=== PATIENT | female | born 1950 | race Caucasian/White ===

== ENCOUNTER → 2018-04-27 | Outpatient (CLI) | payer MEDICARE ==
--- NOTE | 2018-04-28 13:28 | MM ---
Reason for exam: screening (asymptomatic). History: Patient history of other cancer. Benign cyst aspiration of both breasts, 1997. Physical Findings: A clinical breast exam by your physician is recommended on an annual basis and results should be correlated with mammographic findings. MG 3D Screening Mammo W/Cad Bilateral CC and MLO view(s) were taken. No prior studies available for comparison. Finding: There are round, grouped/clustered calcifications in the lower inner quadrant, middle position of the left breast 4cm from the nipple. ASSESSMENT: Incomplete: need additional imaging evaluation, BI-RAD 0 RECOMMENDATION: Special view mammogram of the left breast. [facility] will attempt to contact patient to return for supplemental views.
== END | disposition home or self-care (01) ==
LOC: RADMAMWWP 14:45
PROVIDERS: ATTEND Family Medicine
DX: Z12.31 Encounter for screening mammogram for malignant neoplasm of breast (principal)
CPT/HCPCS: 77063; 77067

== ENCOUNTER → 2018-05-02 | Outpatient (CLI) | payer MEDICARE ==
--- NOTE | 2018-05-02 10:41 | US ---
EXAMINATION TYPE: US abdomen complete DATE OF EXAM: 05/02/2018 COMPARISON: NONE CLINICAL HISTORY: R10.84 Generalized abdominal pain R74.8 Elevated lipase; mid abd pain x 5 years; ta celsa Palma EXAM MEASUREMENTS: Liver Length: 15.4 cm Gallbladder Wall: 0.2 cm CBD: 0.4 cm Spleen: 9.2 cm Right Kidney: 9.6 x 5.5 x 3.8 cm Left Kidney: 8.9 x 5.1 x 5.1 cm Pancreas: wnl as seen; mid and tail gassed out Liver: fatty as is hyperechoic to right renal cortex Gallbladder: wnl Evidence for sonographic Mcintyre's sign: no CBD: wnl Spleen: wnl Right Kidney: No hydronephrosis or masses seen ; crescent shaped anechoic area adjacent to right mid periphery Left Kidney: No hydronephrosis or masses seen Upper IVC: wnl Abd Aorta: intimal wall thickening seen mid and distal aorta There is no ascites. IMPRESSION: Findings may represent hepatic steatosis. There may be a small amount of perinephric flui d on the right.
--- NOTE | 2018-05-02 11:15 | ECHOF ---
Referral Reason:R01.1 stystolic murmur MEASUREMENTS -------- HEIGHT: 161.3 cm WEIGHT: 81.6 kg BP: 147/67 RVIDd: 3.0 cm (< 3.3) IVSd: 1.2 cm (0.6 - 1.1) LVIDd: 3.2 cm (3.9 - 5.3) LVPWd: 1.2 cm (0.6 - 1.1) IVSs: 1.7 cm LVIDs: 2.3 cm LVPWs: 1.7 cm LA Diam: 3.2 cm (2.7 - 3.8) LAESV Index (A-L): 30.52 ml/m Ao Diam: 3.4 cm (2.0 - 3.7) AV Cusp: 1.5 cm (1.5 - 2.6) MV EXCURSION: 8.677 mm (> 18.000) MV EF SLOPE: 39 mm/s (70 - 150) EPSS: 0.6 cm MV E Nathan: 0.78 m/s MV DecT: 303 ms MV A Nathan: 0.99 m/s MV E/A Ratio: 0.79 AV maxP.80 mmHg AV meanP.83 mmHg AR PHT: 622 ms RAP: 5.00 mmHg RVSP: 30.81 mmHg FINDINGS -------- Sinus rhythm. This was a technically adequate study. The left ventricular size is normal. There is borderline concentric left ventricular hypertrophy. Overall left ventricular systolic function is normal with, an EF between 55 - 60 %. The right ventricle is normal in size. LA is midly dilated 29-33ml/m2. The right atrium is normal in size. There is moderate aortic valve sclerosis. There is mild aortic regurgitation. There is moderate a ortic stenosis present. Peak/mean gradient across the Aortic Valve is 42.80mmHg / 20.83mmHg. The mitral valve leaflets are mildly thickened. Mild mitral annular calcification present. Mild m itral regurgitation is present. Mild tricuspid regurgitation present. Right ventricular systolic pressure is normal at < 35 mmHg. The pulmonic valve was not well visualized. The aortic root size is normal. Normal inferior vena cava with normal inspiratory collapse consistent with estimated right atrial pre ssure of 5 mmHg. There is no pericardial effusion. CONCLUSIONS -------- 1. Sinus rhythm. 2. This was a technically adequate study. 3. The left ventricular size is normal. 4. There is borderline concentric left ventricular hypertrophy. 5. Overall left ventricular systolic function is normal with, an EF between 55 - 60 %. 6. The right ventricle is normal in size. 7. LA is midly dilated 29-33ml/m2. 8. The right atrium is normal in size. 9. There is moderate aortic valve sclerosis. 10. There is mild aortic regurgitation. 11. There is moderate aortic stenosis present. 12. Peak/mean gradient across the Aortic Valve is 42.80mmHg / 20.83mmHg. 13. The mitral valve leaflets are mildly thickened. 14. Mild mitral annular calcification present. 15. Mild mitral regurgitation is present. 16. Mild tricuspid regurgitation present. 17. Right ventricular systolic pressure is normal at < 35 mmHg. 18. The pulmonic valve was not well visualized. 19. The aortic root size is normal. 20. Normal inferior vena cava with normal inspiratory collapse consistent with estimated right atrial pressure of 5 mmHg. 21. There is no pericardial effusion. CORPORATE PLANNER: Madeline Zazueta RDCS
== END | disposition home or self-care (01) ==
LOC: RADUSWWP 06:59
PROVIDERS: ATTEND Family Medicine
DX: R01.1 Cardiac murmur, unspecified (principal); I10 Essential (primary) hypertension
CPT/HCPCS: 76700; 93306

== ENCOUNTER → 2018-05-02 | Outpatient (CLI) | payer MEDICARE ==
--- NOTE | 2018-05-02 14:36 | MM ---
Reason for exam: additional evaluation requested from abnormal screening. Last mammogram was performed less than 1 month ago. History: Patient history of other cancer. Benign cyst aspiration of both breasts, 1997. Physical Findings: Nurse did not find any significant physical abnormalities on exam. MG 3D Work Up W/Cad LT CC and MLO view(s) were taken of the left breast. Prior study comparison: April 27, 2018, bilateral MG 3d screening mammo w/cad. Finding: There are indeterminate calcifications in the 3 o'clock position of the left breast. These results were verbally communicated with the patient and result sheet given to the patient on 05/02/18. ASSESSMENT: Suspicious, BI-RAD 4 RECOMMENDATION: Stereotactic core biopsy of the left breast. Called Dr. Melendrez with mammographic findings and has scheduled an appointment for the patient for 05/20/18 at 12:[address] Dunn. Biopsy scheduled for 06/03/18 at 8:00. PRELIMINARY REPORT CALLED AND FAXED TO DR. DUNN ON 05/02/18.
== END ==
LOC: RADMAMWWP 08:09
PROVIDERS: ATTEND Family Medicine
DX: R92.8 Other abnormal and inconclusive findings on diagnostic imaging of breast (principal)
CPT/HCPCS: 77065; G0279; 77061

== ENCOUNTER 2018-05-10 12:01 | Day surgery (SDC) | payer MEDICARE ==
[2018-05-05 11:47] VITALS: BMI 31.7
[~2018-05-10 12:01] MED LIST: LIDOCAINE 1% 20 ML VIAL (10MG/ML) FOR IV START INTRADERMA PRN
[2018-05-10 12:54] VITALS: TEMP 98.2
[2018-05-10] MEDS: LACTATED RINGERS 1,000 ML IV SCH ×2 (13:03→14:16)
[2018-05-10] MEDS ORDERED: LIDOCAINE 1% INJ 10MG/ML (20 ML MDV) ONE (14:18)
[2018-05-10] MEDS ORDERED: PROPOFOL 10 MG/ML 20 ML VIAL IV ONE (14:18)
[2018-05-10] MEDS ORDERED: IV FLUID CONTINUATION 450 ML IV ONE (14:43)
--- NOTE | 2018-05-10 14:49 | P.PCN ---
Date of Procedure: 05/10/18 Procedure(s) Performed: Procedure: Total colonoscopy. Preoperative diagnosis: Screening for neoplasia. Postoperative diagnosis: Sigmoid diverticulosis with no evidence of acute diverticulitis, strictures, polyps or cancer. Preparation: HalfLytely prep. Sedation: Was provided by anesthesia. Brief clinical history: The patient is a 67-year-old female who is scheduled for this evaluation for screening for neoplasia age being her risk factor. There is no family history of colon cancer. She had no prior colonoscopy. She has no abdominal complaints, bleeding or anemia. Procedure: With the patient on her left lateral decubitus position and after informed consent and adequate sedation, the perianal area was inspected and it did not show any fissures or fistulas. There were no masses felt on digital rectal examination. The Olympus CFQ 160L video colonoscope was then inserted in the rectum in the usual fashion and advanced to the cecum. There were multiple diverticular orifices seen scattered in the sigmoid but I saw no evidence of acute diverticulitis or strictures. No polyps or tumors were seen. The mucosa appeared healthy. I retroflexed the endoscope in the rectum before the endoscope was withdrawn. The patient tolerated the procedure well. Plan: The patient was reassured. Discussed dietary measures. She will follow- up with you as planned and I recommended repeat exam in 10 years.
[2018-05-10 14:56] VITALS: BP 150/74; PULSE 50; RESP 18
== END 2018-05-10 15:45 | disposition home or self-care (01) ==
LOC: ORWHC2ENDO 12:01
DX: Z12.11 Encounter for screening for malignant neoplasm of colon (principal); K57.30 Diverticulosis of large intestine without perforation or abscess without bleeding; M19.90 Unspecified osteoarthritis, unspecified site; I10 Essential (primary) hypertension; K21.9 Gastro-esophageal reflux disease without esophagitis; E78.5 Hyperlipidemia, unspecified; Z88.1 Allergy status to other antibiotic agents; Z91.041 Radiographic dye allergy status; Z79.899 Other long term (current) drug therapy
CPT/HCPCS: J2001; J2704; G0121

== ENCOUNTER → 2018-05-20 | Outpatient (CLI) | payer MEDICARE ==
[2018-05-20 13:12] VITALS: BP 140/62; PULSE 71; RESP 18; TEMP 98.3; BMI 31.4
--- NOTE | 2018-05-20 13:34 | P.GSHP ---
History of Present Illness H&P Date: 05/20/18 Chief Complaint: abnormal mammogram Dara is a 67-year-old white female who was not had a mammogram for approximately 20 years. She him promise to a family member of decided to proceed with a bilateral mammogram. She had not felt anything in her breasts. She has no nipple discharge or skin changes. She has no history of any trauma or infection in the breast. Bilateral mammogram was performed [id number]. There were noted to be group clustered calcifications in the lower inner quadrant in the left breast 4 cm from the nipple. Additional views of the left breast were obtained on 05/02/2018 and these revealed the calcifications again in the 3 o' clock position of the left breast. This was therefore felt to be suspicious and stereotactic core biopsy of the left breast was recommended. Family History: grandson: thymic cancer at 28 sister, father, mother: skin cancer patient: cancer of uterus Hormonal History: menarche:17 : 3, 3 children, breast fed: no, first at 21 menopause: hysterectomy partial at 27, cancer of uterus BCP: 2 years hormones: no Past surgical History: 1. hysterctomy 2. tonsil 3. D&C 4. bilateral breast cyst aspiration 5. oral surgery Past Medical History: 1. Difficulty swallowing 2. GERD Social History: smoke: stopped August 2017 alcohol: several drinks a week drugs: none - Constitutional Constitutional: Denies chills, Denies fever - EENT Comment: Bilateral astigmatism Eyes: bilateral pain, denies blurred vision Ears: deny: decreased hearing, tinnitus Ears, nose, mouth and throat: Reports headache - Breasts Breasts: bilateral: as per HPI - Cardiovascular Comment: murmur Cardiovascular: Denies chest pain, Denies shortness of breath - Respiratory Respiratory: Denies cough, Denies 7 - Gastrointestinal Comment: GERD Gastrointestinal: Denies abdominal pain, Denies diarrhea, Denies nausea, Denies vomiting - Genitourinary (Female) Genitourinary: Reports kidney stones, Denies dysuria, Denies hematuria - Menstruation Menstruation: Reports post hysterectomy - Musculoskeletal Comment: arthritis ? fibromyalgia - Integumentary Comment: psoriasis - Neurological Neurological: Reports numbness, Denies weakness - Psychiatric Psychiatric: Denies anxiety, Denies depression - Endocrine Endocrine: Reports fatigue - Hematologic/Lymphatic Comment: none - Allergic/Immunologic Allergic/Immunologic: Reports as per HPI Past Medical History Past Medical History: GERD/Reflux, Hyperlipidemia, Osteoarthritis (OA) Additional Past Medical History / Comment(s): blood pressure "fluctuates", doctor monitoring History of Any Multi-Drug Resistant Organisms: None Reported Past Surgical History: Hysterectomy, Tonsillectomy Additional Past Surgical History / Comment(s): D&C and partial hysterectomy at age 27 (bilateral ovaries retained), bilateral cyst aspirations in age 40's ( benign) Past Anesthesia/Blood Transfusion Reactions: No Reported Reaction Past Psychological History: No Psychological Hx Reported Smoking Status: Former smoker Past Alcohol Use History: None Reported Additional Past Alcohol Use History / Comment(s): smoked "on and off during stress for 30 years, up to 1PPD" Quit 09/13/17 Past Drug Use History: None Reported - Past Family History Mother Family Medical History: Cancer Additional Family Medical History / Comment(s): SKIN CANCER Father Family Medical History: Cancer Additional Family Medical History / Comment(s): SKIN CANCER Sister(s) Family Medical History: Cancer Additional Family Medical History / Comment(s): SKIN CANCER Medications and Allergies Home Medications Medication Instructions Recorded Confirmed Type Famotidine [Pepcid] 40 mg PO HS 05/05/18 05/20/18 History Atorvastatin [Lipitor] 20 mg PO HS 05/18/18 05/20/18 History Allergies Allergy/AdvReac Type Severity Reaction Status Date / Time erythromycin base Allergy Itching Verified 05/20/18 12:57 IVORY Allergy Rash/Hives Uncoded 05/20/18 12:57 Surgical - Exam BMI 31.4 - General well developed, well nourished, no distress - Eyes normal ocular movement - ENT eduntulus no hearing loss - Neck no masses, trachea midline - Respiratory normal respiratory effort, clear to auscultation - Cardiovascular Systolic ejection murmur Rhythm: regular Heart Sounds: normal: S1, S2 - Abdomen Abdomen: soft - Integumentary normal turger - Musculoskeletal normal gait, normal posture - Psychiatric oriented to time, oriented to person, oriented to place, speech is normal, memory intact breast exam: Right breast: Multi-positional exam no dominant masses or nodules of concern Right axilla: No adenopathy of concern Left breast: Multi-positional exam no dominant masses or nodules of concern Left axilla: No adenopathy of concern Results Mammogram results reviewed Assessment and Plan Assessment: Impression: 1. Mammographic abnormality left breast 2. Difficulty swallowing 3. GERD 4. Intermittent left-sided numbness which is to be worked up by medicine Plan: 1. Stereotactic core biopsy left breast 2. Medical management of medical problems Risk and benefits of the procedure were discussed with the patient. She understands and this will be scheduled in the near future. CC: Aneesh
== END | disposition home or self-care (01) ==
LOC: WWCWWP 12:39
PROVIDERS: ATTEND Surgery
DX: Z53.9 Procedure and treatment not carried out, unspecified reason (principal)

== ENCOUNTER → 2018-06-03 | Day surgery (SDC) | payer MEDICARE ==
[2018-06-03 07:22] VITALS: RESP 12
--- NOTE | 2018-06-03 08:47 | P.OP ---
Date of Procedure: 06/03/18 Preoperative Diagnosis: Mammographic abnormality left breast Postoperative Diagnosis: Same Procedure(s) Performed: Left breast stereotactic core biopsy Anesthesia: local Surgeon: Maryellen Crocker Estimated Blood Loss (ml): 0 Pathology: other (Breast tissue) Condition: stable Disposition: same day Indications for Procedure: Mammographic abnormality left breast 3 o'clock position indeterminate calcifications Operative Findings: Microcalcifications noted in specimen Description of Procedure: Dara is a 67-year-old white female who presented with a mammogram revealing an area of indeterminate calcifications in 3 o'clock position of the left breast. No palpable abnormalities were noted. It was recommended that the patient undergo stereotactic core biopsy. The location of the calcifications were in the 3 o'clock position left breast. Risk and benefits of the procedure were discussed with the patient the patient wished to proceed. Patient was taken to the stereotactic core biopsy room. She laid supine on this low rad table and a business process consultant film was obtained revealing the area of concern in the left breast. A lateral to medial approach was utilized. A business process consultant film was obtained revealing the area of concern. Following this a stereo pair was obtained. The lesion was targeted. The breast was prepped using Betadine. Approximately 20 mL of 1% lidocaine was used to anesthetize the area of concern. A 9-gauge vacuum-assisted rotating core biopsy needle was driven to the correct coordinates. A prefire film was obtained to assure this was in the correct location and a post-fire film was then obtained. Approximately 12 core biopsies were obtained. Radiograph the specimen revealed microcalcifications of concern had been removed. A secure marked top Marker was placed. Radiograph confirmed that this was in the correct location. The specimen was sent to pathology. The patient will follow-up with Dr. Lara in 1 week. There were no immediate post-procedure complications.
[2018-06-03 08:58] VITALS: BP 128/77; PULSE 60; TEMP 98.7
--- NOTE | 2018-06-03 16:28 | MM ---
EXAMINATION TYPE: MG stereo VAD BX LT DATE OF EXAM: 06/03/2018 COMPARISON: Left breast mammogram 05/02/2018 CLINICAL HISTORY: Abnormal mammogram TECHNIQUE: Stereotactic guided core biopsy of left breast. Targeted area was performed by surgery. The procedure was performed by surgery. Post procedure mammogram is presented. A tophat clip is within the left breast at the expected region of the indications. Specimen: Specimen images demonstrate calcifications within the specimen. IMPRESSION: 1. Successful stereotactic core biopsy left breast calcifications. Recommendations: 1. Recommendations are pending pathology results. Pathology Results: Benign CORE BIOPSY, LEFT BREAST: Columnar cell changes, without atypia. Duct ectasia, lobular dilatation and apocrine metaplasia. Microcalcifications are present. Recommendation Follow up mammogram of the left breast in 6 months. KATIE
== END ==
LOC: RADMAMWWP 07:00
PROVIDERS: ATTEND Surgery
DX: N60.42 Mammary duct ectasia of left breast (principal); N60.82 Other benign mammary dysplasias of left breast
CPT/HCPCS: 88305; 19081; A4648; J2001

== ENCOUNTER → 2018-06-09 | Outpatient (CLI) | payer MEDICARE ==
[2018-06-09 12:32] VITALS: BP 114/75; PULSE 64; RESP 18; TEMP 98.2; BMI 32.2
--- NOTE | 2018-06-09 13:04 | P.PN ---
Progress Note - Text Progress Note Date: 06/09/18 Dara is status post left breast stereotactic core biopsy [id number]. Pathology revealed columnar cell changes without atypia. Duct ectasia, lobular dilatation and apocrine metaplasia. Microcalcifications were present. The patient has no complaints related to the biopsy. Physical examination: Left breast: Mild ecchymosis, no infection Impression: 1. Left breast biopsy stereotactic benign breast tissue Plan: 1. Repeat left breast mammogram in physician exam in 6 months CC: Aneesh
== END ==
LOC: WWCWWP 11:47
PROVIDERS: ATTEND Surgery
DX: Z53.9 Procedure and treatment not carried out, unspecified reason (principal)

== ENCOUNTER → 2018-11-25 | Outpatient (CLI) | payer MEDICARE ==
[2018-11-25 12:47] LABS: Basophils % (A) 1 %; Eosinophils # (A) 0.2 k/uL (0-0.7); Eosinophils % (A) 4 %; HCT 38.9 % (34.0-46.0); HGB 12.7 gm/dL (11.4-16.0); Lymphocytes # (A) 1.9 k/uL (1.0-4.8); Lymphocytes % (A) 32 %; MCH 30.2 pg (25.0-35.0); MCHC 32.7 g/dL (31.0-37.0); MCV 92.5 fL (80.0-100.0); Mean Platelet Volume 7.3; Monocytes # (A) 0.3 k/uL (0-1.0); Monocytes % (A) 5 %; Neutrophils # (A) 3.3 k/uL (1.3-7.7); Neutrophils % (A) 57 %; Platelet Count 209 k/uL (150-450); RDW 13.5 % (11.5-15.5); WBC 5.8 k/uL (3.8-10.6)
[2018-11-25 19:48] LABS: Hepatitis B Surface AB- Quant 18.4 mIU/mL; Hepatitis C IgG Antibody Non-Reactive (Non-Reactive)
== END | disposition home or self-care (01) ==
LOC: LABWHC1 11:52
PROVIDERS: ATTEND Dermatology
DX: L40.0 Psoriasis vulgaris (principal)
CPT/HCPCS: 36415; 82565; 84450; 84460; 84520; 85025; 86706; 86803; 87350

== ENCOUNTER → 2019-03-31 | Outpatient (CLI) | payer MEDICARE ==
[2019-03-31 14:21] LABS: Basophils % (A) 0 %; Eosinophils # (A) 0.2 k/uL (0-0.7); Eosinophils % (A) 3 %; HCT 41.3 % (34.0-46.0); HGB 13.6 gm/dL (11.4-16.0); Lymphocytes # (A) 1.6 k/uL (1.0-4.8); Lymphocytes % (A) 27 %; MCV 96.8 fL (80.0-100.0); Mean Platelet Volume 5.8; Monocytes # (A) 0.3 k/uL (0-1.0); Monocytes % (A) 4 %; Neutrophils # (A) 3.9 k/uL (1.3-7.7); Neutrophils % (A) 64 %; Platelet Count 225 k/uL (150-450); RBC 4.27 m/uL (3.80-5.40); RDW 12.7 % (11.5-15.5); WBC 6.1 k/uL (3.8-10.6)
[2019-03-31 19:39] LABS: HIV 1 AB Non-Reactive (Non-Reactive); HIV 2 AB Non-Reactive (Non-Reactive); HIV AB P24 Non-Reactive (Non-Reactive); HIV P24 AG Non-Reactive (Non-Reactive)
[2019-03-31 21:19] LABS: African American GFR (CKD) 88.4 (60.0-200.0); Albumin 4.3 g/dL (3.80-4.90); Albumin/Globulin Ratio 2.39 (1.60-3.17); Anion Gap 9.1 mmol/L (4.00-12.00); Calcium 9.3 mg/dL (8.7-10.3); Carbon Dioxide 27.9 mmol/L (21.6-31.8); Globulin 1.8 g/dL (1.6-3.3); Potassium 4.7 mmol/L (3.5-5.5); Total Bilirubin 0.6 mg/dL (0.3-1.2); Total Protein 6.1 g/dL (6.2-8.2)
[2019-03-31 22:00] LABS: Hepatitis A Antibody IgM Non-Reactive (Non-Reactive); Hepatitis B Core IgM Non-Reactive (Non-Reactive); Hepatitis B Surface Antigen Non-Reactive (Non-Reactive); Hepatitis C IgG Antibody Non-Reactive (Non-Reactive)
== END | disposition home or self-care (01) ==
LOC: LABWHC1 12:58
PROVIDERS: ATTEND Student in an Organized Health Care Education/Training Program
DX: L40.0 Psoriasis vulgaris (principal)
CPT/HCPCS: 36415; 80053; 80074; 85025; 86038; 86039; 87390

== ENCOUNTER → 2019-04-14 | Outpatient (CLI) | payer MEDICARE ==
[2019-04-17 13:16] LABS: ANA Pattern Centromere
== END | disposition home or self-care (01) ==
LOC: LABWHC1 13:57
PROVIDERS: ATTEND Specialist
DX: L40.0 Psoriasis vulgaris (principal)
CPT/HCPCS: 36415; 86038; 86039

== ENCOUNTER 2019-08-28 18:25 | Inpatient (IN) | payer MEDICARE ==
[2019-08-28 18:59] LABS: Basophils % (A) 1 %; Eosinophils # (A) 0.2 k/uL (0-0.7); Eosinophils % (A) 4 %; HCT 40.6 % (34.0-46.0); HGB 13.4 gm/dL (11.4-16.0); Lymphocytes # (A) 1.7 k/uL (1.0-4.8); Lymphocytes % (A) 26 %; MCH 31.3 pg (25.0-35.0); MCHC 32.9 g/dL (31.0-37.0); MCV 95.4 fL (80.0-100.0); Mean Platelet Volume 7.2; Monocytes # (A) 0.4 k/uL (0-1.0); Monocytes % (A) 7 %; Neutrophils % (A) 62 %; Platelet Count 206 k/uL (150-450); RBC 4.26 m/uL (3.80-5.40); RDW 12.9 % (11.5-15.5); WBC 6.5 k/uL (3.8-10.6)
[2019-08-28 19:04] LABS: INR 0.9 (<1.2); Partial Thromboplastin Time 22.2 sec (22.0-30.0); Prothrombin Time 9.5 sec (9.0-12.0)
[2019-08-28 19:07] LABS: Appearance,Urine Clear (Clear); Bacteria,Urine Rare /hpf; Bilirubin,Urine Negative (Negative); Blood,Urine Small (Negative); Color,Urine Yellow; Glucose,Urine (UA) Negative (Negative); Ketones,Urine Negative (Negative); Leukocyte Esterase,Urine Negative (Negative); Mucus,Urine Rare /hpf; Nitrite,Urine Negative (Negative); PH, Urine 7.5 (5.0-8.0); Protein,Urine Negative (Negative); RBC,Urine 3 /hpf (0-5); Specific Gravity,Urine 1.019 (1.001-1.035); Squamous Epithelial Cell,Urine 3 /hpf (0-4); WBC,Urine 1 /hpf (0-5)
[2019-08-28 19:12] LABS: ALT 46 U/L (4-34); AST 45 U/L (14-36); African American GFR (CKD) >90 (>60 ml/min/1.73 sqM); Albumin 4.3 g/dL (3.5-5.0); Alkaline Phosphatase 111 U/L (38-126); Anion Gap 7 mmol/L; Blood Urea Nitrogen 17 mg/dL (7-17); Calcium 9.2 mg/dL (8.4-10.2); Carbon Dioxide 29 mmol/L (22-30); Chloride 104 mmol/L (98-107); Glucose 101 mg/dL (74-99); Non-African American GFR(CKD) 78 (>60 ml/min/1.73 sqM); Potassium 4.2 mmol/L (3.5-5.1); Sodium 140 mmol/L (137-145); Total Bilirubin 0.5 mg/dL (0.2-1.3); Total Protein 7.1 g/dL (6.3-8.2)
[2019-08-28 19:19] LABS: Creatine Kinase 38 U/L (30-135)
--- NOTE | 2019-08-28 19:20 | CT ---
EXAMINATION TYPE: CT brain wo con for TPA DATE OF EXAM: 08/28/2019 HISTORY: cva. Acute onset neuro deficit. CT DLP: 1119.4 mGycm. Automated Exposure Control for Dose Reduction was Utilized. TECHNIQUE: CT scan of the head is performed without contrast. COMPARISON: CT brain December 06, 2012. MRI brain December 19, 2012. FINDINGS: There is no acute intracranial hemorrhage or midline shift identified. There is diffuse v entricular and sulcal prominence consistent with diffuse age-related cerebral atrophy. There is low- attenuation in the periventricular white matter consistent with chronic small vessel ischemic change. New vague area of low attenuation high right frontal parietal junction axial image 36. Focal moderat e mucosal thickening in the inferior lateral left maxillary sinus is present on lowermost axial image s. The globes are intact and the visualized sinuses otherwise are clear. Patchy soft tissue density right external auditory canal is thought to reflect cerumen similar to prior CT 2013. IMPRESSION: No acute intracranial hemorrhage or midline shift. There is background mild diffuse age -related cerebral atrophy and mild to moderate chronic small vessel ischemic change redemonstrated. New vague 1.0 x 0.6 cm area high right frontal parietal junction axial image 36 could reflect area of acute ischemia new from prior studies.
[2019-08-28 19:31] LABS: Creatine Kinase MB 0.4 ng/mL (0.0-2.4); Troponin I <0.012 ng/mL (0.000-0.034)
--- NOTE | 2019-08-28 20:58 | ED ---
Neuro HPI - General Chief Complaint: Neuro Symptoms/Deficit Stated Complaint: left side numbness/SOB Time Seen by Provider: 08/28/19 18:38 Source: patient Mode of arrival: ambulatory Limitations: no limitations - History of Present Illness Is the patient presenting with stroke symptoms?: Yes Initial Comments: This 68-year-old female presents with a complaint of some left sided numbness. She states that it is present to her left face, left arm, and left leg. She relates that she first noted this upon waking at approximately 3 PM. She apparently went to sleep around 1 PM today. Therefore, her last known well time is at 1 PM today. She states that her left side also feels somewhat weak. She also complains of some blurry vision. She denies any previous similar incidents. There is no headache. She does complain of occasional slight shortness of breath. She has had occasional chest pain as well. She denies any recent illnesses, fever, or chills. There is no leg pain or swelling. No other complaints or modifying factors. - Related Data Home Medications: Home Medications Medication Instructions Recorded Confirmed Famotidine [Pepcid] 40 mg PO HS 05/05/18 06/09/18 Atorvastatin [Lipitor] 20 mg PO HS 05/18/18 06/09/18 Allergies/Adverse Reactions: Allergies Allergy/AdvReac Type Severity Reaction Status Date / Time erythromycin base Allergy Itching Verified 08/28/19 21:43 IVORY Allergy Rash/Hives Uncoded 08/28/19 18:31 Review of Systems ROS Statement: Those systems with pertinent positive or pertinent negative responses have been documented in the HPI. ROS Other: All systems not noted in ROS Statement are negative. General Exam - General Exam Comments Initial Comments: GENERAL: The patient is well nourished and well hydrated. VITAL SIGNS: Heart rate, blood pressure, respiratory rate reviewed as recorded in nurse's notes. EYES: Pupils are round and reactive. Extraocular movements are intact. No conjunctival / lid redness or swelling. ENT: No external evidence of injury, swelling, or ecchymosis. Airway is patent. Throat is clear. NECK: Nontender. No swelling or evidence of injury. No subcutaneous emphysema. Trachea is midline. No thyroid mass. HEART: Regular rate and rhythm. Good peripheral pulses. LUNGS/CHEST: Breath sounds clear and equal bilaterally. No rales, rhonchi, or wheezes. No ecchymosis, subcutaneous emphysema, or tenderness. ABDOMEN: Abdomen soft without tenderness. No palpable masses or organomegaly. No peritoneal signs. No abdominal wall swelling or ecchymosis. EXTREMITIES: No extremity tenderness. No thoracolumbar tenderness. There is subjective numbness to the left face and left upper extremity and left lower extremity. There is some slight weakness noted to the left lower extremity. NEUROLOGIC: Sensation is grossly intact. Cranial nerve exam reveals face is symmetrical, tongue is midline, speech is clear. SKIN: No abrasions or ecchymosis is noted. No induration or masses noted. PSYCHIATRIC: Alert and oriented. Appropriate behavior and judgment. Limitations: no limitations Stroke MDM - Lab Data Result diagrams: 08/28/19 18:45 08/28/19 18:45 Lab Results 08/28/19 08/28/19 08/28/19 Range/Units 18:35 18:45 18:45 WBC 6.5 (3.8-10.6) k/uL RBC 4.26 (3.80-5.40) m/uL Hgb 13.4 (11.4-16.0) gm/dL Hct 40.6 (34.0-46.0) % MCV 95.4 (80.0-100.0) fL MCH 31.3 (25.0-35.0) pg MCHC 32.9 (31.0-37.0) g/dL RDW 12.9 (11.5-15.5) % Plt Count 206 (150-450) k/uL Neutrophils % 62 % Lymphocytes % 26 % Monocytes % 7 % Eosinophils % 4 % Basophils % 1 % Neutrophils # 4.0 (1.3-7.7) k/uL Lymphocytes # 1.7 (1.0-4.8) k/uL Monocytes # 0.4 (0-1.0) k/uL Eosinophils # 0.2 (0-0.7) k/uL Basophils # 0.0 (0-0.2) k/uL PT (9.0-12.0) sec INR (<1.2) APTT (22.0-30.0) sec Sodium 140 (137-145) mmol/L Potassium 4.2 (3.5-5.1) mmol/L Chloride 104 (98-107) mmol/L Carbon Dioxide 29 (22-30) mmol/L Anion Gap 7 mmol/L BUN 17 (7-17) mg/dL Creatinine 0.79 (0.52-1.04) mg/dL Est GFR (CKD-EPI)AfAm >90 (>60 ml/min/1.73 sqM) Est GFR (CKD-EPI)NonAf 78 (>60 ml/min/1.73 sqM) Glucose 101 H (74-99) mg/dL Calcium 9.2 (8.4-10.2) mg/dL Total Bilirubin 0.5 (0.2-1.3) mg/dL AST 45 H (14-36) U/L ALT 46 H (4-34) U/L Alkaline Phosphatase 111 (38-126) U/L Total Creatine Kinase (30-135) U/L CK-MB (CK-2) (0.0-2.4) ng/mL CK-MB (CK-2) Rel Index Troponin I (0.000-0.034) ng/mL NT-Pro-B Natriuret Pep pg/mL Total Protein 7.1 (6.3-8.2) g/dL Albumin 4.3 (3.5-5.0) g/dL Urine Color Yellow Urine Appearance Clear (Clear) Urine pH 7.5 (5.0-8.0) Ur Specific Roland 1.019 (1.001-1.035) Urine Protein Negative (Negative) Urine Glucose (UA) Negative (Negative) Urine Ketones Negative (Negative) Urine Blood Small H (Negative) Urine Nitrite Negative (Negative) Urine Bilirubin Negative (Negative) Urine Urobilinogen 2.0 (<2.0) mg/dL Ur Leukocyte Esterase Negative (Negative) Urine RBC 3 (0-5) /hpf Urine WBC 1 (0-5) /hpf Ur Squamous Epith Cells 3 (0-4) /hpf Urine Bacteria Rare H (None) /hpf Urine Mucus Rare H (None) /hpf 08/28/19 08/28/19 08/28/19 Range/Units 18:45 18:45 18:45 WBC (3.8-10.6) k/uL RBC (3.80-5.40) m/uL Hgb (11.4-16.0) gm/dL Hct (34.0-46.0) % MCV (80.0-100.0) fL MCH (25.0-35.0) pg MCHC (31.0-37.0) g/dL RDW (11.5-15.5) % Plt Count (150-450) k/uL Neutrophils % % Lymphocytes % % Monocytes % % Eosinophils % % Basophils % % Neutrophils # (1.3-7.7) k/uL Lymphocytes # (1.0-4.8) k/uL Monocytes # (0-1.0) k/uL Eosinophils # (0-0.7) k/uL Basophils # (0-0.2) k/uL PT 9.5 (9.0-12.0) sec INR 0.9 (<1.2) APTT 22.2 (22.0-30.0) sec Sodium (137-145) mmol/L Potassium (3.5-5.1) mmol/L Chloride (98-107) mmol/L Carbon Dioxide (22-30) mmol/L Anion Gap mmol/L BUN (7-17) mg/dL Creatinine (0.52-1.04) mg/dL Est GFR (CKD-EPI)AfAm (>60 ml/min/1.73 sqM) Est GFR (CKD-EPI)NonAf (>60 ml/min/1.73 sqM) Glucose (74-99) mg/dL Calcium (8.4-10.2) mg/dL Total Bilirubin (0.2-1.3) mg/dL AST (14-36) U/L ALT (4-34) U/L Alkaline Phosphatase (38-126) U/L Total Creatine Kinase 38 (30-135) U/L CK-MB (CK-2) 0.4 (0.0-2.4) ng/mL CK-MB (CK-2) Rel Index 1.1 Troponin I <0.012 (0.000-0.034) ng/mL NT-Pro-B Natriuret Pep 134 pg/mL Total Protein (6.3-8.2) g/dL Albumin (3.5-5.0) g/dL Urine Color Urine Appearance (Clear) Urine pH (5.0-8.0) Ur Specific Roland (1.001-1.035) Urine Protein (Negative) Urine Glucose (UA) (Negative) Urine Ketones (Negative) Urine Blood (Negative) Urine Nitrite (Negative) Urine Bilirubin (Negative) Urine Urobilinogen (<2.0) mg/dL Ur Leukocyte Esterase (Negative) Urine RBC (0-5) /hpf Urine WBC (0-5) /hpf Ur Squamous Epith Cells (0-4) /hpf Urine Bacteria (None) /hpf Urine Mucus (None) /hpf - Medical Decision Making The patient was seen and examined. All diagnostics were reviewed. The patient had a NIH score of 3, please see chart documentation for details. The EKG was done and shows a normal sinus rhythm at a rate of 79. There is no acute ST-T wave changes noted. The IL intervals 142, QRS duration 76, and the QTC intervals 435. The patient also had a laboratory analysis that was unremarkable except for a slight transaminitis. Urinalysis does not show any evidence of infection. The patient had a chest x-ray which does not show any acute processes. The computed tomography scan of the brain without contrast was done and this does show a 1 cm area of possible ischemia. No intracranial bleed is noted. The case was discussed with Dr. Wilkins from interventional neurology and he does not recommend the CTA of the head and neck when I talk to him initially. He felt as though the patient was out of the window for TPA. The NIH stroke score is minimal and is not felt as though intervention is needed. He does recommend admission to the hospital with neurology consult. The case also was discussed with Dr. Moser from internal medicine and they're agreeable with admission with neurology consult AND aspirin on board. Past Medical History Past Medical History: GERD/Reflux, Hyperlipidemia, Osteoarthritis (OA) Additional Past Medical History / Comment(s): blood pressure "fluctuates", doctor monitoring History of Any Multi-Drug Resistant Organisms: None Reported Past Surgical History: Hysterectomy, Tonsillectomy Additional Past Surgical History / Comment(s): D&C and partial hysterectomy at age 27 (bilateral ovaries retained), bilateral cyst aspirations in age 40's (benign) Past Anesthesia/Blood Transfusion Reactions: No Reported Reaction Past Psychological History: No Psychological Hx Reported Smoking Status: Former smoker Past Alcohol Use History: None Reported Past Drug Use History: None Reported - Past Family History Mother Family Medical History: Cancer Additional Family Medical History / Comment(s): SKIN CANCER Father Family Medical History: Cancer Additional Family Medical History / Comment(s): SKIN CANCER Sister(s) Family Medical History: Cancer Additional Family Medical History / Comment(s): SKIN CANCER Course Vital Signs 08/28/19 08/28/19 08/28/19 18:27 18:45 20:45 Temperature 98.9 F Pulse Rate 92 82 80 Respiratory 18 16 16 Rate Blood Pressure 155/95 165/79 166/86 O2 Sat by Pulse 98 99 98 Oximetry Disposition Clinical Impression: Paresthesias, Left leg weakness, Hypertension, Dyspnea, Ischemic stroke Disposition: ADMITTED IP TO THIS HOSP Condition: Good Is patient prescribed a controlled substance at d/c from ED?: No Time of Disposition: 21:57 Decision Date: 08/28/19 Decision Time: 21:57
--- NOTE | 2019-08-28 21:04 | XR ---
EXAMINATION TYPE: XR chest 2V DATE OF EXAM: 08/28/2019 COMPARISON: Chest x-ray December 06, 2012. HISTORY: Altered mental status and weakness. TECHNIQUE: Frontal and lateral views of the chest are obtained. FINDINGS: There is background chronic parenchymal change without suspicious new focal air space opac ity, pleural effusion, or pneumothorax seen. The cardiac silhouette size remains upper limits of nor mal. Overlying EKG leads are present. The osseous structures are demineralized. IMPRESSION: Chronic changes without acute pulmonary process.
[2019-08-28] MEDS ORDERED: ASPIRIN 81 MG PO STA (21:46)
[2019-08-28] MEDS ORDERED: ACETAMINOPHEN TAB 325 MG TAB PO PRN (22:00)
[2019-08-28] MEDS ORDERED: cloNIDine HCL 0.2 MG TAB PO STA (22:04)
[2019-08-29 07:28] LABS: Cholesterol 224 mg/dL (<200); HDL Cholesterol 63 mg/dL (40-60); LDL Cholesterol,Calculated 133 mg/dL (0-99); Triglycerides 138 mg/dL (<150)
--- NOTE | 2019-08-29 08:50 | US ---
EXAMINATION TYPE: US carotid duplex BILAT DATE OF EXAM: 08/29/2019 COMPARISON: NONE CLINICAL HISTORY: Stenosis. Left sided numbness EXAM MEASUREMENTS: RIGHT: Peak Systolic Velocity (PSV) cm/sec ----- Right CCA: 74.1 ----- Right ICA: 88.9 ----- Right ECA: 88.9 ICA/CCA ratio: 1.2 RIGHT: End Diastole cm/sec ----- Right CCA: 18.2 ----- Right ICA: 18.6 ----- Right ECA: 10.9 LEFT: Peak Systolic Velocity (PSV) cm/sec ----- Left CCA: 70.0 ----- Left ICA: 70.0 ----- Left ECA: 70.2 ICA/CCA ratio: 1.0 LEFT: End Diastole cm/sec ----- Left CCA: 19.7 ----- Left ICA: 13.1 ----- Left ECA: 0.0 VERTEBRALS (direction of flow): Right Vertebral: Antegrade Left Vertebral: Antegrade Rhythm: Normal Grayscale, color Doppler, spectral Doppler imaging performed of the carotid arteries. No significant stenosis seen. No elevated velocities. Minimal plaque noted. Waveform analysis does not show significant stenosis of the internal carotid arteries. IMPRESSION: No hemodynamic significant stenosis of the proximal internal carotid arteries by Doppler criteria, an indirect measurement of carotid stenosis
[2019-08-29] MEDS ORDERED: FAMOTIDINE 20 MG TAB PO SCH (09:00)
[2019-08-29] MEDS: ENOXAPARIN 40 MG/0.4 ML SYRINGE SQ SCH (09:43)
[2019-08-29] MEDS: ATORVASTATIN 40 MG TAB PO SCH (09:43)
--- NOTE | 2019-08-29 11:00 | ECHOF ---
Referral Reason:Thrombus MEASUREMENTS -------- HEIGHT: 160.0 cm WEIGHT: 85.7 kg BP: 102/57 RVIDd: 2.7 cm (< 3.3) IVSd: 1.4 cm (0.6 - 1.1) LVIDd: 3.9 cm (3.9 - 5.3) LVPWd: 1.3 cm (0.6 - 1.1) IVSs: 1.9 cm LVIDs: 2.4 cm LVPWs: 1.5 cm LA Diam: 3.2 cm (2.7 - 3.8) LAESV Index (A-L): 22.92 ml/m Ao Diam: 3.4 cm (2.0 - 3.7) AV Cusp: 1.1 cm (1.5 - 2.6) MV EXCURSION: 7.809 mm (> 18.000) MV EF SLOPE: 35 mm/s (70 - 150) EPSS: 0.7 cm MV E Nathan: 0.88 m/s MV DecT: 297 ms MV A Nathan: 1.03 m/s MV E/A Ratio: 0.86 AV maxP.44 mmHg AV meanP.12 mmHg AR PHT: 416 ms RAP: 5.00 mmHg RVSP: 29.32 mmHg TAPSE: 19.91 mm FINDINGS -------- Sinus rhythm. This was a technically good study. The left ventricular size is normal. There is moderate concentric left ventricular hypertrophy. O verall left ventricular systolic function is normal with, an EF between 60 - 65 %. The right ventricle is normal in size. Normal LA size by volume 22+/-6 ml/m2. The right atrium is normal in size. Interatrial and interventricular septum intact. There is moderate aortic valve sclerosis. There is mild aortic regurgitation. There is moderate a ortic stenosis present. Peak/mean gradient across the Aortic Valve is 64.44mmHg / 35.12mmHg. Mild mitral annular calcification present. Mild mitral regurgitation is present. Mild tricuspid regurgitation present. Right ventricular systolic pressure is normal at < 35 mmHg. The pulmonic valve was not well visualized. The aortic root size is normal. Normal inferior vena cava with normal inspiratory collapse consistent with estimated right atrial pre ssure of 5 mmHg. The inferior vena cava is mildly dilated. There is no pericardial effusion. CONCLUSIONS -------- 1. Sinus rhythm. 2. This was a technically good study. 3. The left ventricular size is normal. 4. There is moderate concentric left ventricular hypertrophy. 5. Overall left ventricular systolic function is normal with, an EF between 60 - 65 %. 6. The right ventricle is normal in size. 7. Normal LA size by volume 22+/-6 ml/m2. 8. The right atrium is normal in size. 9. Interatrial and interventricular septum intact. 10. There is moderate aortic valve sclerosis. 11. There is mild aortic regurgitation. 12. There is moderate aortic stenosis present. 13. Peak/mean gradient across the Aortic Valve is 64.44mmHg / 35.12mmHg. 14. Mild mitral annular calcification present. 15. Mild mitral regurgitation is present. 16. Mild tricuspid regurgitation present. 17. Right ventricular systolic pressure is normal at < 35 mmHg. 18. The pulmonic valve was not well visualized. 19. The aortic root size is normal. 20. Normal inferior vena cava with normal inspiratory collapse consistent with estimated right atrial pressure of 5 mmHg. 21. The inferior vena cava is mildly dilated. 22. There is no pericardial effusion. [employer]INING INSTRUCTOR: Madeline Zazueta RDCS
--- NOTE | 2019-08-29 12:00 | P.CNNES ---
History of Present Illness Consult date: 08/29/19 Requesting physician: Fazal Haddad Reason for Consult: CVA History of Present Illness: Patient is a 68-year-old female presented with complaint of some left-sided numbness. Patient states that she has been having numbness of left side of the body from toes up to the left side of the face off and on since 2018 or 2009. These episodes would last from couple days to a week. One time this happened, she went to the ER while she was living in [place], and she was checked over, ran some test, including the lumbar puncture. No particular diagnosis was made. Another time, in 2012, she was at work, got dizzy and had to grab the wall in 2012. She went to ER, and did some tests. She has had 6-7 such episodes. She had a similar episode yesterday with numbness of the left side of the body. Along with that she also felt as if there was a knife stuck in the middle of her back with chest pain, and also had some dizziness, lightheadedness, blurred vision, trouble breathing. She got concerned therefore decided to come to the ER. Patient states that this episode was different, as she never had any other symptoms that she was experiencing this time. She feels tired, generalized weak. She can walk. Patient underwent Computed tomography scan of the head showed no acute intracranial process. There is background mild diffuse age-related cerebral atrophy and [id number] chronic small vessel ischemic change redemonstrated. New vague 1.0 x 0.6 cm area of high right frontal parietal junction and axial images. This could reflect area of acute ischemia, new from prior studies. Chest x-ray showed chronic changes without acute pulmonary process. EKG showed normal sinus rhythm. Carotid Doppler showed no hemodynamically significant stenosis of the proximal ICA. Antegrade flow in both vertebral arteries. Patient's blood test shows normal CBC, PT/PTT, Chem-7 with normal renal functions. AST is mildly elevated 45, ALT 46. Troponin negative. Total cholesterol 224, LDL 133, HDL 63 and triglycerides 138. UA negative. Patient had a 2-D echo performed, in which her EF is 60-65%. Normal left atrial size. Normal right atrial size. There is moderate aortic valve sclerosis. Mild aortic regurgitation. Moderate aortic stenosis. Patient has history of hypertension, denies diabetes. She has smoked off-and-on half pack per day since she was in a teenager. She did quit one time for 5 years after one of the . She was two other times when she quit tobacco use. At present she has stopped smoking 2 years ago. Denies any alcohol use on a regular basis. Review of Systems As above in detail. All other review of systems unremarkable. Past Medical History Past Medical History: GERD/Reflux, Hyperlipidemia, Osteoarthritis (OA) Additional Past Medical History / Comment(s): blood pressure "fluctuates", doctor monitoring History of Any Multi-Drug Resistant Organisms: None Reported Past Surgical History: Hysterectomy, Tonsillectomy Additional Past Surgical History / Comment(s): D&C and partial hysterectomy at age 27 (bilateral ovaries retained), bilateral cyst aspirations in age 41's (benign) Past Anesthesia/Blood Transfusion Reactions: No Reported Reaction Past Psychological History: No Psychological Hx Reported Smoking Status: Former smoker Past Alcohol Use History: None Reported Additional Past Alcohol Use History / Comment(s): smoked "on and off during stress for 30 years, up to 1PPD" Quit 09/13/17 Past Drug Use History: None Reported - Past Family History Mother Family Medical History: Cancer Additional Family Medical History / Comment(s): SKIN CANCER Father Family Medical History: Cancer Additional Family Medical History / Comment(s): SKIN CANCER Sister(s) Family Medical History: Cancer Additional Family Medical History / Comment(s): SKIN CANCER Medications and Allergies Home Medications Medication Instructions Recorded Confirmed Type Famotidine [Pepcid] 40 mg PO HS 05/05/18 08/28/19 History Prednisone (Unknown Dose) 1 tab PO DIRECTED 08/28/19 08/28/19 History Allergies Allergy/AdvReac Type Severity Reaction Status Date / Time erythromycin base Allergy Itching Verified 08/28/19 22:51 methotrexate Allergy Rash/Hives Verified 08/28/19 22:59 IVORY Allergy Rash/Hives Uncoded 08/28/19 18:31 Physical Examination - Vital Signs Vital Signs: Vital Signs Temp Pulse Pulse Resp BP BP Pulse Ox 08/29/19 08:00 96.5 F L 65 119/56 96 08/29/19 04:00 97.6 F 62 16 102/57 97 08/28/19 23:43 68 18 08/28/19 23:15 98.4 F 68 18 148/92 96 08/28/19 22:15 84 18 176/86 98 08/28/19 21:15 79 18 170/88 97 08/28/19 20:45 80 16 166/86 98 08/28/19 18:45 82 16 165/79 99 08/28/19 18:27 98.9 F 92 18 155/95 98 Intake and Output 08/28/19 08/29/19 08/29/19 22:59 06:59 14:59 Intake Total 300 Balance 300 Intake: Oral 300 Other: Voiding Method Toilet # Voids 1 Weight 83.915 kg 86 kg On examination patient is an elderly female, in no acute distress. Patient is alert and awake oriented to time place and person. Speech and language functions are normal. Attention and concentration fund of knowledge is adequate. On cranial nerve examination pupils are round and reactive to light, visual arizmendi are full on confrontation, extraocular muscles intact no nystagmus. Face is symmetric and tongue protrudes the midline. Palatal elevation and sensation normal. On muscle strength testing there is no obvious pronator drift, although her left arm goes up and down. However no pronator drift. The strength appears normal in the arms and legs, except left hip flexion appears slightly weaker 5-as compared to the right side. Reflexes are 1+ and plantars are downgoing. Sensory touch is decreased for temperature and touch involving left side of the body. No ataxia for [id number] testing. Tone and bulk of muscles normal. No obvious carotid bruit or murmur. Peripheral pulses present. Results - Laboratory Findings CBC and BMP: 08/28/19 18:45 08/28/19 18:45 Abnormal Lab Findings: Abnormal Labs 08/28/19 08/28/19 08/29/19 18:35 18:45 06:20 Glucose 101 H AST 45 H ALT 46 H Cholesterol 224 H LDL Cholesterol, Calc 133 H HDL Cholesterol 63 H Urine Blood Small H Urine Bacteria Rare H Urine Mucus Rare H Assessment and Plan Assessment: * 68-year-old female admitted with numbness of left side of the body. Patient also has similar episodes 6-7 times in the past in the last 10 years, lasting for a couple days to a week. Rule out TIA/CVA. However this time she is also experiencing chest pain, dizziness, blurred vision and shortness of breath, therefore need to rule out cardiac process as well. * Hypertension * Moderate aortic stenosis. * Hyperlipidemia * X tobacco use Plan: * We will perform an MRI of the brain to rule out any acute CVA. MRA of the head to rule out intracranial atherosclerosis/stenosis. * Suggest cardiology evaluation for chest pain, rule out cardiac etiology and also to evaluate for moderate aortic stenosis, noted on 2-D echo. * Patient has been started on aspirin 325 mg daily, and Lipitor 40 mg daily for hyperlipidemia.
--- NOTE | 2019-08-29 13:43 | P.HPIM ---
History of Present Illness This is a pleasant 68 years old female with past medical history of hyperlipidemia, osteoarthritis and gastroesophageal reflux disease. Patient presents with left-sided numbness including the face arm and leg with weakness in the arm and leg associated with blurred vision in the left eye and some difficulty swallowing of one-day duration associated with mild to moderate occipital headache which is improved now. Also patient was complaining of from central chest pain, nonradiating, comes and goes about twice since yesterday about 3/10 in severity nonspecific in character associated with some dyspnea No abdominal pain, no nausea vomiting or change in urine or bowel habits She denies smoking, alcohol or illicit drugs Vitals are stable, labs including CBC, INR, BMP were unremarkable, liver enzymes slightly elevated with AST at 45 and ALT of 46, cholesterol slightly elevated urine analysis is not suspicious of infection. Chest x-ray no acute process by Radiologist EKG: Normal sinus rhythm at [address]-T changes and QTC is 435,CT of the brain showing possible anterior stroke in the right frontal parietal junction, carotid duplex is negative. Patient is started on aspirin Review of Systems CONSTITUTIONAL: No fever, no malaise, no fatigue. HEENT: No recent visual problems or hearing problems. Denied any sore throat. CARDIOVASCULAR: No orthopnea, PND, no palpitations, no syncope. PULMONARY: No shortness of breath, no cough, no hemoptysis. GASTROINTESTINAL: No diarrhea, no nausea, no vomiting, no abdominal pain. Normoactive bowel sounds. NEUROLOGICAL: No headaches, no weakness, no numbness. HEMATOLOGICAL: Denies any bleeding or petechiae. GENITOURINARY: Denies any burning micturition, frequency, or urgency. MUSCULOSKELETAL/RHEUMATOLOGICAL: Denies any joint pain, swelling, or any muscle pain. ENDOCRINE: Denies any polyuria or polydipsia. Past Medical History Past Medical History: GERD/Reflux, Hyperlipidemia, Osteoarthritis (OA) Additional Past Medical History / Comment(s): blood pressure "fluctuates", doctor monitoring History of Any Multi-Drug Resistant Organisms: None Reported Past Surgical History: Hysterectomy, Tonsillectomy Additional Past Surgical History / Comment(s): D&C and partial hysterectomy at age 27 (bilateral ovaries retained), bilateral cyst aspirations in age 41's (benign) Past Anesthesia/Blood Transfusion Reactions: No Reported Reaction Past Psychological History: No Psychological Hx Reported Smoking Status: Former smoker Past Alcohol Use History: None Reported Additional Past Alcohol Use History / Comment(s): smoked "on and off during stress for 30 years, up to 1PPD" Quit 09/13/17 Past Drug Use History: None Reported - Past Family History Mother Family Medical History: Cancer Additional Family Medical History / Comment(s): SKIN CANCER Father Family Medical History: Cancer Additional Family Medical History / Comment(s): SKIN CANCER Sister(s) Family Medical History: Cancer Additional Family Medical History / Comment(s): SKIN CANCER Medications and Allergies Home Medications Medication Instructions Recorded Confirmed Type Famotidine [Pepcid] 40 mg PO HS 05/05/18 08/28/19 History Prednisone (Unknown Dose) 1 tab PO DIRECTED 08/28/19 08/28/19 History Allergies Allergy/AdvReac Type Severity Reaction Status Date / Time erythromycin base Allergy Itching Verified 08/28/19 22:51 methotrexate Allergy Rash/Hives Verified 08/28/19 22:59 IVORY Allergy Rash/Hives Uncoded 08/28/19 18:31 Physical Exam Vitals: Vital Signs Temp Pulse Pulse Resp BP BP Pulse Ox 08/29/19 08:00 96.5 F L 65 119/56 96 08/29/19 04:00 97.6 F 62 16 102/57 97 08/28/19 23:43 68 18 08/28/19 23:15 98.4 F 68 18 148/92 96 08/28/19 22:15 84 18 176/86 98 08/28/19 21:15 79 18 170/88 97 08/28/19 20:45 80 16 166/86 98 08/28/19 18:45 82 16 165/79 99 08/28/19 18:27 98.9 F 92 18 155/95 98 Intake and Output 08/28/19 08/29/19 08/29/19 22:59 06:59 14:59 Intake Total 300 125 Balance 300 125 Intake: Oral 300 125 Other: Voiding Method Toilet # Voids 1 Weight 83.915 kg 86 kg GENERAL: The patient is alert and oriented x3, not in any acute distress. Well developed, well nourished. HEENT: Pupils are round and equally reacting to light. EOMI. No scleral icterus. No conjunctival pallor. Normocephalic, atraumatic. No pharyngeal erythema. No thyromegaly. CARDIOVASCULAR: S1 and S2 present. No murmurs, rubs, or gallops. PULMONARY: Chest is clear to auscultation, no wheezing or crackles. ABDOMEN: Soft, nontender, nondistended, normoactive bowel sounds. No palpable organomegaly. MUSCULOSKELETAL: No joint swelling or deformity. EXTREMITIES: No cyanosis, clubbing, or pedal edema. -NEUROLOGICAL: Gross neurological examination did not reveal any focal deficits. Left sided weakness 4+/5 and left-sided numbness SKIN: No rashes. No petechiae Results CBC & Chem 7: 08/28/19 18:45 08/28/19 18:45 Labs: Abnormal Lab Results - Last 24 Hours (Table) 08/28/19 08/28/19 08/29/19 Range/Units 18:35 18:45 06:20 Glucose 101 H (74-99) mg/dL AST 45 H (14-36) U/L ALT 46 H (4-34) U/L Cholesterol 224 H (<200) mg/dL LDL Cholesterol, Calc 133 H (0-99) mg/dL HDL Cholesterol 63 H (40-60) mg/dL Urine Blood Small H (Negative) Urine Bacteria Rare H (None) /hpf Urine Mucus Rare H (None) /hpf Thrombosis Risk Factor Assmnt - Choose All That Apply Any of the Below Risk Factors Present?: Yes Each Factor Represents 1 point: Obesity (BMI >25) Other Risk Factors: Yes Each Risk Factor Represents 2 Points: Arthroscopic surgery Other congenital or acquired thrombophilia - If yes, enter type in comment: No Thrombosis Risk Factor Assessment Total Risk Factor Score: 3 Thrombosis Risk Factor Assessment Level: Moderate Risk Assessment and Plan Assessment: 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 Stubbs Osteoarthritis Gastroesophageal reflux disease Plan: This is a pleasant 68 years old female who presents with acute stroke. Continue with aspirin, neurology consult and workupincluding MRI/A recommended by neurologist. We'll do serial troponin and check with cardiology consult. Continue with neuro check, we'll ask for physical therapy evaluation and speech and swallow evaluation. Continue with aspirin Labs and medication were reviewed.. Continue same treatment. Continue with symptomatic treatment. Resume home medication. Monitor lytes and vitals. DVT and GI prophylaxis. Further recommendations of the clinical course of the patient DVT prophylaxis: Subcutaneous Lovenox GI Prophylaxis: Pepcid PT/OT: Pending Prognosis is guarded
[2019-08-29] MEDS: LISINOPRIL 5 MG TAB PO SCH (18:05)
[2019-08-29] MEDS: FAMOTIDINE 20 MG/2 ML VIAL IV SCH (19:50)
[2019-08-29] MEDS: ASPIRIN 325 MG TAB PO SCH (19:50)
--- NOTE | 2019-08-29 21:17 | CONS ---
CONSULTATION Mrs. Head is a 68-year-old female who presented to the emergency room with right- sided numbness with some weakness. She was admitted with a diagnosis of possible TIA versus stroke. The patient had similar symptoms in the past in 2008 and 2012. The full etiology is unclear. Apparently she had some workup but she is not sure what were the results. She is relatively active physically, has occasional chest discomfort, but not always exertional pattern that has not increased in frequency nor any intensity. Over 10 years ago, she was told that she had a heart murmur, but has not followed on that. The discomfort is not always exertional and is brief. She has some peripheral edema, occasional palpitation but no syncope. No clear PND or orthopnea. Her coronary risk factors are negative for history of hypertension or diabetes. She is a nonsmoker. She is not on lipid-lowering agents yet her LDL is 133. MEDICATION: Her medications at home include Pepcid. REVIEW OF SYSTEMS: RESPIRATORY system: She has no history of documented asthma, or emphysema, but she has dyspnea on exertion. GI system: No recent GI bleeding. No peptic ulcer disease. system. No dysuria or hematuria. Nervous system: She has the weakness as noted of unclear etiology. PHYSICAL EXAMINATION: 68-year-old female, alert, oriented, in no apparent distress. Blood pressure running in the 140s to 120s with heart rate in the 60s to 70s. HEAD: Normocephalic. Eyes sclerae anicteric. NECK: Good carotid upstroke. No bruit. No jugular venous distention. LUNGS: Clear to auscultation. HEART: Regular rhythm S1, S2. No S3 with systolic murmur 3/6 mid peaking, no diastolic murmur. No rub. ABDOMEN: Soft, nontender. Positive bowel sounds. No organomegaly. EXTREMITIES: No edema. LAB DATA: Lab data revealed BUN and creatinine of 17 and 0.79. Hemoglobin of 13.4. Cholesterol 224, LDL 133. AST 45, ALT of 46. EKG reveals sinus mechanism, normal axis and intervals with no acute changes. Echocardiogram revealed a preserved left ventricular size and systolic function with a peak gradient off 64 and a mean of 35 across the aortic valve consistent with moderate aortic stenosis. There is mild aortic regurgitation and mild mitral regurgitation. Her carotid duplex scan revealed no significant obstructive disease. IMPRESSION: 1. Right-sided numbness. Workup in progress. Rule out transient ischemic attack versus stroke. 2. Moderate aortic stenosis. Patient has been told that she had a heart murmur for a long time. Appears to be a progressive aortic valve disease. There is no mention of a bicuspid aortic valve on the echocardiogram. 3. Remote history of smoking. 4. Hypertension, borderline not treated. 5. Hyperlipidemia not treated. 6. Chest pain that has atypical features for ischemic heart disease without any acute exacerbation. RECOMMENDATION: I will continue on the Lipitor as present. I will add to her regimen lisinopril 5 mg daily. From the cardiac standpoint, will continue to follow the rest of her lab data. If there is no abnormality, as an outpatient I will proceed with further cardiac workup. Thank you for this consult. We will follow with you. MMDANICAL / IJN: [id number] /
[2019-08-30 07:18] LABS: Basophils % (A) 1 %; Eosinophils # (A) 0.3 k/uL (0-0.7); Eosinophils % (A) 5 %; HCT 36.2 % (34.0-46.0); Lymphocytes # (A) 1.8 k/uL (1.0-4.8); Lymphocytes % (A) 33 %; MCHC 33.2 g/dL (31.0-37.0); MCV 96.4 fL (80.0-100.0); Mean Platelet Volume 7.8; Monocytes # (A) 0.3 k/uL (0-1.0); Monocytes % (A) 5 %; Neutrophils # (A) 2.9 k/uL (1.3-7.7); Neutrophils % (A) 53 %; Platelet Count 161 k/uL (150-450); RBC 3.76 m/uL (3.80-5.40); RDW 12.9 % (11.5-15.5); WBC 5.4 k/uL (3.8-10.6)
[2019-08-30 07:32] LABS: African American GFR (CKD) >90 (>60 ml/min/1.73 sqM); Anion Gap 4 mmol/L; Blood Urea Nitrogen 17 mg/dL (7-17); Calcium 8.5 mg/dL (8.4-10.2); Carbon Dioxide 24 mmol/L (22-30); Chloride 109 mmol/L (98-107); Glucose 88 mg/dL (74-99); Non-African American GFR(CKD) >90 (>60 ml/min/1.73 sqM); Sodium 137 mmol/L (137-145)
[2019-08-30 07:36] LABS: Potassium 4.5 mmol/L (3.5-5.1)
--- NOTE | 2019-08-30 08:39 | P.PN ---
Subjective This is a pleasant 68 years old female with past medical history of hyperlipidemia, osteoarthritis and gastroesophageal reflux disease. Patient pre sents with left-sided numbness including the face arm and leg with weakness in the arm and leg associated with blurred vision in the left eye and some difficulty swallowing of one-day duration associated with mild to moderate occipital headache which is improved now. Also patient was complaining of from central chest pain, nonradiating, comes and goes about twice since yesterday about 3/10 in severity nonspecific in character associated with some dyspnea No abdominal pain, no nausea vomiting or change in urine or bowel habits She denies smoking, alcohol or illicit drugs Vitals are stable, labs including CBC, INR, BMP were unremarkable, liver enzymes slightly elevated with AST at 45 and ALT of 46, cholesterol slightly elevated urine analysis is not suspicious of infection. Chest x-ray no acute process by Radiologist EKG: Normal sinus rhythm at [address]-T changes and QTC is 435,CT of the brain showing possible anterior stroke in the right frontal parietal junction, carotid duplex is negative. Patient is started on aspirin 08/30/2019 Patient is awake and alert and resting comfortably in bed, she still have some weakness and numbness in the left side but states better than yesterday, no chest pain today. Patient has been evaluated by neurologist and working is in a progress with MRI/A of the brain as per neurologist recommendation is pending. Labs from today include a CBC and BMP were unremarkable. Continue with aspirin for now, carotid duplex is negative, echo showed left ventricular hypertrophy with ejection fraction of 60-65% Review of systems: CONSTITUTIONAL: No fever, no malaise, no fatigue. HEENT: No recent visual problems or hearing problems. Denied any sore throat. CARDIOVASCULAR: No orthopnea, PND, no palpitations, no syncope. PULMONARY: No shortness of breath, no cough, no hemoptysis. GASTROINTESTINAL: No diarrhea, no nausea, no vomiting, no abdominal pain. Normoactive bowel sounds. NEUROLOGICAL: No headaches, no weakness, no numbness. HEMATOLOGICAL: Denies any bleeding or petechiae. GENITOURINARY: Denies any burning micturition, frequency, or urgency. MUSCULOSKELETAL/RHEUMATOLOGICAL: Denies any joint pain, swelling, or any muscle pain. ENDOCRINE: Denies any polyuria or polydipsia. Active Medications Generic Name Dose Route Start Last Admin Trade Name Freq PRN Reason Stop Dose Admin Acetaminophen 650 mg 08/28/19 22:00 Tylenol Tab PO Q6HR PRN Pain Aspirin 325 mg 08/29/19 22:02 08/29/19 19:50 Aspirin PO 325 mg DAILY HARLEEN Administration Atorvastatin Calcium 40 mg 08/29/19 09:00 08/29/19 09:43 Lipitor PO 40 mg DAILY HARLEEN Administration Enoxaparin Sodium 40 mg 08/29/19 09:00 08/29/19 09:43 Lovenox SQ 40 mg DAILY HARLEEN Administration Famotidine 20 mg 08/29/19 21:00 08/29/19 19:50 Pepcid IV 20 mg Q12HR HARLEEN Administration Lisinopril 5 mg 08/29/19 15:00 08/29/19 18:05 Zestril PO 5 mg DAILY HARLEEN Administration Objective - Vital Signs Vital signs: Vital Signs Temp 97.4 F L 08/30/19 04:00 Pulse 66 08/30/19 04:00 Resp 16 08/30/19 04:00 BP 106/55 08/30/19 04:00 Pulse Ox 96 08/30/19 04:00 Intake & Output 08/29/19 08/30/19 08/30/19 18:59 06:59 18:59 Intake Total 485 310 Balance 485 310 Weight 84.6 kg Intake: IV 10 Invasive Line 1 10 Oral 485 300 Other: Voiding Method Toilet # Voids 3 1 - Exam GENERAL: The patient is alert and oriented x3, not in any acute distress. Well developed, well nourished. HEENT: Pupils are round and equally reacting to light. EOMI. No scleral icterus. No conjunctival pallor. Normocephalic, atraumatic. No pharyngeal erythema. No thyromegaly. CARDIOVASCULAR: S1 and S2 present. No murmurs, rubs, or gallops. PULMONARY: Chest is clear to auscultation, no wheezing or crackles. ABDOMEN: Soft, nontender, nondistended, normoactive bowel sounds. No palpable organomegaly. MUSCULOSKELETAL: No joint swelling or deformity. EXTREMITIES: No cyanosis, clubbing, or pedal edema. -NEUROLOGICAL: Gross neurological examination did not reveal any focal deficits. Left sided weakness 4+/5 and left-sided numbness, slightly better than yesterday SKIN: No rashes. 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 Stubbs Osteoarthritis Gastroesophageal reflux disease Plan: This is a pleasant 68 years old female who presents with acute stroke. Continue with aspirin, neurology consult and workupincluding MRI/A recommended by neurologist. We'll do serial troponin and check with cardiology consult. Continue with neuro check, we'll ask for physical therapy evaluation and speech and swallow evaluation. Continue with aspirin Labs and medication were reviewed.. Continue same treatment. Continue with symptomatic treatment. Resume home medication. Monitor lytes and vitals. DVT and GI prophylaxis. Further recommendations of the clinical course of the patient DVT prophylaxis: Subcutaneous Lovenox GI Prophylaxis: Pepcid PT/OT: Pending Prognosis is guarded
[2019-08-30] MEDS: ENOXAPARIN 40 MG/0.4 ML SYRINGE SQ SCH (08:57)
[2019-08-30] MEDS: LISINOPRIL 5 MG TAB PO SCH (08:57)
[2019-08-30] MEDS: FAMOTIDINE 20 MG/2 ML VIAL IV SCH (08:57)
[2019-08-30] MEDS: ASPIRIN 325 MG TAB PO SCH (08:57)
[2019-08-30] MEDS: ATORVASTATIN 40 MG TAB PO SCH (08:57)
--- NOTE | 2019-08-30 15:22 | P.PN ---
Subjective Progress Note Date: 08/30/19 This is 68-year-old female who came in with symptoms of left right sided numbness and weakness, diagnosis of possible TIA versus stroke. Patient was seen in consultation yesterday by Dr. Raya, lisinopril was added to the medication regime to optimize blood pressure control. Patient also had some atypical chest pain. Echocardiogram with Doppler study was performed which revealed moderate aortic stenosis, ejection fraction of 60-65%. Patient is having some difficulty in swallowing today, denied any further chest discomfort. Scheduled for MRA angiography head without contrast and MRA of the brain. Objective - Vital Signs Vital signs: Vital Signs Temp 98.1 F 08/30/19 08:00 Pulse 65 08/30/19 12:00 Resp 16 08/30/19 04:00 BP 120/58 08/30/19 12:00 Pulse Ox 95 08/30/19 12:00 Intake & Output 08/29/19 08/30/19 08/30/19 18:59 06:59 18:59 Intake Total 485 310 240 Balance 485 310 240 Weight 84.6 kg Intake: IV 10 Invasive Line 1 10 Oral 485 300 240 Other: Voiding Method Toilet # Voids 3 1 2 - Exam PHYSICAL EXAMINATION: GENERAL: 68-year-old female in no acute distress at the time of my examination HEENT: Head is atraumatic, normocephalic. Pupils equal, round. Sclera anicteric. Conjunctiva are clear. Mucous membranes of the mouth are moist. Neck is supple. There is no elevated jugular venous pressure. No carotid bruit is heard. HEART EXAMINATION: Heart S1 S2 1 systolic murmur is heard CHEST EXAMINATION: Lungs are clear to auscultation and precussion. No chest wall tenderness is noted on palpation or with deep breathing. ABDOMEN: Soft, nontender. Bowel sounds are heard. No organomegaly noted. EXTREMITIES: 2+ peripheral pulses with no evidence of peripheral edema and no calf tenderness noted. NEUROLOGIC patient is awake, alert and oriented 3 . - Labs CBC & Chem 7: 08/30/19 06:20 08/30/19 06:20 Labs: Abnormal Lab Results - Last 24 Hours (Table) 08/30/19 08/30/19 Range/Units 06:20 06:20 RBC 3.76 L (3.80-5.40) m/uL Chloride 109 H (98-107) mmol/L Assessment and Plan Plan: Impression and plan #1 right sided numbness, possible TIA #2 moderate aortic stenosis #3 remote history of smoking #4 hypertension #5 hyperlipidemia #6 atypical chest pain Plan From cardiology's perspective, patient may be able to be discharged when she is cleared by primary, we will follow her along with you now on an as-needed basis only, please don't hesitate to call with any questions. DNP note has been reviewed, I agree with a documented findings and plan of care. Patient was seen and examined.
--- NOTE | 2019-08-30 17:35 | MR ---
EXAMINATION TYPE: MR angio head wo con DATE OF EXAM: 08/30/2019 COMPARISON: CT brain 08/28/2019, MR brain same date HISTORY: Stroke symptoms TECHNIQUE: Time of flight images focusing on the [place] were performed without contrast. Th ree-dimensional reconstructions performed on an alternate workstation FINDINGS: Vertebrobasilar system, internal carotid arteries are patent. There is no evident dissectio n, aneurysm, or embolus. origin of the right posterior cerebral artery is noted. IMPRESSION: Normal variant anatomy. Patent anterior and posterior circulation.
--- NOTE | 2019-08-30 17:57 | MR ---
MR brain without contrast HISTORY: Stroke symptoms, neuro deficit Multiplanar multisequence imaging through the brain Correlation CT brain 08/28/2019 There is no restricted diffusion. No hemorrhage or hydrocephalus. There are normal vascular flow void s. Inflammatory change present in the left maxillary sinus. Orbits show symmetric appearance. Periven tricular and subcortical hyperintensities are present on inversion recovery T2-weighted sequences. Ap proximately 50 lesions are present. Cortical atrophy is again seen. There is no cerebellopontine angl e mass. The sella is partially empty. Corpus callosum, cervical medullary junction are normal. IMPRESSION: Age-related changes of atrophy and probable chronic small vessel ischemia. No subacute is chemia is evident. Sinus disease.
[2019-08-30] MEDS: PANTOPRAZOLE 40 MG/10 ML VIAL IVP SCH (21:35)
--- NOTE | 2019-08-30 23:33 | CONS ---
CONSULTATION DATE OF SERVICE: August 30, 2019. REQUESTING PHYSICIAN: Dr. Mack. REASON FOR CONSULTATION: The patient is a 68 -year-old pleasant white female with history of hypertension, hyperlipidemia, came into the emergency room complaining of left sided numbness and weakness associated with some blurred vision. Neurology has been consulted while she in the hospital. She has been complaining of difficulty swallowing for the last 5 years duration, happens about 2 or 3 times a week and mostly the food gets back in her throat area. Symptoms almost always with solids and never with liquids. She has no progression of symptoms noted. No weight loss. She does have history of gastroesophageal reflux disease and has been on Pepcid 20 mg daily for almost a year with some improvement in the heartburn. Since being in the hospital, in the last week, her symptoms have significantly improved. PAST MEDICAL HISTORY: Significant for hypertension, hyperlipidemia, degenerative joint disease, and gastroesophageal reflux disease. PAST SURGICAL HISTORY: Hysterectomy tonsillectomy and bilateral cyst aspiration. SOCIAL HISTORY: No smoking or alcohol use. FAMILY HISTORY: Mother had skin cancer. Father had skin cancer too. MEDICATIONS: Medications at home include Pepcid and prednisone. ALLERGIES: E-MYCIN, METHOTREXATE AND JANUSZ. REVIEW OF SYSTEMS: CARDIOPULMONARY: No chest pain, shortness of breath. GENITOURINARY: No dysuria or hematuria. MUSCULOSKELETAL: Unremarkable. SKIN unremarkable. ENDOCRINE unremarkable. PSYCHIATRIC unremarkable. NEUROLOGY: Left-sided weakness, which is gradually improving since being in the hospital. ENT/vision unremarkable. CONSTITUTIONAL: No recent weight loss. No fever, chills, night sweats. GI as mentioned above. HEMATOLOGY unremarkable. PHYSICAL EXAMINATION: She appears comfortable. Vital signs are stable. Blood pressure 153/69. Pulse 74. Temperature 98.8. HEENT examination unremarkable. Conjunctivae pink. Sclerae anicteric. Oral cavity no lesions. NECK: No JVD or lymph node enlargement. CHEST: Clear to auscultation. HEART: Regular rate and rhythm. ABDOMEN: Soft bowel sounds are positive. No organomegaly. EXTREMITIES: No pedal edema. SKIN no rashes. NEUROLOGICAL: She is alert and oriented x3. No obvious deficits noted. LAB DATA: Done at the time of admission to the hospital: WBC 6.5, hemoglobin 13.4, platelets 212. INR is within normal limits. AST and ALT of 45, 46 respectively. Rest of the basic metabolic panel is within normal limits. Brain CT at the time of admission to the hospital showed no acute intracranial hemorrhage noted. There is a background of mild diffuse age related cerebral atrophy. A vague 1 x 0.6 cm area in the right frontal parietal junction suspicious for acute ischemia. IMPRESSION: 1. Intermittent dysphagia over the last 5 years duration. Symptoms have been progressively getting worse lately, no choking episodes. She also has longstanding history of gastroesophageal reflux disease and has been on Pepcid 20 mg daily for the last 1 year duration. Rule out peptic stricture. 2. Left-sided weakness secondary to acute cerebrovascular accident involving the right frontoparietal junction. Neurology following the patient closely. 3. History of gastroesophageal reflux disease on Pepcid 20 mg daily and doing better. 4. Hypertension and hyperlipidemia. RECOMMENDATION: 1. Continue Pepcid 20 mg twice daily. 2. We will proceed with an upper endoscopy tomorrow. Discussed with the patient, risks, benefits and complications of the procedure and she is agreeable to it. Thank you for this consultation. We will follow with you closely during her hospital stay. MMDANICAL / IJN: [id number] /
[2019-08-31 04:16] VITALS: RESP 18
[2019-08-31 08:15] LABS: Basophils % (A) 1 %; Eosinophils # (A) 0.3 k/uL (0-0.7); Eosinophils % (A) 4 %; HCT 35.3 % (34.0-46.0); HGB 11.6 gm/dL (11.4-16.0); Lymphocytes # (A) 1.8 k/uL (1.0-4.8); Lymphocytes % (A) 31 %; MCH 31.6 pg (25.0-35.0); MCHC 32.9 g/dL (31.0-37.0); MCV 96.1 fL (80.0-100.0); Mean Platelet Volume 7.6; Monocytes # (A) 0.4 k/uL (0-1.0); Monocytes % (A) 7 %; Neutrophils # (A) 3.3 k/uL (1.3-7.7); Neutrophils % (A) 55 %; Platelet Count 170 k/uL (150-450); RBC 3.67 m/uL (3.80-5.40); RDW 12.8 % (11.5-15.5); WBC 5.9 k/uL (3.8-10.6)
[2019-08-31] MEDS: PANTOPRAZOLE 40 MG/10 ML VIAL IVP SCH (09:38)
[2019-08-31] MEDS: ATORVASTATIN 40 MG TAB PO SCH (09:38)
[2019-08-31] MEDS: ENOXAPARIN 40 MG/0.4 ML SYRINGE SQ SCH (09:38)
[2019-08-31] MEDS: ASPIRIN 325 MG TAB PO SCH (09:38)
[2019-08-31] MEDS: LISINOPRIL 5 MG TAB PO SCH (09:38)
[2019-08-31 11:21] VITALS: TEMP 98.1
--- NOTE | 2019-08-31 12:41 | P.DS ---
Providers Date of admission: 08/28/19 22:05 Attending physician: Saurav Moser MD Consults: 08/28/19 22:01 Consult Physician Urgent Consulting Provider: Moose Chin Consult Reason/Comments: cva Do you want consulting provider notified?: Yes 08/29/19 13:31 Consult Physician Urgent Consulting Provider: Sabra Raya Consult Reason/Comments: chest pain Do you want consulting provider notified?: Yes 08/30/19 07:46 Consult Physician Urgent Consulting Provider: Marta Reyes Consult Reason/Comments: chronic difficulty swallowing Do you want consulting provider notified?: Yes Primary care physician: Claritza Melendrez MD Hospital Course: 68 years old female with past medical history of hyperlipidemia, osteoarthritis and gastroesophageal reflux disease. Patient presents with left-sided numbness including the face arm and leg with weakness in the arm and leg associated with blurred vision in the left eye and some difficulty swallowing of one-day duration associated with mild to moderate occipital headache which is improved now. Also patient was complaining of from central chest pain, nonradiating, comes and goes about twice since yesterday about 3/10 in severity nonspecific in character associated with some dyspnea No abdominal pain, no nausea vomiting or change in urine or bowel habits She denies smoking, alcohol or illicit drugs Vitals are stable, labs including CBC, INR, BMP were unremarkable, liver enzymes slightly elevated with AST at 45 and ALT of 46, cholesterol slightly elevated urine analysis is not suspicious of infection. Chest x-ray no acute process by Radiologist EKG: Normal sinus rhythm at [address]-T changes and QTC is 435,CT of the brain showing possible anterior stroke in the right frontal parietal junction, carotid duplex is negative. Patient is started on aspirin 08/30/2019 Patient is awake and alert and resting comfortably in bed, she still have some weakness and numbness in the left side but states better than yesterday, no chest pain today. Patient has been evaluated by neurologist and working is in a progress with MRI/A of the brain as per neurologist recommendation is pending. Labs from today include a CBC and BMP were unremarkable. Continue with aspirin for now, carotid duplex is negative, echo showed left ventricular hypertrophy with ejection fraction of 60-65% 08/31/2019 Patient had an MRI of the brain which did not show any stroke although a TIA on admission cannot be ruled out possibility is still there. Patient will be discharged on aspirin and patient had an LDL of around 130 patient will be dis charged on statin as well. All the rest of the workup is negative patient will undergo upper GI endoscopy as recommended bygastroenterology.To the upper GI endoscopy patient will be discharged on 14 days of Prilosec after that patient can resume her Pepcid PHYSICAL EXAMINATION: GENERAL: The patient is alert and oriented x3, not in any acute distress. Well developed, well nourished. HEENT: Pupils are round and equally reacting to light. EOMI. No scleral icterus. No conjunctival pallor. Normocephalic, atraumatic. No pharyngeal erythema. No thyromegaly. CARDIOVASCULAR: S1 and S2 present. No murmurs, rubs, or gallops. PULMONARY: Chest is clear to auscultation, no wheezing or crackles. ABDOMEN: Soft, nontender, nondistended, normoactive bowel sounds. No palpable organomegaly. MUSCULOSKELETAL: No joint swelling or deformity. EXTREMITIES: No cyanosis, clubbing, or pedal edema. NEUROLOGICAL: Gross neurological examination did not reveal any focal deficits. SKIN: No rashes. assessment -Possible TIA -Chest pain rule out acute coronary syndromes was a valid by cardiology -Hyperlipidemia Psoriasis Osteoarthritis Gastroesophageal reflux disease Patient Condition at Discharge: Good Plan - Discharge Summary Discharge Rx Participant: No New Discharge Prescriptions: New Aspirin 81 mg PO DAILY #30 chewable Atorvastatin [Lipitor] 40 mg PO HS #30 tablet Omeprazole [PriLOSEC] 40 mg PO AC-BRKFST #14 capsule. Continue Prednisone (Unknown Dose) 1 tab PO DIRECTED Discontinued Famotidine [Pepcid] 40 mg PO HS Discharge Medication List Prednisone (Unknown Dose) 1 tab PO DIRECTED 08/28/19 [History] Aspirin 81 mg PO DAILY #30 chewable 08/31/19 [Rx] Atorvastatin [Lipitor] 40 mg PO HS #30 tablet 08/31/19 [Rx] Omeprazole [PriLOSEC] 40 mg PO AC-BRKFST #14 capsule. 08/31/19 [Rx] Follow up Appointment(s)/Referral(s): Claritza Melendrez MD [Primary Care Provider] - 3 Days Discharge Disposition: HOME SELF-CARE
[2019-08-31] MEDS ORDERED: PROPOFOL 10 MG/ML 20 ML VIAL IV ONE (13:58)
[2019-08-31] MEDS ORDERED: LACTATED RINGERS 1,000 ML IV ONE (13:58)
[2019-08-31] MEDS ORDERED: LIDOCAINE 1% INJ 10MG/ML (20 ML MDV) ONE (13:58)
--- NOTE | 2019-08-31 14:25 | P.PCN ---
Date of Procedure: 08/31/19 Procedure(s) Performed: BRIEF HISTORY: Patient is a 68-year-old, pleasant,female scheduled for an upper endoscopy as a part of evaluation of intermittent dysphagia to solids for the last 5 years duration. PROCEDURE PERFORMED: EGD WITH BIOPSY PREOPERATIVE DIAGNOSIS: intermittent dysphagia to solids. IV sedation per anesthesia. PROCEDURE: After informed consent was obtained, the patient was brought into the endoscopy unit. IV sedation was administered by Anesthesia under continuous monitoring. Initially the Olympus GIF-140 video endoscope was inserted into the mouth. Esophagus intubated without any difficulty. It was gradually advanced into the stomach and duodenum and carefully examined. The bulb and the second part of the duodenum appeared normal. The scope at this time was withdrawn to the stomach, adequately insufflated with air, and upon careful examination, mucosa of the antrumhad mild gastritis and biopsies were done from this area. The , body, cardia and the fundus appeared normal. The scope was then withdrawn into the esophagus. The GE junction was located at 39 cm from the incisors. small sliding-type well hernia noted. . There were no erosions or ulcerations seen . In the midesophagus between 25-30 cm from the incisors there was mucosal erythema with friability and exudates of the mucosa noted but no obvious stricture and multiple biopsies were done from this area to rule out infectious esophagitis. The rest of esophagus appeared normaland the patient tolerated the procedure well. IMPRESSION: 1. Mucosal erythema friability with exudates noted in the midesophagus exiting from 25-30 cm from the incisors status post multiple biopsies to rule out infectious esophagitis versus pill induced esophagiti 2. Mild antral gastritis 3. Small hiatal hernia. RECOMMENDATIONS: The findings of this examination were discussed with the patient . She was advised to follow with the biopsy results. In the meantime advance to soft diet.
--- NOTE | 2019-08-31 15:08 | P.PN ---
Subjective Progress Note Date: 08/31/19 patient denies any focal symptoms. Feels fine. Objective - Vital Signs Vital signs: Vital Signs Temp 98.1 F 08/31/19 08:00 Pulse 69 08/31/19 08:00 Resp 18 08/31/19 04:00 BP 113/57 08/31/19 08:00 Pulse Ox 100 08/31/19 08:00 Intake & Output 08/30/19 08/31/19 08/31/19 18:59 06:59 18:59 Intake Total 480 240 100 Output Total 3 Balance 480 237 100 Weight 85.7 kg Intake: IV 100 Oral 480 240 Output: Urine 3 Other: Voiding Method Toilet # Voids 2 1 - Exam Completely nonfocal. - Labs CBC & Chem 7: 08/31/19 07:29 08/30/19 06:20 Labs: Abnormal Lab Results - Last 24 Hours (Table) 08/31/19 Range/Units 07:29 RBC 3.67 L (3.80-5.40) m/uL Assessment and Plan Assessment: * 68-year-old female admitted with numbness of left side of the body. Patient also has similar episodes 6-7 times in the past in the last 10 years, lasting for a couple days to a week. Rule out TIA/CVA. However this time she is also experiencing chest pain, dizziness, blurred vision and shortness of breath, therefore need to rule out cardiac process as well. * Hypertension * Moderate aortic stenosis. * Hyperlipidemia * X tobacco use Plan: * MRI of the brain showed age-related changes of atrophy and probable chronic small vessel ischemia. No subacute ischemia. Sinus disease. * MRA of the brain is normal with no evidence of intracranial stenosis occlusion or aneurysm. * Cardiology on board, appreciate recommendations. * Continue aspirin 325 mg daily, and Lipitor 40 mg daily for hyperlipidemia. May switch to aspirin 81 mg, if any significant GI contraindications.
[2019-08-31 15:46] VITALS: BP 141/68; PULSE 66
--- NOTE | 2019-09-04 15:25 | CDI ---
Documentation Clarification Form Date: 09/04/19 From: Gabriela Herrera Phone: If you have a question about this query, please contact Parris Cox, Facility Security Officer at [phone] between 8am and 5pm. Admit Date: 08/28/19 Discharge Date: 08/31/19 Patient Name: Dara Head Visit Number: [id number] ATTENTION: The Clinical Documentation Specialists (CDI) and [facility] Coding Staff appreciate your assistance in clarifying documentation. Please respond to the clarification below the line at the bottom and electronically sign. The CDI & [facility] Coding staff will review the response and follow-up if needed. Please note: Queries are made part of the Legal Health Record. If you have any questions, please contact the author of this message via ITS. Dear Dr. Moser The final diagnosis of the pathology report states: A. Gastric antrum: Reactive/chemical gastropathy with mucosal ulceration and acute inflammation. Helicobacter pylori organisms are not identified on routine H+E sections. B. Esophagus: Bengin squamous mucosa with mild chronic esophagitis and numerous colonizing coccoid bacterial organisms. Intramucosa eosinophils are not identified. Documentation states: Documentation in Dr. Reyes's procedure note states 1. multiple biopsies to rule out infectious esophagitis versus pill induced esophagitis. 2. Mild antral gastritis Patient history/risk factors: Dysphagia Clinical Indicators: Intermittent dysphagia to solids Treatment: IV Pepcid, IV Protonix In your professional opinion, do you agree with the pathology report specifying the gastric biopsy as Reactive/chemical gastropathy with mucosal ulceration and acute inflammation? Yes No Other (please specify) Unable to determine ALSO Do you agree with the pathology report specifying the esophageal biopsy as chronic esophagitis? Yes No Other Unable to determine Dx: per pathologist - Reactive/chemical gastropathy with mucosal ulceration and acute inflammation. Helicobacter pylori organisms are not identified on routine H+E sections. - Benign squamous mucosa with mild chronic esophagitis and numerous colonizing coccoid bacterial organisms. Intramucosal eosinophils are not identified. MTDD
== END 2019-08-31 18:26 | disposition home or self-care (01) | DRG 69 ==
LOC: EC 18:25 → 3SCARD 22:05
PROVIDERS: ADMIT Internal Medicine; ATTEND Internal Medicine
PROC: 0DB78ZX Excision of Stomach, Pylorus, Via Natural or Artificial Opening Endoscopic, Diagnostic (ICD-10-PCS; principal; 2019-08-31 13:00)
PROC: 0DB28ZX Excision of Middle Esophagus, Via Natural or Artificial Opening Endoscopic, Diagnostic (ICD-10-PCS; principal; 2019-08-31 13:00)
DX: G45.9 Transient cerebral ischemic attack, unspecified (principal); K25.3 Acute gastric ulcer without hemorrhage or perforation; E78.5 Hyperlipidemia, unspecified; I10 Essential (primary) hypertension; K31.9 Disease of stomach and duodenum, unspecified; K21.0 Gastro-esophageal reflux disease with esophagitis; I35.0 Nonrheumatic aortic (valve) stenosis; K44.9 Diaphragmatic hernia without obstruction or gangrene; L40.9 Psoriasis, unspecified; M19.90 Unspecified osteoarthritis, unspecified site; R13.10 Dysphagia, unspecified; R07.89 Other chest pain; K29.70 Gastritis, unspecified, without bleeding; Z79.899 Other long term (current) drug therapy; Z90.710 Acquired absence of both cervix and uterus; Z87.891 Personal history of nicotine dependence; Z88.1 Allergy status to other antibiotic agents; Z91.048 Other nonmedicinal substance allergy status; Z80.8 Family history of malignant neoplasm of other organs or systems
CPT/HCPCS: 36415; 43239; 70450; 70544; 70551; 71046; 80048; 80053; 80061; 81001; 82550; 82553; 83880; 84484; 85025; 85610; 85730; 88305; 93005; 93306; 93880; 94760; 99285

== ENCOUNTER → 2019-10-24 | Outpatient (CLI) | payer MEDICARE ==
[2019-10-24 18:52] LABS: African American GFR (CKD) 103.2 (60.0-200.0); Albumin/Globulin Ratio 2.35 (1.60-3.17); BUN/Creat Ratio 24.29 Ratio (12.00-20.00); Calcium 9.2 mg/dL (8.7-10.3); Chol/HDL Ratio 3.93; Globulin 1.7 g/dL (1.6-3.3); LDL Cholesterol,Calculated 128.2 mg/dL (0.0-131.0); Potassium 4.3 mmol/L (3.5-5.5); Total Bilirubin 0.5 mg/dL (0.3-1.2); Total Protein 5.7 g/dL (6.2-8.2); VLDL Calculation 32.8 mg/dL (5.00-40.00)
== END ==
LOC: LABWHC1 11:40
PROVIDERS: ATTEND Internal Medicine Interventional Cardiology
DX: E78.2 Mixed hyperlipidemia (principal)
CPT/HCPCS: 36415; 80053; 80061

== ENCOUNTER → 2020-01-29 | Outpatient (CLI) | payer MEDICARE | END | disposition home or self-care (01) | LOC: LABWHC1 10:45 | PROVIDERS: ATTEND Family Medicine | DX: T14.8XXA Other injury of unspecified body region, initial encounter (principal) | CPT/HCPCS: 36415; 86618 ==

== ENCOUNTER 2020-02-04 12:38 | Emergency (ER) | payer MEDICARE ==
[2020-02-04] MEDS ORDERED: IBUPROFEN 600 MG TAB PO STA (13:14)
--- NOTE | 2020-02-04 13:51 | XR ---
EXAMINATION TYPE: XR knee complete LT DATE OF EXAM: 02/04/2020 COMPARISON: NONE HISTORY: 69-year-old female with pain and swelling TECHNIQUE: 3 views FINDINGS: There is a moderate knee joint effusion. Mild degenerative change at the medial compartment. No acute fracture, subluxation, dislocation seen. IMPRESSION: 1. At least mild medial compartment osteoarthrosis. 2. Moderate knee joint effusion. If concern for internal derangement, MRI can further evaluate.
--- NOTE | 2020-02-04 13:59 | ED ---
Lower Extremity Injury HPI - General Chief Complaint: Extremity Injury, Lower Stated Complaint: knee pain Time Seen by Provider: 02/04/20 13:02 Source: patient Mode of arrival: wheelchair Limitations: physical limitation - History of Present Illness Initial Comments: Patient is a 69-year-old female presenting to emergency Department with complaints of left knee pain since yesterday. Patient states she was walking yesterday when she felt a pop on the outside of her left knee and then was not able to ambulate after. She states she did not fall. She describes the pain is mostly on the outside part of her knee with some radiation up her upper leg. She states she also noticed swelling starting last night and into today. She denies any previous surgeries of the left knee. She denies history of blood clots. She has no further complaints at this time. Upon arrival to the ER, her vital signs are stable. - Related Data Home Medications Medication Instructions Recorded Confirmed Prednisone (Unknown Dose) 1 tab PO DIRECTED 08/28/19 08/28/19 Previous Rx's Medication Instructions Recorded Aspirin 81 mg PO DAILY #30 chewable 08/31/19 Atorvastatin [Lipitor] 40 mg PO HS #30 tablet 08/31/19 Omeprazole [PriLOSEC] 40 mg PO DIMITRY-RIKAFSLuis Daniel #14 capsule. 08/31/19 Allergies Allergy/AdvReac Type Severity Reaction Status Date / Time erythromycin base Allergy Itching Verified 02/04/20 12:57 methotrexate Allergy Rash/Hives Verified 02/04/20 12:57 IVORY Allergy Rash/Hives Uncoded 02/04/20 12:57 Review of Systems ROS Statement: Those systems with pertinent positive or pertinent negative responses have been documented in the HPI. ROS Other: All systems not noted in ROS Statement are negative. Past Medical History Past Medical History: GERD/Reflux, Hyperlipidemia, Osteoarthritis (OA) Additional Past Medical History / Comment(s): blood pressure "fluctuates", doctor monitoring History of Any Multi-Drug Resistant Organisms: None Reported Past Surgical History: Hysterectomy, Tonsillectomy Additional Past Surgical History / Comment(s): D&C and partial hysterectomy at age 27 (bilateral ovaries retained), bilateral cyst aspirations in age 41's (benign) Past Anesthesia/Blood Transfusion Reactions: No Reported Reaction Past Psychological History: No Psychological Hx Reported Smoking Status: Former smoker Past Alcohol Use History: None Reported Past Drug Use History: None Reported - Past Family History Mother Family Medical History: Cancer Additional Family Medical History / Comment(s): SKIN CANCER Father Family Medical History: Cancer Additional Family Medical History / Comment(s): SKIN CANCER Sister(s) Family Medical History: Cancer Additional Family Medical History / Comment(s): SKIN CANCER General Exam - General Exam Comments Initial Comments: GENERAL: Patient is well-developed and well-nourished. Patient is nontoxic and in no acute distress. HEAD: Atraumatic, normocephalic. EYES: Pupils equal round and reactive to light, extraocular movements intact, sclera anicteric, conjunctiva are normal. Eyelids were unremarkable. ENT: TMs normal, nares patent, oropharynx clear without exudates. Moist mucous membranes. NECK: Normal range of motion, supple without lymphadenopathy or JVD. LUNGS: Unlabored respirations. Breath sounds clear to auscultation bilaterally and equal. No wheezes rales or rhonchi. HEART: Regular rate and rhythm without murmurs, rubs or gallops. ABDOMEN: Soft, nontender, normoactive bowel sounds. No guarding, no rebound. No masses appreciated. : Deferred MUSCULOSKELETAL: Patient has moderate swelling of the left knee, pain with palpation of the lateral aspect, lateral joint line. She is neurovascular intact, there is no overlying erythema. No clubbing or cyanosis. NEUROLOGICAL: Patient is alert and oriented x 3. Motor and sensory are also intact. Normal speech, normal gait. PSYCH: Normal mood, normal affect. SKIN: Warm, Dry, normal turgor, no rashes or lesions noted. Limitations: physical limitation Course Vital Signs 02/04/20 12:58 Temperature 99 F Pulse Rate 77 Respiratory 16 Rate Blood Pressure 145/71 O2 Sat by Pulse 98 Oximetry Medical Decision Making - Medical Decision Making Patient is a 69-year-old female here for left knee pain after she felt a pop yesterday. She did not fall. No previous surgeries or injuries on the left knee. X-rays reveal mild arthritis, no other acute findings. I discussed with patient I was concerned for some sort of internal derangement, meniscal injury to her left knee. I recommended follow-up with orthopedics. She can also continue with ibuprofen, ice to the knee, elevation, use crutches as needed. Kassidy bass is in agreement with this plan of care. She is stable for discharge. Case discussed with Dr. Soto. Disposition Clinical Impression: Left knee pain Disposition: HOME SELF-CARE Condition: Stable Instructions (If sedation given, give patient instructions): Knee Pain (ED) Additional Instructions: Please return to the Emergency Department if symptoms worsen or any other concerns. Follow-up with orthopedics as discussed. Continue with ibuprofen for pain and swelling, ice, elevate. Use crutches as needed. Is patient prescribed a controlled substance at d/c from ED?: No Referrals: Claritza Melendrez MD [Primary Care Provider] - 1-2 days Mike Dueñas MD [STAFF PHYSICIAN] - 1-2 days
[2020-02-04 14:58] VITALS: BP 130/75; PULSE 79; RESP 18; TEMP 98.7
== END 2020-02-04 14:57 | disposition home or self-care (01) ==
LOC: EC 12:38
DX: M17.12 Unilateral primary osteoarthritis, left knee (principal); Z87.891 Personal history of nicotine dependence; Z88.8 Allergy status to other drugs, medicaments and biological substances; Z91.048 Other nonmedicinal substance allergy status; Z88.1 Allergy status to other antibiotic agents
CPT/HCPCS: 99283

== ENCOUNTER → 2020-02-16 | Outpatient (CLI) | payer MEDICARE ==
--- NOTE | 2020-02-16 12:03 | MR ---
EXAMINATION TYPE: MR knee LT wo con DATE OF EXAM: 02/16/2020 COMPARISON: None HISTORY: m25.562 left knee pain TECHNIQUE: Multiplanar, multisequence images of the knee is performed without IV contrast. FINDINGS: MEDIAL MENISCUS: Anterior and posterior horns are intact without tear. Myxoid degeneration posterior horn medial meniscus. LATERAL MENISCUS: Anterior and posterior horns are intact without tear. CRUCIATE LIGAMENTS: The anterior and posterior cruciate ligaments are intact and unremarkable. COLLATERAL LIGAMENTS: The medial collateral ligament and lateral collateral ligament complex are inta ct and unremarkable. EXTENSOR MECHANISM: Visualized quadriceps and patellar tendons are intact. EFFUSION: No significant suprapatellar joint effusion. POPLITEAL CYST: No popliteal/hughes cyst. TRICOMPARTMENT SPACES: Mild narrowing medial tibiofemoral joint space and patellofemoral joint space compatible with a mild osteoarthritis. CARTILAGE: Intact BONE MARROW SIGNAL: No focal abnormal marrow signal is appreciated. OTHER: No additional significant abnormality is appreciated. IMPRESSION: 1.Myxoid degeneration posterior horn medial meniscus. No evidence for tear at this time. 2. Mild narrowing medial tibiofemoral joint space and patellofemoral joint space compatible with a mi ld osteoarthritis.
== END | disposition home or self-care (01) ==
LOC: RADMRIMAIN 10:58
PROVIDERS: ATTEND Orthopaedic Surgery
DX: M23.322 Other meniscus derangements, posterior horn of medial meniscus, left knee (principal); M25.862 Other specified joint disorders, left knee

== ENCOUNTER → 2021-06-17 | Outpatient (CLI) | payer MEDICARE ==
[2021-06-17 19:10] LABS: ALT 22 U/L (8-44); AST 17 U/L (13-35); African American GFR (CKD) 97.4 (60.0-200.0); Albumin 4.1 g/dL (3.8-4.9); Alkaline Phosphatase 96 U/L (41-126); BUN/Creat Ratio 14.11 Ratio (12.00-20.00); Blood Urea Nitrogen 10.3 mg/dL (9.0-27.0); Calcium 9.2 mg/dL (8.7-10.3); Carbon Dioxide 25.8 mmol/L (20.0-27.5); Chloride 107 mmol/L (96-109); Chol/HDL Ratio 3.13 Ratio; Globulin 1.8 g/dL (1.6-3.3); Glucose 105 mg/dL (70-110); LDL Cholesterol,Calculated 107.4 mg/dL (0.0-131.0); Potassium 4.7 mmol/L (3.5-5.5); Sodium 143 mmol/L (135-145); Total Protein 5.8 g/dL (6.2-8.2)
== END | disposition home or self-care (01) ==
LOC: LABWHC1 13:47
PROVIDERS: ATTEND Internal Medicine Interventional Cardiology
DX: E78.2 Mixed hyperlipidemia (principal)
CPT/HCPCS: 36415; 80053; 80061

== ENCOUNTER 2021-06-27 06:23 | Day surgery (SDC) | payer MEDICARE ==
[2021-06-20 10:24] VITALS: BMI 31.8
[2021-06-27] MEDS ORDERED: LACTATED RINGERS 1,000 ML IV SCH (06:38)
[2021-06-27] MEDS ORDERED: SODIUM CHLORIDE 0.9% 500 ML 500 ML IV ONE (06:47)
[2021-06-27 06:56] VITALS: TEMP 98.1
[2021-06-27] MEDS ORDERED: fentaNYL (PF) 50 MCG/ML 2 ML AMP ONE (07:09)
[2021-06-27] MEDS ORDERED: BENZOCAINE SPRAY 1 CAN TOPICAL ONE (07:15)
[2021-06-27] MEDS ORDERED: MIDAZOLAM 2 MG/2 ML VIAL IV ONE ×2 (07:17→07:39)
[2021-06-27] MEDS ORDERED: fentaNYL (PF) 50 MCG/ML 2 ML AMP IV ONE (07:17)
[2021-06-27] MEDS ORDERED: NON FORMULARY DRUG (Tramadol Hcl 50 MG Tablet) PO PRN (07:46)
[2021-06-27] MEDS ORDERED: SODIUM CHLORIDE 0.9% 1,000 ML IV SCH (08:00)
[2021-06-27 09:03] VITALS: RESP 16
[2021-06-27 09:05] VITALS: BP 127/61; PULSE 62
--- NOTE | 2021-06-27 09:37 | ECHOT ---
TRANSESOPHAGEAL ECHOCARDIOGRAM INDICATION: Evaluation of aortic valve. DESCRIPTION OF PROCEDURE: After explaining the procedure to the patient, its risks and complication, blood pressure, heart rate, O2 saturation was monitored. The throat was sprayed with Cetacaine. She received 3 mg intravenous Versed, 50 mcg intravenous fentanyl. The probe was introduced in the esophagus without difficulty. Images were obtained from that. The probe was removed. There was no immediate complication. FINDINGS: Left atrial size is normal. Left ventricular size and systolic function normal. The left ventricle hypertrophy was noted. The aortic valve is a tricuspid valve with severe calcification reduced opening. By planimetry the valve area is 0.9 cm2. The mitral valve revealed mild mitral annulus calcification. The tricuspid valve is normal. Descending and thoracic aorta revealed mild atherosclerotic changes. No pericardial effusion was noted. The interatrial septum is highly mobile but has no evidence of shunting by contrast bubble study. Doppler: Pulse wave and color Doppler obtained revealed mild mitral, aortic and tricuspid regurgitation. The peak gradient across the aortic valve was 65 mmHg with a mean of 45 mmHg. There was no shunting by color Doppler study. CONCLUSION: 1. Normal left ventricular size and systolic function, left ventricle hypertrophy. 2. Severe aortic stenosis with a mean gradient of 45 mmHg and an aortic valve by planimetry of 0.9 cm2. 3. Mild mitral, tricuspid and aortic regurgitation. 4. No shunting across the interatrial septum. 5. Moderate atherosclerotic changes of the descending thoracic aorta. MMODL / IJN: [id number] /
[2021-06-27] MEDS ORDERED: lisinopriL 10 MG TAB PO SCH (21:00)
[2021-06-27] MEDS ORDERED: NON FORMULARY DRUG (Famotidine [Famotidine] 40 MG Tablet) PO SCH (21:00)
[2021-06-27] MEDS ORDERED: ATORVASTATIN 40 MG TAB PO SCH (21:00)
== END 2021-06-27 08:57 | disposition home or self-care (01) ==
LOC: CATHCVL 06:23
PROVIDERS: ATTEND Internal Medicine Interventional Cardiology
DX: I08.3 Combined rheumatic disorders of mitral, aortic and tricuspid valves (principal); I10 Essential (primary) hypertension; E78.5 Hyperlipidemia, unspecified; L40.9 Psoriasis, unspecified; Z20.822 Contact with and (suspected) exposure to COVID-19; Z79.899 Other long term (current) drug therapy; Z79.02 Long term (current) use of antithrombotics/antiplatelets; Z88.1 Allergy status to other antibiotic agents; Z87.891 Personal history of nicotine dependence; Z90.710 Acquired absence of both cervix and uterus; Z90.89 Acquired absence of other organs; Z82.49 Family history of ischemic heart disease and other diseases of the circulatory system
CPT/HCPCS: 93312; 93320; 93325; 87635; J2250; J3010

== ENCOUNTER → 2021-08-21 | Outpatient (CLI) | payer MEDICARE ==
[2021-08-21 15:00] LABS: Basophils # (A) 0.05 X 10*3/uL (0.00-0.10); Basophils % (A) 1.2 %; Eosinophils # (A) 0.23 X 10*3/uL (0.04-0.35); Eosinophils % (A) 5.4 %; HCT 41.1 % (37.2-46.3); HGB 13.2 g/dL (12.0-15.0); Immature Grans, Automated 0.2 %; Lymphocytes # (A) 1.29 X 10*3/uL (0.90-5.00); Lymphocytes % (A) 30.3 %; MCH 30.8 pg (27.0-32.0); MCHC 32.1 g/dL (32.0-37.0); MCV 95.8 fL (80.0-97.0); Mean Platelet Volume 10.1 fL (9.5-12.2); Monocytes # (A) 0.38 X 10*3/uL (0.20-1.00); Monocytes % (A) 8.9 %; NRBC Per 100 WBC 0 /100 WBCS (0.0-0.0); Platelet Count 182 X 10*3/uL (140-440); RBC 4.29 X 10*6/uL (4.10-5.20); RDW 12.4 % (11.5-14.5); WBC 4.26 X 10*3/uL (4.50-10.00)
[2021-08-21 15:44] LABS: African American GFR (CKD) 87.2 (60.0-200.0); Anion Gap 10.3 mmol/L (10.00-18.00); Carbon Dioxide 24.7 mmol/L (20.0-27.5); Non-African American GFR(CKD) 75.2 (60.0-200.0); Potassium 4.4 mmol/L (3.5-5.5)
== END | disposition home or self-care (01) ==
LOC: LABWHC1 09:26
PROVIDERS: ATTEND Internal Medicine Interventional Cardiology
DX: Z01.812 Encounter for preprocedural laboratory examination (principal); I35.0 Nonrheumatic aortic (valve) stenosis
CPT/HCPCS: 80051; 82565; 84520; 85025

== ENCOUNTER 2021-08-28 06:32 | Day surgery (SDC) | payer MEDICARE ==
[2021-08-26 16:05] VITALS: BMI 31.4
[~2021-08-28 06:32] MED LIST changes: +ALPRAZolam 0.25 MG TAB PO PRN; +ALPRAZolam 0.5 MG TAB PO PRN; +ASPIRIN 325 MG TAB PO STA; +ATORVASTATIN 80 MG TAB PO STA; +HEPARIN SODIUM,PORCINE 10,000 UNIT in SODIUM CHLORIDE 0.9% 1,000 ML IRRIGATION PRN; +HEPARIN SODIUM,PORCINE 2,500 UNIT in SODIUM CHLORIDE 0.9% 250 ML IRRIGATION PRN; -LIDOCAINE 1% 20 ML VIAL (10MG/ML) FOR IV START INTRADERMA PRN; +NITROGLYCERIN SL TABS 0.4 MG TAB SUBLINGUAL PRN; +SODIUM CHLORIDE 0.9% 1,000 ML in EMPTY BAG 1 BAG IV SCH
[2021-08-28 07:03] VITALS: RESP 16; TEMP 98.5
[2021-08-28] MEDS ORDERED: LIDOCAINE 1% INJ 10MG/ML (20 ML MDV) ONE (07:13)
[2021-08-28] MEDS ORDERED: fentaNYL (PF) 50 MCG/ML 2 ML AMP ONE (07:14)
[2021-08-28] MEDS ORDERED: HEPARIN SODIUM 1,000 UN/ML (10ML VL) ONE (07:14)
[2021-08-28] MEDS ORDERED: VERAPAMIL 2.5 MG/ML 2 ML AMP ONE (07:14)
[2021-08-28] MEDS ORDERED: fentaNYL (PF) 50 MCG/ML 2 ML AMP IV ONE (07:33)
[2021-08-28] MEDS ORDERED: LIDOCAINE 1% INJ 10MG/ML (20 ML MDV) SQ ONE (07:39)
[2021-08-28] MEDS ORDERED: MIDAZOLAM 2 MG/2 ML VIAL IV ONE (07:42)
[2021-08-28] MEDS ORDERED: VERAPAMIL SYRINGE (5 MG/10 ML) INTRAARTER ONE (07:42)
[2021-08-28] MEDS ORDERED: HEPARIN SODIUM 1,000 UN/ML (10ML VL) IV ONE (07:59)
[2021-08-28 08:11] LABS: O2 Sat Blood Gas 73.5 %
[2021-08-28 08:12] LABS: O2 Sat Blood Gas 95.8 %
[2021-08-28] MEDS ORDERED: IOPAMIDOL-370 125ML BTL INJ ONE (08:12)
[2021-08-28] MEDS ORDERED: RX INFO: IV CONTRAST WAS GIVEN 1 EACH MISC MISCELLANE PRN (08:21)
[2021-08-28] MEDS ORDERED: traMADol 50 MG TAB PO PRN (08:22)
[2021-08-28] MEDS ORDERED: SODIUM CHLORIDE 0.9% 1,000 ML IV SCH (08:30)
--- NOTE | 2021-08-28 08:31 | P.CARDCATH ---
Date of Procedure: 08/28/21 Description of Procedure: Cardiac Catheterization: The patient is a 70-year-old female with known history of hypertension and hyperlipidemia who has been complaining of progressive dyspnea on exertion and was found to have severe aortic stenosis by echocardiography. Recommendations were made regarding cardiac catheterization, the risks and the complications were discussed with the patient who is in full understanding and agreement. Procedure Description: Patient was brought to can labeler in fasting semi-sedated state after receiving Fentanyl and Benadryl achieiving moderate conscious sedated state. Using Xylocaine Anesthesia and Seldinger technique, a 6-[place] sheath was introduced in the right radial artery . The intravenous catheter in the right basilic vein was exchanged to a 6-[place] sheath. Right heart catheterization was performed using a Primghar-Opal catheter, multiple samples and pressures were obtained. Cardiac output by thermodilution was calculated. Subsequently, selective coronary angiography performed using a 5-[place] 3.5 bend Luz catheter. Multiple views of the coronary artery including hemiaxial views were obtained. The right Luz catheter was used to cross the aortic valve and LVEDP was calculated. Following that, catheter and sheath were removed. Hemostasis was obtained with deployment of TR band . There was no immediate complication. Patient was returned to room in stable condition. Of note, the patient received a total of 4500 units of intravenous heparin as well as intra-arterial verapamil. There was no immediate complications. Findings: Hemodynamics: Pulmonary artery systolic pressure 27 diastolic 6 with a mean of 13 mmHg, pulmonary capillary wedge pressure A wave of 10 V-wave of 7 with a mean of 7 mmHg, right ventricular systolic pressure of 28 with an end-diastolic of 4 mmHg, right atrial A wave of 8, V-wave of 6 with a mean of 40 mmHg, left ve ntricular and diastolic pressure of 20-22 mmHg, left ventricular systolic pressure of 200 needed to mercury, ascending he were to 160 mmHg with a peak gradient of 40 need to mercury, aortic valve area 0.86 cm. Cardiac output by Junie 7.3 L/m with an index of 3.9 L/m/m, cardiac output by thermodilution 5.2 L/m is a cardiac index of 2.8 L/m/m. Pulmonary artery saturation 74%, right atrial saturation 75%, arterial saturation of 96%. Fluoroscopy: There is severe calcification involving the aortic valve. Left main: This is a short sized vessel, bifurcating into the left circumflex and the LAD, left main has no high-grade stenosis LAD: This is a large size vessel, reaching to the apex, giving rise to 2 diagonal branch. The LAD and its branches have no evidence of high-grade stenosis Left circumflex: This is a nondominant vessel giving rise to 2 obtuse marginal branch the first one is larger in caliber. The first obtuse marginal branch has 10-20% plaque proximally the rest of the vessel has no high-grade stenosis RCA: This is a dominant vessel large in caliber and bifurcating distally into PDA and PLV, the RCA has no evidence of severe obstructive disease, there is mild plaque of 10% proximally. [Left] Ventriculogram: Was not performed Conclusion: 1. Mild obstructive disease RCA and left circumflex 2. Severe aortic stenosis 3. Right dominance Recommendations: In view of the results of the testing and her symptoms I have recommended to proceed with evaluation for aortic valve replacement. The findings as well as the recommendations were discussed with the patient and her family and they are in full understanding and agreement. Duration of sedation is 33 minutes.
[2021-08-28 10:58] VITALS: BP 131/58; PULSE 58
[2021-08-28] MEDS ORDERED: NON FORMULARY DRUG (Famotidine [Famotidine] 40 MG Tablet) PO SCH (21:00)
[2021-08-28] MEDS ORDERED: lisinopriL 10 MG TAB PO SCH (21:00)
[2021-08-28] MEDS ORDERED: ATORVASTATIN 40 MG TAB PO SCH (21:00)
== END 2021-08-28 13:18 | disposition home or self-care (01) ==
LOC: CATHCVL 06:32
PROVIDERS: ATTEND Internal Medicine Interventional Cardiology
DX: I35.0 Nonrheumatic aortic (valve) stenosis (principal); I25.10 Atherosclerotic heart disease of native coronary artery without angina pectoris; I10 Essential (primary) hypertension; E78.5 Hyperlipidemia, unspecified; Z20.822 Contact with and (suspected) exposure to COVID-19; Z79.899 Other long term (current) drug therapy; Z88.1 Allergy status to other antibiotic agents; Z82.49 Family history of ischemic heart disease and other diseases of the circulatory system
CPT/HCPCS: 93460; 85018; 82810; 87635; C1769 ×2; C1894; C1751; J2250; J2001; J3010; J1644; Q9967

== ENCOUNTER → 2021-09-16 | Outpatient (CLI) | payer MEDICARE ==
[2021-09-16 10:56] LABS: Basophils % (A) 1 %; Eosinophils # (A) 0.3 k/uL (0-0.7); Eosinophils % (A) 4 %; HCT 43.7 % (34.0-46.0); HGB 13.8 gm/dL (11.4-16.0); Lymphocytes # (A) 2.3 k/uL (1.0-4.8); Lymphocytes % (A) 33 %; MCH 30.9 pg (25.0-35.0); MCHC 31.5 g/dL (31.0-37.0); MCV 98.3 fL (80.0-100.0); Mean Platelet Volume 7.2; Monocytes # (A) 0.3 k/uL (0-1.0); Monocytes % (A) 4 %; Neutrophils # (A) 3.9 k/uL (1.3-7.7); Neutrophils % (A) 57 %; Platelet Count 190 k/uL (150-450); RBC 4.45 m/uL (3.80-5.40); RDW 13.3 % (11.5-15.5); WBC 6.8 k/uL (3.8-10.6)
[2021-09-16 11:02] LABS: Prothrombin Time 10.4 sec (9.0-12.0)
[2021-09-16 11:05] LABS: ALT 20 U/L (4-34); AST 24 U/L (14-36); African American GFR (CKD) >90 (>60 ml/min/1.73 sqM); Albumin 4.1 g/dL (3.5-5.0); Albumin/Globulin Ratio 1.5; Alkaline Phosphatase 103 U/L (38-126); Anion Gap 4 mmol/L; Blood Urea Nitrogen 18 mg/dL (7-17); Calcium 8.9 mg/dL (8.4-10.2); Carbon Dioxide 31 mmol/L (22-30); Chloride 105 mmol/L (98-107); Globulin 2.7 g/dL; Glucose 92 mg/dL (74-99); Magnesium 2.1 mg/dL (1.6-2.3); Non-African American GFR(CKD) 87 (>60 ml/min/1.73 sqM); Sodium 140 mmol/L (137-145); Total Bilirubin 0.8 mg/dL (0.2-1.3); Total Protein 6.8 g/dL (6.3-8.2)
[2021-09-16 11:23] LABS: Appearance,Urine Cloudy (Clear); Bacteria,Urine Moderate /hpf; Bilirubin,Urine Negative (Negative); Blood,Urine Small (Negative); Color,Urine Yellow; Glucose,Urine (UA) Negative (Negative); Ketones,Urine Negative (Negative); Leukocyte Esterase,Urine Large (Negative); Mucus,Urine Occasional /hpf; Nitrite,Urine Negative (Negative); PH, Urine 5.5 (5.0-8.0); Protein,Urine Negative (Negative); RBC,Urine 7 /hpf (0-5); Specific Gravity,Urine 1.017 (1.001-1.035); Squamous Epithelial Cell,Urine 28 /hpf (0-4); Urobilinogen,Urine <2.0 mg/dL (<2.0); WBC,Urine 9 /hpf (0-5)
--- NOTE | 2021-09-16 12:38 | US ---
EXAMINATION TYPE: US carotid duplex BILAT DATE OF EXAM: 09/16/2021 COMPARISON: NONE CLINICAL HISTORY: R55 SYNCOPE. Syncope, pre-op test EXAM MEASUREMENTS: RIGHT: Peak Systolic Velocity (PSV) cm/sec ----- Right CCA: 76.0 ----- Right ICA: 110 ----- Right ECA: 58.5 ICA/CCA ratio: 1.4 RIGHT: End Diastole cm/sec ----- Right CCA: 18.2 ----- Right ICA: 29.2 ----- Right ECA: 0.0 LEFT: Peak Systolic Velocity (PSV) cm/sec ----- Left CCA: 78.6 ----- Left ICA: 110 ----- Left ECA: 49.3 ICA/CCA ratio: 1.4 LEFT: End Diastole cm/sec ----- Left CCA: 21.1 ----- Left ICA: 33.9 ----- Left ECA: 0.0 VERTEBRALS (direction of flow): Right Vertebral: Antegrade Left Vertebral: Antegrade Rhythm: Normal No significant atheromatous plaquing is evident. Doppler waveforms appear normal No significant steno sis seen IMPRESSION: No suspicious changes to suggest significant flow-limiting stenosis Criteria for Assigning % of Stenosis / Diameter reduction (Estimation based on the indirect measurements of the internal carotid artery velocities (ICA PSV). 1. Normal (no stenosis)=ICA PSV < 125 cm/s: ratio < 2.0: ICA EDV<40 cm/s. 2. Less than 50% stenosis=ICA PSV < 125 cm/s: ratio < 2.0: ICA EDV<40 cm/s. 3. 50 to 69% stenosis=ICA PSV of 125 to 230 cm/s: ration 2.0 ? 4.0: ICA EDV 40-100 cm/s. 4. Greater than 70% stenosis to near occlusion= ICA PSV > 230 cm/s: ratio > 4.0: ICA EDV > 100 cm/s. 5. Near occlusion= ICA PSV velocities may be low or undetectable: variable ratio and ICA EDV. 6. Total occlusion=unable to detect flow.
--- NOTE | 2021-09-16 14:16 | CT ---
EXAMINATION TYPE: CT TAVR Planning DATE OF EXAM: 09/16/2021 HISTORY: NONRHEUMATIC AORTIC. TAVR PLANNING CT DLP: 1977.9 mGycm Automated Exposure Control for Dose Reduction was Utilized. CONTRAST: CT scan of the chest, abdomen and pelvis is performed with IV Contrast, patient injected with 125ML m L of Isovue 370. MIP images were generated on an independent work station and reviewed. COMPARISON: No previous CT scan is available for comparison TECHNIQUE: Helical imaging obtained through the chest, abdomen and pelvis during arterial phase emmy marisela administration of radiographic contrast intravenously. FINDINGS: See report from [facility] regarding preprocedural planning CHEST: Lower Neck and Thyroid: No significant findings Lungs: Left apical pulmonary pleural-based fibrotic changes. Unremarkable lungs otherwise. Central Airway: No significant findings Pleura: No significant findings Pulmonary Arteries: No significant findings Heart and Pericardium: No significant findings Lymph Nodes: No significant findings Mediastinum & Esophagus: Coronary, aortic root and arterial atherosclerotic calcifications. Normal ca liber and enhancement of the thoracic aorta. Slightly thickened midportion of the esophagus, nonspeci fic. ABDOMEN/PELVIS: Please note arterial phase of the imaging limits detailed evaluation of the solid abdominal organs. Liver: No definite hepatic focal lesion with suspected hepatic steatosis. Spleen: No significant findings Kidneys: Simple cyst is seen at the lower pole of the left kidney, otherwise unremarkable kidneys. Adrenal Glands: No significant findings Pancreas: No significant findings Gallbladder: No significant findings Bowel and Mesentery: Unremarkable stomach and duodenum. Suspected adhesions between the pelvic small bowel and the right adnexa. No evidence of bowel obstruction. Scattered uncomplicated colonic diverti culosis. Lymph Nodes: No pathologically enlarged lymph nodes. Urinary Bladder: Not distended. Pelvic Organs: Previous hysterectomy. No gross adnexal mass. Other: Arterial atherosclerotic calcifications. Infrarenal abdominal aortic ectasia measuring up to 2 .4 cm. Small fat-containing umbilical hernia. No sizable ascites. 7 mm right breast calcification, pl ease correlate with mammography/breast ultrasound results. Bilateral L5 pars break without significan t anterolisthesis or retrolisthesis. Other Lines/Tubes/Devices/Hardware: None IMPRESSION: Presurgical planning CT demonstrating incidental findings as described above.
[2021-09-16 15:08] LABS: Chol/HDL Ratio 1.91 Ratio; LDL Cholesterol,Calculated 68.1 mg/dL (0.0-131.0)
== END | disposition home or self-care (01) ==
LOC: LABWHC1 09:08
PROVIDERS: ATTEND Thoracic Surgery (Cardiothoracic Vascular Surgery)
DX: Z01.818 Encounter for other preprocedural examination (principal); I35.1 Nonrheumatic aortic (valve) insufficiency; R55 Syncope and collapse; E87.8 Other disorders of electrolyte and fluid balance, not elsewhere classified; R58 Hemorrhage, not elsewhere classified; E07.9 Disorder of thyroid, unspecified; R35.0 Frequency of micturition; E11.9 Type 2 diabetes mellitus without complications; N28.9 Disorder of kidney and ureter, unspecified; E78.5 Hyperlipidemia, unspecified; Z79.01 Long term (current) use of anticoagulants; Z79.899 Other long term (current) drug therapy
CPT/HCPCS: 94150; 83880; 80061; 80053; 80074; 84443; 83735; 85025; 85610; 81001; 87086; 83036; 93880; 71275; 36415 ×2; 74174; Q9967

== ENCOUNTER 2021-10-12 09:56 | Inpatient (IN) | payer MEDICARE ==
--- NOTE | 2021-10-12 10:41 | ED ---
Neuro HPI - General Chief Complaint: Neuro Symptoms/Deficit Stated Complaint: numbness Time Seen by Provider: 10/12/21 10:30 Source: patient, RN notes reviewed Mode of arrival: wheelchair Limitations: no limitations - History of Present Illness Is the patient presenting with stroke symptoms?: Yes Initial Comments: 71-year-old female history of hypertension a history of aortic valve problems which she scheduled to have surgery in the near future history of TIA in the past who presents with complaints of the onset of some dizziness and left arm numbness this morning around 9 AM with left arm weakness left lower extremity weakness. No headaches no blurry vision no nausea no vomiting she states she's been having intermittent episodes of left arm numbness recently. No trauma no falls she is not on any blood thinners. No other complaints or modifying factors she did arrive by private vehicle - Related Data Home Medications: Home Medications Medication Instructions Recorded Confirmed Famotidine 40 mg PO HS 06/20/21 10/12/21 lisinopriL 10 mg PO HS 06/20/21 10/12/21 Aspirin EC [Ecotrin Low Dose] 81 mg PO HS 10/12/21 10/12/21 Atorvastatin [Lipitor] 20 mg PO HS 10/12/21 10/12/21 HYDROcodone/APAP 5-325MG [[place] 1 tab PO TID PRN 10/12/21 10/12/21 5-325] Allergies/Adverse Reactions: Allergies Allergy/AdvReac Type Severity Reaction Status Date / Time erythromycin base Allergy Itching Verified 10/12/21 13:29 meloxicam Allergy mood Verified 10/12/21 13:29 swings, aggressive, out of it methotrexate Allergy Rash/Hives Verified 10/12/21 13:29 IVORY Allergy Rash/Hives Uncoded 10/12/21 13:29 Review of Systems ROS Statement: Those systems with pertinent positive or pertinent negative responses have been documented in the HPI. ROS Other: All systems not noted in ROS Statement are negative. General Exam - General Exam Comments Initial Comments: This is a well-developed well-nourished awake alert oriented female Limitations: no limitations General appearance: alert, anxious Head exam: Present: atraumatic, normocephalic, normal inspection Eye exam: Present: normal appearance, PERRL, EOMI. Absent: scleral icterus, conjunctival injection, periorbital swelling ENT exam: Present: mucous membranes moist, other (Flattening of left nasolabial fold) Neck exam: Present: normal inspection, full ROM, other (No stridor JVD or bruits). Absent: tenderness, meningismus, lymphadenopathy Respiratory exam: Present: normal lung sounds bilaterally. Absent: respiratory distress, wheezes, rales, rhonchi, stridor Cardiovascular Exam: Present: regular rate, normal rhythm, normal heart sounds. Absent: systolic murmur, diastolic murmur, rubs, gallop, clicks GI/Abdominal exam: Present: soft, normal bowel sounds. Absent: distended, tenderness, guarding, rebound, rigid Extremities exam: Present: normal inspection, normal capillary refill. 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 Slight flattening of left nasolabial fold) Psychiatric exam: Present: normal affect, anxious Skin exam: Present: warm, dry, intact, normal color. Absent: rash Stroke MDM - Lab Data Result diagrams: 10/12/21 11:10 10/12/21 11:10 Lab Results 10/12/21 10/12/21 10/12/21 Range/Units 10:59 11:10 11:10 WBC 4.9 (3.8-10.6) k/uL RBC 4.18 (3.80-5.40) m/uL Hgb 13.1 (11.4-16.0) gm/dL Hct 39.2 (34.0-46.0) % MCV 93.7 (80.0-100.0) fL MCH 31.4 (25.0-35.0) pg MCHC 33.5 (31.0-37.0) g/dL RDW 12.6 (11.5-15.5) % Plt Count 165 (150-450) k/uL MPV 7.2 Neutrophils % 65 % Lymphocytes % 22 % Monocytes % 7 % Eosinophils % 4 % Basophils % 1 % Neutrophils # 3.2 (1.3-7.7) k/uL Lymphocytes # 1.1 (1.0-4.8) k/uL Monocytes # 0.3 (0-1.0) k/uL Eosinophils # 0.2 (0-0.7) k/uL Basophils # 0.1 (0-0.2) k/uL PT 10.4 (9.0-12.0) sec INR 1.0 (<1.2) APTT 22.4 (22.0-30.0) sec Sodium (137-145) mmol/L Potassium (3.5-5.1) mmol/L Chloride (98-107) mmol/L Carbon Dioxide (22-30) mmol/L Anion Gap mmol/L BUN (7-17) mg/dL Creatinine (0.52-1.04) mg/dL Est GFR (CKD-EPI)AfAm (>60 ml/min/1.73 sqM) Est GFR (CKD-EPI)NonAf (>60 ml/min/1.73 sqM) Glucose (74-99) mg/dL POC Glucose (mg/dL) 92 (75-99) mg/dL POC Glu Oxygen Therapy Technician ID Evelio Wolf Calcium (8.4-10.2) mg/dL Total Bilirubin (0.2-1.3) mg/dL AST (14-36) U/L ALT (4-34) U/L Alkaline Phosphatase (38-126) U/L Troponin I (0.000-0.034) ng/mL Total Protein (6.3-8.2) g/dL Albumin (3.5-5.0) g/dL 10/12/21 10/12/21 Range/Units 11:10 11:10 WBC (3.8-10.6) k/uL RBC (3.80-5.40) m/uL Hgb (11.4-16.0) gm/dL Hct (34.0-46.0) % MCV (80.0-100.0) fL MCH (25.0-35.0) pg MCHC (31.0-37.0) g/dL RDW (11.5-15.5) % Plt Count (150-450) k/uL MPV Neutrophils % % Lymphocytes % % Monocytes % % Eosinophils % % Basophils % % Neutrophils # (1.3-7.7) k/uL Lymphocytes # (1.0-4.8) k/uL Monocytes # (0-1.0) k/uL Eosinophils # (0-0.7) k/uL Basophils # (0-0.2) k/uL PT (9.0-12.0) sec INR (<1.2) APTT (22.0-30.0) sec Sodium 137 (137-145) mmol/L Potassium 4.3 (3.5-5.1) mmol/L Chloride 105 (98-107) mmol/L Carbon Dioxide 25 (22-30) mmol/L Anion Gap 7 mmol/L BUN 13 (7-17) mg/dL Creatinine 0.68 (0.52-1.04) mg/dL Est GFR (CKD-EPI)AfAm >90 (>60 ml/min/1.73 sqM) Est GFR (CKD-EPI)NonAf 89 (>60 ml/min/1.73 sqM) Glucose 94 (74-99) mg/dL POC Glucose (mg/dL) (75-99) mg/dL POC Glu Oxygen Therapy Technician ID Calcium 8.6 (8.4-10.2) mg/dL Total Bilirubin 0.7 (0.2-1.3) mg/dL AST 25 (14-36) U/L ALT 20 (4-34) U/L Alkaline Phosphatase 101 (38-126) U/L Troponin I <0.012 (0.000-0.034) ng/mL Total Protein 6.0 L (6.3-8.2) g/dL Albumin 3.6 (3.5-5.0) g/dL Past Medical History Past Medical History: GERD/Reflux, Hyperlipidemia, Hypertension, Osteoarthritis (OA) Additional Past Medical History / Comment(s): Blood pressure "fluctuates", doctor monitoring, current sinus problems. History of Any Multi-Drug Resistant Organisms: None Reported Past Surgical History: Hysterectomy, Tonsillectomy Additional Past Surgical History / Comment(s): D&C and partial hysterectomy(bilateral ovaries retained), bilateral cyst aspirations(benign), CHRISTINA. Past Anesthesia/Blood Transfusion Reactions: No Reported Reaction Past Psychological History: No Psychological Hx Reported Smoking Status: Former smoker - Past Family History Mother Family Medical History: Cancer Additional Family Medical History / Comment(s): SKIN CANCER. Father Family Medical History: Cancer Additional Family Medical History / Comment(s): SKIN CANCER. Sister(s) Family Medical History: Cancer Additional Family Medical History / Comment(s): SKIN CANCER. Course Vital Signs 10/12/21 10/12/21 10/12/21 10:07 11:20 11:29 Temperature 99.0 F Pulse Rate 82 62 60 Respiratory 18 18 18 Rate Blood Pressure 166/70 149/68 149/68 O2 Sat by Pulse 97 99 99 Oximetry 10/12/21 10/12/21 10/12/21 11:53 12:08 12:15 Temperature Pulse Rate 75 84 72 Respiratory 18 18 18 Rate Blood Pressure 163/88 114/60 70/40 O2 Sat by Pulse 98 Oximetry 10/12/21 10/12/21 10/12/21 12:18 12:29 13:12 Temperature Pulse Rate 72 65 72 Respiratory 18 18 18 Rate Blood Pressure 101/60 106/56 122/53 O2 Sat by Pulse 98 94 L 98 Oximetry 10/12/21 13:23 Temperature Pulse Rate 72 Respiratory 18 Rate Blood Pressure 133/80 O2 Sat by Pulse 98 Oximetry - Reevaluation(s) Reevaluation #1: 10/12/21 10:41 Code [facility] called us is examined the patient Reevaluation #2: 10/12/21 14:10 Reevaluation the patient finds that she is getting improvement. Critical Care Time Critical Care Time: Yes Total Critical Care Time: 45 Critical Care Time: Critical care time including initial presentation with history physical labs x- rays also reevaluation the patient schedule, Hospital neurologist and Dr. Ott. I did also discuss findings with the patient and family. Disposition Clinical Impression: Cerebrovascular accident (CVA) Disposition: ADMITTED IP TO THIS [facility] Condition: Stable Referrals: Celia Gaston MD [Primary Care Provider] - 1-2 days Decision Date: 10/12/21 Decision Time: 14:11
[2021-10-12] MEDS ORDERED: ALTEPLASE 66 MG in EMPTY BAG 1 BAG IV STA (10:53)
[2021-10-12] MEDS ORDERED: ALTEPLASE BOLUS FOR STROKE 7 MG in EMPTY SYRINGE 1 SYR IV STA (10:53)
[2021-10-12 11:00] LABS: Glucose,Whole Blood 92 mg/dL (75-99)
[2021-10-12] MEDS ORDERED: Alteplase PER PHARMACY Stroke 1 EACH MISC MISCELLANE PRN (11:00)
--- NOTE | 2021-10-12 11:04 | CT ---
EXAMINATION TYPE: CT brain wo con for TPA CT DLP: 1090.8 mGycm, Automated exposure control for dose reduction was used. DATE OF EXAM: 10/12/2021 10:50 AM COMPARISON: None. Prior CT Brain from MR 08/30/2019 CT Angio-Seal head neck same day. Brain 08/28/2019 CLINICAL INDICATION:Female, 71 years old with history of Neuro deficit, acute, stroke suspected, Left arm and lower leg weakness TECHNIQUE: Brain: Multiple axial CT images of the brain were obtained without IV contrast. FINDINGS: Brain: Extra-axial spaces: No abnormal extra-axial fluid collections. Ventricular system: Within normal limits Cerebral parenchyma: No acute intraparenchymal hemorrhage or mass effect. The coronado-white junction is well differentiated. Scattered hypoattenuating areas are seen within the white matter. Cerebellum: Unremarkable. Mass effect: No evidence of midline shift. Intracranial vasculature: Atherosclerotic calcifications of the intracranial vessels. Soft tissues: Normal. Calvarium/osseous structures: No depressed skull fracture. Paranasal sinuses and mastoid air cells: Mild scattered paranasal sinus disease. Visualized orbits: Orbital contents are intact. IMPRESSION: 1. No acute intracranial process. 2. Nonspecific white matter changes, likely secondary to chronic small vessel ischemic disease.
--- NOTE | 2021-10-12 11:27 | CT ---
EXAMINATION TYPE: CT angio head neck CT DLP: 470.7 mGycm, Automated exposure control for dose reduction was used. DATE OF EXAM: 10/12/2021 11:18 AM COMPARISON: CT brain 10/12/2021 CLINICAL INDICATION:Female, 71 years old with history of Neuro deficit, acute, stroke suspected, Neur o deficit TECHNIQUE: Axially acquired helical CT angiogram of the head and neck was obtained with contrast util izing 75 cc of Isovue-370 administered intravenously. Axial images are supplemented with 3D reconstru ctions which were post-processed at an independent workstation. NASCET criteria used. FINDINGS: CTA HEAD: No evidence of acute intracranial hemorrhage, mass effect, or midline shift. The ventricles, sulci, a nd cisterns are unremarkable. The visualized portions of the internal carotid arteries, middle cerebral arteries, anterior cerebral arteries, and posterior cerebral arteries are patent. The basilar and vertebral arteries are patent. CTA NECK: Right Carotid System: The common carotid artery and external carotid artery are patent. The carotid bifurcation demonstrate s no evidence of hemodynamically significant stenosis. The remaining portions of the internal carotid artery demonstrate normal size without significant narrowing. Left Carotid System: The common carotid artery and external carotid artery are patent. The carotid bifurcation demonstrate s no evidence of hemodynamically significant stenosis. The remaining portions of the internal carotid artery demonstrate normal size without significant narrowing. Vertebral arteries are patent without evidence hemodynamically significant stenosis. There is a three-vessel aortic arch. The origins of the great vessels are patent. No evidence of hemo dynamically significant stenosis. IMPRESSION: 1. No evidence of dissection of the cervical internal carotid arteries or vertebral arteries or any e vidence of significant stenosis at the carotid bifurcations. 2. No evidence of high-grade stenosis or intracranial aneurysm.
[2021-10-12 11:28] LABS: Basophils # (A) 0.1 k/uL (0-0.2); Basophils % (A) 1 %; Eosinophils # (A) 0.2 k/uL (0-0.7); Eosinophils % (A) 4 %; HCT 39.2 % (34.0-46.0); HGB 13.1 gm/dL (11.4-16.0); Lymphocytes # (A) 1.1 k/uL (1.0-4.8); Lymphocytes % (A) 22 %; MCH 31.4 pg (25.0-35.0); MCHC 33.5 g/dL (31.0-37.0); MCV 93.7 fL (80.0-100.0); Mean Platelet Volume 7.2; Monocytes # (A) 0.3 k/uL (0-1.0); Monocytes % (A) 7 %; Neutrophils # (A) 3.2 k/uL (1.3-7.7); Neutrophils % (A) 65 %; Platelet Count 165 k/uL (150-450); RBC 4.18 m/uL (3.80-5.40); RDW 12.6 % (11.5-15.5); WBC 4.9 k/uL (3.8-10.6)
[2021-10-12 11:37] LABS: ALT 20 U/L (4-34); AST 25 U/L (14-36); African American GFR (CKD) >90 (>60 ml/min/1.73 sqM); Albumin 3.6 g/dL (3.5-5.0); Alkaline Phosphatase 101 U/L (38-126); Anion Gap 7 mmol/L; Blood Urea Nitrogen 13 mg/dL (7-17); Calcium 8.6 mg/dL (8.4-10.2); Carbon Dioxide 25 mmol/L (22-30); Chloride 105 mmol/L (98-107); Glucose 94 mg/dL (74-99); Non-African American GFR(CKD) 89 (>60 ml/min/1.73 sqM); Potassium 4.3 mmol/L (3.5-5.1); Sodium 137 mmol/L (137-145); Total Bilirubin 0.7 mg/dL (0.2-1.3)
[2021-10-12 11:48] LABS: Partial Thromboplastin Time 22.4 sec (22.0-30.0); Prothrombin Time 10.4 sec (9.0-12.0)
[2021-10-12] MEDS ORDERED: SODIUM CHLORIDE 0.9% 50 ML MINI-BAG IV ONE ×2 (11:51→15:19)
[2021-10-12] MEDS ORDERED: ONDANSETRON 4 MG/2 ML VIAL IVP STA (12:12)
--- NOTE | 2021-10-12 14:05 | XR ---
EXAMINATION TYPE: XR chest 2V DATE OF EXAM: 10/12/2021 1:07 PM COMPARISON: Chest radiographs from 08/28/2019. TECHNIQUE: XR chest 2V Frontal and lateral views of the chest. CLINICAL INDICATION:Female, 71 years old with history of altered mental status; FINDINGS: Lungs/Pleura: There is no evidence of pleural effusion, focal consolidation, or pneumothorax. Pulmonary vascularity: Unremarkable. Heart/mediastinum: Cardiomediastinal silhouette is unremarkable. Musculoskeletal: No acute osseous pathology. IMPRESSION: No acute cardiopulmonary disease/process.
[2021-10-12] MEDS ORDERED: HYDROcodone/APAP 5-325MG 1 EACH TAB PO PRN (14:20)
[2021-10-12] MEDS ORDERED: NALOXONE 0.4 MG/ML 1 ML VIAL IV PRN (14:22)
--- NOTE | 2021-10-12 14:25 | ED ---
Medical Decision Making - Medical Decision Making The patient was initially a 5 on the NIH stroke scale. Demonstrated almost complete resolution of her symptoms. - Lab Data Result diagrams: 10/12/21 11:10 10/12/21 11:10 Lab Results 10/12/21 10/12/21 10/12/21 Range/Units 10:59 11:10 11:10 WBC 4.9 (3.8-10.6) k/uL RBC 4.18 (3.80-5.40) m/uL Hgb 13.1 (11.4-16.0) gm/dL Hct 39.2 (34.0-46.0) % MCV 93.7 (80.0-100.0) fL MCH 31.4 (25.0-35.0) pg MCHC 33.5 (31.0-37.0) g/dL RDW 12.6 (11.5-15.5) % Plt Count 165 (150-450) k/uL MPV 7.2 Neutrophils % 65 % Lymphocytes % 22 % Monocytes % 7 % Eosinophils % 4 % Basophils % 1 % Neutrophils # 3.2 (1.3-7.7) k/uL Lymphocytes # 1.1 (1.0-4.8) k/uL Monocytes # 0.3 (0-1.0) k/uL Eosinophils # 0.2 (0-0.7) k/uL Basophils # 0.1 (0-0.2) k/uL PT 10.4 (9.0-12.0) sec INR 1.0 (<1.2) APTT 22.4 (22.0-30.0) sec Sodium (137-145) mmol/L Potassium (3.5-5.1) mmol/L Chloride (98-107) mmol/L Carbon Dioxide (22-30) mmol/L Anion Gap mmol/L BUN (7-17) mg/dL Creatinine (0.52-1.04) mg/dL Est GFR (CKD-EPI)AfAm (>60 ml/min/1.73 sqM) Est GFR (CKD-EPI)NonAf (>60 ml/min/1.73 sqM) Glucose (74-99) mg/dL POC Glucose (mg/dL) 92 (75-99) mg/dL POC Glu Supervisor Engine Assembly ID Evelio Wolf Calcium (8.4-10.2) mg/dL Total Bilirubin (0.2-1.3) mg/dL AST (14-36) U/L ALT (4-34) U/L Alkaline Phosphatase (38-126) U/L Troponin I (0.000-0.034) ng/mL Total Protein (6.3-8.2) g/dL Albumin (3.5-5.0) g/dL 10/12/21 10/12/21 Range/Units 11:10 11:10 WBC (3.8-10.6) k/uL RBC (3.80-5.40) m/uL Hgb (11.4-16.0) gm/dL Hct (34.0-46.0) % MCV (80.0-100.0) fL MCH (25.0-35.0) pg MCHC (31.0-37.0) g/dL RDW (11.5-15.5) % Plt Count (150-450) k/uL MPV Neutrophils % % Lymphocytes % % Monocytes % % Eosinophils % % Basophils % % Neutrophils # (1.3-7.7) k/uL Lymphocytes # (1.0-4.8) k/uL Monocytes # (0-1.0) k/uL Eosinophils # (0-0.7) k/uL Basophils # (0-0.2) k/uL PT (9.0-12.0) sec INR (<1.2) APTT (22.0-30.0) sec Sodium 137 (137-145) mmol/L Potassium 4.3 (3.5-5.1) mmol/L Chloride 105 (98-107) mmol/L Carbon Dioxide 25 (22-30) mmol/L Anion Gap 7 mmol/L BUN 13 (7-17) mg/dL Creatinine 0.68 (0.52-1.04) mg/dL Est GFR (CKD-EPI)AfAm >90 (>60 ml/min/1.73 sqM) Est GFR (CKD-EPI)NonAf 89 (>60 ml/min/1.73 sqM) Glucose 94 (74-99) mg/dL POC Glucose (mg/dL) (75-99) mg/dL POC Glu Supervisor Engine Assembly ID Calcium 8.6 (8.4-10.2) mg/dL Total Bilirubin 0.7 (0.2-1.3) mg/dL AST 25 (14-36) U/L ALT 20 (4-34) U/L Alkaline Phosphatase 101 (38-126) U/L Troponin I <0.012 (0.000-0.034) ng/mL Total Protein 6.0 L (6.3-8.2) g/dL Albumin 3.6 (3.5-5.0) g/dL - EKG Data -: EKG Interpreted by Me EKG Comments: Normal sinus rhythm a 68. Ago 162 QRS 81 QT since QTC 395/412 nonspecific T-wave configuration Disposition Clinical Impression: Cerebrovascular accident (CVA), Hypotensive episode Disposition: ADMITTED IP TO THIS HOSP Condition: Stable Referrals: Celia Gaston MD [Primary Care Provider] - 1-2 days
--- NOTE | 2021-10-12 14:31 | P.HPIM ---
History of Present Illness H&P Date: 10/12/21 Chief Complaint: stroke 71-year-old female history of hypertension a history of aortic valve stenosis, was scheduled to have surgery on it in early October, history of TIA in the past who presents with complaints of the onset of some dizziness, and left sided weakness and numbness also involving the face. It started this morning around 9 AM. She had blurred vision in the left eye. No headaches. No nausea no vomiting. She states she's been having intermittent episodes of left arm numbness recently. No trauma no falls she is not on any blood thinners. In the emergency department patient continues to have significant weakness on the left side and due to that she was getting TPA. Currently the weakness and numbness are both improving. Head CT as well as CT angiogram of the head and neck were both okay. She was admitted for further evaluation and management. Review of Systems complete review of system was performed, negative except for what is stated in HPI Past Medical History Past Medical History: GERD/Reflux, Hyperlipidemia, Hypertension, Osteoarthritis (OA) Additional Past Medical History / Comment(s): Blood pressure "fluctuates", doctor monitoring, current sinus problems. History of Any Multi-Drug Resistant Organisms: None Reported Past Surgical History: Hysterectomy, Tonsillectomy Additional Past Surgical History / Comment(s): D&C and partial hysterectomy(bilateral ovaries retained), bilateral cyst aspirations(benign), CHRISTINA. Past Anesthesia/Blood Transfusion Reactions: No Reported Reaction Past Psychological History: No Psychological Hx Reported Smoking Status: Former smoker - Past Family History Mother Family Medical History: Cancer Additional Family Medical History / Comment(s): SKIN CANCER. Father Family Medical History: Cancer Additional Family Medical History / Comment(s): SKIN CANCER. Sister(s) Family Medical History: Cancer Additional Family Medical History / Comment(s): SKIN CANCER. Medications and Allergies Home Medications Medication Instructions Recorded Confirmed Type Famotidine 40 mg PO HS 06/20/21 10/12/21 History lisinopriL 10 mg PO HS 06/20/21 10/12/21 History Aspirin EC [Ecotrin Low Dose] 81 mg PO HS 10/12/21 10/12/21 History Atorvastatin [Lipitor] 20 mg PO HS 10/12/21 10/12/21 History HYDROcodone/APAP 5-325MG [[place] 1 tab PO TID PRN 10/12/21 10/12/21 History 5-325] Allergies Allergy/AdvReac Type Severity Reaction Status Date / Time erythromycin base Allergy Itching Verified 10/12/21 13:29 meloxicam Allergy mood Verified 10/12/21 13:29 swings, aggressive, out of it methotrexate Allergy Rash/Hives Verified 10/12/21 13:29 IVORY Allergy Rash/Hives Uncoded 10/12/21 13:29 Physical Exam Vitals: Vital Signs Temp Pulse Resp BP Pulse Ox 10/12/21 13:23 72 18 133/80 98 10/12/21 13:12 72 18 122/53 98 10/12/21 12:29 65 18 106/56 94 L 10/12/21 12:18 72 18 101/60 98 10/12/21 12:15 72 18 70/40 10/12/21 12:08 84 18 114/60 10/12/21 11:53 75 18 163/88 98 10/12/21 11:29 60 18 149/68 99 10/12/21 11:20 62 18 149/68 99 10/12/21 10:07 99.0 F 82 18 166/70 97 Intake and Output 10/11/21 10/12/21 10/12/21 22:59 06:59 14:59 Other: Weight 81.647 kg Constitutional: No acute distress, conversant, pleasant Eyes:Anicteric sclerae, moist conjunctiva, no lid-lag, PERRLA, ENMT: Oropharynx clear, no erythema, exudates Neck: Supple, FROM, no masses, or JVD, No carotid bruits, No thyromegaly Lungs: Clear to auscultation, Clear to percussion, Normal respiratory effort, no accessory muscle use Cardiovascular: Heart regular in rate and rhythm, No murmurs, gallops, or rubs, No peripheral edema Abdominal: Soft, Nontender, no guarding, rebound or rigidity, Normoactive bowel sounds, No hepatomegaly, No splenomegaly, No palpable mass Skin: Normal temperature, tone, texture, turgor, no induration, No subcutaneous nodules, No rash, lesions, No ulcers Extremities: No digital cyanosis, No clubbing, Pedal pulses intact and symmetrical, Radial pulses intact and symmetrical, No calf tenderness Psychiatric: Alert and oriented to person, place and time, appropriate affect, intact judgement Neuro: Left arm and left leg 4+ out of 5, numbness on the left side. Cranial nerves II-XII grossly intact, no focal sensory deficits Results CBC & Chem 7: 10/12/21 11:10 10/12/21 11:10 Labs: Abnormal Lab Results - Last 24 Hours (Table) 10/12/21 Range/Units 11:10 Total Protein 6.0 L (6.3-8.2) g/dL Assessment and Plan Plan: Acute CVA Nothing by mouth until seen by speech Status post TPA treatment Neurology consultation MRI of brain, echo PT evaluation We'll resume blood thinners in 24 hours according to neuro, will need high intensity statin. Hypertension Hold bp meds for now GERD/Reflux, Hyperlipidemia, Osteoarthritis (OA) All stable resume meds Admit to inpatient, expected length of stay more than 2 midnights.
[2021-10-12] MEDS ORDERED: ASPIRIN 81 MG PO SCH (21:00)
[2021-10-12] MEDS: lisinopriL 10 MG TAB PO SCH (22:01)
[2021-10-12] MEDS: ATORVASTATIN 80 MG TAB PO SCH (22:01)
[2021-10-12] MEDS: FAMOTIDINE 20 MG TAB PO SCH (22:09)
[2021-10-13] MEDS: SODIUM CHLORIDE 0.9% 1,000 ML IV SCH ×3 (01:55→13:00)
[2021-10-13 07:26] LABS: ALT 17 U/L (4-34); AST 24 U/L (14-36); African American GFR (CKD) >90 (>60 ml/min/1.73 sqM); Albumin 3.1 g/dL (3.5-5.0); Alkaline Phosphatase 75 U/L (38-126); Anion Gap 4 mmol/L; Blood Urea Nitrogen 16 mg/dL (7-17); Calcium 8.3 mg/dL (8.4-10.2); Carbon Dioxide 26 mmol/L (22-30); Chloride 108 mmol/L (98-107); Glucose 92 mg/dL (74-99); Magnesium 2.1 mg/dL (1.6-2.3); Non-African American GFR(CKD) 87 (>60 ml/min/1.73 sqM); Phosphorus 4.1 mg/dL (2.5-4.5); Potassium 4.3 mmol/L (3.5-5.1); Sodium 138 mmol/L (137-145); Total Bilirubin 0.8 mg/dL (0.2-1.3); Total Protein 5.3 g/dL (6.3-8.2)
[2021-10-13 07:51] LABS: Basophils % (A) 1 %; Eosinophils # (A) 0.2 k/uL (0-0.7); Eosinophils % (A) 4 %; HCT 36.2 % (34.0-46.0); Lymphocytes # (A) 1.3 k/uL (1.0-4.8); Lymphocytes % (A) 27 %; MCH 32.3 pg (25.0-35.0); MCHC 33.1 g/dL (31.0-37.0); MCV 97.7 fL (80.0-100.0); Monocytes # (A) 0.3 k/uL (0-1.0); Monocytes % (A) 7 %; Neutrophils # (A) 2.9 k/uL (1.3-7.7); Neutrophils % (A) 60 %; Platelet Count 176 k/uL (150-450); RDW 12.8 % (11.5-15.5); WBC 4.9 k/uL (3.8-10.6)
[2021-10-13] MEDS ORDERED: CLOPIDOGREL 75 MG TAB PO SCH (09:00)
--- NOTE | 2021-10-13 12:18 | CT ---
EXAMINATION TYPE: CT brain wo con DATE OF EXAM: 10/13/2021 COMPARISON: 10/12/2021 HISTORY: Post TPA infusion CT DLP: 1098.[address] of the brain was performed. The ventricles, basal cisterns and sulci overlying the cerebral convexities demonstrate mild enlargem ent. There is no evidence for intracranial hemorrhage or sulcal effacement. There is decreased attenuation about the periventricular white matter and deep white matter of both c erebral hemispheres, compatible with chronic small vessel ischemia. Differential diagnosis does inclu de demyelination. No mass effects are seen.No midline shift. Osseous calvarium is intact. If symptoms persist consider MRI. IMPRESSION: 1. Age related atrophic and chronic small vessel ischemic change without acute intracranial process s een at this time.
--- NOTE | 2021-10-13 12:48 | P.PN ---
Subjective Progress Note Date: 10/13/21 No new complaints today. L sided weakness has resolved s/p tPA. Gen: awake, alert HEENT: normocephalic, atraumatic, good hearing acuity, moist mucous membranes Resp: good air exchange, breathing comfortably with no accessory muscle use CVS: good distal perfusion x 4, GI: soft, NTTP, ND : no SPT, no CVAT, pavon catheter not present MSK: no pitting edema, no clubbing Neuro: non-focal, moving all extremities Psych: cooperative, euthymic mood Assessment/plan: Acute CVA Nothing by mouth until seen by speech Status post TPA treatment Neurology consultation MRI of brain, echo PT evaluation We'll resume blood thinners in 24 hours according to neuro, will need high intensity statin. Hypertension Hold bp meds for now GERD/Reflux, Hyperlipidemia, Osteoarthritis (OA) All stable resume meds Admit to inpatient, expected length of stay more than 2 midnights. Objective - Vital Signs Vital signs: Vital Signs Temp 98.3 F 10/13/21 00:30 Pulse 55 L 10/13/21 03:30 Resp 11 L 10/13/21 03:30 BP 106/45 10/13/21 03:30 Pulse Ox 96 10/13/21 03:30 Intake & Output 10/12/21 10/13/21 10/13/21 18:59 06:59 18:59 Intake Total 540 Output Total 300 Balance 240 Weight 81.647 kg Intake: Intake, IV Titration 300 Amount Sodium Chloride 0.9% 1, 300 000 ml @ 100 mls/hr IV . Q10H [facility] Rx#:[id number] Oral 240 Output: Urine 300 Other: Voiding Method Toilet # Voids 1 - Labs CBC & Chem 7: 10/13/21 06:00 10/13/21 06:40 Labs: Abnormal Lab Results - Last 24 Hours (Table) 10/13/21 10/13/21 Range/Units 06:00 06:40 RBC 3.70 L (3.80-5.40) m/uL Chloride 108 H (98-107) mmol/L Calcium 8.3 L (8.4-10.2) mg/dL Total Protein 5.3 L (6.3-8.2) g/dL Albumin 3.1 L (3.5-5.0) g/dL
--- NOTE | 2021-10-13 12:54 | P.CNNES ---
History of Present Illness Consult date: 10/13/21 Requesting physician: Fazal Colmenares Reason for Consult: cva History of Present Illness: This is a 71-year-old woman with medical history of TIA (about 1 year ago), aortic valve stenosis, hypertension, hyperlipidemia who presented to the emergency department on 10/12/2021 for left sided numbness and weakness. She felt her onset of symptoms was yesterday (10/12/2021) around 9-10am. She denied any headache associated with this. Otherwise denies any other neurological deficits she felt. She is on ASA 81mg daily and Lipitor 20mg daily. She denies of tobacco use or illicit drug use. About 1 year ago she had similar episode as above and was told she has TIA. She stated she has history of aortic stenosis and needs replacement and was scheduled to have procedure on 10/21/2021. Her melter supervisor is Dr. Raya. As result stroke code was activated in our ED. Initial NIH in ED is 5. She had CT head and CTA head and neck and were negative. CBC with diff and chemistry panel is unremarkable. ED spoke with stroke team and patient received IV tpa. Currently patient is feeling back to baseline. Review of Systems Review of system: The 12 point system was reviewed and apparent positive and negative per HPI. Past Medical History Past Medical History: GERD/Reflux, Hyperlipidemia, Hypertension, Osteoarthritis (OA) Additional Past Medical History / Comment(s): Blood pressure "fluctuates", docto r monitoring, current sinus problems. History of Any Multi-Drug Resistant Organisms: None Reported Past Surgical History: Hysterectomy, Tonsillectomy Additional Past Surgical History / Comment(s): D&C and partial hysterectomy (bilateral ovaries retained), bilateral cyst aspirations(benign), CHRISTINA. Past Anesthesia/Blood Transfusion Reactions: No Reported Reaction Past Psychological History: No Psychological Hx Reported Smoking Status: Former smoker - Past Family History Mother Family Medical History: Cancer Additional Family Medical History / Comment(s): SKIN CANCER. Father Family Medical History: Cancer Additional Family Medical History / Comment(s): SKIN CANCER. Sister(s) Family Medical History: Cancer Additional Family Medical History / Comment(s): SKIN CANCER. Medications and Allergies Home Medications Medication Instructions Recorded Confirmed Type Famotidine 40 mg PO HS 06/20/21 10/12/21 History lisinopriL 10 mg PO HS 06/20/21 10/12/21 History Aspirin EC [Ecotrin Low Dose] 81 mg PO HS 10/12/21 10/12/21 History Atorvastatin [Lipitor] 20 mg PO HS 10/12/21 10/12/21 History HYDROcodone/APAP 5-325MG [[place] 1 tab PO TID PRN 10/12/21 10/12/21 History 5-325] Allergies Allergy/AdvReac Type Severity Reaction Status Date / Time erythromycin base Allergy Itching Verified 10/12/21 13:29 meloxicam Allergy mood Verified 10/12/21 13:29 swings, aggressive, out of it methotrexate Allergy Rash/Hives Verified 10/12/21 13:29 IVORY Allergy Rash/Hives Uncoded 10/12/21 13:29 Physical Examination - Vital Signs Vital Signs: Vital Signs Temp Pulse Resp BP Pulse Ox 10/13/21 03:30 55 L 11 L 106/45 96 10/13/21 03:00 54 L 12 133/64 96 10/13/21 02:00 70 20 120/64 97 10/13/21 01:10 70 37 H 132/61 97 10/13/21 00:30 98.3 F 65 15 132/61 96 10/13/21 00:11 62 13 132/61 97 10/13/21 00:00 50 L 13 117/55 98 10/12/21 23:40 73 16 117/55 96 10/12/21 23:20 57 L 14 121/59 10/12/21 23:00 56 L 13 124/92 10/12/21 22:40 62 14 124/92 10/12/21 22:20 62 13 178/118 97 10/12/21 22:00 70 14 163/79 96 10/12/21 21:40 78 22 163/79 97 10/12/21 21:20 75 13 144/83 94 L 10/12/21 21:00 97.9 F 76 9 L 135/67 97 10/12/21 20:40 80 9 L 135/67 97 10/12/21 20:20 80 16 125/62 96 10/12/21 20:00 81 22 123/70 96 10/12/21 19:40 84 17 123/70 97 10/12/21 19:20 91 18 112/90 98 10/12/21 19:00 98 21 150/74 10/12/21 18:40 80 16 150/74 10/12/21 18:20 71 11 L 168/88 10/12/21 18:16 80 18 168/78 98 10/12/21 18:00 64 9 L 149/71 99 10/12/21 17:40 98.6 F 67 18 149/65 99 10/12/21 17:20 67 18 164/86 100 10/12/21 17:00 60 18 140/71 99 10/12/21 16:40 73 18 126/63 100 10/12/21 16:20 62 18 130/97 98 10/12/21 16:00 67 18 135/66 98 10/12/21 15:40 20 121/56 98 10/12/21 15:16 98.2 F 62 18 137/64 97 10/12/21 14:52 82 18 119/71 98 10/12/21 13:40 74 14 119/63 99 10/12/21 13:23 72 18 133/80 98 10/12/21 13:20 73 15 128/69 10/12/21 13:12 72 18 122/53 98 10/12/21 13:00 0 L 150/59 Intake and Output 10/12/21 10/13/21 10/13/21 22:59 06:59 14:59 Intake Total 540 Output Total 300 Balance 240 Intake: Intake, IV Titration 300 Amount Sodium Chloride 0.9% 1, 300 000 ml @ 100 mls/hr IV . Q10H [facility] Rx#:[id number] Oral 240 Output: Urine 300 Other: Voiding Method Toilet Toilet # Voids 1 GENERAL: The patient is lying in bed and is not in acute distress. CHEST: The heart rate is regular rate rhythm. No murmurs to auscultation. LUNG: Clear to auscultation bilaterally no wheezing noted throughout. Not labored breathing. ABDOMEN/GI: Bowel sounds present in all 4 quadrants. No tenderness to palpation throughout. NEUROLOGICAL: Higher mental function: The patient is awake, alert, oriented to self, place and time. Patient is following commands. No aphasia and no neglect. Cranial nerves: The pupils are round, equal and reactive to light and accommodat ion. Visual arizmendi are full to confrontation throughout. Extraocular movement is intact no nystagmus is noted. Facial sensation is normal to touch throughout. The facial strength is normal throughout. Hearing is normal bilaterally to hand rub. Tongue is midline and moved [id number] without any difficulty. No dysarthria is noted. Shoulder shrug is normal bilaterally. Motor: Gait is deferred. The strength is left forearm is 4+ to 5-. Otherwise 5 over 5 throughout. Normal tone and bulk. Cerebellum: Normal finger to nose bilaterally. Sensation: Sensation is normal to touch throughout. Reflexes (right/left): 2+ throughout. Plantars are downgoing bilaterally. Results - Laboratory Findings CBC and BMP: 10/13/21 06:00 10/13/21 06:40 Abnormal Lab Findings: Abnormal Labs 10/12/21 10/13/21 10/13/21 11:10 06:00 06:40 RBC 3.70 L Chloride 108 H Calcium 8.3 L Total Protein 6.0 L 5.3 L Albumin 3.1 L Assessment and Plan Assessment: Acute CVA s/p IV tpa (left arm weakness and numbness). Currently feels drastically better. Seems Cardiac in etiology (hx of aortic stenosis) as well history of hypertension and prior history of TIA). History of Aortic stenosis and was scheduled for valve replacement on 10/21/2021 History of TIA (about a year ago with similar presentation as above) Hypertension Plan: Will obtain repeat [address] head and if negative for bleed will start the patient on dual antiplatelest ASA 81mg (home medication) and Plavix 75mg daily. To continue Lipitor 80mg daily. Pending MRI Brain, 2D echo, lipid panel PT, OT and ACCOUNT DEVELOPMENT SPECIALIST are consulted. Continue neuro checks and cardiac monitoring. Will defer her aortic valve replacement surgery to her cardiology team. Will defer the rest of medical management to the primary team. For DVT prophylaxis: Continue SCD but if repeat CT head is negative for bleed, recommend subq heparin or Lovenox. Thank you for the consultation. David Sims M.D. Neuro-hospitalist Time with Patient: Greater than 30
--- NOTE | 2021-10-13 17:07 | P.CNPUL ---
History of Present Illness Consult date: 10/13/21 Chief complaint: Acute left-sided weakness, post alteplase History of present illness: 71-year-old female patient is being transferred to the intensive care unit after being given alteplase in the emergency department for an acute neurologic sym ptoms. This patient has previous history of TIA that occurred approximately a year ago along with history of hypertension and hyperlipidemia and aortic valve stenosis. The patient presented to the ED on 10/12/2021 with left-sided numbness and weakness. She felt her symptoms started on 10/12/2021 at around 10 AM. No altered mentation. No headaches. Her initial NIH score in the ED was 5. She had a computed tomography scan of the head and CTA of the head and neck were both negative. Blood work was negative. She was hemodynamically stable. The patient received alteplase. The patient is currently back to her baseline. She is on aspirin 81 mg by mouth daily and she is also on Lipitor. She denies having any neurological deficits for now. She is known to have hypertension as mentioned. No atrial fibrillation. Cardiac rhythm is sinus. Most recent blood pressure is around 161/68. Pulse ox on room air is 99%, and a chest x-ray shows no acute cardio pulmonary process. Note that the patient also has previous history of aortic stenosis and the patient was being worked up for aortic valve replacement. She is under the care of cardiology. She has had previous episodes of syncope is related to aortic stenosis. She has history of psoriasis. Review of Systems Constitutional: Denies chills, Denies fever Eyes: denies as per HPI, denies blurred vision, denies bulging eye, denies decreased vision, denies diplopia, denies discharge, denies dry eye, denies irritation, denies itching, denies pain, denies photophobia, denies loss of peripheral vision, denies loss of vision, denies tunnel vision/blind spots Ears: deny: decreased hearing, ear discharge, earache, tinnitus Ears, nose, mouth and throat: Reports as per HPI Breasts: absent: as per HPI, change in shape, gynecomastia, masses, nipple discharge, pain, skin changes, swelling Cardiovascular: Reports as per HPI Respiratory: Reports as per HPI Gastrointestinal: Reports as per HPI Genitourinary: Reports as per HPI Menstruation: Reports as per HPI Musculoskeletal: Reports as per HPI Musculoskeletal: absent: ankle pain, ankle stiffness, ankle swelling Integumentary: Reports as per HPI Neurological: Reports weakness Psychiatric: Reports as per HPI Endocrine: Reports as per HPI Hematologic/Lymphatic: Reports as per HPI Allergic/Immunologic: Reports as per HPI Past Medical History Past Medical History: CVA/TIA, GERD/Reflux, Hyperlipidemia, Hypertension, Osteoarthritis (OA) Additional Past Medical History / Comment(s): Blood pressure "fluctuates", doctor monitoring, current sinus problems. History of Any Multi-Drug Resistant Organisms: None Reported Past Surgical History: Hysterectomy, Tonsillectomy Additional Past Surgical History / Comment(s): D&C and partial hysterectomy(bilateral ovaries retained), bilateral cyst aspirations(benign), CHRISTINA. Past Anesthesia/Blood Transfusion Reactions: No Reported Reaction Past Psychological History: No Psychological Hx Reported Smoking Status: Former smoker - Past Family History Mother Family Medical History: Cancer Additional Family Medical History / Comment(s): SKIN CANCER. Father Family Medical History: Cancer Additional Family Medical History / Comment(s): SKIN CANCER. Sister(s) Family Medical History: Cancer Additional Family Medical History / Comment(s): SKIN CANCER. Medications and Allergies Home Medications Medication Instructions Recorded Confirmed Type Famotidine 40 mg PO HS 06/20/21 10/12/21 History lisinopriL 10 mg PO HS 06/20/21 10/12/21 History Aspirin EC [Ecotrin Low Dose] 81 mg PO HS 10/12/21 10/12/21 History Atorvastatin [Lipitor] 20 mg PO HS 10/12/21 10/12/21 History HYDROcodone/APAP 5-325MG [[place] 1 tab PO TID PRN 10/12/21 10/12/21 History 5-325] Allergies Allergy/AdvReac Type Severity Reaction Status Date / Time erythromycin base Allergy Itching Verified 10/12/21 13:29 meloxicam Allergy mood Verified 10/12/21 13:29 swings, aggressive, out of it methotrexate Allergy Rash/Hives Verified 10/12/21 13:29 IVORY Allergy Rash/Hives Uncoded 10/12/21 13:29 Physical Exam Vitals: Vital Signs Temp Pulse Resp BP Pulse Ox 10/13/21 13:00 64 16 161/68 100 10/13/21 03:30 55 L 11 L 106/45 96 10/13/21 03:00 54 L 12 133/64 96 10/13/21 02:00 70 20 120/64 97 10/13/21 01:10 70 37 H 132/61 97 10/13/21 00:30 98.3 F 65 15 132/61 96 10/13/21 00:11 62 13 132/61 97 10/13/21 00:00 50 L 13 117/55 98 10/12/21 23:40 73 16 117/55 96 10/12/21 23:20 57 L 14 121/59 10/12/21 23:00 56 L 13 124/92 10/12/21 22:40 62 14 124/92 10/12/21 22:20 62 13 178/118 97 10/12/21 22:00 70 14 163/79 96 10/12/21 21:40 78 22 163/79 97 10/12/21 21:20 75 13 144/83 94 L 10/12/21 21:00 97.9 F 76 9 L 135/67 97 10/12/21 20:40 80 9 L 135/67 97 10/12/21 20:20 80 16 125/62 96 10/12/21 20:00 81 22 123/70 96 10/12/21 19:40 84 17 123/70 97 10/12/21 19:20 91 18 112/90 98 10/12/21 19:00 98 21 150/74 10/12/21 18:40 80 16 150/74 10/12/21 18:20 71 11 L 168/88 10/12/21 18:16 80 18 168/78 98 10/12/21 18:00 64 9 L 149/71 99 10/12/21 17:40 98.6 F 67 18 149/65 99 10/12/21 17:20 67 18 164/86 100 10/12/21 17:00 60 18 140/71 99 10/12/21 16:40 73 18 126/63 100 10/12/21 16:20 62 18 130/97 98 10/12/21 16:00 67 18 135/66 98 10/12/21 15:40 20 121/56 98 Intake and Output 10/13/21 10/13/21 10/13/21 06:59 14:59 22:59 Intake Total 540 Output Total 300 Balance 240 Intake: Intake, IV Titration 300 Amount Sodium Chloride 0.9% 1, 300 000 ml @ 100 mls/hr IV . Q10H [facility] Rx#:[id number] Oral 240 Output: Urine 300 Other: Voiding Method Toilet # Voids 1 The patient appeared well nourished and normally developed. Vital signs as documented. Head exam is unremarkable. No scleral icterus or corneal arcus noted. Neck is without jugular venous distension, thyromegaly, or carotid bruits. Carotid upstrokes are brisk bilaterally. Lungs are clear to auscultation and percussion. Cardiac exam reveals the PMI to be normally sized and situated. Rhythm is regular. First and second heart sounds normal. There is a harsh systolic ejection murmur grade 4/6 over the apex radiating to the neck consistent with aortic stenosis,, rubs or gallops. Abdominal exam reveals normal bowel sounds, no masses, no organomegaly and no aortic enlargement. Extremities are nonedematous and both femoral and pedal pulses are normal.Examination of the skin revealed no evidence of significant rashes, suspicious appearing nevi or other concerning lesions.Neurologically, the patient is awake and alert and the patient does not have any focal neurological deficit. Cranial nerves are es sentially intact. Results - Laboratory Findings CBC and BMP: 10/13/21 06:00 10/13/21 06:40 PT/INR, D-dimer PT 10.4 sec (9.0-12.0) 10/12/21 11:10 INR 1.0 (<1.2) 10/12/21 11:10 Abnormal lab findings: Abnormal Labs 10/12/21 10/13/21 10/13/21 11:10 06:00 06:40 RBC 3.70 L Chloride 108 H Calcium 8.3 L Total Protein 6.0 L 5.3 L Albumin 3.1 L - Diagnostic Findings Chest x-ray: image reviewed Assessment and Plan Plan: 1 acute neurologic deficits with left-sided weakness, post alteplase treatment. Patient's initial NIH score was 5. Currently the patient is back to her normal baseline. CAT scan of the brain and CTA of the head and neck were both negative. Cardiac rhythm is sinus. 2 previous history of TIA maintained on aspirin outpatient basis 3 hypertension 4 hyperlipidemia 5 history of aortic stenosis, severe, being worked up for aortic valve replacement 6 previous history of syncope related to aortic stenosis 7 psoriasis Plan Keep the patient aspirin 81 mg Plavix 75 mg by mouth daily Assessment this patient ICU for monitoring of neurologic function is post alteplase treatment Hemodynamically stable Restart Zestril 10 mg by mouth daily at bedtime Increase the Lipitor dose up to 80 mg by mouth daily Repeat echocardiogram Neurochecks Fasting lipid profile We'll continue to follow The patient is already past 24 hours post alteplase administration. The patient can be transferred to a medical surgical floor with telemetry monitoring.
[2021-10-13] MEDS ORDERED: ASPIRIN 81 MG ONE (17:19)
[2021-10-13] MEDS ORDERED: CLOPIDOGREL 75 MG TAB ONE (17:20)
[2021-10-13] MEDS ORDERED: HEPARIN SODIUM,PORCINE/PF 5,000 UNIT/0.5 ML SYRINGE SQ ONE (17:20)
[2021-10-13] MEDS: CLOPIDOGREL 75 MG TAB PO SCH (17:23)
[2021-10-13] MEDS: ASPIRIN 81 MG PO SCH (17:23)
[2021-10-13] MEDS: HEPARIN SODIUM,PORCINE/PF 5,000 UNIT/0.5 ML SYRINGE SQ SCH ×2 (17:24→20:47)
[2021-10-13] MEDS: lisinopriL 10 MG TAB PO SCH (20:47)
[2021-10-13] MEDS: ATORVASTATIN 80 MG TAB PO SCH (20:48)
[2021-10-13] MEDS: FAMOTIDINE 20 MG TAB PO SCH (20:48)
[2021-10-13 23:05] LABS: Chol/HDL Ratio 2.75 Ratio; LDL Cholesterol,Calculated 83.6 mg/dL (0.0-131.0); VLDL Calculation 17.64 mg/dL (5.00-40.00)
[2021-10-14] MEDS: SODIUM CHLORIDE 0.9% 1,000 ML IV SCH ×3 (06:44→18:59)
[2021-10-14] MEDS: ASPIRIN 81 MG PO SCH (08:50)
[2021-10-14] MEDS: HEPARIN SODIUM,PORCINE/PF 5,000 UNIT/0.5 ML SYRINGE SQ SCH ×2 (08:50→19:58)
[2021-10-14] MEDS: CLOPIDOGREL 75 MG TAB PO SCH (08:50)
--- NOTE | 2021-10-14 13:16 | P.PN ---
Subjective Progress Note Date: 10/14/21 No new complaints today. L sided weakness has resolved s/p tPA. Gen: awake, alert HEENT: normocephalic, atraumatic, good hearing acuity, moist mucous membranes Resp: good air exchange, breathing comfortably with no accessory muscle use CVS: good distal perfusion x 4, GI: soft, NTTP, ND : no SPT, no CVAT, pavon catheter not present MSK: no pitting edema, no clubbing Neuro: non-focal, moving all extremities Psych: cooperative, euthymic mood Assessment/plan: Acute CVA Nothing by mouth until seen by speech Status post TPA treatment Neurology consultation MRI of brain, echo PT evaluation We'll resume blood thinners in 24 hours according to neuro, will need high intensity statin. Hypertension Hold bp meds for now GERD/Reflux, Hyperlipidemia, Osteoarthritis (OA) All stable resume meds Admit to inpatient, expected length of stay more than 2 midnights. Objective - Vital Signs Vital signs: Vital Signs Temp 98.7 F 10/13/21 20:45 Pulse 78 10/14/21 12:00 Resp 16 10/14/21 12:00 BP 169/70 10/14/21 12:00 Pulse Ox 98 10/14/21 12:00 Intake & Output 10/13/21 10/14/21 10/14/21 18:59 06:59 18:59 Intake Total 220 Output Total 250 Balance 220 -250 Weight 81.647 kg Intake: Oral 220 Output: Urine 250 Other: Voiding Method Toilet Toilet - Labs CBC & Chem 7: 10/13/21 06:00 10/13/21 06:40
--- NOTE | 2021-10-14 13:26 | P.PN ---
Subjective Progress Note Date: 10/14/21 The patient is seen at bedside and is accompanied by her and feels back to baseline. Objective - Vital Signs Vital signs: Vital Signs Temp 98.7 F 10/13/21 20:45 Pulse 78 10/14/21 12:00 Resp 16 10/14/21 12:00 BP 169/70 10/14/21 12:00 Pulse Ox 98 10/14/21 12:00 Intake & Output 10/13/21 10/14/21 10/14/21 18:59 06:59 18:59 Intake Total 220 Output Total 250 Balance 220 -250 Weight 81.647 kg Intake: Oral 220 Output: Urine 250 Other: Voiding Method Toilet Toilet - Exam GENERAL: The patient is lying in bed and is not in acute distress. NEUROLOGICAL: Higher mental function: The patient is awake, alert, oriented to self, place and time. Patient is following commands. No aphasia and no neglect. Cranial nerves: The pupils are round, equal and reactive to light and accommodation. Visual arizmendi are full to confrontation throughout. Extraocular movement is intact no nystagmus is noted. Facial sensation is normal to touch throughout. The facial strength is normal throughout. Tongue is midline and moved [id number] without any difficulty. No dysarthria is noted. Shoulder shrug is normal bilaterally. Motor: Gait is deferred. The strength is 5 over 5 throughout. Normal tone and bulk. Cerebellum: Normal finger to nose bilaterally. Sensation: Sensation is normal to touch throughout. WORK-UP: Lipid panel: TG 88, cholestrol 159, LDL [address] head and CTA head and neck and were negative. 24 hours post tpa: It is reported as age related atrophic and chronic small vessel ischemic change without acute intracranial process sen at this time. - Labs CBC & Chem 7: 10/13/21 06:00 10/13/21 06:40 Assessment and Plan Assessment: Acute CVA s/p IV tpa (left arm weakness and numbness). Currently feels back to baseline. Seems Cardiac in etiology (hx of aortic stenosis) as well history of hypertension and prior history of TIA). History of Aortic stenosis and was scheduled for valve replacement on 10/21/2021 History of TIA (about a year ago with similar presentation as above) Hypertension Plan: Continue dual antiplatelest ASA 81mg (home medication) and Plavix 75mg daily. To continue Lipitor 80mg daily. Pending MRI Brain, 2D echo. PT, OT and PUBLIC HEALTH SERVICE OFFICER are consulted. Continue neuro checks and cardiac monitoring. Will defer her aortic valve replacement surgery to her cardiology team. Will defer the rest of medical management to the primary team. For DVT prophylaxis: On subq heparin or Lovenox. Upon discharge, the patient needs to follow-up with neurologist as outpatient within 1-2 weeks. No additional work-up beside what is stated above. The plan is discussed with the patient and her primary attending. David Sims M.D. Neuro-hospitalist Time with Patient: Less than 30
--- NOTE | 2021-10-14 13:37 | P.PN ---
Subjective Progress Note Date: 10/14/21 Principal diagnosis: Acute left-sided weakness/CVAs, status post alteplase 71-year-old female patient is being transferred to the intensive care unit after being given alteplase in the emergency department for an acute neurologic symptoms. This patient has previous history of TIA that occurred approximately a year ago along with history of hypertension and hyperlipidemia and aortic valve stenosis. The patient presented to the ED on 10/12/2021 with left-sided numbness and weakness. She felt her symptoms started on 10/12/2021 at around 10 AM. No altered mentation. No headaches. Her initial NIH score in the ED was 5. She had a computed tomography scan of the head and CTA of the head and neck were both negative. Blood work was negative. She was hemodynamically stable. The patient received alteplase. The patient is currently back to her baseline. She is on aspirin 81 mg by mouth daily and she is also on Lipitor. She denies having any neurological deficits for now. She is known to have hypertension as mentioned. No atrial fibrillation. Cardiac rhythm is sinus. Most recent blood pressure is around 161/68. Pulse ox on room air is 99%, and a chest x-ray shows no acute cardio pulmonary process. Note that the patient also has previous history of aortic stenosis and the patient was being worked up for aortic valve replacement. She is under the care of cardiology. She has had previous episodes of syncope is related to aortic stenosis. She has history of psoriasis. The patient is seen today 10/14/2021 in follow-up on the selective care unit. S he is currently awake and alert in no acute distress. Most of her left-sided numbness has resolved. Her lungs are clear. She is maintaining good O2 saturations 96 and 97% on room air. No new labs today. She is continued on aspirin, statins and Plavix. Heparin for DVT prophylaxis. Echocardiogram is pending. MRI of the brain is pending. Neurology is on the case. Objective - Vital Signs Vital signs: Vital Signs Temp 98.7 F 10/13/21 20:45 Pulse 78 10/14/21 12:00 Resp 16 10/14/21 12:00 BP 169/70 10/14/21 12:00 Pulse Ox 98 10/14/21 12:00 Intake & Output 10/13/21 10/14/21 10/14/21 18:59 06:59 18:59 Intake Total 220 Output Total 250 Balance 220 -250 Weight 81.647 kg Intake: Oral 220 Output: Urine 250 Other: Voiding Method Toilet Toilet - Exam Awake, alert very pleasant 71-year-old female patient. Appears well nourished and normally developed. Vital signs as documented. Head exam is unremarkable. No scleral icterus or corneal arcus noted. Neck is without jugular venous distension, thyromegaly, or carotid bruits. Carotid upstrokes are brisk bilaterally. Lungs are clear to auscultation and percussion. Cardiac exam reveals the PMI to be normally sized and situated. Rhythm is regular. First and second heart sounds normal. There is a harsh systolic ejection murmur grade 4/6 over the apex radiating to the neck consistent with aortic stenosis,, rubs or gallops. Abdominal exam reveals normal bowel sounds, no masses, no organomegaly and no aortic enlargement. Extremities are nonedematous and both femoral and pedal pulses are normal.Examination of the skin revealed no evidence of significant rashes, suspicious appearing nevi or other concerning lesions. Neurologically, the patient is awake and alert and the patient does not have any focal neurological deficit. Cranial nerves are essentially intact. - Labs CBC & Chem 7: 10/13/21 06:00 10/13/21 06:40 Assessment and Plan Assessment: Acute neurologic deficits with left-sided weakness, post alteplase treatment. Patient's initial NIH score was 5. Currently the patient is back to her normal baseline. CAT scan of the brain and CTA of the head and neck were both negative. Cardiac rhythm is sinus. Previous history of TIA maintained on aspirin in the outpatient basis Hypertension Hyperlipidemia History of aortic stenosis, severe, being worked up for aortic valve replacement Previous history of syncope related to aortic stenosis Psoriasis Plan: The patient was seen and evaluated Echocardiogram pending MRI of the brain pending Continue aspirin, statins, Plavix Increase her activity as We will continue to follow I have personally seen and examined the patient, performed the documentation and the assessment and plan as written. Number of minutes spent on the visit: 10. I have personally seen and examined the patient and reviewed the documentation. I performed a joint evaluation with the nurse practitioner in this evaluation was done more than 15 minutes. I fully agree with the documentation above and the plan of care. The patient has no neurological deficits. The patient does not need to come to the intensive care unit. The patient completed her alteplase without any complications. MRI of the brain is pending. Continue aspirin and Plavix. Pulmonary and critical care services we'll sign off the case. As mentioned, the patient has aortic stenosis and this needs to be followed up at a later stage and the patient is being considered for aortic valve replacement.
--- NOTE | 2021-10-14 17:28 | CA ---
Transthoracic Echo Report Name: Dara Head Age: 71 Gender: F : 1950 Exam Date: 10/13/2021 12:14 Exam Location: [facility] Ht (in): 63 Wt (lb): 180 Ordering Physician: Conner Ott MD Attending/Referring Phys: [id number], [place] Nursery Technician Madeline Zazueta RDCS Procedure CPT: Indications: stroke Cardiac Hx: Technical Quality: Fair Contrast 1: Total Dose (mL): Contrast 2: Total Dose (mL): MEASUREMENTS (Male / Female) Normal Values 2D ECHO LV Diastolic Diameter PLAX 3.7 cm 4.2 - 5.9 / 3.9 - 5.3 cm LV Systolic Diameter PLAX 2.4 cm IVS Diastolic Thickness 1.1 cm 0.6 - 1.0 / 0.6 - 0.9 cm LVPW Diastolic Thickness 1.2 cm 0.6 - 1.0 / 0.6 - 0.9 cm LV Relative Wall Thickness 0.6 RV Internal Dim ED PLAX 2.8 cm LVOT Diameter 2.0 cm LA Systolic Diameter LX 3.4 cm 3.0 - 4.0 / 2.7 - 3.8 cm LA Volume 43.2 cm 18 - 58 / 22 - 52 cm M-MODE Aortic Root Diameter MM 3.4 cm MV E Point Septal Separation 0.4 cm DOPPLER AV Peak Velocity 430.0 cm/s AV Peak Gradient 74.0 mmHg AV Mean Velocity 308.8 cm/s AV Mean Gradient 41.7 mmHg AV Velocity Time Integral 106.1 cm AI Peak Velocity 380.1 cm/s AI Peak Gradient 57.8 mmHg AI Pressure Half Time 624.7 ms LVOT Peak Velocity 123.9 cm/s LVOT Peak Gradient 6.1 mmHg AV Area Cont Eq pk 0.9 cm MV Area PHT 1.9 cm Mitral E Point Velocity 89.9 cm/s Mitral A Point Velocity 114.5 cm/s Mitral E to A Ratio 0.8 MV Deceleration Time 406.3 ms MV E' Velocity 6.5 cm/s Mitral E to MV E' Ratio 13.9 TR Peak Velocity 264.1 cm/s TR Peak Gradient 27.9 mmHg Right Ventricular Systolic Press 31.9 mmHg FINDINGS Left Ventricle Left ventricular size and systolic function is normal with mild concentric LVH. Left ventricular ejection fraction is estimated at 55-60% Right Ventricle Normal right ventricular size and function. Right ventricular systolic pressure within normal limits. Right Atrium Normal right atrial size. Left Atrium Normal left atrial size. Mitral Valve Mild subvalvular mitral calcification. Aortic Valve Diffuse thickening (sclerosis) of the aortic valve cusps without reduced excursion. [id number] aortic stenosis with a peak gradient of 74 mmHg and a mean gradient of 42 mmHg. Mild aortic regurgitation. Tricuspid Valve Mild tricuspid regurgitation. Pulmonic Valve Pulmonic valve not well visualized. Pericardium No pericardial effusion Aorta Normal size aortic root and proximal ascending aorta. CONCLUSIONS LV size and systolic function is normal. There is severe aortic stenosis. No significant pulmonary hypertension. There is mild concentric LVH. No pericardial effusion Previewed by: Dr. Jc Coleman MD (Electronically Signed) Final Date: 14 October 2021 17:27
[2021-10-14] MEDS: FAMOTIDINE 20 MG TAB PO SCH (19:57)
[2021-10-14] MEDS: lisinopriL 10 MG TAB PO SCH (19:58)
[2021-10-14] MEDS ORDERED: ATORVASTATIN 40 MG TAB PO SCH (21:00)
[2021-10-14 22:32] VITALS: TEMP 98.6
[2021-10-14 23:48] VITALS: RESP 16
[2021-10-15] MEDS: HEPARIN SODIUM,PORCINE/PF 5,000 UNIT/0.5 ML SYRINGE SQ SCH (08:41)
[2021-10-15] MEDS: CLOPIDOGREL 75 MG TAB PO SCH (08:42)
[2021-10-15] MEDS: ASPIRIN 81 MG PO SCH (08:42)
--- NOTE | 2021-10-15 10:43 | MR ---
MR brain without contrast HISTORY: Stroke Multiplanar multisequence imaging obtained through the brain Correlation CT brain dated 10/13/2021, prior brain MRI dated 08/30/2019 There is no restricted diffusion. There is no hemorrhage or hydrocephalus. There are expected vascula r flow voids. Cerebellopontine angles, corpus callosum, cervical medullary junction, pituitary are st able, there is a partially empty sella. White matter signal changes are extensive, scattered perivent ricular, subcortical hyperintensities on inversion recovery T2-weighted sequences are again noted sim ilar to prior exam. Orbits show stable and symmetric appearance. Mild inflammatory change present wit hin the ethmoid air cells. IMPRESSION: Stable brain MRI. No acute abnormalities evident. Nonspecific white matter demyelination is again noted.
--- NOTE | 2021-10-15 11:46 | P.PN ---
Subjective Progress Note Date: 10/15/21 The patient is seen at bedside and continues to be feeling well. Denies any further deficits. Pending MRI Brain. Objective - Vital Signs Vital signs: Vital Signs Temp 98.6 F 10/14/21 20:00 Pulse 75 10/15/21 08:00 Resp 16 10/15/21 08:00 BP 112/58 10/15/21 08:00 Pulse Ox 96 10/15/21 08:00 Intake & Output 10/14/21 10/15/21 10/15/21 18:59 06:59 18:59 Intake Total 780 120 Balance 780 120 Intake: Oral 780 120 Other: Voiding Method Toilet Toilet Toilet # Voids 2 1 - Exam GENERAL: The patient is lying in bed and is not in acute distress. NEUROLOGICAL: Higher mental function: The patient is awake, alert, oriented to self, place and time. Patient is following commands. No aphasia and no neglect. Cranial nerves: The pupils are round, equal and reactive to light and accommodation. Visual arizmendi are full to confrontation throughout. Extraocular movement is intact no nystagmus is noted. Facial sensation is normal to touch t hroughout. The facial strength is normal throughout. Tongue is midline and moved [id number] without any difficulty. No dysarthria is noted. Shoulder shrug is normal bilaterally. Motor: Gait is deferred. The strength is 5 over 5 throughout. Normal tone and bulk. Cerebellum: Normal finger to nose bilaterally. Sensation: Sensation is normal to touch throughout. WORK-UP: Lipid panel: TG 88, cholestrol 159, LDL [address] head and CTA head and neck and were negative. CT head 24 hours post tpa: It is reported as age related atrophic and chronic small vessel ischemic change without acute intracranial process sen at this time. 2D echo: Is reported as LV sizre and systolic function is normal. Severe aortic stenosis. Normal left atrial size. - Labs CBC & Chem 7: 10/13/21 06:00 10/13/21 06:40 Assessment and Plan Assessment: Acute CVA s/p IV tpa (left arm weakness and numbness). Currently feels back to baseline. Seems Cardiac in etiology (hx of aortic stenosis) as well history of hypertension and prior history of TIA). Aortic stenosis and was scheduled for valve replacement on 10/21/2021 History of TIA (about a year ago with similar presentation as above) Hypertension Plan: Continue dual antiplatelest ASA 81mg (home medication) and Plavix 75mg daily. To continue dual antiplatelets and after 21 days stop ASA but continue Plavix only from neurological perspective. To continue Lipitor 80mg daily. Pending MRI Brain. PT, OT and FINANCIAL PLANNER are consulted. Continue neuro checks and cardiac monitoring. Will defer her aortic valve replacement surgery to her cardiology team. Will defer the rest of medical management to the primary team. For DVT prophylaxis: On subq heparin or Lovenox. Upon discharge, the patient needs to follow-up with neurologist as outpatient within 1-2 weeks. No additional work-up beside what is stated above. The plan is discussed with the patient. UPDATE: MRI BRAIN: It is reported as Stable brain MRI. No acute abnormalities evident. Nonspecific white matter demyelination is again noted. I personally reviewed MRI and I do not appreciate acute or subacute ishcemic stroke. Patient is clear for discharge from neurological perspective. David Sims M.D. Neuro-hospitalist Time with Patient: Less than 30
[2021-10-15 12:24] VITALS: BP 159/70; PULSE 65
--- NOTE | 2021-10-15 14:50 | P.DS ---
Providers Date of admission: 10/12/21 14:22 Expected date of discharge: 10/15/21 Attending physician: Conner Ott MD Consults: 10/12/21 14:13 Consult Physician Routine Consulting Provider: Fazal Sims Consult Reason/Comments: ICU management Do you want consulting provider notified?: Yes Consult Physician Routine Consulting Provider: David iSms Consult Reason/Comments: CVA Do you want consulting provider notified?: Already Contacted Primary care physician: Celia [facility] Course: Acute CVA Hypertension GERD/Reflux, Hyperlipidemia, Osteoarthritis (OA) 71-year-old female history of hypertension a history of aortic valve stenosis, was scheduled to have surgery on it in early October, history of TIA in the past who presents with complaints of the onset of some dizziness, and left sided weakness and numbness also involving the face. In the emergency department patient continued to have significant weakness on the left side and due to that she r ec'd TPA. Head CT as well as CT angiogram of the head and neck were both okay. 24 hour follow up image did not show hemorrhagic conversion. She was started on ASA, brillinta by neurology. MRI of the brain did not show stroke. Pt did well with PT/OT and required no PT/OT on dischrage. She will seee her PCP and neurology in follow up. I spent 32 minutes coordinating this complex discharge. Gen: awake, alert HEENT: normocephalic, atraumatic, good hearing acuity, moist mucous membranes Resp: good air exchange, breathing comfortably with no accessory muscle use CVS: good distal perfusion x 4, GI: soft, NTTP, ND : no SPT, no CVAT, pavon catheter not present MSK: no pitting edema, no clubbing Neuro: non-focal, moving all extremities Psych: cooperative, euthymic mood Patient Condition at Discharge: Good Plan - Discharge Summary Discharge Rx Participant: Yes New Discharge Prescriptions: New Clopidogrel [Plavix] 75 mg PO DAILY #21 tab Continue lisinopriL 10 mg PO HS Famotidine 40 mg PO HS HYDROcodone/APAP 5-325MG [[place] 5-325] 1 tab PO TID PRN PRN Reason: Pain Aspirin EC [Ecotrin Low Dose] 81 mg PO HS Changed Atorvastatin [Lipitor] 40 mg PO HS #60 tab Discharge Medication List Famotidine 40 mg PO HS 12/31/21 [History] lisinopriL 10 mg PO HS 06/20/21 [History] Aspirin EC [Ecotrin Low Dose] 81 mg PO HS 10/12/21 [History] HYDROcodone/APAP 5-325MG [[place] 5-325] 1 tab PO TID PRN 10/12/21 [History] Atorvastatin [Lipitor] 40 mg PO HS #60 tab 10/15/21 [Rx] Clopidogrel [Plavix] 75 mg PO DAILY #21 tab 10/15/21 [Rx] Follow up Appointment(s)/Referral(s): Celia Gaston MD [Primary Care Provider] - 1-2 days David Sims MD [STAFF PHYSICIAN] - 1 Week Patient Instructions/Handouts: Ischemic Stroke (DC) Discharge Disposition: HOME SELF-CARE
--- NOTE | 2021-10-16 07:20 | ED ---
Medical Decision Making - Medical Decision Making Treatment clarification: There was a delay in administration of alteplase for the following reasons including 1) unclear last known well time due to the patient initially indicating that symptoms started several days prior. This in itself would take the patient out of being a candidate for alteplase. 2) during my initial examination there did appear to be some question as to the exact findings and again the timing of the onset. 3) some question of improvement of symptoms from the time of onset to the clinical examination. - Lab Data Result diagrams: 10/13/21 06:00 10/13/21 06:40 Lab Results 10/12/21 10/12/21 10/12/21 Range/Units 10:59 11:10 11:10 WBC 4.9 (3.8-10.6) k/uL RBC 4.18 (3.80-5.40) m/uL Hgb 13.1 (11.4-16.0) gm/dL Hct 39.2 (34.0-46.0) % MCV 93.7 (80.0-100.0) fL MCH 31.4 (25.0-35.0) pg MCHC 33.5 (31.0-37.0) g/dL RDW 12.6 (11.5-15.5) % Plt Count 165 (150-450) k/uL MPV 7.2 Neutrophils % 65 % Lymphocytes % 22 % Monocytes % 7 % Eosinophils % 4 % Basophils % 1 % Neutrophils # 3.2 (1.3-7.7) k/uL Lymphocytes # 1.1 (1.0-4.8) k/uL Monocytes # 0.3 (0-1.0) k/uL Eosinophils # 0.2 (0-0.7) k/uL Basophils # 0.1 (0-0.2) k/uL PT 10.4 (9.0-12.0) sec INR 1.0 (<1.2) APTT 22.4 (22.0-30.0) sec Sodium (137-145) mmol/L Potassium (3.5-5.1) mmol/L Chloride (98-107) mmol/L Carbon Dioxide (22-30) mmol/L Anion Gap mmol/L BUN (7-17) mg/dL Creatinine (0.52-1.04) mg/dL Est GFR (CKD-EPI)AfAm (>60 ml/min/1.73 sqM) Est GFR (CKD-EPI)NonAf (>60 ml/min/1.73 sqM) Glucose (74-99) mg/dL POC Glucose (mg/dL) 92 (75-99) mg/dL POC Glu Psychiatric Security Nurse ID Evelio Wolf Calcium (8.4-10.2) mg/dL Total Bilirubin (0.2-1.3) mg/dL AST (14-36) U/L ALT (4-34) U/L Alkaline Phosphatase (38-126) U/L Troponin I (0.000-0.034) ng/mL Total Protein (6.3-8.2) g/dL Albumin (3.5-5.0) g/dL 10/12/21 10/12/21 Range/Units 11:10 11:10 WBC (3.8-10.6) k/uL RBC (3.80-5.40) m/uL Hgb (11.4-16.0) gm/dL Hct (34.0-46.0) % MCV (80.0-100.0) fL MCH (25.0-35.0) pg MCHC (31.0-37.0) g/dL RDW (11.5-15.5) % Plt Count (150-450) k/uL MPV Neutrophils % % Lymphocytes % % Monocytes % % Eosinophils % % Basophils % % Neutrophils # (1.3-7.7) k/uL Lymphocytes # (1.0-4.8) k/uL Monocytes # (0-1.0) k/uL Eosinophils # (0-0.7) k/uL Basophils # (0-0.2) k/uL PT (9.0-12.0) sec INR (<1.2) APTT (22.0-30.0) sec Sodium 137 (137-145) mmol/L Potassium 4.3 (3.5-5.1) mmol/L Chloride 105 (98-107) mmol/L Carbon Dioxide 25 (22-30) mmol/L Anion Gap 7 mmol/L BUN 13 (7-17) mg/dL Creatinine 0.68 (0.52-1.04) mg/dL Est GFR (CKD-EPI)AfAm >90 (>60 ml/min/1.73 sqM) Est GFR (CKD-EPI)NonAf 89 (>60 ml/min/1.73 sqM) Glucose 94 (74-99) mg/dL POC Glucose (mg/dL) (75-99) mg/dL POC Glu Psychiatric Security Nurse ID Calcium 8.6 (8.4-10.2) mg/dL Total Bilirubin 0.7 (0.2-1.3) mg/dL AST 25 (14-36) U/L ALT 20 (4-34) U/L Alkaline Phosphatase 101 (38-126) U/L Troponin I <0.012 (0.000-0.034) ng/mL Total Protein 6.0 L (6.3-8.2) g/dL Albumin 3.6 (3.5-5.0) g/dL Disposition Clinical Impression: Cerebrovascular accident (CVA), Hypotensive episode Disposition: ADMITTED IP TO THIS [facility] Condition: Good
== END 2021-10-15 14:44 | disposition home or self-care (01) | DRG 63 ==
LOC: EC 09:56 → 2SICU 14:22 → 3SCARD 10-13 15:52
PROVIDERS: ADMIT Internal Medicine; ATTEND Internal Medicine
DX: I63.9 Cerebral infarction, unspecified (principal); E78.5 Hyperlipidemia, unspecified; I10 Essential (primary) hypertension; K21.9 Gastro-esophageal reflux disease without esophagitis; I35.0 Nonrheumatic aortic (valve) stenosis; L40.9 Psoriasis, unspecified; M19.90 Unspecified osteoarthritis, unspecified site; R29.705 NIHSS score 5; R53.1 Weakness; Z79.82 Long term (current) use of aspirin; Z79.899 Other long term (current) drug therapy; Z80.8 Family history of malignant neoplasm of other organs or systems; Z86.73 Personal history of transient ischemic attack (TIA), and cerebral infarction without residual deficits; Z87.891 Personal history of nicotine dependence; Z90.711 Acquired absence of uterus with remaining cervical stump; Z95.2 Presence of prosthetic heart valve; I95.9 Hypotension, unspecified; H53.8 Other visual disturbances; R20.0 Anesthesia of skin
CPT/HCPCS: 36415; 37195; 70450; 70496; 70498; 70551; 71046; 80053; 80061; 83735; 84100; 84484; 85025; 85610; 85730; 93005; 93306; 96374; 99291

== ENCOUNTER → 2021-11-20 | Outpatient (CLI) | payer MEDICARE ==
[2021-11-20 12:34] LABS: INR 0.9 (<1.2); Partial Thromboplastin Time 22.5 sec (22.0-30.0); Prothrombin Time 10.1 sec (9.0-12.0)
[2021-11-20 18:14] LABS: HCT 39.6 % (37.2-46.3); HGB 12.3 g/dL (12.0-15.0); MCH 30.1 pg (27.0-32.0); MCHC 31.1 g/dL (32.0-37.0); MCV 97.1 fL (80.0-97.0); Mean Platelet Volume 9.7 fL (9.5-12.2); NRBC Per 100 WBC 0 /100 WBCS (0.0-0.0); Platelet Count 179 X 10*3/uL (140-440); RBC 4.08 X 10*6/uL (4.10-5.20); RDW 13.1 % (11.5-14.5); WBC 3.93 X 10*3/uL (4.50-10.00)
[2021-11-20 18:29] LABS: Hepatitis A Antibody IgM Nonreactive (Nonreactive); Hepatitis B Core IgM Nonreactive (Nonreactive); Hepatitis B Surface Antigen Nonreactive (Nonreactive); Hepatitis C IgG Antibody Nonreactive (Nonreactive)
[2021-11-20 18:49] LABS: Chol/HDL Ratio 2.82 Ratio; LDL Cholesterol,Calculated 87.2 mg/dL (0.0-131.0); Magnesium 2.2 mg/dL (1.5-2.4)
[2021-11-20 18:50] LABS: ALT 18 U/L (8-44); AST 19 U/L (13-35); African American GFR (CKD) 92.6 (60.0-200.0); Albumin 4.1 g/dL (3.8-4.9); Albumin/Globulin Ratio 2.22 (1.60-3.17); Alkaline Phosphatase 102 U/L (41-126); BUN/Creat Ratio 15.06 Ratio (12.00-20.00); Blood Urea Nitrogen 11.4 mg/dL (9.0-27.0); Calcium 9.1 mg/dL (8.7-10.3); Carbon Dioxide 27.8 mmol/L (20.0-27.5); Chloride 107 mmol/L (96-109); Globulin 1.9 g/dL (1.6-3.3); Glucose 96 mg/dL (70-110); Non-African American GFR(CKD) 79.9 (60.0-200.0); Potassium 4.6 mmol/L (3.5-5.5); Sodium 144 mmol/L (135-145)
[2021-11-21 01:17] LABS: Appearance,Urine Turbid (Clear); Bacteria,Urine 2+ /HPF (None Seen); Bilirubin,Urine Negative (Negative); Blood,Urine Moderate (Negative); Color,Urine Yellow (Yellow); Ketones,Urine Trace mg/dL (Negative); Nitrite,Urine Negative (Negative); Specific Gravity,Urine 1.022 (1.001-1.030)
== END | disposition home or self-care (01) ==
LOC: LABWHC1 10:21
PROVIDERS: ATTEND Surgery
DX: I35.0 Nonrheumatic aortic (valve) stenosis (principal)
CPT/HCPCS: 36415; 80053; 80061; 80074; 81001; 83036; 83735; 84443; 85027; 85610; 85730; 87070; 87086; 93005; 93970

== ENCOUNTER 2021-11-28 05:52 | Outpatient (CLI) | payer MEDICARE ==
--- NOTE | 2021-11-21 13:57 | XR ---
EXAMINATION TYPE: XR chest 2V DATE OF EXAM: 11/20/2021 COMPARISON: Chest x-ray 10/12/2021 HISTORY: Z01.818 pre surgical TECHNIQUE: Frontal and lateral views of the chest are obtained. FINDINGS: There is no focal air space opacity, pleural effusion, or pneumothorax seen. The cardiac silhouette size is within normal limits. There is eventration of the right hemidiaphragm. The osseou s structures are intact. Ossification present in the right breast is noted superimposed over the righ t costophrenic angle. Aorta is dense. IMPRESSION: No acute cardiopulmonary process.
[2021-11-21 16:13] VITALS: BMI 32.2
[~2021-11-28 05:52] MED LIST changes: +ALBUMIN HUMAN 25% 50 ML IV ONE; +ALBUMIN HUMAN 5% 500 ML IVPB ONE; -ALPRAZolam 0.25 MG TAB PO PRN; -ALPRAZolam 0.5 MG TAB PO PRN; +ASPIRIN 325 MG TAB PO ONE; -ASPIRIN 325 MG TAB PO STA; +ATORVASTATIN 10 MG TAB PO ONE; -ATORVASTATIN 80 MG TAB PO STA; +CALCIUM CHLORIDE 100 MG/ML 10 ML SYRINGE IV ONE; +CHLORHEXIDINE GLUCONATE 15 ML CUP MUCOUS MEM ONE; +CLEVIDIPINE BUTYRATE 25 MG in EMPTY BAG 1 BAG IV ONE; +ELECTROLYTE-A SOLUTION 1,000 ML with POTASSIUM CHLORIDE 100 MEQ, MAGNESIUM SULFATE 16 M... IV ONE; +ELECTROLYTE-A SOLUTION 1,000 ML with POTASSIUM CHLORIDE 40 MEQ, MAGNESIUM SULFATE 16 ME... IV ONE; +HEPARIN SODIUM 1,000 UN/ML (10ML VL) IV ONE; -HEPARIN SODIUM,PORCINE 10,000 UNIT in SODIUM CHLORIDE 0.9% 1,000 ML IRRIGATION PRN; -HEPARIN SODIUM,PORCINE 2,500 UNIT in SODIUM CHLORIDE 0.9% 250 ML IRRIGATION PRN; +HEPARIN SODIUM,PORCINE 5,000 UNIT in SODIUM CHLORIDE 0.9% 500 ML 500 ML IV ONE; +INSULIN REGULAR 100 UNIT in SODIUM CHLORIDE 0.9% 100 ML IV ONE; +LACTATED RINGERS 1,000 ML IV ONE; +MAGNESIUM SULFATE 16.24 MEQ in EMPTY SYRINGE 1 SYR IV ONE; +MANNITOL 25% 12.5 GM/50 ML VIAL IV ONE; +METOPROLOL TARTRATE 12.5 MG TAB PO ONE; +NITROGLYCERIN SL TABS 0.4 MG TAB SUBLINGUAL ONE; -NITROGLYCERIN SL TABS 0.4 MG TAB SUBLINGUAL PRN; +NITROGLYCERIN-D5W PMX 25 MG/250 ML BTL IV ONE; +NITROGLYCERIN-D5W PMX 50 MG in DEXTROSE/WATER 1 250ML.BAG IV ONE; +NOREPINEPHRINE 4 MG in SODIUM CHLORIDE 0.9% 250 ML IV ONE; +PAPAVERINE 360 MG in SODIUM CHLORIDE 0.9% 90 ML IV ONE; +PHENYLEPHRINE 10 MG/ML VIAL IV ONE; +PHENYLEPHRINE 40 MG in SODIUM CHLORIDE 0.9% 250 ML IV ONE; +PROTAMINE SULFATE 10 MG/ML 25 ML VIAL IV ONE; +PROTAMINE SULFATE 250 MG in EMPTY BAG 1 BAG IV ONE; +SODIUM BICARB 8.4% 50 ML SYR (1 MEQ/ML) IV ONE; +SODIUM CHLORIDE 0.9% 1,000 ML IV ONE; -SODIUM CHLORIDE 0.9% 1,000 ML in EMPTY BAG 1 BAG IV SCH; +TRANEXAMIC ACID 2,000 MG in SODIUM CHLORIDE 0.9% 80 ML IV ONE; +ceFAZolin 1,000 MG in SODIUM CHLORIDE 0.9% IRRIGATIO 1,000 ML IRRIGATION ONE; +propofoL 1,000 MG/100 ML VIAL IV ONE
[2021-11-28] MEDS ORDERED: LIDOCAINE 1% (10MG/ML) FOR IV START INTRADERMA ONE (06:35)
[2021-11-28 06:49] VITALS: BP 156/83; PULSE 72; RESP 16; TEMP 98.1
[2021-11-28] MEDS ORDERED: MUPIROCIN 2% OINT 22 GM TUBE NASAL ONE (16:15)
== END 2021-11-28 08:43 | disposition home or self-care (01) ==
LOC: OR 05:52 → EDSTATUS 07:15 → UNDODISIN 08:43 → OR 08:43
PROVIDERS: ATTEND Surgery
DX: I35.0 Nonrheumatic aortic (valve) stenosis (principal)
CPT/HCPCS: 71046; 86850; 86900; 86901; 86920

== ENCOUNTER 2021-12-04 05:49 | Inpatient (IN) | payer MEDICARE ==
[2021-12-04] MEDS ORDERED: LACTATED RINGERS 1,000 ML IV ONE (06:28)
[2021-12-04] MEDS ORDERED: LIDOCAINE 2% SYG (PF) 100 MG/5 ML ONE (07:47)
[2021-12-04] MEDS ORDERED: VECURONIUM 10 MG VIAL IV ONE (07:47)
[2021-12-04] MEDS ORDERED: HEPARIN SODIUM,PORCINE 10,000 UNIT/ML 1 ML VIAL ONE (07:47)
[2021-12-04] MEDS ORDERED: PROTAMINE SULFATE 10 MG/ML 25 ML VIAL IV ONE (07:47)
[2021-12-04] MEDS ORDERED: PHENYLEPHRINE-0.9% NACL SYG 1,000 MCG/10 ML SYRINGE ONE (07:47)
[2021-12-04] MEDS ORDERED: ELECTROLYTE-R (PH 7.4) 1,000 ML IV.SOLN IV ONE (07:47)
[2021-12-04] MEDS ORDERED: PROPOFOL 10 MG/ML 20 ML VIAL IV ONE (07:47)
[2021-12-04] MEDS ORDERED: MIDAZOLAM HCL 10 MG/10 ML VIAL ONE (07:47)
[2021-12-04] MEDS ORDERED: fentaNYL (PF) 50 MCG/ML 50 ML VIAL ONE (07:47)
[2021-12-04] MEDS ORDERED: ALBUMIN HUMAN 5% (25gm) 500 ML VIAL IVPB ONE (07:47)
[2021-12-04] MEDS ORDERED: SODIUM CHLORIDE 0.9% IRRIG 1,000 ML BTL IRRIGATION ONE (07:47)
[2021-12-04] MEDS ORDERED: MAGNESIUM SULFATE 4 MEQ/ML 10ML VIAL ONE (07:47)
[2021-12-04] MEDS ORDERED: TRANEXAMIC ACID IN NACL,ISO-OS 1,000 MG/100 ML BAG ONE (07:47)
[2021-12-04 08:32] LABS: ABG Base Excess 0.1 mmol/L; ABG Glucose Whole Blood 102 mg/dL (75-99); ABG HCO3 26 mmol/L (21-25); ABG Hematocrit 34 % (34.0-46.0); ABG Ionized Calcium 4.7 mg/dL (4.5-5.3); ABG Oxygen Saturation 99.7 % (94-97); ABG PCO2 43 mmHg (35-45); ABG PH 7.38 (7.35-7.45); ABG Sodium Whole Blood 141 mmol/L (135-146); ABG TCO2 27 mmol/L (19-24)
[2021-12-04 09:17] LABS: ABG Glucose Whole Blood 104 mg/dL (75-99); ABG HCO3 26 mmol/L (21-25); ABG Hematocrit 33 % (34.0-46.0); ABG Ionized Calcium 4.7 mg/dL (4.5-5.3); ABG PCO2 43 mmHg (35-45); ABG PH 7.39 (7.35-7.45); ABG PO2 242 mmHg (83-108); ABG Potassium Whole Blood 3.8 mmol/L (3.4-4.5); ABG Sodium Whole Blood 141 mmol/L (135-146); ABG TCO2 28 mmol/L (19-24)
[2021-12-04 09:44] LABS: ABG Base Excess -0.9 mmol/L; ABG Glucose Whole Blood 113 mg/dL (75-99); ABG HCO3 24 mmol/L (21-25); ABG Hematocrit 25 % (34.0-46.0); ABG Ionized Calcium 4.1 mg/dL (4.5-5.3); ABG PCO2 38 mmHg (35-45); ABG Potassium Whole Blood 3.7 mmol/L (3.4-4.5); ABG Sodium Whole Blood 137 mmol/L (135-146); ABG TCO2 25 mmol/L (19-24)
[2021-12-04 10:20] LABS: ABG Base Excess 0.6 mmol/L; ABG Glucose Whole Blood 118 mg/dL (75-99); ABG HCO3 26 mmol/L (21-25); ABG Hematocrit 25 % (34.0-46.0); ABG Ionized Calcium 4.2 mg/dL (4.5-5.3); ABG PCO2 42 mmHg (35-45); ABG PH 7.39 (7.35-7.45); ABG PO2 351 mmHg (83-108); ABG Potassium Whole Blood 4.7 mmol/L (3.4-4.5); ABG Sodium Whole Blood 139 mmol/L (135-146); ABG TCO2 27 mmol/L (19-24)
[2021-12-04 11:03] LABS: ABG Base Excess 0.2 mmol/L; ABG Glucose Whole Blood 129 mg/dL (75-99); ABG HCO3 27 mmol/L (21-25); ABG Ionized Calcium 4.2 mg/dL (4.5-5.3); ABG PCO2 52 mmHg (35-45); ABG PH 7.32 (7.35-7.45); ABG PO2 391 mmHg (83-108); ABG Potassium Whole Blood 5.1 mmol/L (3.4-4.5); ABG Sodium Whole Blood 139 mmol/L (135-146); ABG TCO2 28 mmol/L (19-24)
[2021-12-04 11:27] LABS: ABG Base Excess 0.1 mmol/L; ABG Glucose Whole Blood 136 mg/dL (75-99); ABG HCO3 25 mmol/L (21-25); ABG PCO2 39 mmHg (35-45); ABG PH 7.41 (7.35-7.45); ABG PO2 391 mmHg (83-108); ABG Sodium Whole Blood 139 mmol/L (135-146); ABG TCO2 26 mmol/L (19-24)
[2021-12-04 11:58] LABS: ABG Lactic Acid Whole Blood 1.1 mmol/L (0.5-1.6); ABG PO2 >420 mmHg (83-108)
[2021-12-04 11:59] LABS: ABG Lactic Acid Whole Blood 0.8 mmol/L (0.5-1.6)
[2021-12-04 12:00] LABS: ABG Lactic Acid Whole Blood 0.7 mmol/L (0.5-1.6); ABG PO2 >420 mmHg (83-108)
[2021-12-04 12:01] LABS: ABG Lactic Acid Whole Blood 0.8 mmol/L (0.5-1.6)
[2021-12-04 12:02] LABS: ABG Hematocrit 24 % (34.0-46.0)
[2021-12-04 12:03] LABS: ABG Hematocrit 23 % (34.0-46.0); ABG Lactic Acid Whole Blood 1.9 mmol/L (0.5-1.6)
--- NOTE | 2021-12-04 12:07 | P.ANPRN ---
Procedure Note - Anesthesia - Invasive Line Right Central Line Time Out Performed: Yes (721) Date of Procedure: 12/04/21 Time of Procedure: 07:22 Location of Patient: Phase I Preparation: Sterile Prep, Sterile Dressing Arterial Line Location: Radial Ultrasound Used: Yes Purpose - Visualization and Identification of Vasculature: Yes Needle Guage: 18g Image Stored and Saved: Yes Narrative: Central line placement per sterile protocol utilized. local angio cvp jwire uneventful dilation and introduction right IJ cordis.
--- NOTE | 2021-12-04 12:08 | P.ANPRN ---
Procedure Note - Anesthesia - Invasive Line Right [place] Time Out Performed: Yes (721) Date of Procedure: 12/04/21 Time of Procedure: 07:29 Location of Patient: Phase I Preparation: Sterile Prep Arterial Line Location: Radial Ultrasound Used: No Purpose - Visualization and Identification of Vasculature: No Image Stored and Saved: No Narrative: Central line placement per sterile protocol utilized. cordis floated in sheath in one attempt to wedge at 48cm. w/d 5cm to PA.
[2021-12-04 13:14] LABS: Glucose,Whole Blood 127 mg/dL (70-110)
[2021-12-04] MEDS ORDERED: AMIODARONE 450 MG in DEXTROSE 5% IN WATER 250 ML IV PRN ×2 (13:16)
[2021-12-04] MEDS ORDERED: Phosphorus Replacement Protoco 1 EACH MISC MISCELLANE PRN (13:16)
[2021-12-04] MEDS ORDERED: AMIODARONE 360 MG in DEXTROSE 5% IN WATER 200 ML IV PRN ×2 (13:16)
[2021-12-04] MEDS ORDERED: Potassium Replacement Protocol 1 EACH MISC MISCELLANE PRN (13:16)
[2021-12-04] MEDS ORDERED: BENZOCAINE/MENTHOL LOZENG 1 EACH LOZENGE MUCOUS MEM PRN (13:16)
[2021-12-04] MEDS ORDERED: DEXTROSE 5% IN WATER 100 ML with AMIODARONE 150 MG IV PRN (13:16)
[2021-12-04] MEDS ORDERED: ONDANSETRON 4 MG/2 ML VIAL IVP PRN (13:16)
[2021-12-04] MEDS ORDERED: Magnesium Replacement Protocol 1 EACH MISC MISCELLANE PRN (13:16)
[2021-12-04] MEDS ORDERED: METOCLOPRAMIDE 5 MG/ML 2 ML VIAL IVP PRN (13:16)
[2021-12-04] MEDS ORDERED: CALCIUM GLUCONATE IN NACL 2 GM in SALINE 1 100ML.BAG IVPB PRN (13:16)
[2021-12-04] MEDS ORDERED: IPRATROPIUM-ALBUTEROL 3 ML NEB INHALATION PRN (13:16)
[2021-12-04] MEDS ORDERED: INSULIN REGULAR 100 UNIT in SODIUM CHLORIDE 0.9% 100 ML IV SCH (13:30)
[2021-12-04] MEDS: LACTATED RINGERS 1,000 ML IV SCH (13:30)
[2021-12-04] MEDS: CLEVIDIPINE BUTYRATE 25 MG in EMPTY BAG 1 BAG IV SCH ×3 (13:30→18:46)
[2021-12-04 13:32] LABS: Ionized Calcium 5.1 mg/dL (4.5-5.3)
[2021-12-04 13:33] LABS: Basophils % (A) 0 %; Eosinophils # (A) 0.1 k/uL (0-0.7); Eosinophils % (A) 1 %; HCT 27.5 % (34.0-46.0); Lymphocytes # (A) 0.9 k/uL (1.0-4.8); Lymphocytes % (A) 15 %; MCH 32.2 pg (25.0-35.0); MCHC 33.5 g/dL (31.0-37.0); MCV 96.3 fL (80.0-100.0); Mean Platelet Volume 8.3; Monocytes # (A) 0.3 k/uL (0-1.0); Monocytes % (A) 5 %; Neutrophils # (A) 4.6 k/uL (1.3-7.7); Neutrophils % (A) 78 %; RBC 2.86 m/uL (3.80-5.40); RDW 13.6 % (11.5-15.5); WBC 5.8 k/uL (3.8-10.6)
[2021-12-04 13:36] LABS: ABG Base Excess 0.1 mmol/L; ABG HCO3 26 mmol/L (21-25); ABG PCO2 47 mmHg (35-45); ABG PH 7.35 (7.35-7.45); ABG PO2 >400 mmHg (83-108); ABG TCO2 27 mmol/L (19-24)
[2021-12-04 13:37] LABS: HGB 9.2 gm/dL (11.4-16.0)
[2021-12-04 13:38] LABS: Allen Test Performed? no
[2021-12-04 13:38] LABS: INR 1.2 (<1.2); Partial Thromboplastin Time 28.8 sec (22.0-30.0); Prothrombin Time 12.3 sec (9.0-12.0)
[2021-12-04 13:41] LABS: ALT 16 U/L (4-34); AST 47 U/L (14-36); African American GFR (CKD) >90 (>60 ml/min/1.73 sqM); Albumin 2.5 g/dL (3.5-5.0); Alkaline Phosphatase 34 U/L (38-126); Anion Gap 2 mmol/L; Blood Urea Nitrogen 14 mg/dL (7-17); Calcium 7.8 mg/dL (8.4-10.2); Carbon Dioxide 25 mmol/L (22-30); Chloride 111 mmol/L (98-107); Glucose 114 mg/dL (74-99); Magnesium 2.8 mg/dL (1.6-2.3); Non-African American GFR(CKD) >90 (>60 ml/min/1.73 sqM); Potassium 4.4 mmol/L (3.5-5.1); Sodium 138 mmol/L (137-145); Total Bilirubin 0.5 mg/dL (0.2-1.3)
[2021-12-04 13:56] LABS: Glucose,Whole Blood 121 mg/dL (70-110)
[2021-12-04] MEDS: ALBUMIN HUMAN 5% 250 ML in EMPTY BAG 1 BAG IVPB PRN (14:02)
[2021-12-04 14:18] LABS: Platelet Count 90 k/uL (150-450)
[2021-12-04 14:19] LABS: RBC Morphology Normal
[2021-12-04 15:02] LABS: Glucose,Whole Blood 159 mg/dL (70-110)
--- NOTE | 2021-12-04 15:23 | XR ---
EXAMINATION TYPE: XR chest 1V portable DATE OF EXAM: 12/04/2021 COMPARISON: This x-ray 11/20/2021 HISTORY: Postop cardiac surgery TECHNIQUE: Single frontal view of the chest is obtained. FINDINGS: Patient is post median sternotomy, cardiac valve replacement, left atrial appendage clip p lacement. Endotracheal tube is overlying the tracheal air column in appropriate position. NG tube is in place. Left chest tube, right jugular central venous sheath and coaxial [place] catheter, medias tinal drain are present, epicardial pacing leads are present. Patient is rotated. There is no sizable pneumothorax. Lung volumes are low. Aorta is dense. Heart size is within normal limits. There are ov erlying artifacts. IMPRESSION: Satisfactory postoperative chest x-ray.
[2021-12-04] MEDS ORDERED: IPRATROPIUM-ALBUTEROL 3 ML NEB INHALATION SCH (16:00)
[2021-12-04 16:01] LABS: Glucose,Whole Blood 183 mg/dL (70-110)
--- NOTE | 2021-12-04 16:05 | OP ---
OPERATIVE REPORT DATE OF SURGERY: 12/04/2021. PREOPERATIVE DIAGNOSES: 1. Severe aortic valve stenosis. 2. Paroxysmal atrial fibrillation. POSTOPERATIVE DIAGNOSES: 1. Severe aortic valve stenosis. 2. Paroxysmal atrial fibrillation. PROCEDURE: 1. Aortic valve replacement using a 21 mm Whitney Inspiris prosthetic valve. 2. Ligation of left atrial appendage using 35 AtriClip. 3. Bilateral pulmonary vein isolation. 4. Epiaortic ultrasound. 5. Transesophageal cardiogram. SURGEON: David Sabillon M.D. ANIMAL NURSE: BHARAT Roach. ANESTHESIA: General. SPECIMEN: Aortic valve leaflets. COMPLICATIONS: None. INDICATION: The patient is a 71-year-old female with. a past medical history significant for hypertension, hyperlipidemia, osteoarthritis, psoriasis, GERD, degenerative joint disease, TIAs with the most recent being approximately 8 weeks ago, remote history of tobacco use, and paroxysmal atrial fibrillation, who presented to her physician with worsening shortness of breath with activity accompanied by occasional chest pain. She does have a known history of aortic valve stenosis. Followup testing revealed progression of her valvular disease. Given these findings, an aortic valve replacement was recommended along with modified maze procedure. The risks, benefits, and alternatives to these procedures were discussed with the patient. All of her questions were answered. Consent was obtained. FINDINGS: The aortic valve was trileaflet in nature and heavily calcified. PROCEDURE IN DETAIL: The patient was taken to the operating room and placed supine on the operating table. After the induction of general anesthesia, she was prepped and draped in the usual sterile fashion. Preoperative transesophageal cardiogram confirmed a preserved ejection fraction with severe aortic valve stenosis. The aortic valve appeared to be trileaflet and was heavily calcified. Preoperative gradients, including a mean gradient of 46 mmHg, verified severe aortic valve stenosis. A median sternotomy was performed. The left pleural space was opened widely. Intravenous heparin was administered. A pericardial cradle was created. The ascending aorta was palpated. There was no significant calcific plaque noted. Epiaortic ultrasound was then performed on the ascending aorta. Again no calcific plaque or atheromatous disease was identified. An arterial cannula was placed in the distal ascending aorta. A venous cannula was placed through the right atrial appendage and directed into the IVC. Both antegrade and retrograde catheters were placed as well. The patient was then placed on cardiopulmonary bypass with good decompression of the heart. At this point, I proceeded with bilateral pulmonary vein isolation. The right-sided pulmonary veins were circumferentially dissected free. An AtriCure wand was placed and radiofrequency ablation was performed to the base of the pulmonary veins along the left atrial cuff. Next, in a similar fashion, the left sided pulmonary veins were encircled. An AtriCure wand was passed almost around the orifice of the pulmonary veins and radiofrequency ablation was performed. Good burn lines were seen on both sides at the completion of this procedure. The Ligament of Leo was also identified and transected. The aortic cross-clamp was applied. Cold blood potassium cardioplegia was delivered in both antegrade and retrograde fashion to achieve arrest of the heart. Of note, cardioplegia was delivered every 15-20 minutes with the patient under crossclamp. At this point, the right superior pulmonary vein was identified and an LV vent was placed to help drain the heart. The left atrial appendage was then identified. A 35 mm AtriClip was placed across its base to ensure ligation. Attention was then turned to the aortic valve replacement. A standard hockey- stick incision was created across the proximal ascending aorta. CO2 was administered across the operative field. Initial inspection revealed a trileaflet aortic valve with heavy calcium visualized. Using a combination of scissors and a scalpel, the 3 leaflets were excised and sent to pathology. Residual calcium was noted along the annulus. This was removed meticulously using a rongeur. The aortic root was copiously irrigated with cold saline solution. Of note, retrograde cardioplegia was given every 15 minutes and it was visualized and verified to have good return via both the coronary ostia. Using a valve Sizer, a 21 mm Whitney bioprosthetic Inspiris valve was chosen. Interrupted sutures were placed circumferentially around the annulus. Of note, both coronary ostia were in a normal position and not riding low. The sutures were then passed through the sewing ring of the bioprosthetic valve. The valve was then carefully lowered into position. The sutures were tied using core knots. The valve appeared to seat nicely. The aortotomy was then closed in 2 layers using a running 4-0 Prolene suture. 1 L of warm blood was delivered in retrograde fashion. Both lidocaine and magnesium were administered as well. Standard de-airing maneuvers were performed. The aortic cross-clamp was removed. Followup transesophageal cardiogram confirmed no significant intracardiac air. Temporary atrial and ventricular pacing wires were placed and brought through the skin. The patient was then weaned off cardiopulmonary bypass. She without difficulty. Followup transesophageal cardiogram again confirmed no intracardiac air. The bioprosthetic valve was seated nicely and was in good position. There was no evidence of perivalvular leak. Protamine was administered. There were no adverse reactions. The remaining cannulas were then removed. The mediastinum was copiously irrigated with warm saline solution. All surgical sites were inspected and appeared to be hemostatic. Soft tissues were reapproximated over the ascending aorta as well as over the apex of the heart. Straight chest tubes were placed in the left pleural space and mediastinum. These were both secured to the skin using sutures. A small incision was created in the right pleura to gain entry to the right pleural space. The sternum was then reapproximated using the [place] cable system. The cables were placed in a [id number] fashion. At the completion of the closure, the sternum was well aligned. The remainder of the wound was closed in layers. Sterile dressing was applied. The patient appeared to tolerate the procedure well. There were no immediate complications. She returned to the ICU in critical but stable condition. She did not receive any intraoperative blood products. MMODL / IJN: [id number] / MTDMyriam
[2021-12-04 16:21] LABS: Basophils % (A) 0 %; Eosinophils # (A) 0.1 k/uL (0-0.7); Eosinophils % (A) 1 %; HCT 32.4 % (34.0-46.0); HGB 10.7 gm/dL (11.4-16.0); Lymphocytes # (A) 1.5 k/uL (1.0-4.8); Lymphocytes % (A) 13 %; MCH 31.9 pg (25.0-35.0); MCHC 33.1 g/dL (31.0-37.0); MCV 96.3 fL (80.0-100.0); Mean Platelet Volume 8.4; Monocytes # (A) 0.5 k/uL (0-1.0); Monocytes % (A) 4 %; Neutrophils # (A) 9.5 k/uL (1.3-7.7); Neutrophils % (A) 81 %; Platelet Count 129 k/uL (150-450); RBC 3.37 m/uL (3.80-5.40); RDW 13.1 % (11.5-15.5); WBC 11.7 k/uL (3.8-10.6)
--- NOTE | 2021-12-04 16:24 | P.CNPUL ---
History of Present Illness Consult date: 12/04/21 Requesting physician: David Sabillon Reason for consult: other Chief complaint: Aortic stenosis History of present illness: This is a 71-year-old female patient with past medical history of hypertension, hyperlipidemia, severe aortic stenosis and patient was being worked up for aortic valve replacement on outpatient basis, syncopal episodes related to severe aortic stenosis, psoriasis who we saw in consultation in September,. patient came in with acute onset left-sided weakness and received alteplase, with resolution of her neurological deficits. CT of the brain, MRI of the brain showed no acute abnormalities. There was nonspecific white matter demyelination. Patient was evaluated by cardiothoracic surgery for possibility of surgical aortic valve replacement and was found to have class 2-3 [place] [employer] symptomology, and STS risk score for surgical aortic valve replacement was 1.2%. Patient opted for surgery given her low risk score. Her preop FEV1 was 1.73 L or 79% of predicted, with FVC of 1. 97/68% of predicted, with FEV1 to FEC ratio of 115, and MVV of 64.9 consistent with mild restriction. On 12/04/2021 patient had a aortic valve replacement with bilateral pulmonary vein isolation, exclusion of the left atrial appendage with atrial collapse, and intraoperative transesophageal echocardiogram. Patient was seen in the intensive care unit following her surgery, she still sedated and intubated, she is on assist-control mode of ventilation with a rate of 14, tidal volumes were 100, FiO2 is currently down to 50% and PEEP of 10. Postop blood gases showed pO2 of Coreg than 400, pCO2 47, pH of 7.35 and FiO2 has since been cut back to 50%. Chest x-ray showing post-median sternotomy, cardiac valve replacement, left atrial appendage clot placement, NG tube and ET tube in place, chest tubes [place]-Opal catheter, epicardial pacing leads. No sizable pneumothorax. Low lung volumes. Patient is hemodynamically stable, she is on small dose of Cleviprex at 3 mg/hr, Diprivan is a 15 mics per kilo per minute, insulin at 1.5 units per hour, and lactated Ringer's at 50 ML per hour. Hemodynamically patient is stable, she is being paced at 70 BPM. No vasopressor support, cardiac output is 4.4, and cardiac index is 2.3. Patient has mediastinal chest tube with 100 mL of cigarettes output, and left pleural chest tube with 50 mL of sanguinous output, no air leak, to wall suction. Postoperative labs showing white blood cell count of 5.8, hemoglobin of 9.2, INR is 1.2, sodium is 138, potassium is 4.4, chloride is 111, CO2 is 25, B1 is 14, creatinine 0.5, magnesium of 2.8, AST is 47, ALT is 16, alk phos is 34. Incisions are clean dry and intact, midst ernal incision, chest tube placement sites clean dry and intact, covered with surgical dressings. Review of Systems All systems: negative Constitutional: Denies chills, Denies fever Eyes: denies blurred vision, denies pain Ears, nose, mouth and throat: Denies headache, Denies sore throat Cardiovascular: Reports syncope, Denies chest pain, Denies shortness of breath Respiratory: Denies cough Gastrointestinal: Denies abdominal pain, Denies diarrhea, Denies nausea, Denies vomiting Genitourinary: Denies dysuria, Denies hematuria Musculoskeletal: Denies myalgias Integumentary: Denies pruritus, Denies rash Neurological: Denies numbness, Denies weakness Psychiatric: Denies anxiety, Denies depression Endocrine: Denies fatigue, Denies weight change Past Medical History Past Medical History: GERD/Reflux, Hyperlipidemia, Hypertension, Memory Impairment, Osteoarthritis (OA) Additional Past Medical History / Comment(s): SOB, 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 . History of Any Multi-Drug Resistant Organisms: None Reported Past Surgical History: Hysterectomy, Tonsillectomy Additional Past Surgical History / Comment(s): D&C and partial hysterectomy(bilateral ovaries retained), bilateral cyst aspirations(benign), CHRISTINA. 2 heart caths Past Anesthesia/Blood Transfusion Reactions: No Reported Reaction Additional Past Anesthesia/Blood Transfusion Reaction / Comment(s): no hx blood transfusion Smoking Status: Former smoker - Past Family History Mother Family Medical History: Cancer Additional Family Medical History / Comment(s): SKIN CANCER. Father Family Medical History: Cancer Additional Family Medical History / Comment(s): SKIN CANCER. Sister(s) Family Medical History: Cancer Additional Family Medical History / Comment(s): SKIN CANCER. Medications and Allergies Home Medications Medication Instructions Recorded Confirmed Type Famotidine 40 mg PO HS 06/20/21 12/02/21 History lisinopriL [Prinivil] 10 mg PO HS 06/20/21 12/02/21 History Aspirin EC [Ecotrin Low Dose] 325 mg PO HS 10/12/21 12/03/21 History HYDROcodone/APAP 5-325MG [[place] 1 tab PO TID PRN 10/12/21 12/02/21 History 5-325] Atorvastatin [Lipitor] 40 mg PO HS #60 tab 10/15/21 12/02/21 Rx Clopidogrel [Plavix] 75 mg PO DAILY #21 tab 10/15/21 12/02/21 Rx Mupirocin 2% Oint [Bactroban 2% 1 applic NASAL BID #22 gm 11/22/21 12/02/21 Rx Oint] Ergocalciferol [Vitamin D2 (1250 1,250 mcg PO MO 11/26/21 12/02/21 History Mcg = 96838 Iu)] Psoriasis Cream 1 dose TOPICAL DIRECTED 11/26/21 12/02/21 History Allergies Allergy/AdvReac Type Severity Reaction Status Date / Time erythromycin base Allergy Itching Verified 11/28/21 06:14 meloxicam Allergy mood Verified 11/28/21 06:14 swings, aggressive, out of it methotrexate Allergy Rash/Hives Verified 11/28/21 06:14 IVORY Allergy Rash/Hives Uncoded 11/28/21 06:14 Physical Exam Vitals: Vital Signs Temp Pulse Pulse Pulse Resp BP BP 12/04/21 15:15 97.7 F 70 14 100/52 12/04/21 15:10 12/04/21 15:00 69 11 L 12/04/21 14:45 69 14 134/67 12/04/21 14:30 51 L 10 L 12/04/21 14:26 12/04/21 14:15 53 L 14 134/67 12/04/21 14:00 51 L 14 12/04/21 13:45 52 L 14 12/04/21 13:38 12/04/21 13:30 80 14 12/04/21 13:17 12/04/21 13:15 95.4 F L 80 15 12/04/21 13:08 21 12/04/21 13:07 12/04/21 06:07 64 18 146/80 12/04/21 06:05 97.8 F 65 18 149/68 Pulse Ox FiO2 12/04/21 15:15 100 12/04/21 15:10 50 12/04/21 15:00 100 12/04/21 14:45 100 12/04/21 14:30 100 12/04/21 14:26 50 12/04/21 14:15 100 12/04/21 14:00 100 12/04/21 13:45 100 12/04/21 13:38 50 12/04/21 13:30 100 12/04/21 13:17 100 12/04/21 13:15 100 100 12/04/21 13:08 12/04/21 13:07 100 12/04/21 06:07 95 12/04/21 06:05 97 Intake and Output 12/04/21 12/04/21 12/04/21 06:59 14:59 22:59 Intake Total 100 231.520 197.677 Output Total 2300 255 Balance 100 -2068.480 -57.323 Intake: IV 100 230 179 CO/CI 60 120 Lactated Ringers 1,000 ml 100 50 @ 50 mls/hr IV .Q20H HARLEEN Rx#:[id number] Pressure Bags 18 9 Intake, IV Titration 1.520 18.677 Amount Clevidipine Butyrate 25 1.133 mg In Empty Bag 1 bag @ 1 MG/HR 2 mls/hr IV .Q24H HARLEEN Rx#:[id number] Insulin Regular 100 unit 0.387 2.087 In Sodium Chloride 0.9% 100 ml @ Per Protocol IV .Q0M [facility]LEEN Rx#:[id number] propofoL 1,000 mg In 16.590 Empty Bag 1 bag @ 20 MCG/ KG/MIN 10.152 mls/hr IV . Q9H52M HARLEEN Rx#:[id number] Output: Chest Tube Drainage 50 30 Left Pleural 0 5 Mediastinal 50 25 Urine 850 225 Estimated Blood Loss 1400 Other: Voiding Method Indwelling Catheter Indwelling Catheter Weight 84.6 kg ABP, PAP, CO, CI - Last 8 Hours Arterial Blood Pressure 123/59 Arterial Blood Pressure 126/62 Arterial Blood Pressure 116/54 Arterial Blood Pressure 123/57 Arterial Blood Pressure 149/70 Arterial Blood Pressure 128/60 Arterial Blood Pressure 118/51 Arterial Blood Pressure 147/72 Arterial Blood Pressure 122/67 Pulmonary Artery Pressure 36/21 Pulmonary Artery Pressure 34/20 Pulmonary Artery Pressure 31/18 Pulmonary Artery Pressure 29/16 Pulmonary Artery Pressure 31/18 Pulmonary Artery Pressure 26/15 Pulmonary Artery Pressure 26/14 Pulmonary Artery Pressure 27/15 Pulmonary Artery Pressure 36/5 Cardiac Output 4.4 Cardiac Output 4.4 Cardiac Output 3.5 Cardiac Output 3.5 Cardiac Output 2.8 Cardiac Output 2.7 Cardiac Output 4.4 Cardiac Output 4.4 Cardiac Output 4.4 Cardiac Index 2.3 Cardiac Index 2.3 Cardiac Index 1.9 Cardiac Index 1.9 Cardiac Index 1.5 Cardiac Index 1.4 Cardiac Index 2.3 Cardiac Index 2.3 Cardiac Index 2.3 GENERAL EXAM: Sedated, intubated 71-year-old on assist-control mode of ventilation, comfortable in no apparent distress. HEAD: Normocephalic/atraumatic. EYES: Normal reaction of pupils, equal size. Conjunctiva pink, sclera white. NOSE: Clear with pink turbinates. THROAT: No erythema or exudates. NECK: No masses, no JVD, no thyroid enlargement, no adenopathy. CHEST: No chest wall deformity. Symmetrical expansion. Midsternal incision is clean dry and intact, mediastinal and left pleural chest tubes are clean dry and intact, chest tubes are to continuous wall suction, with small amount of sanguinous output, no air leak, AV wires in place, patient is being paced at 70 BPM LUNGS: Equal air entry with no crackles, wheeze, rhonchi or dullness. CVS: Regular rate and rhythm, normal S1 and S2, no gallops, no murmurs, no rubs ABDOMEN: Soft, nontender. No hepatosplenomegaly, normal bowel sounds, no guarding or rigidity. EXTREMITIES: No clubbing, no edema, no cyanosis, 2+ pulses and upper and lower extremities. MUSCULOSKELETAL: Muscle strength and tone normal. SPINE: No scoliosis or deformity SKIN: No rashes CENTRAL NERVOUS SYSTEM: Sedated, intubated No focal deficits, tone is normal in all 4 extremities. Results - Laboratory Findings CBC and BMP: 12/04/21 13:17 12/04/21 13:17 ABG ABG pH 7.35 (7.35-7.45) 12/04/21 13:35 ABG pCO2 47 mmHg (35-45) H 12/04/21 13:35 ABG pO2 >400 mmHg (83-108) H 12/04/21 13:35 ABG O2 Saturation 100.0 % (94-97) H 12/04/21 13:35 PT/INR, D-dimer PT 12.3 sec (9.0-12.0) H 12/04/21 13:17 INR 1.2 (<1.2) H 12/04/21 13:17 Abnormal lab findings: Abnormal Labs 12/03/21 12/04/21 12/04/21 11:38 08:33 09:18 RBC Hgb Hct Plt Count Lymphocytes # PT INR ABG pH ABG pCO2 ABG pO2 >420 H 242 H ABG HCO3 26 H 26 H ABG Total CO2 27 H 28 H ABG O2 Saturation 99.7 H 100.0 H ABG Hematocrit 33 L ABG Potassium ABG Ionized Calcium ABG Glucose 102 H 104 H ABG Lactic Acid Hemoglobin 10.9 L 10.7 L Chloride Glucose POC Glucose (mg/dL) Calcium Magnesium AST Alkaline Phosphatase Total Protein Albumin Arterial Blood Potassium Arterial Blood Glucose 102 H 104 H Crossmatch See Detail 12/04/21 12/04/21 12/04/21 09:46 10:21 11:04 RBC Hgb Hct Plt Count Lymphocytes # PT INR ABG pH 7.32 L ABG pCO2 52 H ABG pO2 >420 H 351 H 391 H ABG HCO3 26 H 27 H ABG Total CO2 25 H 27 H 28 H ABG O2 Saturation 100.0 H 100.0 H 100.0 H ABG Hematocrit 25 L 25 L 24 L ABG Potassium 4.7 H 5.1 H ABG Ionized Calcium 4.1 L 4.2 L 4.2 L ABG Glucose 113 H 118 H 129 H ABG Lactic Acid Hemoglobin 8.2 L 8.0 L 8.0 L Chloride Glucose POC Glucose (mg/dL) Calcium Magnesium AST Alkaline Phosphatase Total Protein Albumin Arterial Blood Potassium 4.7 H 5.1 H Arterial Blood Glucose 113 H 118 H 129 H Crossmatch 12/04/21 12/04/21 12/04/21 11:28 13:11 13:17 RBC 2.86 L Hgb 9.2 L D Hct 27.5 L Plt Count 90 L Lymphocytes # 0.9 L PT INR ABG pH ABG pCO2 ABG pO2 391 H ABG HCO3 ABG Total CO2 26 H ABG O2 Saturation 100.0 H ABG Hematocrit 23 L ABG Potassium 5.0 H ABG Ionized Calcium 4.0 L ABG Glucose 136 H ABG Lactic Acid 1.9 H Hemoglobin 7.6 L Chloride Glucose POC Glucose (mg/dL) 127 H Calcium Magnesium AST Alkaline Phosphatase Total Protein Albumin Arterial Blood Potassium 5.0 H Arterial Blood Glucose 136 H Crossmatch 12/04/21 12/04/21 12/04/21 13:17 13:17 13:35 RBC Hgb Hct Plt Count Lymphocytes # PT 12.3 H INR 1.2 H ABG pH ABG pCO2 47 H ABG pO2 >400 H ABG HCO3 26 H ABG Total CO2 27 H ABG O2 Saturation 100.0 H ABG Hematocrit ABG Potassium ABG Ionized Calcium ABG Glucose ABG Lactic Acid Hemoglobin Chloride 111 H Glucose 114 H POC Glucose (mg/dL) Calcium 7.8 L Magnesium 2.8 H AST 47 H Alkaline Phosphatase 34 L Total Protein 4.0 L Albumin 2.5 L Arterial Blood Potassium Arterial Blood Glucose Crossmatch 12/04/21 12/04/21 12/04/21 13:54 15:00 15:59 RBC Hgb Hct Plt Count Lymphocytes # PT INR ABG pH ABG pCO2 ABG pO2 ABG HCO3 ABG Total CO2 ABG O2 Saturation ABG Hematocrit ABG Potassium ABG Ionized Calcium ABG Glucose ABG Lactic Acid Hemoglobin Chloride Glucose POC Glucose (mg/dL) 121 H 159 H 183 H Calcium Magnesium AST Alkaline Phosphatase Total Protein Albumin Arterial Blood Potassium Arterial Blood Glucose Crossmatch - Diagnostic Findings Chest x-ray: report reviewed, image reviewed Assessment and Plan Plan: Assessment: #1. Severe aortic stenosis, status post aortic valve replacement, bilateral pulmonary vein isolation, exclusion of the left atrial appendage with a chocolate, and intraoperative transesophageal echocardiogram on 12/04/2021 #2. Routine postoperative ventilator management. #3. Syncopal episodes related to severe #4. Hypertension #5. Recent history of acute CVA status post IV TPA, and subsequently patient's symptoms of left arm weakness and numbness resolved #6. Hyperlipidemia #7. Former smoker, however preop FEV1 was in the order of 1.73 L or 79% of predicted, FEV1 to FVC ratio of 115, consistent with mild restriction #8. Osteoarthritis #9. History of partial hysterectomy Plan: Patient has been seen and evaluated at the bedside Postop blood gases, labs and chest x-ray reviewed Hemodynamic patient is stable Requiring small amount of clevidipine for blood pressure control No significant bleeding from the mediastinal left pleural chest tube Continue close hemodynamic monitoring Blood gas has been reviewed, FiO2 has been cut back to 50% Continue weaning FiO2 We'll stop sedation and proceed with spontaneous awakening trials Once the patient is awake we'll proceed with spontaneous breathing trials and we anticipate quick extubation Continue breathing treatments every 4 hours while on the, and 4 times a day after extubation Incentive spirometry and deep breathing and coughing Follow-up chest x-ray tomorrow We'll continue to follow I have personally seen and examined the patient, performed the documentation and the assessment and plan as written. Number of minutes spent on the visit: [15] Time with Patient: Greater than 30
[2021-12-04 16:43] LABS: ABG Base Excess -1.9 mmol/L; ABG HCO3 23 mmol/L (21-25); ABG PCO2 40 mmHg (35-45); ABG PH 7.37 (7.35-7.45); ABG PO2 183 mmHg (83-108); ABG TCO2 25 mmol/L (19-24); Allen Test Performed? Yes
[2021-12-04 17:06] LABS: Glucose,Whole Blood 181 mg/dL (70-110)
[2021-12-04] MEDS: ACETAMINOPHEN IV (For NPO) 1,000 MG in EMPTY BAG 1 BAG IVPB SCH ×2 (17:09→23:38)
--- NOTE | 2021-12-04 17:34 | P.CONS ---
History of Present Illness - Reason for Consult Consult date: 12/04/21 - Chief Complaint Medical management - History of Present Illness 71-year-old woman with medical history of aortic stenosis, hypertension, hyperlipidemia, psoriasis, GERD, history of TIA who presented for surgical aortic valve replacement. Medicine was consulted for medical management. Patient is doing well postoperatively. She is afebrile, 125/58, heart rate 70, atrial paced, pulmonary arterial pressure 35-40/19-25, saturating 100% on before meals 400, FiO2 50%, PEEP 10, rate 14. Currently on propofol, clevidipine, heparin, insulin, nitro drips. On aspirin, Plavix. Labwork shows mild leukocytosis to 11.7, hemoglobin is 10.7, platelets are 129, otherwise unremarkable. Chemistries show mild hyperchloremia to 111, otherwise unremarkable. LFTs show AST is 47, ALT is 16, alkaline phosphatase is 34, total protein is 4, albumin is 2.5. ABG shows a pH of 7.37, pCO2 of 40, pO2 of 183. Coags show mild elevation of INR to 1.2. Patient has endotracheal tube, NG tube, left chest tube, right jugular central venous sheath with a coaxial [place]- Opal catheter, mediastinal drain, epicardial pacing leads, Pavon catheter. Review of systems cannot be done due to patient condition Gen: Intubated, sedated Eyes: PERRL, no scleral injection or icterus HENT: normocephalic, atraumatic, moist mucous membranes Neck: no tracheal deviation, Resp: good air exchange, no tactile fremitus, clear to auscultation bilaterally CVS: good distal perfusion x 4, no pitting edema, regular rate and rhythm GI: soft, no tenderness to palpation, periumbilical area, ND, no hepatosplenomegaly : no suprapubic tenderness, no CVAT, pavon catheter is present MSK: no clubbing, no cyanosis, no noted contractures of extremities Skin: no noted rashes, petechiae; temperature of skin is appropriate Labs and imaging reviewed as above Assessment/plan: Aortic stenosis status post bioprosthetic valve replacement -Care per primary CT surgery team -Type sugar control with insulin drip -Continue propofol, clevidipine, heparin, insulin, nitro -Continue aspirin, Plavix -Pulmonary consult -Cardiology consult Acute blood loss anemia, expected outcome of surgery -Replace with by mouth iron Hypertension Hyperlipidemia Psoriasis GERD -Home medications reviewed and reconciled -Deferred to CT surgery team on timing of resumption of lisinopril Patient is full code DVT prophylaxis is covered with heparin drip Past Medical History Past Medical History: GERD/Reflux, Hyperlipidemia, Hypertension, Memory Impairment, Osteoarthritis (OA) Additional Past Medical History / Comment(s): SOB, 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 . History of Any Multi-Drug Resistant Organisms: None Reported Past Surgical History: Hysterectomy, Tonsillectomy Additional Past Surgical History / Comment(s): D&C and partial hysterectomy(bilateral ovaries retained), bilateral cyst aspirations(benign), CHRISTINA. 2 heart caths Past Anesthesia/Blood Transfusion Reactions: No Reported Reaction Additional Past Anesthesia/Blood Transfusion Reaction / Comm: no hx blood transfusion Smoking Status: Former smoker - Past Family History Mother Family Medical History: Cancer Additional Family Medical History / Comment(s): SKIN CANCER. Father Family Medical History: Cancer Additional Family Medical History / Comment(s): SKIN CANCER. Sister(s) Family Medical History: Cancer Additional Family Medical History / Comment(s): SKIN CANCER. Medications and Allergies Home Medications Medication Instructions Recorded Confirmed Type Famotidine 40 mg PO HS 06/20/21 12/02/21 History lisinopriL [Prinivil] 10 mg PO HS 06/20/21 12/02/21 History Aspirin EC [Ecotrin Low Dose] 325 mg PO HS 10/12/21 12/03/21 History HYDROcodone/APAP 5-325MG [[place] 1 tab PO TID PRN 10/12/21 12/02/21 History 5-325] Atorvastatin [Lipitor] 40 mg PO HS #60 tab 10/15/21 12/02/21 Rx Clopidogrel [Plavix] 75 mg PO DAILY #21 tab 10/15/21 12/02/21 Rx Mupirocin 2% Oint [Bactroban 2% 1 applic NASAL BID #22 gm 11/22/21 12/02/21 Rx Oint] Ergocalciferol [Vitamin D2 (1250 1,250 mcg PO MO 11/26/21 12/02/21 History Mcg = 85823 Iu)] Psoriasis Cream 1 dose TOPICAL DIRECTED 11/26/21 12/02/21 History Allergies Allergy/AdvReac Type Severity Reaction Status Date / Time erythromycin base Allergy Itching Verified 11/28/21 06:14 meloxicam Allergy mood Verified 11/28/21 06:14 swings, aggressive, out of it methotrexate Allergy Rash/Hives Verified 11/28/21 06:14 IVORY Allergy Rash/Hives Uncoded 11/28/21 06:14 Physical Exam Osteopathic Statement: *. No significant issues noted on an osteopathic structural exam other than those noted in the History and Physical/Consult. Vitals: Vital Signs Temp Pulse Pulse Pulse Resp BP BP 12/04/21 17:01 63 12/04/21 16:01 12/04/21 16:00 98.4 F 69 14 12/04/21 15:45 70 14 12/04/21 15:30 70 14 12/04/21 15:15 97.7 F 70 14 100/52 12/04/21 15:10 12/04/21 15:00 69 11 L 12/04/21 14:45 69 14 134/67 12/04/21 14:30 51 L 10 L 12/04/21 14:26 12/04/21 14:15 53 L 14 134/67 12/04/21 14:00 51 L 14 12/04/21 13:45 52 L 14 12/04/21 13:38 12/04/21 13:30 80 14 12/04/21 13:17 12/04/21 13:15 95.4 F L 80 15 12/04/21 13:08 21 12/04/21 13:07 12/04/21 06:07 64 18 146/80 12/04/21 06:05 97.8 F 65 18 149/68 Pulse Ox FiO2 12/04/21 17:01 12/04/21 16:01 50 12/04/21 16:00 100 50 12/04/21 15:45 100 12/04/21 15:30 100 12/04/21 15:15 100 12/04/21 15:10 50 12/04/21 15:00 100 12/04/21 14:45 100 12/04/21 14:30 100 12/04/21 14:26 50 12/04/21 14:15 100 12/04/21 14:00 100 12/04/21 13:45 100 12/04/21 13:38 50 12/04/21 13:30 100 12/04/21 13:17 100 12/04/21 13:15 100 100 12/04/21 13:08 12/04/21 13:07 100 12/04/21 06:07 95 12/04/21 06:05 97 Intake and Output 12/04/21 12/04/21 12/04/21 06:59 14:59 22:59 Intake Total 100 231.520 279.412 Output Total 2300 515 Balance 100 -2068.480 -235.588 Intake: IV 100 230 258 CO/CI 60 140 Lactated Ringers 1,000 ml 100 100 @ 50 mls/hr IV .Q20H [facility] Rx#:[id number] Pressure Bags 18 18 Intake, IV Titration 1.520 21.412 Amount Clevidipine Butyrate 25 1.133 mg In Empty Bag 1 bag @ 1 MG/HR 2 mls/hr IV .Q24H [facility] Rx#:[id number] Insulin Regular 100 unit 0.387 4.822 In Sodium Chloride 0.9% 100 ml @ Per Protocol IV .Q0M [facility] Rx#:[id number] propofoL 1,000 mg In 16.590 Empty Bag 1 bag @ 20 MCG/ KG/MIN 10.152 mls/hr IV . Q9H52M [facility] Rx#:[id number] Output: Chest Tube Drainage 50 65 Left Pleural 0 15 Mediastinal 50 50 Urine 850 450 Estimated Blood Loss 1400 Other: Voiding Method Indwelling Catheter Indwelling Catheter Weight 84.6 kg ABP, PAP, CO, CI - Last 8 Hours Arterial Blood Pressure 124/62 Arterial Blood Pressure 115/55 Arterial Blood Pressure 125/58 Arterial Blood Pressure 123/59 Arterial Blood Pressure 126/62 Arterial Blood Pressure 116/54 Arterial Blood Pressure 123/57 Arterial Blood Pressure 149/70 Arterial Blood Pressure 128/60 Arterial Blood Pressure 118/51 Arterial Blood Pressure 147/72 Arterial Blood Pressure 122/67 Pulmonary Artery Pressure 35/23 Pulmonary Artery Pressure 40/26 Pulmonary Artery Pressure 35/19 Pulmonary Artery Pressure 36/21 Pulmonary Artery Pressure 34/20 Pulmonary Artery Pressure 31/18 Pulmonary Artery Pressure 29/16 Pulmonary Artery Pressure 31/18 Pulmonary Artery Pressure 26/15 Pulmonary Artery Pressure 26/14 Pulmonary Artery Pressure 27/15 Pulmonary Artery Pressure 36/5 Cardiac Output 4.5 Cardiac Output 4.4 Cardiac Output 4.4 Cardiac Output 4.4 Cardiac Output 3.5 Cardiac Output 3.5 Cardiac Output 2.8 Cardiac Output 2.7 Cardiac Output 4.4 Cardiac Output 4.4 Cardiac Output 4.4 Cardiac Index 2.4 Cardiac Index 2.3 Cardiac Index 2.3 Cardiac Index 2.3 Cardiac Index 1.9 Cardiac Index 1.9 Cardiac Index 1.5 Cardiac Index 1.4 Cardiac Index 2.3 Cardiac Index 2.3 Cardiac Index 2.3 Results CBC & Chem 7: 12/04/21 15:57 12/04/21 13:17 Labs: Abnormal Lab Results - Last 24 Hours (Table) 12/03/21 12/04/21 12/04/21 Range/Units 11:38 08:33 09:18 WBC (3.8-10.6) k/uL RBC (3.80-5.40) m/uL Hgb (11.4-16.0) gm/dL Hct (34.0-46.0) % Plt Count (150-450) k/uL Neutrophils # (1.3-7.7) k/uL Lymphocytes # (1.0-4.8) k/uL PT (9.0-12.0) sec INR (<1.2) ABG pH (7.35-7.45) ABG pCO2 (35-45) mmHg ABG pO2 >420 H 242 H (83-108) mmHg ABG HCO3 26 H 26 H (21-25) mmol/L ABG Total CO2 27 H 28 H (19-24) mmol/L ABG O2 Saturation 99.7 H 100.0 H (94-97) % ABG Hematocrit 33 L (34.0-46.0) % ABG Potassium (3.4-4.5) mmol/L ABG Ionized Calcium (4.5-5.3) mg/dL ABG Glucose 102 H 104 H (75-99) mg/dL ABG Lactic Acid (0.5-1.6) mmol/L Hemoglobin 10.9 L 10.7 L (11.4-16.0) gm/dL Chloride (98-107) mmol/L Glucose (74-99) mg/dL POC Glucose (mg/dL) (70-110) mg/dL Calcium (8.4-10.2) mg/dL Magnesium (1.6-2.3) mg/dL AST (14-36) U/L Alkaline Phosphatase (38-126) U/L Total Protein (6.3-8.2) g/dL Albumin (3.5-5.0) g/dL Arterial Blood Potassium (3.4-4.5) mmol/L Arterial Blood Glucose 102 H 104 H (75-99) mg/dL Crossmatch See Detail 12/04/21 12/04/21 12/04/21 Range/Units 09:46 10:21 11:04 WBC (3.8-10.6) k/uL RBC (3.80-5.40) m/uL Hgb (11.4-16.0) gm/dL Hct (34.0-46.0) % Plt Count (150-450) k/uL Neutrophils # (1.3-7.7) k/uL Lymphocytes # (1.0-4.8) k/uL PT (9.0-12.0) sec INR (<1.2) ABG pH 7.32 L (7.35-7.45) ABG pCO2 52 H (35-45) mmHg ABG pO2 >420 H 351 H 391 H (83-108) mmHg ABG HCO3 26 H 27 H (21-25) mmol/L ABG Total CO2 25 H 27 H 28 H (19-24) mmol/L ABG O2 Saturation 100.0 H 100.0 H 100.0 H (94-97) % ABG Hematocrit 25 L 25 L 24 L (34.0-46.0) % ABG Potassium 4.7 H 5.1 H (3.4-4.5) mmol/L ABG Ionized Calcium 4.1 L 4.2 L 4.2 L (4.5-5.3) mg/dL ABG Glucose 113 H 118 H 129 H (75-99) mg/dL ABG Lactic Acid (0.5-1.6) mmol/L Hemoglobin 8.2 L 8.0 L 8.0 L (11.4-16.0) gm/dL Chloride (98-107) mmol/L Glucose (74-99) mg/dL POC Glucose (mg/dL) (70-110) mg/dL Calcium (8.4-10.2) mg/dL Magnesium (1.6-2.3) mg/dL AST (14-36) U/L Alkaline Phosphatase (38-126) U/L Total Protein (6.3-8.2) g/dL Albumin (3.5-5.0) g/dL Arterial Blood Potassium 4.7 H 5.1 H (3.4-4.5) mmol/L Arterial Blood Glucose 113 H 118 H 129 H (75-99) mg/dL Crossmatch 12/04/21 12/04/21 12/04/21 Range/Units 11:28 13:11 13:17 WBC (3.8-10.6) k/uL RBC 2.86 L (3.80-5.40) m/uL Hgb 9.2 L D (11.4-16.0) gm/dL Hct 27.5 L (34.0-46.0) % Plt Count 90 L (150-450) k/uL Neutrophils # (1.3-7.7) k/uL Lymphocytes # 0.9 L (1.0-4.8) k/uL PT (9.0-12.0) sec INR (<1.2) ABG pH (7.35-7.45) ABG pCO2 (35-45) mmHg ABG pO2 391 H (83-108) mmHg ABG HCO3 (21-25) mmol/L ABG Total CO2 26 H (19-24) mmol/L ABG O2 Saturation 100.0 H (94-97) % ABG Hematocrit 23 L (34.0-46.0) % ABG Potassium 5.0 H (3.4-4.5) mmol/L ABG Ionized Calcium 4.0 L (4.5-5.3) mg/dL ABG Glucose 136 H (75-99) mg/dL ABG Lactic Acid 1.9 H (0.5-1.6) mmol/L Hemoglobin 7.6 L (11.4-16.0) gm/dL Chloride (98-107) mmol/L Glucose (74-99) mg/dL POC Glucose (mg/dL) 127 H (70-110) mg/dL Calcium (8.4-10.2) mg/dL Magnesium (1.6-2.3) mg/dL AST (14-36) U/L Alkaline Phosphatase (38-126) U/L Total Protein (6.3-8.2) g/dL Albumin (3.5-5.0) g/dL Arterial Blood Potassium 5.0 H (3.4-4.5) mmol/L Arterial Blood Glucose 136 H (75-99) mg/dL Crossmatch 12/04/21 12/04/21 12/04/21 Range/Units 13:17 13:17 13:35 WBC (3.8-10.6) k/uL RBC (3.80-5.40) m/uL Hgb (11.4-16.0) gm/dL Hct (34.0-46.0) % Plt Count (150-450) k/uL Neutrophils # (1.3-7.7) k/uL Lymphocytes # (1.0-4.8) k/uL PT 12.3 H (9.0-12.0) sec INR 1.2 H (<1.2) ABG pH (7.35-7.45) ABG pCO2 47 H (35-45) mmHg ABG pO2 >400 H (83-108) mmHg ABG HCO3 26 H (21-25) mmol/L ABG Total CO2 27 H (19-24) mmol/L ABG O2 Saturation 100.0 H (94-97) % ABG Hematocrit (34.0-46.0) % ABG Potassium (3.4-4.5) mmol/L ABG Ionized Calcium (4.5-5.3) mg/dL ABG Glucose (75-99) mg/dL ABG Lactic Acid (0.5-1.6) mmol/L Hemoglobin (11.4-16.0) gm/dL Chloride 111 H (98-107) mmol/L Glucose 114 H (74-99) mg/dL POC Glucose (mg/dL) (70-110) mg/dL Calcium 7.8 L (8.4-10.2) mg/dL Magnesium 2.8 H (1.6-2.3) mg/dL AST 47 H (14-36) U/L Alkaline Phosphatase 34 L (38-126) U/L Total Protein 4.0 L (6.3-8.2) g/dL Albumin 2.5 L (3.5-5.0) g/dL Arterial Blood Potassium (3.4-4.5) mmol/L Arterial Blood Glucose (75-99) mg/dL Crossmatch 12/04/21 12/04/21 12/04/21 Range/Units 13:54 15:00 15:57 WBC 11.7 H (3.8-10.6) k/uL RBC 3.37 L (3.80-5.40) m/uL Hgb 10.7 L (11.4-16.0) gm/dL Hct 32.4 L (34.0-46.0) % Plt Count 129 L (150-450) k/uL Neutrophils # 9.5 H (1.3-7.7) k/uL Lymphocytes # (1.0-4.8) k/uL PT (9.0-12.0) sec INR (<1.2) ABG pH (7.35-7.45) ABG pCO2 (35-45) mmHg ABG pO2 (83-108) mmHg ABG HCO3 (21-25) mmol/L ABG Total CO2 (19-24) mmol/L ABG O2 Saturation (94-97) % ABG Hematocrit (34.0-46.0) % ABG Potassium (3.4-4.5) mmol/L ABG Ionized Calcium (4.5-5.3) mg/dL ABG Glucose (75-99) mg/dL ABG Lactic Acid (0.5-1.6) mmol/L Hemoglobin (11.4-16.0) gm/dL Chloride (98-107) mmol/L Glucose (74-99) mg/dL POC Glucose (mg/dL) 121 H 159 H (70-110) mg/dL Calcium (8.4-10.2) mg/dL Magnesium (1.6-2.3) mg/dL AST (14-36) U/L Alkaline Phosphatase (38-126) U/L Total Protein (6.3-8.2) g/dL Albumin (3.5-5.0) g/dL Arterial Blood Potassium (3.4-4.5) mmol/L Arterial Blood Glucose (75-99) mg/dL Crossmatch 12/04/21 12/04/21 12/04/21 Range/Units 15:59 16:41 17:05 WBC (3.8-10.6) k/uL RBC (3.80-5.40) m/uL Hgb (11.4-16.0) gm/dL Hct (34.0-46.0) % Plt Count (150-450) k/uL Neutrophils # (1.3-7.7) k/uL Lymphocytes # (1.0-4.8) k/uL PT (9.0-12.0) sec INR (<1.2) ABG pH (7.35-7.45) ABG pCO2 (35-45) mmHg ABG pO2 183 H (83-108) mmHg ABG HCO3 (21-25) mmol/L ABG Total CO2 25 H (19-24) mmol/L ABG O2 Saturation 100.0 H (94-97) % ABG Hematocrit (34.0-46.0) % ABG Potassium (3.4-4.5) mmol/L ABG Ionized Calcium (4.5-5.3) mg/dL ABG Glucose (75-99) mg/dL ABG Lactic Acid (0.5-1.6) mmol/L Hemoglobin (11.4-16.0) gm/dL Chloride (98-107) mmol/L Glucose (74-99) mg/dL POC Glucose (mg/dL) 183 H 181 H (70-110) mg/dL Calcium (8.4-10.2) mg/dL Magnesium (1.6-2.3) mg/dL AST (14-36) U/L Alkaline Phosphatase (38-126) U/L Total Protein (6.3-8.2) g/dL Albumin (3.5-5.0) g/dL Arterial Blood Potassium (3.4-4.5) mmol/L Arterial Blood Glucose (75-99) mg/dL Crossmatch
[2021-12-04] MEDS ORDERED: [UNRECOGNIZED DRUG - OTHER] TOPICAL SCH (17:45)
[2021-12-04] MEDS: HEPARIN SODIUM,PORCINE/PF 5,000 UNIT/0.5 ML SYRINGE SQ SCH ×2 (18:04→23:38)
[2021-12-04 18:09] LABS: Glucose,Whole Blood 179 mg/dL (70-110)
[2021-12-04] MEDS ORDERED: MUPIROCIN 2% OINT 22 GM TUBE NASAL ONE (18:45)
[2021-12-04 19:05] LABS: Glucose,Whole Blood 165 mg/dL (70-110)
[2021-12-04 19:43] LABS: Basophils % (A) 0 %; Eosinophils % (A) 0 %; HCT 30.7 % (34.0-46.0); HGB 9.9 gm/dL (11.4-16.0); Lymphocytes # (A) 0.4 k/uL (1.0-4.8); Lymphocytes % (A) 5 %; MCHC 32.1 g/dL (31.0-37.0); MCV 96.5 fL (80.0-100.0); Mean Platelet Volume 8.7; Monocytes # (A) 0.3 k/uL (0-1.0); Monocytes % (A) 4 %; Neutrophils # (A) 7.3 k/uL (1.3-7.7); Neutrophils % (A) 90 %; Platelet Count 103 k/uL (150-450); RBC 3.18 m/uL (3.80-5.40); RDW 13.1 % (11.5-15.5); WBC 8.1 k/uL (3.8-10.6)
[2021-12-04] MEDS: IPRATROPIUM-ALBUTEROL 3 ML NEB INHALATION SCH (19:59)
[2021-12-04 20:00] LABS: Glucose,Whole Blood 146 mg/dL (70-110)
[2021-12-04 20:53] LABS: Glucose,Whole Blood 138 mg/dL (70-110)
[2021-12-04] MEDS ORDERED: ATORVASTATIN 20 MG TAB PO SCH (21:00)
[2021-12-04] MEDS: FAMOTIDINE 20 MG TAB PO SCH (21:15)
[2021-12-04] MEDS: MUPIROCIN 2% OINT 22 GM TUBE NASAL SCH (21:16)
[2021-12-04 22:32] LABS: Glucose,Whole Blood 134 mg/dL (70-110)
[2021-12-04 23:14] LABS: Glucose,Whole Blood 131 mg/dL (70-110)
[2021-12-04 23:53] LABS: Glucose,Whole Blood 123 mg/dL (70-110)
[2021-12-05 01:01] LABS: Glucose,Whole Blood 118 mg/dL (70-110)
[2021-12-05 02:09] LABS: Glucose,Whole Blood 113 mg/dL (70-110)
[2021-12-05 02:54] LABS: Glucose,Whole Blood 119 mg/dL (70-110)
[2021-12-05] MEDS: CLEVIDIPINE BUTYRATE 25 MG in EMPTY BAG 1 BAG IV SCH ×4 (03:01→20:09)
[2021-12-05 03:37] LABS: Glucose,Whole Blood 133 mg/dL (70-110)
[2021-12-05 04:02] LABS: Glucose,Whole Blood 129 mg/dL (70-110)
[2021-12-05] MEDS: HYDROcodone/APAP 5-325MG 1 EACH TAB PO PRN ×3 (04:31→17:24)
[2021-12-05 04:47] LABS: Basophils % (A) 0 %; Eosinophils % (A) 0 %; HCT 28.5 % (34.0-46.0); HGB 9.5 gm/dL (11.4-16.0); Lymphocytes # (A) 0.5 k/uL (1.0-4.8); Lymphocytes % (A) 7 %; MCH 32.3 pg (25.0-35.0); MCHC 33.3 g/dL (31.0-37.0); MCV 96.9 fL (80.0-100.0); Mean Platelet Volume 9.6; Monocytes # (A) 0.3 k/uL (0-1.0); Monocytes % (A) 5 %; Neutrophils # (A) 6.3 k/uL (1.3-7.7); Neutrophils % (A) 87 %; Platelet Count 105 k/uL (150-450); RBC 2.94 m/uL (3.80-5.40); RDW 13.7 % (11.5-15.5); WBC 7.2 k/uL (3.8-10.6)
[2021-12-05 05:04] LABS: Glucose,Whole Blood 115 mg/dL (70-110)
[2021-12-05 05:19] LABS: ALT 19 U/L (4-34); AST 60 U/L (14-36); African American GFR (CKD) >90 (>60 ml/min/1.73 sqM); Albumin 3.2 g/dL (3.5-5.0); Alkaline Phosphatase 45 U/L (38-126); Anion Gap 3 mmol/L; Blood Urea Nitrogen 14 mg/dL (7-17); Calcium 7.8 mg/dL (8.4-10.2); Carbon Dioxide 25 mmol/L (22-30); Chloride 106 mmol/L (98-107); Glucose 118 mg/dL (74-99); Ionized Calcium 4.7 mg/dL (4.5-5.3); Magnesium 2.2 mg/dL (1.6-2.3); Non-African American GFR(CKD) >90 (>60 ml/min/1.73 sqM); Sodium 134 mmol/L (137-145); Total Bilirubin 0.6 mg/dL (0.2-1.3); Total Protein 4.8 g/dL (6.3-8.2)
[2021-12-05 06:02] LABS: Glucose,Whole Blood 107 mg/dL (70-110)
[2021-12-05 06:53] LABS: Glucose,Whole Blood 124 mg/dL (70-110)
[2021-12-05] MEDS: ALBUMIN HUMAN 5% 250 ML in EMPTY BAG 1 BAG IVPB PRN ×4 (06:59→10:25)
[2021-12-05 08:02] LABS: Glucose,Whole Blood 132 mg/dL (70-110)
[2021-12-05] MEDS: HEPARIN SODIUM,PORCINE/PF 5,000 UNIT/0.5 ML SYRINGE SQ SCH ×2 (08:03→17:23)
[2021-12-05] MEDS: CLOPIDOGREL 75 MG TAB PO SCH (08:04)
[2021-12-05] MEDS: METOPROLOL TARTRATE 12.5 MG TAB PO SCH ×2 (08:04→20:44)
[2021-12-05] MEDS: MUPIROCIN 2% OINT 22 GM TUBE NASAL SCH ×2 (08:04→20:44)
[2021-12-05] MEDS: ASPIRIN 325 MG TAB PO SCH (08:04)
[2021-12-05] MEDS: ATORVASTATIN 40 MG TAB PO SCH (08:04)
[2021-12-05] MEDS ORDERED: PANTOPRAZOLE 40 MG/10 ML VIAL IVP SCH (09:00)
[2021-12-05] MEDS ORDERED: bisacodyL 10 MG SUPP RECTAL PRN (09:00)
[2021-12-05] MEDS ORDERED: MAGNESIUM HYDROXIDE 2,400 MG/10 ML CUP PO PRN (09:00)
--- NOTE | 2021-12-05 09:01 | P.PN ---
Subjective Progress Note Date: 12/05/21 Principal diagnosis: Severe aortic valve stenosis, paroxysmal atrial fibrillation. Past medical history significant for hypertension, hyperlipidemia, osteoarthritis, psoriasis, gastroesophageal reflux disease, degenerative joint disease, remote history of smoking, history of TIAs, with the most recent being in September 2021 and is taking aspirin and Plavix on an outpatient basis. POD #1 aortic valve replacement using a 21 mm Whitney Inspiris prosthetic valve, ligation of the left atrial appendage using a 35 mm Atriclip, bilateral pulmonary vein isolation, intraoperative epi-aortic ultrasound and transesophageal echocardiogram. Postoperative acute blood loss anemia, expected given hemodilution and cardiopulmonary bypass. The patient is seen and examined in follow-up today 12/05/2021 at her bedside in the intensive care unit. The patient was successfully extubated at 4:54 PM last evening, is currently on 2 L nasal cannula with oxygen saturation is 96%. She is achieving 1000 mL on her incentive spirometry with encouragement. Denies any complaints of shortness of breath at this time although was complaining of some surgical type pain to her chest tube insertion sites rating her pain 6 out of 10 on the pain scale at this time. Bedside telemetry showing normal sinus rhythm heart rate 62 BPM. Cleviprex drip is infusing at 4 mg per hour. Laboratory results this morning show a WBC count of 7.2, hemoglobin 9.5, hematocrit 28.5, platelets 105, sodium 134, potassium 4.0, chloride 106, CO2 25, BUN 14, creatinine 0.46, glucose 118, calcium 7.8, ionized calcium 4.7, magnesium 2.2 and AST 60. Atrial and ventricular epicardial pacemaker wires remained in place and are connected the bedside Pacemaker generator on a VVI mode of 50 BPM. Mediastinal and left pleural chest tubes remain in place to low continuous wall suction -20 cm H2O. No air leak is present. Draining thin serosanguineous drainage. Mediastinal chest tube with 110 mL output in the last 8 hours and 270 mL output since surgery, left pleural chest tube with 60 mL output in the last 8 hours and 80 mL output since surgery. Right IJ Cordis with Rigby-Opal catheter remains in place with current hemodynamic showing a cardiac output 4.0, cardiac index 2.1, PA pressures 27/5 and CVP 5 mmHg. Objective - Vital Signs Vital signs: Vital Signs Temp 98.4 F 12/04/21 16:00 Pulse 65 12/05/21 07:00 Resp 14 12/05/21 07:00 BP 120/55 12/04/21 22:30 Pulse Ox 97 12/05/21 07:00 FiO2 50 12/04/21 16:01 Intake & Output 12/04/21 12/05/21 12/05/21 18:59 06:59 18:59 Intake Total 325.472 1884.016 340.867 Output Total 3010 1002 47 Balance -2300.834 582.016 293.867 Weight 86.7 kg Intake: IV 656 1458 329 ACETAMINOPHEN IV (For NPO 400 ) 1,000 mg In Empty Bag 1 bag @ 400 mls/hr IVPB Q6HR [facility] Rx#:[id number] Albumin Human 5% 250 ml 250 In Empty Bag 1 bag @ 250 mls/hr IVPB Q1HR PRN Rx#: [id number] CO/CI 250 250 20 Lactated Ringers 1,000 ml 300 600 50 @ 50 mls/hr IV .Q20H [facility] Rx#:[id number] Pressure Bags 54 108 9 ceFAZolin 2 gm In Sodium 100 Chloride 0.9% 50 ml @ 100 mls/hr IVPB Q8HR [facility] Rx# :[id number] Intake, IV Titration 53.166 126.016 11.867 Amount Clevidipine Butyrate 25 26.233 76.400 11.867 mg In Empty Bag 1 bag @ 1 MG/HR 2 mls/hr IV .Q24H [facility] Rx#:[id number] Insulin Regular 100 unit 10.343 49.616 In Sodium Chloride 0.9% 100 ml @ Per Protocol IV .Q0M [facility] Rx#:[id number] propofoL 1,000 mg In 16.590 Empty Bag 1 bag @ 20 MCG/ KG/MIN 10.152 mls/hr IV . Q9H52M [facility] Rx#:[id number] Output: Chest Tube Drainage 145 212 12 Left Pleural 15 72 2 Mediastinal 130 140 10 Urine 1465 790 35 Estimated Blood Loss 1400 Other: Voiding Method Indwelling Catheter Indwelling Catheter ABP, PAP, CO, CI - Last Documented Arterial Blood Pressure 138/42 Pulmonary Artery Pressure 26/5 Cardiac Output 4 Cardiac Index 2.1 - Exam CONSTITUTIONAL: Sitting up to the bedside chair in the intensive care unit, appears comfortable, cooperative, no apparent acute distress. HEENT: Neck is supple, no JVD, no lymphadenopathy. Right IJ Cordis and Rigby- Opal catheter in place and functioning. RESPIRATORY: Lungs sounds essentially clear throughout, diminished to her lamar ateral bases. Respirations are symmetrical and nonlabored. Currently on 2 L nasal cannula with oxygen saturations 96%. Able to achieve 1000 mL on her incentive spirometry. Strong cough. CARDIOVASCULAR: Regular rhythm and rate. S1 and S2 present, negative for S3, gallop or murmur. Sternum is stable. Palpable peripheral pulses bilaterally. No calf pain or tenderness noted. Heart hugger in place with patient demonstrating appropriate use. Knee-high RENZO hose and sequential compression devices in place bilateral lower extremities. GASTROINTESTINAL: Abdomen soft, nontender, nondistended. Hypoactive bowel sounds present 4 quadrants. Tolerating diet. Passing flatus. No guarding or rigidity. GENITOURINARY: Pierce present draining clear, yellow urine. Output 520 mL in the last 8 hours INTEGUMENTARY: Skin is warm and dry with no evidence of clubbing or cyanosis. Midline sternal incision clean dry and well approximated, covered with dry intact dressing. NEUROLOGIC: Cranial nerves II through XII intact. No focal deficits. MUSKULOSKELETAL: Able to move all extremities, strength equal bilaterally, generalized weakness. PSYCHIATRIC: Alert and oriented to person place and time, appropriate affect, intact judgment and insight. INVASIVE LINES AND TUBES: Mediastinal/left pleural chest tubes present and connected to low continuous wall suction, no air leaks present. Mediastinal tube with 110 mL of thin serosanguineous drainage overnight, 270 mL output since surgery. Left pleural chest tube with 60 mL of thin serosanguineous drainage overnight, 80 mL output since surgery. Atrial and ventricular epicardial pacemaker wires present, connected to bedside backup pacemaker generator, VVI backup rate 50 bpm. Right internal jugular Rigby/Cordis, right radial arterial line present. Current CO 4.0, CI 2.1, PA 27/5 and CVP 5 mmHg. - Allied health notes Allied health notes reviewed: nursing - Labs CBC & Chem 7: 12/05/21 04:10 12/05/21 04:10 Labs: Abnormal Lab Results - Last 24 Hours (Table) 12/03/21 12/04/21 12/04/21 Range/Units 11:38 08:33 09:18 WBC (3.8-10.6) k/uL RBC (3.80-5.40) m/uL Hgb (11.4-16.0) gm/dL Hct (34.0-46.0) % Plt Count (150-450) k/uL Neutrophils # (1.3-7.7) k/uL Lymphocytes # (1.0-4.8) k/uL PT (9.0-12.0) sec INR (<1.2) ABG pH (7.35-7.45) ABG pCO2 (35-45) mmHg ABG pO2 >420 H 242 H (83-108) mmHg ABG HCO3 26 H 26 H (21-25) mmol/L ABG Total CO2 27 H 28 H (19-24) mmol/L ABG O2 Saturation 99.7 H 100.0 H (94-97) % ABG Hematocrit 33 L (34.0-46.0) % ABG Potassium (3.4-4.5) mmol/L ABG Ionized Calcium (4.5-5.3) mg/dL ABG Glucose 102 H 104 H (75-99) mg/dL ABG Lactic Acid (0.5-1.6) mmol/L Hemoglobin 10.9 L 10.7 L (11.4-16.0) gm/dL Sodium (137-145) mmol/L Chloride (98-107) mmol/L Creatinine (0.52-1.04) mg/dL Glucose (74-99) mg/dL POC Glucose (mg/dL) (70-110) mg/dL Calcium (8.4-10.2) mg/dL Magnesium (1.6-2.3) mg/dL AST (14-36) U/L Alkaline Phosphatase (38-126) U/L Total Protein (6.3-8.2) g/dL Albumin (3.5-5.0) g/dL Arterial Blood Potassium (3.4-4.5) mmol/L Arterial Blood Glucose 102 H 104 H (75-99) mg/dL Crossmatch See Detail 12/04/21 12/04/21 12/04/21 Range/Units 09:46 10:21 11:04 WBC (3.8-10.6) k/uL RBC (3.80-5.40) m/uL Hgb (11.4-16.0) gm/dL Hct (34.0-46.0) % Plt Count (150-450) k/uL Neutrophils # (1.3-7.7) k/uL Lymphocytes # (1.0-4.8) k/uL PT (9.0-12.0) sec INR (<1.2) ABG pH 7.32 L (7.35-7.45) ABG pCO2 52 H (35-45) mmHg ABG pO2 >420 H 351 H 391 H (83-108) mmHg ABG HCO3 26 H 27 H (21-25) mmol/L ABG Total CO2 25 H 27 H 28 H (19-24) mmol/L ABG O2 Saturation 100.0 H 100.0 H 100.0 H (94-97) % ABG Hematocrit 25 L 25 L 24 L (34.0-46.0) % ABG Potassium 4.7 H 5.1 H (3.4-4.5) mmol/L ABG Ionized Calcium 4.1 L 4.2 L 4.2 L (4.5-5.3) mg/dL ABG Glucose 113 H 118 H 129 H (75-99) mg/dL ABG Lactic Acid (0.5-1.6) mmol/L Hemoglobin 8.2 L 8.0 L 8.0 L (11.4-16.0) gm/dL Sodium (137-145) mmol/L Chloride (98-107) mmol/L Creatinine (0.52-1.04) mg/dL Glucose (74-99) mg/dL POC Glucose (mg/dL) (70-110) mg/dL Calcium (8.4-10.2) mg/dL Magnesium (1.6-2.3) mg/dL AST (14-36) U/L Alkaline Phosphatase (38-126) U/L Total Protein (6.3-8.2) g/dL Albumin (3.5-5.0) g/dL Arterial Blood Potassium 4.7 H 5.1 H (3.4-4.5) mmol/L Arterial Blood Glucose 113 H 118 H 129 H (75-99) mg/dL Crossmatch 12/04/21 12/04/21 12/04/21 Range/Units 11:28 13:11 13:17 WBC (3.8-10.6) k/uL RBC 2.86 L (3.80-5.40) m/uL Hgb 9.2 L D (11.4-16.0) gm/dL Hct 27.5 L (34.0-46.0) % Plt Count 90 L (150-450) k/uL Neutrophils # (1.3-7.7) k/uL Lymphocytes # 0.9 L (1.0-4.8) k/uL PT (9.0-12.0) sec INR (<1.2) ABG pH (7.35-7.45) ABG pCO2 (35-45) mmHg ABG pO2 391 H (83-108) mmHg ABG HCO3 (21-25) mmol/L ABG Total CO2 26 H (19-24) mmol/L ABG O2 Saturation 100.0 H (94-97) % ABG Hematocrit 23 L (34.0-46.0) % ABG Potassium 5.0 H (3.4-4.5) mmol/L ABG Ionized Calcium 4.0 L (4.5-5.3) mg/dL ABG Glucose 136 H (75-99) mg/dL ABG Lactic Acid 1.9 H (0.5-1.6) mmol/L Hemoglobin 7.6 L (11.4-16.0) gm/dL Sodium (137-145) mmol/L Chloride (98-107) mmol/L Creatinine (0.52-1.04) mg/dL Glucose (74-99) mg/dL POC Glucose (mg/dL) 127 H (70-110) mg/dL Calcium (8.4-10.2) mg/dL Magnesium (1.6-2.3) mg/dL AST (14-36) U/L Alkaline Phosphatase (38-126) U/L Total Protein (6.3-8.2) g/dL Albumin (3.5-5.0) g/dL Arterial Blood Potassium 5.0 H (3.4-4.5) mmol/L Arterial Blood Glucose 136 H (75-99) mg/dL Crossmatch 12/04/21 12/04/21 12/04/21 Range/Units 13:17 13:17 13:35 WBC (3.8-10.6) k/uL RBC (3.80-5.40) m/uL Hgb (11.4-16.0) gm/dL Hct (34.0-46.0) % Plt Count (150-450) k/uL Neutrophils # (1.3-7.7) k/uL Lymphocytes # (1.0-4.8) k/uL PT 12.3 H (9.0-12.0) sec INR 1.2 H (<1.2) ABG pH (7.35-7.45) ABG pCO2 47 H (35-45) mmHg ABG pO2 >400 H (83-108) mmHg ABG HCO3 26 H (21-25) mmol/L ABG Total CO2 27 H (19-24) mmol/L ABG O2 Saturation 100.0 H (94-97) % ABG Hematocrit (34.0-46.0) % ABG Potassium (3.4-4.5) mmol/L ABG Ionized Calcium (4.5-5.3) mg/dL ABG Glucose (75-99) mg/dL ABG Lactic Acid (0.5-1.6) mmol/L Hemoglobin (11.4-16.0) gm/dL Sodium (137-145) mmol/L Chloride 111 H (98-107) mmol/L Creatinine (0.52-1.04) mg/dL Glucose 114 H (74-99) mg/dL POC Glucose (mg/dL) (70-110) mg/dL Calcium 7.8 L (8.4-10.2) mg/dL Magnesium 2.8 H (1.6-2.3) mg/dL AST 47 H (14-36) U/L Alkaline Phosphatase 34 L (38-126) U/L Total Protein 4.0 L (6.3-8.2) g/dL Albumin 2.5 L (3.5-5.0) g/dL Arterial Blood Potassium (3.4-4.5) mmol/L Arterial Blood Glucose (75-99) mg/dL Crossmatch 12/04/21 12/04/21 12/04/21 Range/Units 13:54 15:00 15:57 WBC 11.7 H (3.8-10.6) k/uL RBC 3.37 L (3.80-5.40) m/uL Hgb 10.7 L (11.4-16.0) gm/dL Hct 32.4 L (34.0-46.0) % Plt Count 129 L (150-450) k/uL Neutrophils # 9.5 H (1.3-7.7) k/uL Lymphocytes # (1.0-4.8) k/uL PT (9.0-12.0) sec INR (<1.2) ABG pH (7.35-7.45) ABG pCO2 (35-45) mmHg ABG pO2 (83-108) mmHg ABG HCO3 (21-25) mmol/L ABG Total CO2 (19-24) mmol/L ABG O2 Saturation (94-97) % ABG Hematocrit (34.0-46.0) % ABG Potassium (3.4-4.5) mmol/L ABG Ionized Calcium (4.5-5.3) mg/dL ABG Glucose (75-99) mg/dL ABG Lactic Acid (0.5-1.6) mmol/L Hemoglobin (11.4-16.0) gm/dL Sodium (137-145) mmol/L Chloride (98-107) mmol/L Creatinine (0.52-1.04) mg/dL Glucose (74-99) mg/dL POC Glucose (mg/dL) 121 H 159 H (70-110) mg/dL Calcium (8.4-10.2) mg/dL Magnesium (1.6-2.3) mg/dL AST (14-36) U/L Alkaline Phosphatase (38-126) U/L Total Protein (6.3-8.2) g/dL Albumin (3.5-5.0) g/dL Arterial Blood Potassium (3.4-4.5) mmol/L Arterial Blood Glucose (75-99) mg/dL Crossmatch 12/04/21 12/04/21 12/04/21 Range/Units 15:59 16:41 17:05 WBC (3.8-10.6) k/uL RBC (3.80-5.40) m/uL Hgb (11.4-16.0) gm/dL Hct (34.0-46.0) % Plt Count (150-450) k/uL Neutrophils # (1.3-7.7) k/uL Lymphocytes # (1.0-4.8) k/uL PT (9.0-12.0) sec INR (<1.2) ABG pH (7.35-7.45) ABG pCO2 (35-45) mmHg ABG pO2 183 H (83-108) mmHg ABG HCO3 (21-25) mmol/L ABG Total CO2 25 H (19-24) mmol/L ABG O2 Saturation 100.0 H (94-97) % ABG Hematocrit (34.0-46.0) % ABG Potassium (3.4-4.5) mmol/L ABG Ionized Calcium (4.5-5.3) mg/dL ABG Glucose (75-99) mg/dL ABG Lactic Acid (0.5-1.6) mmol/L Hemoglobin (11.4-16.0) gm/dL Sodium (137-145) mmol/L Chloride (98-107) mmol/L Creatinine (0.52-1.04) mg/dL Glucose (74-99) mg/dL POC Glucose (mg/dL) 183 H 181 H (70-110) mg/dL Calcium (8.4-10.2) mg/dL Magnesium (1.6-2.3) mg/dL AST (14-36) U/L Alkaline Phosphatase (38-126) U/L Total Protein (6.3-8.2) g/dL Albumin (3.5-5.0) g/dL Arterial Blood Potassium (3.4-4.5) mmol/L Arterial Blood Glucose (75-99) mg/dL Crossmatch 12/04/21 12/04/21 12/04/21 Range/Units 18:03 19:04 19:04 WBC (3.8-10.6) k/uL RBC 3.18 L (3.80-5.40) m/uL Hgb 9.9 L (11.4-16.0) gm/dL Hct 30.7 L (34.0-46.0) % Plt Count 103 L (150-450) k/uL Neutrophils # (1.3-7.7) k/uL Lymphocytes # 0.4 L (1.0-4.8) k/uL PT (9.0-12.0) sec INR (<1.2) ABG pH (7.35-7.45) ABG pCO2 (35-45) mmHg ABG pO2 (83-108) mmHg ABG HCO3 (21-25) mmol/L ABG Total CO2 (19-24) mmol/L ABG O2 Saturation (94-97) % ABG Hematocrit (34.0-46.0) % ABG Potassium (3.4-4.5) mmol/L ABG Ionized Calcium (4.5-5.3) mg/dL ABG Glucose (75-99) mg/dL ABG Lactic Acid (0.5-1.6) mmol/L Hemoglobin (11.4-16.0) gm/dL Sodium (137-145) mmol/L Chloride (98-107) mmol/L Creatinine (0.52-1.04) mg/dL Glucose (74-99) mg/dL POC Glucose (mg/dL) 179 H 165 H (70-110) mg/dL Calcium (8.4-10.2) mg/dL Magnesium (1.6-2.3) mg/dL AST (14-36) U/L Alkaline Phosphatase (38-126) U/L Total Protein (6.3-8.2) g/dL Albumin (3.5-5.0) g/dL Arterial Blood Potassium (3.4-4.5) mmol/L Arterial Blood Glucose (75-99) mg/dL Crossmatch 12/04/21 12/04/21 12/04/21 Range/Units 19:58 20:52 22:28 WBC (3.8-10.6) k/uL RBC (3.80-5.40) m/uL Hgb (11.4-16.0) gm/dL Hct (34.0-46.0) % Plt Count (150-450) k/uL Neutrophils # (1.3-7.7) k/uL Lymphocytes # (1.0-4.8) k/uL PT (9.0-12.0) sec INR (<1.2) ABG pH (7.35-7.45) ABG pCO2 (35-45) mmHg ABG pO2 (83-108) mmHg ABG HCO3 (21-25) mmol/L ABG Total CO2 (19-24) mmol/L ABG O2 Saturation (94-97) % ABG Hematocrit (34.0-46.0) % ABG Potassium (3.4-4.5) mmol/L ABG Ionized Calcium (4.5-5.3) mg/dL ABG Glucose (75-99) mg/dL ABG Lactic Acid (0.5-1.6) mmol/L Hemoglobin (11.4-16.0) gm/dL Sodium (137-145) mmol/L Chloride (98-107) mmol/L Creatinine (0.52-1.04) mg/dL Glucose (74-99) mg/dL POC Glucose (mg/dL) 146 H 138 H 134 H (70-110) mg/dL Calcium (8.4-10.2) mg/dL Magnesium (1.6-2.3) mg/dL AST (14-36) U/L Alkaline Phosphatase (38-126) U/L Total Protein (6.3-8.2) g/dL Albumin (3.5-5.0) g/dL Arterial Blood Potassium (3.4-4.5) mmol/L Arterial Blood Glucose (75-99) mg/dL Crossmatch 12/04/21 12/04/21 12/05/21 Range/Units 23:13 23:47 00:59 WBC (3.8-10.6) k/uL RBC (3.80-5.40) m/uL Hgb (11.4-16.0) gm/dL Hct (34.0-46.0) % Plt Count (150-450) k/uL Neutrophils # (1.3-7.7) k/uL Lymphocytes # (1.0-4.8) k/uL PT (9.0-12.0) sec INR (<1.2) ABG pH (7.35-7.45) ABG pCO2 (35-45) mmHg ABG pO2 (83-108) mmHg ABG HCO3 (21-25) mmol/L ABG Total CO2 (19-24) mmol/L ABG O2 Saturation (94-97) % ABG Hematocrit (34.0-46.0) % ABG Potassium (3.4-4.5) mmol/L ABG Ionized Calcium (4.5-5.3) mg/dL ABG Glucose (75-99) mg/dL ABG Lactic Acid (0.5-1.6) mmol/L Hemoglobin (11.4-16.0) gm/dL Sodium (137-145) mmol/L Chloride (98-107) mmol/L Creatinine (0.52-1.04) mg/dL Glucose (74-99) mg/dL POC Glucose (mg/dL) 131 H 123 H 118 H (70-110) mg/dL Calcium (8.4-10.2) mg/dL Magnesium (1.6-2.3) mg/dL AST (14-36) U/L Alkaline Phosphatase (38-126) U/L Total Protein (6.3-8.2) g/dL Albumin (3.5-5.0) g/dL Arterial Blood Potassium (3.4-4.5) mmol/L Arterial Blood Glucose (75-99) mg/dL Crossmatch 12/05/21 12/05/21 12/05/21 Range/Units 02:07 02:52 03:35 WBC (3.8-10.6) k/uL RBC (3.80-5.40) m/uL Hgb (11.4-16.0) gm/dL Hct (34.0-46.0) % Plt Count (150-450) k/uL Neutrophils # (1.3-7.7) k/uL Lymphocytes # (1.0-4.8) k/uL PT (9.0-12.0) sec INR (<1.2) ABG pH (7.35-7.45) ABG pCO2 (35-45) mmHg ABG pO2 (83-108) mmHg ABG HCO3 (21-25) mmol/L ABG Total CO2 (19-24) mmol/L ABG O2 Saturation (94-97) % ABG Hematocrit (34.0-46.0) % ABG Potassium (3.4-4.5) mmol/L ABG Ionized Calcium (4.5-5.3) mg/dL ABG Glucose (75-99) mg/dL ABG Lactic Acid (0.5-1.6) mmol/L Hemoglobin (11.4-16.0) gm/dL Sodium (137-145) mmol/L Chloride (98-107) mmol/L Creatinine (0.52-1.04) mg/dL Glucose (74-99) mg/dL POC Glucose (mg/dL) 113 H 119 H 133 H (70-110) mg/dL Calcium (8.4-10.2) mg/dL Magnesium (1.6-2.3) mg/dL AST (14-36) U/L Alkaline Phosphatase (38-126) U/L Total Protein (6.3-8.2) g/dL Albumin (3.5-5.0) g/dL Arterial Blood Potassium (3.4-4.5) mmol/L Arterial Blood Glucose (75-99) mg/dL Crossmatch 12/05/21 12/05/21 12/05/21 Range/Units 04:01 04:10 04:10 WBC (3.8-10.6) k/uL RBC 2.94 L (3.80-5.40) m/uL Hgb 9.5 L (11.4-16.0) gm/dL Hct 28.5 L (34.0-46.0) % Plt Count 105 L (150-450) k/uL Neutrophils # (1.3-7.7) k/uL Lymphocytes # 0.5 L (1.0-4.8) k/uL PT (9.0-12.0) sec INR (<1.2) ABG pH (7.35-7.45) ABG pCO2 (35-45) mmHg ABG pO2 (83-108) mmHg ABG HCO3 (21-25) mmol/L ABG Total CO2 (19-24) mmol/L ABG O2 Saturation (94-97) % ABG Hematocrit (34.0-46.0) % ABG Potassium (3.4-4.5) mmol/L ABG Ionized Calcium (4.5-5.3) mg/dL ABG Glucose (75-99) mg/dL ABG Lactic Acid (0.5-1.6) mmol/L Hemoglobin (11.4-16.0) gm/dL Sodium 134 L (137-145) mmol/L Chloride (98-107) mmol/L Creatinine 0.46 L (0.52-1.04) mg/dL Glucose 118 H (74-99) mg/dL POC Glucose (mg/dL) 129 H (70-110) mg/dL Calcium 7.8 L (8.4-10.2) mg/dL Magnesium (1.6-2.3) mg/dL AST 60 H (14-36) U/L Alkaline Phosphatase (38-126) U/L Total Protein 4.8 L (6.3-8.2) g/dL Albumin 3.2 L (3.5-5.0) g/dL Arterial Blood Potassium (3.4-4.5) mmol/L Arterial Blood Glucose (75-99) mg/dL Crossmatch 12/05/21 12/05/21 12/05/21 Range/Units 05:00 06:51 08:00 WBC (3.8-10.6) k/uL RBC (3.80-5.40) m/uL Hgb (11.4-16.0) gm/dL Hct (34.0-46.0) % Plt Count (150-450) k/uL Neutrophils # (1.3-7.7) k/uL Lymphocytes # (1.0-4.8) k/uL PT (9.0-12.0) sec INR (<1.2) ABG pH (7.35-7.45) ABG pCO2 (35-45) mmHg ABG pO2 (83-108) mmHg ABG HCO3 (21-25) mmol/L ABG Total CO2 (19-24) mmol/L ABG O2 Saturation (94-97) % ABG Hematocrit (34.0-46.0) % ABG Potassium (3.4-4.5) mmol/L ABG Ionized Calcium (4.5-5.3) mg/dL ABG Glucose (75-99) mg/dL ABG Lactic Acid (0.5-1.6) mmol/L Hemoglobin (11.4-16.0) gm/dL Sodium (137-145) mmol/L Chloride (98-107) mmol/L Creatinine (0.52-1.04) mg/dL Glucose (74-99) mg/dL POC Glucose (mg/dL) 115 H 124 H 132 H (70-110) mg/dL Calcium (8.4-10.2) mg/dL Magnesium (1.6-2.3) mg/dL AST (14-36) U/L Alkaline Phosphatase (38-126) U/L Total Protein (6.3-8.2) g/dL Albumin (3.5-5.0) g/dL Arterial Blood Potassium (3.4-4.5) mmol/L Arterial Blood Glucose (75-99) mg/dL Crossmatch - Imaging and Cardiology Chest x-ray: report reviewed, image reviewed Assessment and Plan Assessment: 1. Severe aortic valve stenosis, status post aortic valve replacement using a 21 mm Whitney Inspiris prosthetic valve 2. Persistent paroxysmal atrial fibrillation, status post ligation of the left atrial appendage and bilateral pulmonary vein isolation 3. Hypertension 4. Hyperlipidemia 5. History of TIA with most recent TIA in September 2021 6. Osteoarthritis 7. Psoriasis 8. Gastroesophageal reflux disease 9. Remote history of smoking 10. Postoperative acute blood loss anemia, expected given hemodilution and cardiopulmonary bypass Plan: 1. Continue aspirin, statin, Plavix, and beta chika. Will increase beta chika as tolerated. 2. Wean Cleviprex drip. Start lisinopril 2.5 mg by mouth daily at noon. 3. Wean O2 as tolerated. Encourage incentive spirometry 10 times every hour while awake. Bronchodilators per pulmonology/critical care medicine. 4. Increase activity as tolerated. PT/OT/cardiac rehab consulted. 5. Will monitor daily labs and chest x-rays. Electrolyte replacement per protocol. 6. GI/DVT prophylaxis. 7. Pain control with current medication regimen. No Toradol was ordered as the patient has a history of an ALLERGIC reaction to meloxicam. 8. Insulin management per primary care service. Patient is not diabetic, preoperative hemoglobin A1c 5.6% of predicted. 9. Discontinue Rigby. Connect Cordis to continuous CVP monitoring. 10. Continue chest tubes for another 24 hours. 11. Continue Pierce catheter for another 24 hours for strict accurate intake and output. Daily weights. 12. More recommendations to follow based on patient's clinical course. Time with Patient: Greater than 30
[2021-12-05 09:04] LABS: Glucose,Whole Blood 114 mg/dL (70-110)
[2021-12-05] MEDS: IPRATROPIUM-ALBUTEROL 3 ML NEB INHALATION SCH ×4 (09:14→20:50)
--- NOTE | 2021-12-05 10:32 | XR ---
EXAMINATION TYPE: XR chest 1V portable DATE OF EXAM: 12/05/2021 COMPARISON: Chest x-ray dated 12/04/2021 HISTORY: Postop cardiac surgery TECHNIQUE: Single frontal view of the chest is obtained. FINDINGS: There is been interval removal of endotracheal and NG tube. Median sternal drain, right ju gular central venous sheath and coaxial [place]-Opal catheter, left chest tube all are present in overly ing appropriate positions. Patient is post median sternotomy and left atrial appendage clip placement , cardiac valve replacement. Lung volumes are low. There are overlying artifacts. Cardiac mediastinal silhouette is not significantly changed. No evident pneumothorax or sizable effusion. Patchy basilar density is noted. Interstitium is mildly increased. Epicardial pacing leads are present. IMPRESSION: Expiratory rotated exam. Probable basilar atelectasis, difficult to exclude small effusi on, interstitial edema or volume overload.
--- NOTE | 2021-12-05 10:56 | P.PN ---
Subjective Patient was seen and examined intensive care unit. She was extubated yesterday. She denies any particular discomfort at this time no reading problems. Objective - Vital Signs Vital signs: Vital Signs Temp 99.5 F 12/05/21 08:00 Pulse 60 12/05/21 10:00 Resp 14 12/05/21 10:00 BP 116/52 12/05/21 09:00 Pulse Ox 99 12/05/21 10:00 FiO2 50 12/04/21 16:01 Intake & Output 12/04/21 12/05/21 12/05/21 18:59 06:59 18:59 Intake Total 144.827 4365.016 1035.022 Output Total 3010 1002 162 Balance -2300.834 582.016 873.022 Weight 86.7 kg Intake: IV 656 1458 1016 ACETAMINOPHEN IV (For NPO 400 ) 1,000 mg In Empty Bag 1 bag @ 400 mls/hr IVPB Q6HR [facility] Rx#:[id number] Albumin Human 5% 250 ml 750 In Empty Bag 1 bag @ 250 mls/hr IVPB Q1HR PRN Rx#: [id number] CO/CI 250 250 30 Lactated Ringers 1,000 ml 300 600 50 @ 20 mls/hr IV .Q24H [facility] Rx#:[id number] Pressure Bags 54 108 36 ceFAZolin 2 gm In Sodium 100 150 Chloride 0.9% 50 ml @ 100 mls/hr IVPB Q8HR [facility] Rx# :[id number] Intake, IV Titration 53.166 126.016 19.022 Amount Clevidipine Butyrate 25 26.233 76.400 11.867 mg In Empty Bag 1 bag @ 1 MG/HR 2 mls/hr IV .Q24H [facility] Rx#:[id number] Insulin Regular 100 unit 10.343 49.616 7.155 In Sodium Chloride 0.9% 100 ml @ Per Protocol IV .Q0M [facility] Rx#:[id number] propofoL 1,000 mg In 16.590 Empty Bag 1 bag @ 20 MCG/ KG/MIN 10.152 mls/hr IV . Q9H52M [facility] Rx#:[id number] Output: Chest Tube Drainage 145 212 37 Left Pleural 15 72 17 Mediastinal 130 140 20 Urine 1465 790 125 Estimated Blood Loss 1400 Other: Voiding Method Indwelling Catheter Indwelling Catheter Indwelling Catheter ABP, PAP, CO, CI - Last Documented Arterial Blood Pressure 136/44 Pulmonary Artery Pressure 26/8 Cardiac Output 3.8 Cardiac Index 2 - Exam Awake alert oriented 3, no acute distress Head and neck: Anicteric sclera, extraocular movements intact, no facial asymmetry, oropharyngeal mucosa is moist without any lesions, neck is supple without rigidity, no neck masses or neck vein distention Right jugular Cordis with Sargent-Opal catheter, no bleeding or erythema around the site Heart: Regular rhythm and rate, S1, S2; no murmurs rubs or gallops Lungs: Breath sounds present bilateral, no wheezing, rhonchi or crackles; left chest tube, mediastinal chest tube Abdomen: Bowel sounds present throughout, abdomen is soft, nontender, nondistended, no involuntary guarding, no hernias or organomegaly, no flank tenderness Extremities: No peripheral edema, no cyanosis, warm well perfused with palpable dorsalis pedis pulses bilateral and good capillary refill, without joint swelling or deformities - Labs CBC & Chem 7: 12/05/21 04:10 12/05/21 04:10 Labs: Abnormal Lab Results - Last 24 Hours (Table) 12/03/21 12/04/21 12/04/21 Range/Units 11:38 08:33 09:18 WBC (3.8-10.6) k/uL RBC (3.80-5.40) m/uL Hgb (11.4-16.0) gm/dL Hct (34.0-46.0) % Plt Count (150-450) k/uL Neutrophils # (1.3-7.7) k/uL Lymphocytes # (1.0-4.8) k/uL PT (9.0-12.0) sec INR (<1.2) ABG pH (7.35-7.45) ABG pCO2 (35-45) mmHg ABG pO2 >420 H 242 H (83-108) mmHg ABG HCO3 26 H 26 H (21-25) mmol/L ABG Total CO2 27 H 28 H (19-24) mmol/L ABG O2 Saturation 99.7 H 100.0 H (94-97) % ABG Hematocrit 33 L (34.0-46.0) % ABG Potassium (3.4-4.5) mmol/L ABG Ionized Calcium (4.5-5.3) mg/dL ABG Glucose 102 H 104 H (75-99) mg/dL ABG Lactic Acid (0.5-1.6) mmol/L Hemoglobin 10.9 L 10.7 L (11.4-16.0) gm/dL Sodium (137-145) mmol/L Chloride (98-107) mmol/L Creatinine (0.52-1.04) mg/dL Glucose (74-99) mg/dL POC Glucose (mg/dL) (70-110) mg/dL Calcium (8.4-10.2) mg/dL Magnesium (1.6-2.3) mg/dL AST (14-36) U/L Alkaline Phosphatase (38-126) U/L Total Protein (6.3-8.2) g/dL Albumin (3.5-5.0) g/dL Arterial Blood Potassium (3.4-4.5) mmol/L Arterial Blood Glucose 102 H 104 H (75-99) mg/dL Crossmatch See Detail 12/04/21 12/04/21 12/04/21 Range/Units 09:46 10:21 11:04 WBC (3.8-10.6) k/uL RBC (3.80-5.40) m/uL Hgb (11.4-16.0) gm/dL Hct (34.0-46.0) % Plt Count (150-450) k/uL Neutrophils # (1.3-7.7) k/uL Lymphocytes # (1.0-4.8) k/uL PT (9.0-12.0) sec INR (<1.2) ABG pH 7.32 L (7.35-7.45) ABG pCO2 52 H (35-45) mmHg ABG pO2 >420 H 351 H 391 H (83-108) mmHg ABG HCO3 26 H 27 H (21-25) mmol/L ABG Total CO2 25 H 27 H 28 H (19-24) mmol/L ABG O2 Saturation 100.0 H 100.0 H 100.0 H (94-97) % ABG Hematocrit 25 L 25 L 24 L (34.0-46.0) % ABG Potassium 4.7 H 5.1 H (3.4-4.5) mmol/L ABG Ionized Calcium 4.1 L 4.2 L 4.2 L (4.5-5.3) mg/dL ABG Glucose 113 H 118 H 129 H (75-99) mg/dL ABG Lactic Acid (0.5-1.6) mmol/L Hemoglobin 8.2 L 8.0 L 8.0 L (11.4-16.0) gm/dL Sodium (137-145) mmol/L Chloride (98-107) mmol/L Creatinine (0.52-1.04) mg/dL Glucose (74-99) mg/dL POC Glucose (mg/dL) (70-110) mg/dL Calcium (8.4-10.2) mg/dL Magnesium (1.6-2.3) mg/dL AST (14-36) U/L Alkaline Phosphatase (38-126) U/L Total Protein (6.3-8.2) g/dL Albumin (3.5-5.0) g/dL Arterial Blood Potassium 4.7 H 5.1 H (3.4-4.5) mmol/L Arterial Blood Glucose 113 H 118 H 129 H (75-99) mg/dL Crossmatch 12/04/21 12/04/21 12/04/21 Range/Units 11:28 13:11 13:17 WBC (3.8-10.6) k/uL RBC 2.86 L (3.80-5.40) m/uL Hgb 9.2 L D (11.4-16.0) gm/dL Hct 27.5 L (34.0-46.0) % Plt Count 90 L (150-450) k/uL Neutrophils # (1.3-7.7) k/uL Lymphocytes # 0.9 L (1.0-4.8) k/uL PT (9.0-12.0) sec INR (<1.2) ABG pH (7.35-7.45) ABG pCO2 (35-45) mmHg ABG pO2 391 H (83-108) mmHg ABG HCO3 (21-25) mmol/L ABG Total CO2 26 H (19-24) mmol/L ABG O2 Saturation 100.0 H (94-97) % ABG Hematocrit 23 L (34.0-46.0) % ABG Potassium 5.0 H (3.4-4.5) mmol/L ABG Ionized Calcium 4.0 L (4.5-5.3) mg/dL ABG Glucose 136 H (75-99) mg/dL ABG Lactic Acid 1.9 H (0.5-1.6) mmol/L Hemoglobin 7.6 L (11.4-16.0) gm/dL Sodium (137-145) mmol/L Chloride (98-107) mmol/L Creatinine (0.52-1.04) mg/dL Glucose (74-99) mg/dL POC Glucose (mg/dL) 127 H (70-110) mg/dL Calcium (8.4-10.2) mg/dL Magnesium (1.6-2.3) mg/dL AST (14-36) U/L Alkaline Phosphatase (38-126) U/L Total Protein (6.3-8.2) g/dL Albumin (3.5-5.0) g/dL Arterial Blood Potassium 5.0 H (3.4-4.5) mmol/L Arterial Blood Glucose 136 H (75-99) mg/dL Crossmatch 12/04/21 12/04/21 12/04/21 Range/Units 13:17 13:17 13:35 WBC (3.8-10.6) k/uL RBC (3.80-5.40) m/uL Hgb (11.4-16.0) gm/dL Hct (34.0-46.0) % Plt Count (150-450) k/uL Neutrophils # (1.3-7.7) k/uL Lymphocytes # (1.0-4.8) k/uL PT 12.3 H (9.0-12.0) sec INR 1.2 H (<1.2) ABG pH (7.35-7.45) ABG pCO2 47 H (35-45) mmHg ABG pO2 >400 H (83-108) mmHg ABG HCO3 26 H (21-25) mmol/L ABG Total CO2 27 H (19-24) mmol/L ABG O2 Saturation 100.0 H (94-97) % ABG Hematocrit (34.0-46.0) % ABG Potassium (3.4-4.5) mmol/L ABG Ionized Calcium (4.5-5.3) mg/dL ABG Glucose (75-99) mg/dL ABG Lactic Acid (0.5-1.6) mmol/L Hemoglobin (11.4-16.0) gm/dL Sodium (137-145) mmol/L Chloride 111 H (98-107) mmol/L Creatinine (0.52-1.04) mg/dL Glucose 114 H (74-99) mg/dL POC Glucose (mg/dL) (70-110) mg/dL Calcium 7.8 L (8.4-10.2) mg/dL Magnesium 2.8 H (1.6-2.3) mg/dL AST 47 H (14-36) U/L Alkaline Phosphatase 34 L (38-126) U/L Total Protein 4.0 L (6.3-8.2) g/dL Albumin 2.5 L (3.5-5.0) g/dL Arterial Blood Potassium (3.4-4.5) mmol/L Arterial Blood Glucose (75-99) mg/dL Crossmatch 12/04/21 12/04/21 12/04/21 Range/Units 13:54 15:00 15:57 WBC 11.7 H (3.8-10.6) k/uL RBC 3.37 L (3.80-5.40) m/uL Hgb 10.7 L (11.4-16.0) gm/dL Hct 32.4 L (34.0-46.0) % Plt Count 129 L (150-450) k/uL Neutrophils # 9.5 H (1.3-7.7) k/uL Lymphocytes # (1.0-4.8) k/uL PT (9.0-12.0) sec INR (<1.2) ABG pH (7.35-7.45) ABG pCO2 (35-45) mmHg ABG pO2 (83-108) mmHg ABG HCO3 (21-25) mmol/L ABG Total CO2 (19-24) mmol/L ABG O2 Saturation (94-97) % ABG Hematocrit (34.0-46.0) % ABG Potassium (3.4-4.5) mmol/L ABG Ionized Calcium (4.5-5.3) mg/dL ABG Glucose (75-99) mg/dL ABG Lactic Acid (0.5-1.6) mmol/L Hemoglobin (11.4-16.0) gm/dL Sodium (137-145) mmol/L Chloride (98-107) mmol/L Creatinine (0.52-1.04) mg/dL Glucose (74-99) mg/dL POC Glucose (mg/dL) 121 H 159 H (70-110) mg/dL Calcium (8.4-10.2) mg/dL Magnesium (1.6-2.3) mg/dL AST (14-36) U/L Alkaline Phosphatase (38-126) U/L Total Protein (6.3-8.2) g/dL Albumin (3.5-5.0) g/dL Arterial Blood Potassium (3.4-4.5) mmol/L Arterial Blood Glucose (75-99) mg/dL Crossmatch 12/04/21 12/04/21 12/04/21 Range/Units 15:59 16:41 17:05 WBC (3.8-10.6) k/uL RBC (3.80-5.40) m/uL Hgb (11.4-16.0) gm/dL Hct (34.0-46.0) % Plt Count (150-450) k/uL Neutrophils # (1.3-7.7) k/uL Lymphocytes # (1.0-4.8) k/uL PT (9.0-12.0) sec INR (<1.2) ABG pH (7.35-7.45) ABG pCO2 (35-45) mmHg ABG pO2 183 H (83-108) mmHg ABG HCO3 (21-25) mmol/L ABG Total CO2 25 H (19-24) mmol/L ABG O2 Saturation 100.0 H (94-97) % ABG Hematocrit (34.0-46.0) % ABG Potassium (3.4-4.5) mmol/L ABG Ionized Calcium (4.5-5.3) mg/dL ABG Glucose (75-99) mg/dL ABG Lactic Acid (0.5-1.6) mmol/L Hemoglobin (11.4-16.0) gm/dL Sodium (137-145) mmol/L Chloride (98-107) mmol/L Creatinine (0.52-1.04) mg/dL Glucose (74-99) mg/dL POC Glucose (mg/dL) 183 H 181 H (70-110) mg/dL Calcium (8.4-10.2) mg/dL Magnesium (1.6-2.3) mg/dL AST (14-36) U/L Alkaline Phosphatase (38-126) U/L Total Protein (6.3-8.2) g/dL Albumin (3.5-5.0) g/dL Arterial Blood Potassium (3.4-4.5) mmol/L Arterial Blood Glucose (75-99) mg/dL Crossmatch 12/04/21 12/04/21 12/04/21 Range/Units 18:03 19:04 19:04 WBC (3.8-10.6) k/uL RBC 3.18 L (3.80-5.40) m/uL Hgb 9.9 L (11.4-16.0) gm/dL Hct 30.7 L (34.0-46.0) % Plt Count 103 L (150-450) k/uL Neutrophils # (1.3-7.7) k/uL Lymphocytes # 0.4 L (1.0-4.8) k/uL PT (9.0-12.0) sec INR (<1.2) ABG pH (7.35-7.45) ABG pCO2 (35-45) mmHg ABG pO2 (83-108) mmHg ABG HCO3 (21-25) mmol/L ABG Total CO2 (19-24) mmol/L ABG O2 Saturation (94-97) % ABG Hematocrit (34.0-46.0) % ABG Potassium (3.4-4.5) mmol/L ABG Ionized Calcium (4.5-5.3) mg/dL ABG Glucose (75-99) mg/dL ABG Lactic Acid (0.5-1.6) mmol/L Hemoglobin (11.4-16.0) gm/dL Sodium (137-145) mmol/L Chloride (98-107) mmol/L Creatinine (0.52-1.04) mg/dL Glucose (74-99) mg/dL POC Glucose (mg/dL) 179 H 165 H (70-110) mg/dL Calcium (8.4-10.2) mg/dL Magnesium (1.6-2.3) mg/dL AST (14-36) U/L Alkaline Phosphatase (38-126) U/L Total Protein (6.3-8.2) g/dL Albumin (3.5-5.0) g/dL Arterial Blood Potassium (3.4-4.5) mmol/L Arterial Blood Glucose (75-99) mg/dL Crossmatch 12/04/21 12/04/21 12/04/21 Range/Units 19:58 20:52 22:28 WBC (3.8-10.6) k/uL RBC (3.80-5.40) m/uL Hgb (11.4-16.0) gm/dL Hct (34.0-46.0) % Plt Count (150-450) k/uL Neutrophils # (1.3-7.7) k/uL Lymphocytes # (1.0-4.8) k/uL PT (9.0-12.0) sec INR (<1.2) ABG pH (7.35-7.45) ABG pCO2 (35-45) mmHg ABG pO2 (83-108) mmHg ABG HCO3 (21-25) mmol/L ABG Total CO2 (19-24) mmol/L ABG O2 Saturation (94-97) % ABG Hematocrit (34.0-46.0) % ABG Potassium (3.4-4.5) mmol/L ABG Ionized Calcium (4.5-5.3) mg/dL ABG Glucose (75-99) mg/dL ABG Lactic Acid (0.5-1.6) mmol/L Hemoglobin (11.4-16.0) gm/dL Sodium (137-145) mmol/L Chloride (98-107) mmol/L Creatinine (0.52-1.04) mg/dL Glucose (74-99) mg/dL POC Glucose (mg/dL) 146 H 138 H 134 H (70-110) mg/dL Calcium (8.4-10.2) mg/dL Magnesium (1.6-2.3) mg/dL AST (14-36) U/L Alkaline Phosphatase (38-126) U/L Total Protein (6.3-8.2) g/dL Albumin (3.5-5.0) g/dL Arterial Blood Potassium (3.4-4.5) mmol/L Arterial Blood Glucose (75-99) mg/dL Crossmatch 12/04/21 12/04/21 12/05/21 Range/Units 23:13 23:47 00:59 WBC (3.8-10.6) k/uL RBC (3.80-5.40) m/uL Hgb (11.4-16.0) gm/dL Hct (34.0-46.0) % Plt Count (150-450) k/uL Neutrophils # (1.3-7.7) k/uL Lymphocytes # (1.0-4.8) k/uL PT (9.0-12.0) sec INR (<1.2) ABG pH (7.35-7.45) ABG pCO2 (35-45) mmHg ABG pO2 (83-108) mmHg ABG HCO3 (21-25) mmol/L ABG Total CO2 (19-24) mmol/L ABG O2 Saturation (94-97) % ABG Hematocrit (34.0-46.0) % ABG Potassium (3.4-4.5) mmol/L ABG Ionized Calcium (4.5-5.3) mg/dL ABG Glucose (75-99) mg/dL ABG Lactic Acid (0.5-1.6) mmol/L Hemoglobin (11.4-16.0) gm/dL Sodium (137-145) mmol/L Chloride (98-107) mmol/L Creatinine (0.52-1.04) mg/dL Glucose (74-99) mg/dL POC Glucose (mg/dL) 131 H 123 H 118 H (70-110) mg/dL Calcium (8.4-10.2) mg/dL Magnesium (1.6-2.3) mg/dL AST (14-36) U/L Alkaline Phosphatase (38-126) U/L Total Protein (6.3-8.2) g/dL Albumin (3.5-5.0) g/dL Arterial Blood Potassium (3.4-4.5) mmol/L Arterial Blood Glucose (75-99) mg/dL Crossmatch 12/05/21 12/05/21 12/05/21 Range/Units 02:07 02:52 03:35 WBC (3.8-10.6) k/uL RBC (3.80-5.40) m/uL Hgb (11.4-16.0) gm/dL Hct (34.0-46.0) % Plt Count (150-450) k/uL Neutrophils # (1.3-7.7) k/uL Lymphocytes # (1.0-4.8) k/uL PT (9.0-12.0) sec INR (<1.2) ABG pH (7.35-7.45) ABG pCO2 (35-45) mmHg ABG pO2 (83-108) mmHg ABG HCO3 (21-25) mmol/L ABG Total CO2 (19-24) mmol/L ABG O2 Saturation (94-97) % ABG Hematocrit (34.0-46.0) % ABG Potassium (3.4-4.5) mmol/L ABG Ionized Calcium (4.5-5.3) mg/dL ABG Glucose (75-99) mg/dL ABG Lactic Acid (0.5-1.6) mmol/L Hemoglobin (11.4-16.0) gm/dL Sodium (137-145) mmol/L Chloride (98-107) mmol/L Creatinine (0.52-1.04) mg/dL Glucose (74-99) mg/dL POC Glucose (mg/dL) 113 H 119 H 133 H (70-110) mg/dL Calcium (8.4-10.2) mg/dL Magnesium (1.6-2.3) mg/dL AST (14-36) U/L Alkaline Phosphatase (38-126) U/L Total Protein (6.3-8.2) g/dL Albumin (3.5-5.0) g/dL Arterial Blood Potassium (3.4-4.5) mmol/L Arterial Blood Glucose (75-99) mg/dL Crossmatch 12/05/21 12/05/21 12/05/21 Range/Units 04:01 04:10 04:10 WBC (3.8-10.6) k/uL RBC 2.94 L (3.80-5.40) m/uL Hgb 9.5 L (11.4-16.0) gm/dL Hct 28.5 L (34.0-46.0) % Plt Count 105 L (150-450) k/uL Neutrophils # (1.3-7.7) k/uL Lymphocytes # 0.5 L (1.0-4.8) k/uL PT (9.0-12.0) sec INR (<1.2) ABG pH (7.35-7.45) ABG pCO2 (35-45) mmHg ABG pO2 (83-108) mmHg ABG HCO3 (21-25) mmol/L ABG Total CO2 (19-24) mmol/L ABG O2 Saturation (94-97) % ABG Hematocrit (34.0-46.0) % ABG Potassium (3.4-4.5) mmol/L ABG Ionized Calcium (4.5-5.3) mg/dL ABG Glucose (75-99) mg/dL ABG Lactic Acid (0.5-1.6) mmol/L Hemoglobin (11.4-16.0) gm/dL Sodium 134 L (137-145) mmol/L Chloride (98-107) mmol/L Creatinine 0.46 L (0.52-1.04) mg/dL Glucose 118 H (74-99) mg/dL POC Glucose (mg/dL) 129 H (70-110) mg/dL Calcium 7.8 L (8.4-10.2) mg/dL Magnesium (1.6-2.3) mg/dL AST 60 H (14-36) U/L Alkaline Phosphatase (38-126) U/L Total Protein 4.8 L (6.3-8.2) g/dL Albumin 3.2 L (3.5-5.0) g/dL Arterial Blood Potassium (3.4-4.5) mmol/L Arterial Blood Glucose (75-99) mg/dL Crossmatch 12/05/21 12/05/21 12/05/21 Range/Units 05:00 06:51 08:00 WBC (3.8-10.6) k/uL RBC (3.80-5.40) m/uL Hgb (11.4-16.0) gm/dL Hct (34.0-46.0) % Plt Count (150-450) k/uL Neutrophils # (1.3-7.7) k/uL Lymphocytes # (1.0-4.8) k/uL PT (9.0-12.0) sec INR (<1.2) ABG pH (7.35-7.45) ABG pCO2 (35-45) mmHg ABG pO2 (83-108) mmHg ABG HCO3 (21-25) mmol/L ABG Total CO2 (19-24) mmol/L ABG O2 Saturation (94-97) % ABG Hematocrit (34.0-46.0) % ABG Potassium (3.4-4.5) mmol/L ABG Ionized Calcium (4.5-5.3) mg/dL ABG Glucose (75-99) mg/dL ABG Lactic Acid (0.5-1.6) mmol/L Hemoglobin (11.4-16.0) gm/dL Sodium (137-145) mmol/L Chloride (98-107) mmol/L Creatinine (0.52-1.04) mg/dL Glucose (74-99) mg/dL POC Glucose (mg/dL) 115 H 124 H 132 H (70-110) mg/dL Calcium (8.4-10.2) mg/dL Magnesium (1.6-2.3) mg/dL AST (14-36) U/L Alkaline Phosphatase (38-126) U/L Total Protein (6.3-8.2) g/dL Albumin (3.5-5.0) g/dL Arterial Blood Potassium (3.4-4.5) mmol/L Arterial Blood Glucose (75-99) mg/dL Crossmatch 12/05/21 Range/Units 09:02 WBC (3.8-10.6) k/uL RBC (3.80-5.40) m/uL Hgb (11.4-16.0) gm/dL Hct (34.0-46.0) % Plt Count (150-450) k/uL Neutrophils # (1.3-7.7) k/uL Lymphocytes # (1.0-4.8) k/uL PT (9.0-12.0) sec INR (<1.2) ABG pH (7.35-7.45) ABG pCO2 (35-45) mmHg ABG pO2 (83-108) mmHg ABG HCO3 (21-25) mmol/L ABG Total CO2 (19-24) mmol/L ABG O2 Saturation (94-97) % ABG Hematocrit (34.0-46.0) % ABG Potassium (3.4-4.5) mmol/L ABG Ionized Calcium (4.5-5.3) mg/dL ABG Glucose (75-99) mg/dL ABG Lactic Acid (0.5-1.6) mmol/L Hemoglobin (11.4-16.0) gm/dL Sodium (137-145) mmol/L Chloride (98-107) mmol/L Creatinine (0.52-1.04) mg/dL Glucose (74-99) mg/dL POC Glucose (mg/dL) 114 H (70-110) mg/dL Calcium (8.4-10.2) mg/dL Magnesium (1.6-2.3) mg/dL AST (14-36) U/L Alkaline Phosphatase (38-126) U/L Total Protein (6.3-8.2) g/dL Albumin (3.5-5.0) g/dL Arterial Blood Potassium (3.4-4.5) mmol/L Arterial Blood Glucose (75-99) mg/dL Crossmatch Assessment and Plan Assessment: #Severe aortic stenosis status post aortic wall replacement Continue per cardiothoracic surgery recommendations #Paroxysmal atrial fibrillation Status post left atrial appendage ligation and bilateral pulmonary vein isolation #Stress hyperglycemia A1c 5.6 Continue his blood glucose control with a goal of less than 180 Transition from insulin drip towards sliding scale insulin #History of TIA Continue antiplatelet statin #Postoperative anemia Hemoglobin, remain stable Platelets remain stable and improving Continue incentive spirometer, increase activity as tolerated Physical and occupational therapy Patient is full code DVT prophylaxis
--- NOTE | 2021-12-05 11:07 | P.CRDCN ---
History of Present Illness History of present illness: 71-year-old lady with severe aortic stenosis and underwent aortic valve replacement yesterday and cardiology had been consulted for the same. Today is postop day #1. Patient is extubated remains in sinus rhythm stable hemodynamically. She does not have any cardiac symptoms other than some discomfort at the incision sites. She underwent cardiac catheterization for symptomatic aortic stenosis was found to have mild nonobstructive disease. She had severe areas for which she underwent aortic valve replacement. Constitutional: Denies chills. Denies fever. Eyes: Denies blurred vision. Denies pain. Ears, nose, mouth and throat: Denies headache. Denies sore throat. Cardiovascular: Denies chest pain. Denies shortness of breath. Respiratory: Denies cough. Gastrointestinal: Denies abdominal pain. Denies diarrhea. Denies nausea. Denies vomiting. Musculoskeletal: Denies myalgias. Integumentary: Denies pruritus. Denies rash. Neurological: Denies numbness. Denies weakness. Psychiatric: Denies anxiety. Denies depression. Endocrine: Denies fatigue. Denies weight change. Genitourinary: Denies burning, hematuria, frequency of urination. Hematological: No anemia or excess bleeding. General: The patient is awake and alert, in no distress, and does not appear acutely ill. Skin: Skin is warm and dry and no rashes or lesions are noted. Eye: Pupils are equal, round and reactive to light, extra-ocular movements are intact; there is normal conjunctiva bilaterally. Ears, nose, mouth and throat: There are moist mucous membranes and no oral lesions. Neck: The neck is supple, there is no tenderness or JVD. Cardiovascular: There is a regular rate and rhythm. No murmur, rub or gallop is appreciated. Respiratory: Diminished air entry bilaterally. Gastrointestinal: Soft, non-distended, non-tender abdomen without masses or organomegaly noted. There is no rebound or guarding present. Bowel sounds are unremarkable. Back: There is no tenderness to palpation in the midline. There is no obvious deformity. Musculoskeletal: Normal ROM, no tenderness, There is no pedal edema. There is no calf tenderness or swelling. Extremities: Mild bilateral leg edema Vascular: Femoral pulse is normal. Posterior tibial pulses are normal .Dorsalis pedis is palpable. Neurological: CN II-XII intact. There are no obvious motor or sensory deficits. Speech is normal. Psychiatric: Cooperative, appropriate mood & affect, normal judgment. Labs show a hemoglobin of 9.5 potassium is 4 creatinine is 0.4 Assessment and plan: Severe aortic stenosis status post aortic valve replacement History of atrial fibrillation status post left atrial appendage closure and bilateral pulmonary vein isolation Incentive spirometry increase activity continue current medications Past Medical History Past Medical History: GERD/Reflux, Hyperlipidemia, Hypertension, Memory Impairment, Osteoarthritis (OA) Additional Past Medical History / Comment(s): SOB, 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 . History of Any Multi-Drug Resistant Organisms: None Reported Past Surgical History: Hysterectomy, Tonsillectomy Additional Past Surgical History / Comment(s): D&C and partial hysterectomy(bilateral ovaries retained), bilateral cyst aspirations(benign), CHRISTINA. 2 heart caths Past Anesthesia/Blood Transfusion Reactions: No Reported Reaction Additional Past Anesthesia/Blood Transfusion Reaction / Comment(s): no hx blood transfusion Smoking Status: Former smoker - Past Family History Mother Family Medical History: Cancer Additional Family Medical History / Comment(s): SKIN CANCER. Father Family Medical History: Cancer Additional Family Medical History / Comment(s): SKIN CANCER. Sister(s) Family Medical History: Cancer Additional Family Medical History / Comment(s): SKIN CANCER. Medications and Allergies Home Medications Medication Instructions Recorded Confirmed Type Famotidine 40 mg PO HS 06/20/21 12/02/21 History lisinopriL [Prinivil] 10 mg PO HS 06/20/21 12/02/21 History Aspirin EC [Ecotrin Low Dose] 325 mg PO HS 10/12/21 12/03/21 History HYDROcodone/APAP 5-325MG [[place] 1 tab PO TID PRN 10/12/21 12/02/21 History 5-325] Atorvastatin [Lipitor] 40 mg PO HS #60 tab 10/15/21 12/02/21 Rx Clopidogrel [Plavix] 75 mg PO DAILY #21 tab 10/15/21 12/02/21 Rx Mupirocin 2% Oint [Bactroban 2% 1 applic NASAL BID #22 gm 11/22/21 12/02/21 Rx Oint] Ergocalciferol [Vitamin D2 (1250 1,250 mcg PO MO 11/26/21 12/02/21 History Mcg = 25752 Iu)] Psoriasis Cream 1 dose TOPICAL DIRECTED 11/26/21 12/02/21 History Allergies Allergy/AdvReac Type Severity Reaction Status Date / Time erythromycin base Allergy Itching Verified 11/28/21 06:14 meloxicam Allergy mood Verified 11/28/21 06:14 swings, aggressive, out of it methotrexate Allergy Rash/Hives Verified 11/28/21 06:14 IVORY Allergy Rash/Hives Uncoded 11/28/21 06:14 Physical Exam Vitals: Vital Signs Temp Pulse Resp BP Pulse Ox FiO2 12/05/21 10:00 60 14 99 12/05/21 09:24 58 L 12/05/21 09:16 95 12/05/21 09:14 55 L 12/05/21 09:00 56 L 14 116/52 95 12/05/21 08:00 99.5 F 61 14 96 12/05/21 07:00 65 14 97 12/05/21 06:30 65 14 97 12/05/21 06:00 66 15 97 12/05/21 05:30 65 17 95 12/05/21 05:00 66 14 96 12/05/21 04:30 64 18 95 12/05/21 04:00 66 14 96 12/05/21 03:30 67 12 96 12/05/21 03:00 68 15 96 12/05/21 02:30 68 13 96 12/05/21 02:00 68 12 96 12/05/21 01:30 67 12 96 12/05/21 01:00 67 13 97 12/05/21 00:30 67 14 97 12/05/21 00:01 65 12 98 12/05/21 00:00 66 15 98 12/04/21 23:30 66 15 98 12/04/21 23:00 66 14 98 12/04/21 22:30 65 14 99 12/04/21 22:00 65 14 99 12/04/21 21:30 67 17 100 12/04/21 21:00 65 14 100 12/04/21 20:30 68 12 100 12/04/21 20:13 64 12/04/21 20:03 61 12/04/21 20:00 62 14 100 12/04/21 19:45 64 21 100 12/04/21 19:30 17 100 12/04/21 19:15 62 13 100 12/04/21 19:00 62 11 L 100 12/04/21 18:45 63 12 100 12/04/21 18:30 64 11 L 100 12/04/21 18:15 64 12 100 12/04/21 18:00 64 12 105/54 100 12/04/21 17:45 27 H 100 12/04/21 17:30 66 17 100 12/04/21 17:15 67 16 97 12/04/21 17:06 66 12/04/21 17:01 63 12/04/21 17:00 63 18 114/62 96 12/04/21 16:45 69 17 100 12/04/21 16:30 69 16 100 12/04/21 16:15 69 17 100 12/04/21 16:01 50 12/04/21 16:00 98.4 F 69 14 100 50 12/04/21 15:45 70 14 100 12/04/21 15:30 70 14 100 12/04/21 15:15 97.7 F 70 14 100/52 100 12/04/21 15:10 50 12/04/21 15:00 69 11 L 100 12/04/21 14:45 69 14 134/67 100 12/04/21 14:30 51 L 10 L 100 12/04/21 14:26 50 12/04/21 14:15 53 L 14 134/67 100 12/04/21 14:00 51 L 14 100 12/04/21 13:45 52 L 14 100 12/04/21 13:38 50 12/04/21 13:30 80 14 100 12/04/21 13:17 100 12/04/21 13:15 95.4 F L 80 15 100 100 12/04/21 13:08 21 12/04/21 13:07 100 Intake and Output 12/04/21 12/05/21 12/05/21 22:59 06:59 14:59 Intake Total 849.652 6963.965 1035.022 Output Total 1027 685 162 Balance -202.303 551.965 873.022 Intake: IV 742 1142 1016 ACETAMINOPHEN IV (For NPO 400 ) 1,000 mg In Empty Bag 1 bag @ 400 mls/hr IVPB Q6HR [facility] Rx#:[id number] Albumin Human 5% 250 ml 750 In Empty Bag 1 bag @ 250 mls/hr IVPB Q1HR PRN Rx#: [id number] CO/CI 270 170 30 Lactated Ringers 1,000 ml 400 400 50 @ 20 mls/hr IV .Q24H [facility] Rx#:[id number] Pressure Bags 72 72 36 ceFAZolin 2 gm In Sodium 100 150 Chloride 0.9% 50 ml @ 100 mls/hr IVPB Q8HR [facility] Rx# :[id number] Intake, IV Titration 82.697 94.965 19.022 Amount Clevidipine Butyrate 25 41.767 59.733 11.867 mg In Empty Bag 1 bag @ 1 MG/HR 2 mls/hr IV .Q24H [facility] Rx#:[id number] Insulin Regular 100 unit 24.340 35.232 7.155 In Sodium Chloride 0.9% 100 ml @ Per Protocol IV .Q0M [facility] Rx#:[id number] propofoL 1,000 mg In 16.590 Empty Bag 1 bag @ 20 MCG/ KG/MIN 10.152 mls/hr IV . Q9H52M [facility] Rx#:[id number] Output: Chest Tube Drainage 142 165 37 Left Pleural 30 57 17 Mediastinal 112 108 20 Urine 885 520 125 Other: Voiding Method Indwelling Catheter Indwelling Catheter Indwelling Catheter Weight 86.7 kg ABP, PAP, CO, CI - Last 8 Hours Arterial Blood Pressure 136/44 Arterial Blood Pressure 124/40 Arterial Blood Pressure 141/42 Arterial Blood Pressure 138/42 Arterial Blood Pressure 133/43 Arterial Blood Pressure 126/50 Arterial Blood Pressure 135/52 Arterial Blood Pressure 204/80 Arterial Blood Pressure 131/44 Arterial Blood Pressure 134/45 Arterial Blood Pressure 137/46 Pulmonary Artery Pressure 26/8 Pulmonary Artery Pressure 27/7 Pulmonary Artery Pressure 26/10 Pulmonary Artery Pressure 26/5 Pulmonary Artery Pressure 22/4 Pulmonary Artery Pressure 27/7 Pulmonary Artery Pressure 42/24 Pulmonary Artery Pressure 30/12 Pulmonary Artery Pressure 28/11 Pulmonary Artery Pressure 28/10 Pulmonary Artery Pressure 28/13 Cardiac Output 3.8 Cardiac Output 5 Cardiac Output 4 Cardiac Output 4.2 Cardiac Output 4.2 Cardiac Output 4.3 Cardiac Output 4.8 Cardiac Index 2 Cardiac Index 2.7 Cardiac Index 2.1 Cardiac Index 2.2 Cardiac Index 2.2 Cardiac Index 2.3 Cardiac Index 2.6 Results 12/05/21 04:10 12/05/21 04:10 Cardiac Enzymes 12/04/21 12/05/21 Range/Units 13:17 04:10 AST 47 H 60 H (14-36) U/L Coagulation 12/04/21 Range/Units 13:17 PT 12.3 H (9.0-12.0) sec APTT 28.8 (22.0-30.0) sec CBC 12/04/21 12/04/21 12/04/21 Range/Units 13:17 15:57 19:04 WBC 5.8 11.7 H 8.1 (3.8-10.6) k/uL RBC 2.86 L 3.37 L 3.18 L (3.80-5.40) m/uL Hgb 9.2 L D 10.7 L 9.9 L (11.4-16.0) gm/dL Hct 27.5 L 32.4 L 30.7 L (34.0-46.0) % Plt Count 90 L 129 L 103 L (150-450) k/uL 12/05/21 Range/Units 04:10 WBC 7.2 (3.8-10.6) k/uL RBC 2.94 L (3.80-5.40) m/uL Hgb 9.5 L (11.4-16.0) gm/dL Hct 28.5 L (34.0-46.0) % Plt Count 105 L (150-450) k/uL Comprehensive Metabolic Panel 12/04/21 12/05/21 Range/Units 13:17 04:10 Sodium 138 134 L (137-145) mmol/L Potassium 4.4 4.0 (3.5-5.1) mmol/L Chloride 111 H 106 (98-107) mmol/L Carbon Dioxide 25 25 (22-30) mmol/L BUN 14 14 (7-17) mg/dL Creatinine 0.55 0.46 L (0.52-1.04) mg/dL Glucose 114 H 118 H (74-99) mg/dL Calcium 7.8 L 7.8 L (8.4-10.2) mg/dL AST 47 H 60 H (14-36) U/L ALT 16 19 (4-34) U/L Alkaline Phosphatase 34 L 45 (38-126) U/L Total Protein 4.0 L 4.8 L (6.3-8.2) g/dL Albumin 2.5 L 3.2 L (3.5-5.0) g/dL Current Medications Generic Name Dose Route Start Last Admin Trade Name Freq PRN Reason Stop Dose Admin Hydrocodone Bitart/Acetaminophen 2 each 12/05/21 00:46 12/05/21 04:31 Hydrocodone/Apap 5-325mg 1 Each Tab PO 2 each Q4HR PRN Administration Severe Pain Hydrocodone Bitart/Acetaminophen 1 each 12/05/21 00:46 Hydrocodone/Apap 5-325mg 1 Each Tab PO Q4HR PRN Moderate Pain Albuterol/Ipratropium 3 ml 12/04/21 13:16 12/04/21 16:57 Ipratropium-Albuterol 3 Ml Neb INHALATION 3 ml RT-Q2H PRN Administration Shortness Of Breath Or Wheezing Albuterol/Ipratropium 3 ml 12/04/21 20:00 12/05/21 09:14 Ipratropium-Albuterol 3 Ml Neb INHALATION 3 ml RT-QID [facility] Administration Aspirin 325 mg 12/05/21 09:00 12/05/21 08:04 Aspirin 325 Mg Tab PO 325 mg DAILY [facility] Administration Atorvastatin Calcium 40 mg 12/05/21 09:00 12/05/21 08:04 Atorvastatin 40 Mg Tab PO 40 mg DAILY [facility] Administration Benzocaine/Menthol 1 each 12/04/21 13:16 Benzocaine/Menthol Lozeng 1 Each Lozenge MUCOUS MEM Q2H PRN Sore Throat Bisacodyl 10 mg 12/05/21 09:00 Bisacodyl 10 Mg Supp RECTAL DAILY PRN Constipation Clopidogrel Bisulfate 75 mg 12/05/21 09:00 12/05/21 08:04 Clopidogrel 75 Mg Tab PO 75 mg DAILY [facility] Administration Ergocalciferol 1,250 mcg 12/08/21 09:00 Ergocalciferol 1,250 Mcg (50,000 Iu) Capsule PO MO [facility] Famotidine 40 mg 12/04/21 21:00 12/04/21 21:15 Famotidine 20 Mg Tab PO 40 mg HS [facility] Administration Heparin Sodium (Porcine) 5,000 unit 12/04/21 16:00 12/05/21 08:03 Heparin Sodium,Porcine/Pf 5,000 Unit/0.5 Ml Syringe SQ 5,000 unit Q8HR [facility] Administration Insulin Human Regular 100 unit 101 mls @ 0 mls/hr 12/04/21 13:30 12/05/21 09:10 / Sodium Chloride IV 0 units/hr .Q0M [facility] 0 mls/hr Titration Protocol Per Protocol Clevidipine 25 mg/ IV Solution 50 mls @ 2 mls/hr 12/04/21 13:16 12/05/21 07:59 IV 6 mg/hr .Q24H [facility] 12 mls/hr Titration Protocol 1 MG/HR Albumin Human 250 ml/ IV 250 mls @ 250 mls/hr 12/04/21 13:16 12/05/21 10:25 Solution IVPB 12/06/21 13:17 250 mls/hr Q1HR PRN Administration For Volume Protocol Lactated Ringer's 1,000 mls @ 20 mls/hr 12/04/21 13:16 12/04/21 13:30 Lactated Ringers IV 50 mls/hr .Q24H [facility] Administration Calcium Gluconate/Sodium 100 mls @ 100 mls/hr 12/04/21 13:16 Chloride 2 gm/ IV Solution IVPB 12/05/21 23:00 ONCE PRN Ionized Calcium less than 4.4 Amiodarone HCl 150 mg/ 103 mls @ 618 mls/hr 12/04/21 13:16 Dextrose/Water IV .Q10M PRN A.FIB/FLUTTER Protocol Amiodarone HCl 360 mg/ 207.2 mls @ 34.533 mls/hr 12/04/21 13:16 Dextrose/Water IV .Q6H PRN A.FIB/FLUTTER Protocol 1 MG/MIN Amiodarone HCl 450 mg/ 250 mls @ 16.667 mls/hr 12/04/21 13:16 Dextrose/Water IV .Q15H PRN A.FIB/FLUTTER Protocol 0.5 MG/MIN Lisinopril 2.5 mg 12/05/21 12:00 Lisinopril 2.5 Mg Tab PO DAILY@1200 [facility] Magnesium Hydroxide 2,400 mg 12/05/21 09:00 Magnesium Hydroxide 2,400 Mg/10 Ml Cup PO BID PRN Constipation Metoclopramide HCl 5 mg 12/04/21 13:16 Metoclopramide 5 Mg/Ml 2 Ml Vial IVP Q4H PRN Nausea And Vomiting Metoprolol Tartrate 12.5 mg 12/05/21 09:00 12/05/21 08:04 Metoprolol Tartrate 12.5 Mg Tab PO 12.5 mg BID [facility] Administration Miscellaneous Information 1 each 12/04/21 13:16 Magnesium Replacement Protocol 1 Each Misc MISCELLANE DAILY PRN Per Protocol Protocol Miscellaneous Information 1 each 12/04/21 13:16 Potassium Replacement Protocol 1 Each Misc MISCELLANE DAILY PRN Per Protocol Protocol Miscellaneous Information 1 each 12/04/21 13:16 Phosphorus Replacement Protoco 1 Each Mis MISCELLANE DAILY PRN Per Protocol Protocol Mupirocin 1 applic 12/04/21 21:00 12/05/21 08:04 Mupirocin 2% Oint 22 Gm Tube NASAL 12/07/21 21:01 1 applic BID [facility] Administration Ondansetron HCl 4 mg 12/04/21 13:16 Ondansetron 4 Mg/2 Ml Vial IVP Q6HR PRN Nausea And Vomiting Senna/Docusate Sodium 2 each 12/05/21 21:00 Sennosides-Docusate Sodium 1 Each Tab PO HS [facility] Intake and Output 12/04/21 12/05/21 12/05/21 22:59 06:59 14:59 Intake Total 772.394 1850.965 1035.022 Output Total 1027 685 162 Balance -202.303 551.965 873.022 Intake: IV 742 1142 1016 ACETAMINOPHEN IV (For NPO 400 ) 1,000 mg In Empty Bag 1 bag @ 400 mls/hr IVPB Q6HR [facility] Rx#:[id number] Albumin Human 5% 250 ml 750 In Empty Bag 1 bag @ 250 mls/hr IVPB Q1HR PRN Rx#: [id number] CO/CI 270 170 30 Lactated Ringers 1,000 ml 400 400 50 @ 20 mls/hr IV .Q24H [facility] Rx#:[id number] Pressure Bags 72 72 36 ceFAZolin 2 gm In Sodium 100 150 Chloride 0.9% 50 ml @ 100 mls/hr IVPB Q8HR [facility] Rx# :[id number] Intake, IV Titration 82.697 94.965 19.022 Amount Clevidipine Butyrate 25 41.767 59.733 11.867 mg In Empty Bag 1 bag @ 1 MG/HR 2 mls/hr IV .Q24H [facility] Rx#:[id number] Insulin Regular 100 unit 24.340 35.232 7.155 In Sodium Chloride 0.9% 100 ml @ Per Protocol IV .Q0M [facility] Rx#:[id number] propofoL 1,000 mg In 16.590 Empty Bag 1 bag @ 20 MCG/ KG/MIN 10.152 mls/hr IV . Q9H52M [facility] Rx#:[id number] Output: Chest Tube Drainage 142 165 37 Left Pleural 30 57 17 Mediastinal 112 108 20 Urine 885 520 125 Other: Voiding Method Indwelling Catheter Indwelling Catheter Indwelling Catheter Weight 86.7 kg 12/05/21 04:10 12/05/21 04:10
[2021-12-05 12:11] LABS: Glucose,Whole Blood 140 mg/dL (70-110)
[2021-12-05] MEDS: INSULIN ASPART (NovoLOG) 100 UNIT/ML VIAL SQ SCH ×3 (12:42→20:44)
[2021-12-05 13:13] VITALS: BMI 33.3
--- NOTE | 2021-12-05 13:47 | P.PN ---
Subjective Progress Note Date: 12/05/21 Principal diagnosis: Severe aortic stenosis, status post aortic valve replacement postoperative day #1 This is a 71-year-old female whom I saw yesterday on consultation, patient had history of severe aortic stenosis, paroxysmal atrial fibrillation, hypertension dyslipidemia degenerative joint disease, patient underwent uneventful aortic valve replacement using a 21 mm Whitney prosthetic valve, she had ligation of the left atrial appendage, bilateral pulmonary vein isolation, and intraoperative epi-aortic ultrasound and transesophageal echocardiogram. This is postoperative day #1, patient was extubated last night shortly after she arrived to the ICU. Remains in the ICU today, she is on 2 L nasal cannula. Patient is on clevidipine acceptable milligrams per hour. IV fluid at 50 mL per hour in the form of vital are. Continues to have chest tubes in place and right IJ Goodwin-Opal catheter. Patient is in no distress, seems to be doing well, chest x-ray is unremarkable, minimal bibasilar atelectasis is noted/expected. WBC count is 7.2 hemoglobin is 9.5. Basic metabolic profile is normal renal profile is normal Objective - Vital Signs Vital signs: Vital Signs Temp 99.7 F H 12/05/21 10:30 Pulse 71 12/05/21 13:00 Resp 15 12/05/21 13:00 BP 116/52 12/05/21 09:00 Pulse Ox 94 L 12/05/21 13:00 FiO2 50 12/04/21 16:01 Intake & Output 12/04/21 12/05/21 12/05/21 18:59 06:59 18:59 Intake Total 047.199 1127.016 1163.022 Output Total 3010 1002 392 Balance -2300.834 582.016 771.022 Weight 86.7 kg 86.7 kg Intake: IV 656 7568 1144 ACETAMINOPHEN IV (For NPO 400 ) 1,000 mg In Empty Bag 1 bag @ 400 mls/hr IVPB Q6HR [facility] Rx#:[id number] Albumin Human 5% 250 ml 750 In Empty Bag 1 bag @ 250 mls/hr IVPB Q1HR PRN Rx#: [id number] CO/CI 250 250 30 Lactated Ringers 1,000 ml 300 600 50 @ 20 mls/hr IV .Q24H [facility] Rx#:[id number] Pressure Bags 54 108 54 ceFAZolin 2 gm In Sodium 100 260 Chloride 0.9% 50 ml @ 100 mls/hr IVPB Q8HR [facility] Rx# :[id number] Intake, IV Titration 53.166 126.016 19.022 Amount Clevidipine Butyrate 25 26.233 76.400 11.867 mg In Empty Bag 1 bag @ 1 MG/HR 2 mls/hr IV .Q24H [facility] Rx#:[id number] Insulin Regular 100 unit 10.343 49.616 7.155 In Sodium Chloride 0.9% 100 ml @ Per Protocol IV .Q0M [facility] Rx#:[id number] propofoL 1,000 mg In 16.590 Empty Bag 1 bag @ 20 MCG/ KG/MIN 10.152 mls/hr IV . Q9H52M [facility] Rx#:[id number] Output: Chest Tube Drainage 145 212 177 Left Pleural 15 72 57 Mediastinal 130 140 120 Urine 1465 790 215 Estimated Blood Loss 1400 Other: Voiding Method Indwelling Catheter Indwelling Catheter Indwelling Catheter ABP, PAP, CO, CI - Last Documented Arterial Blood Pressure 142/45 Pulmonary Artery Pressure 26/8 Cardiac Output 3.8 Cardiac Index 2 - Exam Gen.: Revealed a 71-year-old female in no distress. On 2 L nasal cannula. HEENT: Atraumatic, normocephalic, right IJ catheter noted.. RESPIRATORY: Symmetrical chest expansion, slightly diminished breath sounds at the bases no rhonchi no wheezes. CARDIOVASCULAR: Distant S1 and S2, no S3 gallop. GASTROINTESTINAL: Soft nontender no megaly no rebound no guarding. INTEGUMENTARY: No skin rashes, mid sternal incision is clean. NEUROLOGIC: Alert and oriented 3 focal deficits. MUSKULOSKELETAL: No deformities and no limitation in range of motion. PSYCHIATRIC: Alert and oriented 3 no gross focal deficits. - Labs CBC & Chem 7: 12/05/21 04:10 12/05/21 04:10 Labs: Abnormal Lab Results - Last 24 Hours (Table) 12/03/21 12/04/21 12/04/21 Range/Units 11:38 13:17 13:17 WBC (3.8-10.6) k/uL RBC (3.80-5.40) m/uL Hgb (11.4-16.0) gm/dL Hct (34.0-46.0) % Plt Count 90 L (150-450) k/uL Neutrophils # (1.3-7.7) k/uL Lymphocytes # 0.9 L (1.0-4.8) k/uL ABG pO2 (83-108) mmHg ABG Total CO2 (19-24) mmol/L ABG O2 Saturation (94-97) % Sodium (137-145) mmol/L Chloride 111 H (98-107) mmol/L Creatinine (0.52-1.04) mg/dL Glucose 114 H (74-99) mg/dL POC Glucose (mg/dL) (70-110) mg/dL Calcium 7.8 L (8.4-10.2) mg/dL Magnesium 2.8 H (1.6-2.3) mg/dL AST 47 H (14-36) U/L Alkaline Phosphatase 34 L (38-126) U/L Total Protein 4.0 L (6.3-8.2) g/dL Albumin 2.5 L (3.5-5.0) g/dL Crossmatch See Detail 12/04/21 12/04/21 12/04/21 Range/Units 13:54 15:00 15:57 WBC 11.7 H (3.8-10.6) k/uL RBC 3.37 L (3.80-5.40) m/uL Hgb 10.7 L (11.4-16.0) gm/dL Hct 32.4 L (34.0-46.0) % Plt Count 129 L (150-450) k/uL Neutrophils # 9.5 H (1.3-7.7) k/uL Lymphocytes # (1.0-4.8) k/uL ABG pO2 (83-108) mmHg ABG Total CO2 (19-24) mmol/L ABG O2 Saturation (94-97) % Sodium (137-145) mmol/L Chloride (98-107) mmol/L Creatinine (0.52-1.04) mg/dL Glucose (74-99) mg/dL POC Glucose (mg/dL) 121 H 159 H (70-110) mg/dL Calcium (8.4-10.2) mg/dL Magnesium (1.6-2.3) mg/dL AST (14-36) U/L Alkaline Phosphatase (38-126) U/L Total Protein (6.3-8.2) g/dL Albumin (3.5-5.0) g/dL Crossmatch 12/04/21 12/04/21 12/04/21 Range/Units 15:59 16:41 17:05 WBC (3.8-10.6) k/uL RBC (3.80-5.40) m/uL Hgb (11.4-16.0) gm/dL Hct (34.0-46.0) % Plt Count (150-450) k/uL Neutrophils # (1.3-7.7) k/uL Lymphocytes # (1.0-4.8) k/uL ABG pO2 183 H (83-108) mmHg ABG Total CO2 25 H (19-24) mmol/L ABG O2 Saturation 100.0 H (94-97) % Sodium (137-145) mmol/L Chloride (98-107) mmol/L Creatinine (0.52-1.04) mg/dL Glucose (74-99) mg/dL POC Glucose (mg/dL) 183 H 181 H (70-110) mg/dL Calcium (8.4-10.2) mg/dL Magnesium (1.6-2.3) mg/dL AST (14-36) U/L Alkaline Phosphatase (38-126) U/L Total Protein (6.3-8.2) g/dL Albumin (3.5-5.0) g/dL Crossmatch 12/04/21 12/04/21 12/04/21 Range/Units 18:03 19:04 19:04 WBC (3.8-10.6) k/uL RBC 3.18 L (3.80-5.40) m/uL Hgb 9.9 L (11.4-16.0) gm/dL Hct 30.7 L (34.0-46.0) % Plt Count 103 L (150-450) k/uL Neutrophils # (1.3-7.7) k/uL Lymphocytes # 0.4 L (1.0-4.8) k/uL ABG pO2 (83-108) mmHg ABG Total CO2 (19-24) mmol/L ABG O2 Saturation (94-97) % Sodium (137-145) mmol/L Chloride (98-107) mmol/L Creatinine (0.52-1.04) mg/dL Glucose (74-99) mg/dL POC Glucose (mg/dL) 179 H 165 H (70-110) mg/dL Calcium (8.4-10.2) mg/dL Magnesium (1.6-2.3) mg/dL AST (14-36) U/L Alkaline Phosphatase (38-126) U/L Total Protein (6.3-8.2) g/dL Albumin (3.5-5.0) g/dL Crossmatch 12/04/21 12/04/21 12/04/21 Range/Units 19:58 20:52 22:28 WBC (3.8-10.6) k/uL RBC (3.80-5.40) m/uL Hgb (11.4-16.0) gm/dL Hct (34.0-46.0) % Plt Count (150-450) k/uL Neutrophils # (1.3-7.7) k/uL Lymphocytes # (1.0-4.8) k/uL ABG pO2 (83-108) mmHg ABG Total CO2 (19-24) mmol/L ABG O2 Saturation (94-97) % Sodium (137-145) mmol/L Chloride (98-107) mmol/L Creatinine (0.52-1.04) mg/dL Glucose (74-99) mg/dL POC Glucose (mg/dL) 146 H 138 H 134 H (70-110) mg/dL Calcium (8.4-10.2) mg/dL Magnesium (1.6-2.3) mg/dL AST (14-36) U/L Alkaline Phosphatase (38-126) U/L Total Protein (6.3-8.2) g/dL Albumin (3.5-5.0) g/dL Crossmatch 12/04/21 12/04/21 12/05/21 Range/Units 23:13 23:47 00:59 WBC (3.8-10.6) k/uL RBC (3.80-5.40) m/uL Hgb (11.4-16.0) gm/dL Hct (34.0-46.0) % Plt Count (150-450) k/uL Neutrophils # (1.3-7.7) k/uL Lymphocytes # (1.0-4.8) k/uL ABG pO2 (83-108) mmHg ABG Total CO2 (19-24) mmol/L ABG O2 Saturation (94-97) % Sodium (137-145) mmol/L Chloride (98-107) mmol/L Creatinine (0.52-1.04) mg/dL Glucose (74-99) mg/dL POC Glucose (mg/dL) 131 H 123 H 118 H (70-110) mg/dL Calcium (8.4-10.2) mg/dL Magnesium (1.6-2.3) mg/dL AST (14-36) U/L Alkaline Phosphatase (38-126) U/L Total Protein (6.3-8.2) g/dL Albumin (3.5-5.0) g/dL Crossmatch 12/05/21 12/05/21 12/05/21 Range/Units 02:07 02:52 03:35 WBC (3.8-10.6) k/uL RBC (3.80-5.40) m/uL Hgb (11.4-16.0) gm/dL Hct (34.0-46.0) % Plt Count (150-450) k/uL Neutrophils # (1.3-7.7) k/uL Lymphocytes # (1.0-4.8) k/uL ABG pO2 (83-108) mmHg ABG Total CO2 (19-24) mmol/L ABG O2 Saturation (94-97) % Sodium (137-145) mmol/L Chloride (98-107) mmol/L Creatinine (0.52-1.04) mg/dL Glucose (74-99) mg/dL POC Glucose (mg/dL) 113 H 119 H 133 H (70-110) mg/dL Calcium (8.4-10.2) mg/dL Magnesium (1.6-2.3) mg/dL AST (14-36) U/L Alkaline Phosphatase (38-126) U/L Total Protein (6.3-8.2) g/dL Albumin (3.5-5.0) g/dL Crossmatch 12/05/21 12/05/21 12/05/21 Range/Units 04:01 04:10 04:10 WBC (3.8-10.6) k/uL RBC 2.94 L (3.80-5.40) m/uL Hgb 9.5 L (11.4-16.0) gm/dL Hct 28.5 L (34.0-46.0) % Plt Count 105 L (150-450) k/uL Neutrophils # (1.3-7.7) k/uL Lymphocytes # 0.5 L (1.0-4.8) k/uL ABG pO2 (83-108) mmHg ABG Total CO2 (19-24) mmol/L ABG O2 Saturation (94-97) % Sodium 134 L (137-145) mmol/L Chloride (98-107) mmol/L Creatinine 0.46 L (0.52-1.04) mg/dL Glucose 118 H (74-99) mg/dL POC Glucose (mg/dL) 129 H (70-110) mg/dL Calcium 7.8 L (8.4-10.2) mg/dL Magnesium (1.6-2.3) mg/dL AST 60 H (14-36) U/L Alkaline Phosphatase (38-126) U/L Total Protein 4.8 L (6.3-8.2) g/dL Albumin 3.2 L (3.5-5.0) g/dL Crossmatch 12/05/21 12/05/21 12/05/21 Range/Units 05:00 06:51 08:00 WBC (3.8-10.6) k/uL RBC (3.80-5.40) m/uL Hgb (11.4-16.0) gm/dL Hct (34.0-46.0) % Plt Count (150-450) k/uL Neutrophils # (1.3-7.7) k/uL Lymphocytes # (1.0-4.8) k/uL ABG pO2 (83-108) mmHg ABG Total CO2 (19-24) mmol/L ABG O2 Saturation (94-97) % Sodium (137-145) mmol/L Chloride (98-107) mmol/L Creatinine (0.52-1.04) mg/dL Glucose (74-99) mg/dL POC Glucose (mg/dL) 115 H 124 H 132 H (70-110) mg/dL Calcium (8.4-10.2) mg/dL Magnesium (1.6-2.3) mg/dL AST (14-36) U/L Alkaline Phosphatase (38-126) U/L Total Protein (6.3-8.2) g/dL Albumin (3.5-5.0) g/dL Crossmatch 12/05/21 12/05/21 Range/Units 09:02 12:10 WBC (3.8-10.6) k/uL RBC (3.80-5.40) m/uL Hgb (11.4-16.0) gm/dL Hct (34.0-46.0) % Plt Count (150-450) k/uL Neutrophils # (1.3-7.7) k/uL Lymphocytes # (1.0-4.8) k/uL ABG pO2 (83-108) mmHg ABG Total CO2 (19-24) mmol/L ABG O2 Saturation (94-97) % Sodium (137-145) mmol/L Chloride (98-107) mmol/L Creatinine (0.52-1.04) mg/dL Glucose (74-99) mg/dL POC Glucose (mg/dL) 114 H 140 H (70-110) mg/dL Calcium (8.4-10.2) mg/dL Magnesium (1.6-2.3) mg/dL AST (14-36) U/L Alkaline Phosphatase (38-126) U/L Total Protein (6.3-8.2) g/dL Albumin (3.5-5.0) g/dL Crossmatch Assessment and Plan Assessment: Impression: Severe aortic stenosis, status post AVR postoperative day #1 Paroxysmal atrial fibrillation. Anemia Benign essential hypertension Degenerative joint disease History of psoriasis GERD without esophagitis Postoperative atelectasis, expected. Recommendation: Continue cardiac meds including aspirin statins beta blockers and Plavix Wean off the level of proximal. Patient was started on lisinopril. Titrate oxygen accordingly. Continue incentive spirometry. Continue GI and DVT prophylaxis. Discontinue unnecessary catheters and lines. Early ambulation. We'll continue to follow. Time with Patient: Less than 30
[2021-12-05 16:45] LABS: Glucose,Whole Blood 124 mg/dL (70-110)
[2021-12-05] MEDS: LACTATED RINGERS 1,000 ML IV SCH (16:58)
[2021-12-05 20:36] LABS: Glucose,Whole Blood 151 mg/dL (70-110)
[2021-12-05] MEDS: SENNOSIDES-DOCUSATE SODIUM 1 EACH TAB PO SCH (20:44)
[2021-12-05] MEDS: FAMOTIDINE 20 MG TAB PO SCH (20:44)
[2021-12-06] MEDS: HEPARIN SODIUM,PORCINE/PF 5,000 UNIT/0.5 ML SYRINGE SQ SCH ×4 (00:02→23:06)
[2021-12-06] MEDS: CLEVIDIPINE BUTYRATE 25 MG in EMPTY BAG 1 BAG IV SCH ×2 (00:03→05:06)
[2021-12-06] MEDS: HYDROcodone/APAP 5-325MG 1 EACH TAB PO PRN ×6 (00:13→22:49)
[2021-12-06 05:08] LABS: Basophils % (A) 0 %; Eosinophils # (A) 0.1 k/uL (0-0.7); Eosinophils % (A) 1 %; HCT 25.6 % (34.0-46.0); HGB 8.5 gm/dL (11.4-16.0); Lymphocytes # (A) 0.8 k/uL (1.0-4.8); Lymphocytes % (A) 9 %; MCH 32.1 pg (25.0-35.0); MCHC 33.2 g/dL (31.0-37.0); MCV 96.6 fL (80.0-100.0); Mean Platelet Volume 9.7; Monocytes # (A) 0.6 k/uL (0-1.0); Monocytes % (A) 7 %; Neutrophils # (A) 7.5 k/uL (1.3-7.7); Neutrophils % (A) 83 %; RBC 2.65 m/uL (3.80-5.40); RDW 13.2 % (11.5-15.5); WBC 9.1 k/uL (3.8-10.6)
[2021-12-06 05:25] LABS: Ionized Calcium 4.8 mg/dL (4.5-5.3)
[2021-12-06 05:30] LABS: Platelet Count 88 k/uL (150-450)
[2021-12-06 05:34] LABS: ALT 18 U/L (4-34); AST 45 U/L (14-36); African American GFR (CKD) >90 (>60 ml/min/1.73 sqM); Albumin 3.4 g/dL (3.5-5.0); Alkaline Phosphatase 44 U/L (38-126); Anion Gap 3 mmol/L; Blood Urea Nitrogen 17 mg/dL (7-17); Carbon Dioxide 27 mmol/L (22-30); Chloride 104 mmol/L (98-107); Glucose 136 mg/dL (74-99); Non-African American GFR(CKD) >90 (>60 ml/min/1.73 sqM); Sodium 134 mmol/L (137-145); Total Bilirubin 1.1 mg/dL (0.2-1.3); Total Protein 5.1 g/dL (6.3-8.2)
[2021-12-06 06:54] LABS: Glucose,Whole Blood 143 mg/dL (70-110)
[2021-12-06] MEDS: INSULIN ASPART (NovoLOG) 100 UNIT/ML VIAL SQ SCH ×4 (06:55→20:12)
[2021-12-06] MEDS: IPRATROPIUM-ALBUTEROL 3 ML NEB INHALATION SCH ×4 (07:39→21:02)
--- NOTE | 2021-12-06 07:43 | XR ---
EXAMINATION TYPE: XR chest 1V portable DATE OF EXAM: 12/06/2021 COMPARISON: Chest x-ray 12/05/2021 HISTORY: Postop cardiac surgery, chest tube TECHNIQUE: Single frontal view of the chest is obtained. FINDINGS: Left-sided chest tube remains in place. There are overlying artifacts. No evident pneumoth orax. Patient is post median sternotomy and left atrial appendage clip placement, cardiac valve repla cement. Cardiac mediastinal silhouette is stable. Median sternal drain remains in place. Central veno us sheath is in place however the central venous catheter has been removed. Interstitium is mildly in creased, there is some improvement in lung volume, aeration. Persistent patchy basilar density may re flect atelectasis. IMPRESSION: Suspect some improvement in patient's volume status. There is improved aeration within t he lungs.
[2021-12-06] MEDS ORDERED: FUROSEMIDE 10 MG/ML 4 ML VIAL IV STA (08:11)
[2021-12-06] MEDS ORDERED: POTASSIUM CHLORIDE ER 20 MEQ TAB.ER PO STA (08:11)
[2021-12-06] MEDS: ATORVASTATIN 40 MG TAB PO SCH (08:20)
[2021-12-06] MEDS: CLOPIDOGREL 75 MG TAB PO SCH (08:20)
[2021-12-06] MEDS: ASPIRIN 325 MG TAB PO SCH (08:20)
[2021-12-06] MEDS: MUPIROCIN 2% OINT 22 GM TUBE NASAL SCH ×2 (08:21→20:19)
[2021-12-06] MEDS: METOPROLOL TARTRATE 25 MG TAB PO SCH ×2 (08:24→20:19)
--- NOTE | 2021-12-06 08:34 | P.PN ---
Subjective Progress Note Date: 12/06/21 Principal diagnosis: Severe aortic valve stenosis, paroxysmal atrial fibrillation. Past medical history significant for hypertension, hyperlipidemia, osteoarthritis, psoriasis, gastroesophageal reflux disease, degenerative joint disease, remote history of smoking, history of TIAs, with the most recent being in September 2021 and is taking aspirin and Plavix on an outpatient basis. POD #2 aortic valve replacement using a 21 mm Whitney Inspiris prosthetic valve, ligation of the left atrial appendage using a 35 mm Atriclip, bilateral pulmonary vein isolation, intraoperative epi-aortic ultrasound and transesophageal echocardiogram. Postoperative acute blood loss anemia, expected given hemodilution and cardiopulmonary bypass. The patient is seen and examined in follow-up today 12/06/2021 at her bedside in the intensive care unit. Currently, the patient is sitting up to the bedside chair, is awake, alert, oriented 3 and is in no acute apparent distress. She denies any complaints of shortness of breath at this time although is complaining of some surgical type pain rating her pain 6 out of 10 on the pain scale. Oxygen saturation are 97% on 2 L nasal cannula and she is achieving 1252 1500 mL on her incentive spirometry with encouragement. Bedside telemetry showing normal sinus rhythm heart rate 72. She remains on a Cleviprex drip at 3 mg per hour for blood pressure control. Blood pressure is currently 157/43 on her arterial line. Right IJ cordis remains in place with current CVP pressure 12 mmHg. She reports she has been up ambulating in the intensive care unit, with this morning with standby assistance from nursing staff. She reports she tolerated to walk well. Pierce catheter remains in place for accurate I's and O's, 225 mL of urine output in the last 8 hours. Mediastinal left pleural chest tubes remain in place to low continuous wall suction -20 cm H2O. No air leak is present. Draining thin serosanguineous drainage. Mediastinal chest tube drained 70 mL output in the last 8 hours and 180 mL output in the last 24 hours. Left pleural chest tube drained 70 mL output in the last 8 hours and 200 mL output the last 24 hours. Laboratory results this morning show a WBC count of 9.1, hemoglobin 8.5, hematocrit 25.6, platelets 88, sodium 134, potassium 4.0, BUN 17, creatinine 0.50, gross 136, calcium 8.0, and AST trending down at 45. She has been afebrile in the last 24 hours. Atrial and ventricular epicardial pacemaker wires remained in place and are grounded. Objective - Vital Signs Vital signs: Vital Signs Temp 98.4 F 12/06/21 04:00 Pulse 74 12/06/21 08:00 Resp 13 12/06/21 08:00 BP 127/56 12/06/21 08:00 Pulse Ox 93 L 12/06/21 08:00 FiO2 50 12/04/21 16:01 Intake & Output 12/05/21 12/06/21 12/06/21 18:59 06:59 18:59 Intake Total 1691.155 693.201 212 Output Total 597 475 50 Balance 1094.155 218.201 162 Weight 86.7 kg 89.7 kg Intake: IV 1634 552 92 Albumin Human 5% 250 ml 1000 In Empty Bag 1 bag @ 250 mls/hr IVPB Q1HR PRN Rx#: [id number] CO/CI 30 Lactated Ringers 1,000 ml 50 440 80 @ 20 mls/hr IV .Q24H [facility] Rx#:[id number] Pressure Bags 84 72 12 ceFAZolin 2 gm In Sodium 470 40 Chloride 0.9% 50 ml @ 100 mls/hr IVPB Q8HR [facility] Rx# :[id number] Intake, IV Titration 57.155 141.201 Amount Clevidipine Butyrate 25 50.000 141.201 mg In Empty Bag 1 bag @ 1 MG/HR 2 mls/hr IV .Q24H [facility] Rx#:[id number] Insulin Regular 100 unit 7.155 In Sodium Chloride 0.9% 100 ml @ Per Protocol IV .Q0M [facility] Rx#:[id number] Oral 120 Output: Chest Tube Drainage 247 160 20 Left Pleural 107 70 10 Mediastinal 140 90 10 Urine 350 315 30 Other: Voiding Method Indwelling Catheter Indwelling Catheter ABP, PAP, CO, CI - Last Documented Arterial Blood Pressure 132/40 Pulmonary Artery Pressure 26/8 Cardiac Output 3.8 Cardiac Index 2 - Exam CONSTITUTIONAL: Sitting up to the bedside chair in the intensive care unit, appears comfortable, cooperative, no apparent acute distress. HEENT: Neck is supple, no JVD, no lymphadenopathy. Right IJ Cordis in place and functioning. RESPIRATORY: Lungs sounds essentially clear throughout, diminished to her bilateral bases. Respirations are symmetrical and nonlabored. Currently on 2 L nasal cannula with oxygen saturations 97%. Able to achieve 5658-5497 mL on her incentive spirometry. Strong cough. CARDIOVASCULAR: Regular rhythm and rate. S1 and S2 present, negative for S3, gallop or murmur. Sternum is stable. Palpable peripheral pulses bilaterally. No calf pain or tenderness noted. Heart hugger in place with patient demonstrating appropriate use. Knee-high RENZO hose and sequential compression devices in place bilateral lower extremities. Bedside telemetry showing normal sinus rhythm heart rate 72 BPM. GASTROINTESTINAL: Abdomen soft, nontender, nondistended. Active bowel sounds present 4 quadrants. Tolerating diet. Passing flatus. No guarding or rigidity. GENITOURINARY: Pierce present draining clear, yellow urine. Output 225 mL in the last 8 hours INTEGUMENTARY: Skin is warm and dry with no evidence of clubbing or cyanosis. Midline sternal incision clean dry and well approximated, covered with dry intact dressing. NEUROLOGIC: Cranial nerves II through XII intact. No focal deficits. MUSKULOSKELETAL: Able to move all extremities, strength equal bilaterally. PSYCHIATRIC: Alert and oriented to person place and time, appropriate affect, intact judgment and insight. INVASIVE LINES AND TUBES: Mediastinal/left pleural chest tubes present and connected to low continuous wall suction, no air leaks present. Mediastinal tube with 70 mL of thin serosanguineous drainage overnight, 180 mL output in the last 24 hours. Left pleural chest tube with 70 mL of thin serosanguineous drainage overnight, 200 mL output in the last 24 hours. Atrial and ventricular epicardial pacemaker wires present, and are currently grounded. Right internal jugular Cordis, right radial arterial line present. Current CVP 12 mmHg. - Allied health notes Allied health notes reviewed: nursing - Labs CBC & Chem 7: 12/06/21 05:00 12/06/21 05:00 Labs: Abnormal Lab Results - Last 24 Hours (Table) 12/05/21 12/05/21 12/05/21 Range/Units 09:02 12:10 16:43 RBC (3.80-5.40) m/uL Hgb (11.4-16.0) gm/dL Hct (34.0-46.0) % Plt Count (150-450) k/uL Lymphocytes # (1.0-4.8) k/uL Sodium (137-145) mmol/L Creatinine (0.52-1.04) mg/dL Glucose (74-99) mg/dL POC Glucose (mg/dL) 114 H 140 H 124 H (70-110) mg/dL Calcium (8.4-10.2) mg/dL AST (14-36) U/L Total Protein (6.3-8.2) g/dL Albumin (3.5-5.0) g/dL 12/05/21 12/06/21 12/06/21 Range/Units 20:35 05:00 05:00 RBC 2.65 L (3.80-5.40) m/uL Hgb 8.5 L (11.4-16.0) gm/dL Hct 25.6 L (34.0-46.0) % Plt Count 88 L (150-450) k/uL Lymphocytes # 0.8 L (1.0-4.8) k/uL Sodium 134 L (137-145) mmol/L Creatinine 0.50 L (0.52-1.04) mg/dL Glucose 136 H (74-99) mg/dL POC Glucose (mg/dL) 151 H (70-110) mg/dL Calcium 8.0 L (8.4-10.2) mg/dL AST 45 H (14-36) U/L Total Protein 5.1 L (6.3-8.2) g/dL Albumin 3.4 L (3.5-5.0) g/dL 12/06/21 Range/Units 06:52 RBC (3.80-5.40) m/uL Hgb (11.4-16.0) gm/dL Hct (34.0-46.0) % Plt Count (150-450) k/uL Lymphocytes # (1.0-4.8) k/uL Sodium (137-145) mmol/L Creatinine (0.52-1.04) mg/dL Glucose (74-99) mg/dL POC Glucose (mg/dL) 143 H (70-110) mg/dL Calcium (8.4-10.2) mg/dL AST (14-36) U/L Total Protein (6.3-8.2) g/dL Albumin (3.5-5.0) g/dL - Imaging and Cardiology Chest x-ray: report reviewed, image reviewed Assessment and Plan Assessment: 1. Severe aortic valve stenosis, status post aortic valve replacement using a 21 mm Whitney Inspiris prosthetic valve 2. Persistent paroxysmal atrial fibrillation, status post ligation of the left atrial appendage and bilateral pulmonary vein isolation 3. Hypertension 4. Hyperlipidemia 5. History of TIA with most recent TIA in September 2021 6. Osteoarthritis 7. Psoriasis 8. Gastroesophageal reflux disease 9. Remote history of smoking 10. Postoperative acute blood loss anemia, expected given hemodilution and cardiopulmonary bypass Plan: 1. Continue aspirin, statin, Plavix, and beta chika. Will increase metoprolol tartrate 25 mg by mouth twice a day. 2. Wean Cleviprex drip. Increase lisinopril to 5 mg by mouth daily. 3. Wean O2 as tolerated. Encourage incentive spirometry 10 times every hour while awake. Bronchodilators per pulmonology/critical care medicine. 4. Increase activity as tolerated. PT/OT/cardiac rehab following. 5. Will monitor daily labs and chest x-rays. Electrolyte replacement per protocol. 6. GI/DVT prophylaxis. 7. Pain control with current medication regimen. No Toradol was ordered as the patient has a history of an ALLERGIC reaction to meloxicam. 8. Insulin management per primary care service. Patient is not diabetic, preoperative hemoglobin A1c 5.6% of predicted. 9. Discontinue right IJ Cordis. 10. Remove mediastinal chest tube, leave left pleural chest tube in place to low continuous wall suction -20 cm H2O, anticipate removal of left pleural chest tube tomorrow 12/07/2021. 11. Remove Pierce catheter, continue to record strict accurate intake and output. Daily weights. 12. Lasix 40 mg IV 1 now, potassium chloride 20 mEq by mouth 1 now. 13. Ground atrial and ventricular epicardial pacemaker wires. 14. More recommendations to follow based on patient's clinical course. Time with Patient: Greater than 30
[2021-12-06 11:37] LABS: Glucose,Whole Blood 120 mg/dL (70-110)
--- NOTE | 2021-12-06 12:31 | P.PN ---
Subjective Progress Note Date: 12/06/21 Principal diagnosis: Severe aortic stenosis, status post aortic valve replacement postoperative day #2 This is a 71-year-old female whom I saw yesterday on consultation, patient had history of severe aortic stenosis, paroxysmal atrial fibrillation, hypertension dyslipidemia degenerative joint disease, patient underwent uneventful aortic valve replacement using a 21 mm Whitney prosthetic valve, she had ligation of the left atrial appendage, bilateral pulmonary vein isolation, and intraoperative epi-aortic ultrasound and transesophageal echocardiogram. This is postoperative day #1, patient was extubated last night shortly after she arrived to the ICU. Remains in the ICU today, she is on 2 L nasal cannula. Patient is on clevidipine acceptable milligrams per hour. IV fluid at 50 mL per hour in the form of vital are. Continues to have chest tubes in place and right IJ [place]-Opal catheter. Patient is in no distress, seems to be doing well, chest x-ray is unremarkable, minimal bibasilar atelectasis is noted/expected. WBC count is 7.2 hemoglobin is 9.5. Basic metabolic profile is normal renal profile is normal Reevaluated today on 12/06/21, patient is now postoperative #2, aortic valve replacement, patient remains in the ICU, sitting at a bedside chair, patient is on room air, does not seem to be in any distress. Pulling about 1200 mL on her incentive spirometer. Patient is in sinus rhythm, she is on clevidipine drip at 3 mg per hour for blood pressure control. Her right IJ Cordis has been removed. Patient is complaining of some vague chest pain at the surgical site. And she is to receive some pain medication shortly. She has been ambulating in the hallway, and does not seem to be in any form of pulmonary distress. She has good urine output over the last 8 hours. Continues to have a mediastinal left pleural tubes remain in place. No air leak is noted in either chest tube. Serosanguineous drainage is noted. Patient continues to have atrial and ventricular epicardial pacemaker wires. Labs today were unremarkable. Chest x- ray showing mild pulmonary vascular congestion, improved compared to the chest x-ray yesterday Objective - Vital Signs Vital signs: Vital Signs Temp 98.7 F 12/06/21 08:00 Pulse 66 12/06/21 12:16 Resp 24 12/06/21 11:00 BP 113/55 12/06/21 11:00 Pulse Ox 85 L 12/06/21 11:00 FiO2 50 12/04/21 16:01 Intake & Output 12/05/21 12/06/21 12/06/21 18:59 06:59 18:59 Intake Total 1691.155 693.201 295.2 Output Total 597 475 675 Balance 1094.155 218.201 -379.8 Weight 86.7 kg 89.7 kg Intake: IV 1634 552 168 Albumin Human 5% 250 ml 1000 In Empty Bag 1 bag @ 250 mls/hr IVPB Q1HR PRN Rx#: [id number] CO/CI 30 Lactated Ringers 1,000 ml 50 440 150 @ 20 mls/hr IV .Q24H [facility] Rx#:[id number] Pressure Bags 84 72 18 ceFAZolin 2 gm In Sodium 470 40 Chloride 0.9% 50 ml @ 100 mls/hr IVPB Q8HR [facility] Rx# :[id number] Intake, IV Titration 57.155 141.201 7.2 Amount Clevidipine Butyrate 25 50.000 141.201 7.2 mg In Empty Bag 1 bag @ 1 MG/HR 2 mls/hr IV .Q24H [facility] Rx#:[id number] Insulin Regular 100 unit 7.155 In Sodium Chloride 0.9% 100 ml @ Per Protocol IV .Q0M [facility] Rx#:[id number] Oral 120 Output: Chest Tube Drainage 247 160 20 Left Pleural 107 70 10 Mediastinal 140 90 10 Urine 350 315 655 Other: Voiding Method Indwelling Catheter Indwelling Catheter ABP, PAP, CO, CI - Last Documented Arterial Blood Pressure 150/47 Pulmonary Artery Pressure 26/8 Cardiac Output 3.8 Cardiac Index 2 - Exam Gen.: Revealed a 71-year-old female in no distress. On room air. HEENT: Atraumatic, normocephalic, no neck masses, no JVD, no stridor. RESPIRATORY: Symmetrical chest expansion, slightly diminished breath sounds at the bases no rhonchi no wheezes. CARDIOVASCULAR: Distant S1 and S2, no S3 gallop. GASTROINTESTINAL: Soft nontender no megaly no rebound no guarding. INTEGUMENTARY: No skin rashes, mid sternal incision is clean. NEUROLOGIC: Alert and oriented 3 focal deficits. MUSKULOSKELETAL: No deformities and no limitation in range of motion. PSYCHIATRIC: Alert and oriented 3 no gross focal deficits. - Labs CBC & Chem 7: 12/06/21 05:00 12/06/21 05:00 Labs: Abnormal Lab Results - Last 24 Hours (Table) 12/05/21 12/05/21 12/06/21 Range/Units 16:43 20:35 05:00 RBC 2.65 L (3.80-5.40) m/uL Hgb 8.5 L (11.4-16.0) gm/dL Hct 25.6 L (34.0-46.0) % Plt Count 88 L (150-450) k/uL Lymphocytes # 0.8 L (1.0-4.8) k/uL Sodium (137-145) mmol/L Creatinine (0.52-1.04) mg/dL Glucose (74-99) mg/dL POC Glucose (mg/dL) 124 H 151 H (70-110) mg/dL Calcium (8.4-10.2) mg/dL AST (14-36) U/L Total Protein (6.3-8.2) g/dL Albumin (3.5-5.0) g/dL 12/06/21 12/06/21 12/06/21 Range/Units 05:00 06:52 11:35 RBC (3.80-5.40) m/uL Hgb (11.4-16.0) gm/dL Hct (34.0-46.0) % Plt Count (150-450) k/uL Lymphocytes # (1.0-4.8) k/uL Sodium 134 L (137-145) mmol/L Creatinine 0.50 L (0.52-1.04) mg/dL Glucose 136 H (74-99) mg/dL POC Glucose (mg/dL) 143 H 120 H (70-110) mg/dL Calcium 8.0 L (8.4-10.2) mg/dL AST 45 H (14-36) U/L Total Protein 5.1 L (6.3-8.2) g/dL Albumin 3.4 L (3.5-5.0) g/dL Assessment and Plan Assessment: Impression: Severe aortic stenosis, status post AVR postoperative day #2 Paroxysmal atrial fibrillation. Anemia Benign essential hypertension Degenerative joint disease History of psoriasis GERD without esophagitis Postoperative atelectasis, expected. Recommendation: Continue aspirin statins beta blockers and Plavix Continue to monitor hemodynamics and blood pressure and address accordingly. Continue ambulation. Patient is already ambulating with assistance in the hallway. Continue incentive spirometry. Continue GI and DVT prophylaxis. We'll continue to follow. Time with Patient: Less than 30
[2021-12-06] MEDS: lisinopriL 5 MG TAB PO SCH ×2 (12:54→12:58)
--- NOTE | 2021-12-06 14:41 | PN ---
PROGRESS NOTE FOLLOW-UP NOTE: Dara is a 71-year-old lady who underwent aortic valve replacement for severe aortic stenosis. Postoperative day #2, she is doing well and is free of symptoms, remains in normal sinus rhythm. Heart rate is 78 beats per minute. Blood pressure is 106/64. Respiratory rate is 18. Chest exam reveals diminished air entry at the bases. Heart exam reveals first and second heart sounds. No gallop. No murmur. Examination of the extremities reveals mild edema. Labs show a hemoglobin of 8.5. Potassium is 4. Creatinine is 0.5. She is currently on amiodarone, aspirin, Lipitor, Plavix, Lopressor 25 b.i.d. ASSESSMENT: 1. Aortic stenosis, status post aortic valve replacement. 2. Paroxysmal atrial fibrillation, status post left atrial appendage clipping. PLAN: Patient is doing well. She will work on incentive spirometry. MMODL / IJN: [id number] /
--- NOTE | 2021-12-06 15:42 | P.PN ---
Subjective Progress Note Date: 12/06/21 Principal diagnosis: Status post coronary bypass surgery Patient is feeling better today. She had walked around the hallway 3 times this morning. She felt okay afterwards. Breathing is improved. No significant chest pain. Mediastinal chest tube was discontinued. Objective - Vital Signs Vital signs: Vital Signs Temp 98.6 F 12/06/21 12:00 Pulse 81 12/06/21 15:00 Resp 25 H 12/06/21 15:00 BP 123/57 12/06/21 15:00 Pulse Ox 93 L 12/06/21 15:00 FiO2 50 12/04/21 16:01 Intake & Output 12/05/21 12/06/21 12/06/21 18:59 06:59 18:59 Intake Total 1691.155 693.201 415.2 Output Total 597 475 675 Balance 1094.155 218.201 -259.8 Weight 86.7 kg 89.7 kg Intake: IV 1634 552 168 Albumin Human 5% 250 ml 1000 In Empty Bag 1 bag @ 250 mls/hr IVPB Q1HR PRN Rx#: [id number] CO/CI 30 Lactated Ringers 1,000 ml 50 440 150 @ 20 mls/hr IV .Q24H [facility] Rx#:[id number] Pressure Bags 84 72 18 ceFAZolin 2 gm In Sodium 470 40 Chloride 0.9% 50 ml @ 100 mls/hr IVPB Q8HR [facility] Rx# :[id number] Intake, IV Titration 57.155 141.201 7.2 Amount Clevidipine Butyrate 25 50.000 141.201 7.2 mg In Empty Bag 1 bag @ 1 MG/HR 2 mls/hr IV .Q24H [facility] Rx#:[id number] Insulin Regular 100 unit 7.155 In Sodium Chloride 0.9% 100 ml @ Per Protocol IV .Q0M [facility] Rx#:[id number] Oral 240 Output: Chest Tube Drainage 247 160 20 Left Pleural 107 70 10 Mediastinal 140 90 10 Urine 350 315 655 Other: Voiding Method Indwelling Catheter Indwelling Catheter ABP, PAP, CO, CI - Last Documented Arterial Blood Pressure 150/47 Pulmonary Artery Pressure 26/8 Cardiac Output 3.8 Cardiac Index 2 - Exam Constitutional: No acute distress, conversant, pleasant Eyes:Anicteric sclerae, moist conjunctiva, no lid-lag, PERRLA, ENMT: Oropharynx clear, no erythema, exudates Neck: Supple, FROM, no masses, or JVD, No carotid bruits, No thyromegaly Lungs: Central surgical scar in the chest. Chest tube in place. Clear to auscultation, Clear to percussion, Normal respiratory effort, no accessory muscle use Cardiovascular: Heart regular in rate and rhythm, No murmurs, gallops, or rubs, No peripheral edema Abdominal: Soft, Nontender, no guarding, rebound or rigidity, Normoactive bowel sounds, No hepatomegaly, No splenomegaly, No palpable mass Skin: Normal temperature, tone, texture, turgor, no induration, No subcutaneous nodules, No rash, lesions, No ulcers Extremities: No digital cyanosis, No clubbing, Pedal pulses intact and symmetrical, Radial pulses intact and symmetrical, No calf tenderness Psychiatric: Alert and oriented to person, place and time, appropriate affect, intact judgement Neuro: Muscles Strength 5/5 in all 4 extremities, Sensation to light touch grossly present throughout, Cranial nerves II-XII grossly intact, no focal s ensory deficits - Labs CBC & Chem 7: 12/06/21 05:00 12/06/21 05:00 Labs: Abnormal Lab Results - Last 24 Hours (Table) 12/05/21 12/05/21 12/06/21 Range/Units 16:43 20:35 05:00 RBC 2.65 L (3.80-5.40) m/uL Hgb 8.5 L (11.4-16.0) gm/dL Hct 25.6 L (34.0-46.0) % Plt Count 88 L (150-450) k/uL Lymphocytes # 0.8 L (1.0-4.8) k/uL Sodium (137-145) mmol/L Creatinine (0.52-1.04) mg/dL Glucose (74-99) mg/dL POC Glucose (mg/dL) 124 H 151 H (70-110) mg/dL Calcium (8.4-10.2) mg/dL AST (14-36) U/L Total Protein (6.3-8.2) g/dL Albumin (3.5-5.0) g/dL 12/06/21 12/06/21 12/06/21 Range/Units 05:00 06:52 11:35 RBC (3.80-5.40) m/uL Hgb (11.4-16.0) gm/dL Hct (34.0-46.0) % Plt Count (150-450) k/uL Lymphocytes # (1.0-4.8) k/uL Sodium 134 L (137-145) mmol/L Creatinine 0.50 L (0.52-1.04) mg/dL Glucose 136 H (74-99) mg/dL POC Glucose (mg/dL) 143 H 120 H (70-110) mg/dL Calcium 8.0 L (8.4-10.2) mg/dL AST 45 H (14-36) U/L Total Protein 5.1 L (6.3-8.2) g/dL Albumin 3.4 L (3.5-5.0) g/dL Assessment and Plan Plan: #Severe aortic stenosis status post aortic wall replacement Continue per cardiothoracic surgery recommendations #Paroxysmal atrial fibrillation Status post left atrial appendage ligation and bilateral pulmonary vein isolation #Stress hyperglycemia A1c 5.6 Continue his blood glucose control with a goal of less than 180 Sliding scale insulin Blood glucose controlled #History of TIA Continue antiplatelet statin #Postoperative anemia Hemoglobin, remain stable Platelets remain stable and improving Continue incentive spirometer, increase activity as tolerated Physical and occupational therapy Patient is full code DVT prophylaxis
[2021-12-06 16:40] LABS: Glucose,Whole Blood 119 mg/dL (70-110)
[2021-12-06 20:05] LABS: Glucose,Whole Blood 115 mg/dL (70-110)
[2021-12-06] MEDS: SENNOSIDES-DOCUSATE SODIUM 1 EACH TAB PO SCH (20:19)
[2021-12-06] MEDS: FAMOTIDINE 20 MG TAB PO SCH (20:19)
[2021-12-07] MEDS: HYDROcodone/APAP 5-325MG 1 EACH TAB PO PRN ×2 (05:17→17:43)
[2021-12-07 05:56] LABS: Basophils % (A) 0 %; Eosinophils # (A) 0.1 k/uL (0-0.7); Eosinophils % (A) 2 %; HGB 8.8 gm/dL (11.4-16.0); Lymphocytes # (A) 1.1 k/uL (1.0-4.8); Lymphocytes % (A) 13 %; MCH 32.9 pg (25.0-35.0); MCHC 33.7 g/dL (31.0-37.0); MCV 97.7 fL (80.0-100.0); Mean Platelet Volume 8.5; Monocytes # (A) 0.5 k/uL (0-1.0); Monocytes % (A) 5 %; Neutrophils # (A) 6.8 k/uL (1.3-7.7); Neutrophils % (A) 78 %; Platelet Count 131 k/uL (150-450); RBC 2.66 m/uL (3.80-5.40); RDW 13.6 % (11.5-15.5); WBC 8.7 k/uL (3.8-10.6)
[2021-12-07 06:09] LABS: ALT 18 U/L (4-34); AST 33 U/L (14-36); African American GFR (CKD) >90 (>60 ml/min/1.73 sqM); Albumin 3.5 g/dL (3.5-5.0); Alkaline Phosphatase 53 U/L (38-126); Anion Gap 6 mmol/L; Blood Urea Nitrogen 21 mg/dL (7-17); Calcium 8.3 mg/dL (8.4-10.2); Carbon Dioxide 29 mmol/L (22-30); Chloride 102 mmol/L (98-107); Glucose 102 mg/dL (74-99); Non-African American GFR(CKD) >90 (>60 ml/min/1.73 sqM); Sodium 137 mmol/L (137-145); Total Bilirubin 0.9 mg/dL (0.2-1.3); Total Protein 5.5 g/dL (6.3-8.2)
[2021-12-07 07:01] LABS: Glucose,Whole Blood 105 mg/dL (70-110)
[2021-12-07] MEDS: INSULIN ASPART (NovoLOG) 100 UNIT/ML VIAL SQ SCH ×4 (07:06→21:45)
[2021-12-07] MEDS: IPRATROPIUM-ALBUTEROL 3 ML NEB INHALATION SCH ×4 (07:25→20:33)
--- NOTE | 2021-12-07 07:54 | XR ---
EXAMINATION TYPE: XR chest 1V portable DATE OF EXAM: 12/07/2021 6:02 AM COMPARISON: Chest radiograph from one day prior. TECHNIQUE: XR chest 1V portable Portable AP radiograph of the chest.. CLINICAL INDICATION:Female, 71 years old with history of Postoperative cardiac surgery; FINDINGS: Lungs/Pleura: There is no evidence of pleural effusion, focal consolidation, or pneumothorax. Pulmonary vascularity: Improved mild pulmonary vascular congestion. Heart/mediastinum: Cardiomediastinal silhouette is enlarged and stable. Postoperative changes are pr esent in the mediastinum. Musculoskeletal: No acute osseous pathology. Midline sternotomy wires are noted and stable. IMPRESSION: 1. Improved pulmonary vascular congestion. 2. Similar cardiomegaly.
[2021-12-07] MEDS: MUPIROCIN 2% OINT 22 GM TUBE NASAL SCH ×2 (08:35→20:16)
[2021-12-07] MEDS: CLOPIDOGREL 75 MG TAB PO SCH (08:35)
[2021-12-07] MEDS: ASPIRIN 325 MG TAB PO SCH (08:35)
[2021-12-07] MEDS: HEPARIN SODIUM,PORCINE/PF 5,000 UNIT/0.5 ML SYRINGE SQ SCH ×3 (08:35→23:32)
[2021-12-07] MEDS: ATORVASTATIN 40 MG TAB PO SCH (08:35)
[2021-12-07] MEDS: METOPROLOL TARTRATE 25 MG TAB PO SCH ×2 (08:35→20:15)
[2021-12-07] MEDS ORDERED: POTASSIUM CHLORIDE ER 20 MEQ TAB.ER PO STA (09:36)
[2021-12-07] MEDS ORDERED: FUROSEMIDE 10 MG/ML 4 ML VIAL IV STA (09:36)
--- NOTE | 2021-12-07 09:46 | P.PN ---
Subjective Progress Note Date: 12/07/21 Principal diagnosis: Severe aortic valve stenosis, paroxysmal atrial fibrillation. Past medical history significant for hypertension, hyperlipidemia, osteoarthritis, psoriasis, gastroesophageal reflux disease, degenerative joint disease, remote history of smoking, history of TIAs, with the most recent being in September 2021 and is taking aspirin and Plavix on an outpatient basis. POD #3 aortic valve replacement using a 21 mm Whitney Inspiris prosthetic valve, ligation of the left atrial appendage using a 35 mm Atriclip, bilateral pulmonary vein isolation, intraoperative epi-aortic ultrasound and transesophageal echocardiogram. Postoperative acute blood loss anemia, expected given hemodilution and cardiopulmonary bypass. The patient is seen and examined in follow-up today 12/06/2021 at her bedside in the intensive care unit. Currently, the patient is sitting up to the bedside chair, is awake, alert, oriented 3 and is in no acute apparent distress. She denies any complaints of shortness of breath or pain at this time. Oxygen saturations are 93% on room air and she is achieving 1250 mL on her incentive spirometry and encouragement. Bedside telemetry showing normal sinus rhythm heart rate 70 bpm. She remained hemodynamically stable and is currently on no inotropic or pressor support. Mediastinal chest tube was removed without incident yesterday. Left pleural chest tube remains in place to low continuous wall suction -20 cm H2O. No air leak is present. Draining thin serosanguineous drainage with 200 mL of output in the last 24 hours. Laboratory results this morning show a WBC count of 8.7, hemoglobin 8.8, hematocrit 26.0, platelets 131, sodium 137, potassium 4.0, BUN 21, creatinine 0.64, glucose 102 and calcium 8.3. Atrial and ventricular epicardial pacemaker wires remained in place and are grounded. T-max temperature in the last 24 hours has been 99.9F. The patient was up ambulating in the intensive care unit hallway with standby assistance from nursing staff yesterday. Objective - Vital Signs Vital signs: Vital Signs Temp 98.3 F 12/07/21 08:00 Pulse 64 12/07/21 09:00 Resp 14 12/07/21 09:00 BP 105/56 12/07/21 09:00 Pulse Ox 92 L 12/07/21 09:00 FiO2 50 12/04/21 16:01 Intake & Output 12/06/21 12/07/21 12/07/21 18:59 06:59 18:59 Intake Total 535.2 120 120 Output Total 945 510 Balance -409.8 -390 120 Weight 88.3 kg Intake: IV 168 Lactated Ringers 1,000 ml 150 @ 20 mls/hr IV .Q24H [facility] Rx#:[id number] Pressure Bags 18 Intake, IV Titration 7.2 Amount Clevidipine Butyrate 25 7.2 mg In Empty Bag 1 bag @ 1 MG/HR 2 mls/hr IV .Q24H [facility] Rx#:[id number] Oral 360 120 120 Output: Chest Tube Drainage 40 160 Left Pleural 30 160 Mediastinal 10 Urine 905 350 Other: Voiding Method Bedside Commode Bedside Commode Bedside Commode # Voids 0 0 ABP, PAP, CO, CI - Last Documented Arterial Blood Pressure 150/47 Pulmonary Artery Pressure 26/8 Cardiac Output 3.8 Cardiac Index 2 - Exam CONSTITUTIONAL: Sitting up to the bedside chair in the intensive care unit, appears comfortable, cooperative, no apparent acute distress. HEENT: Neck is supple, no JVD, no lymphadenopathy. RESPIRATORY: Lungs sounds essentially clear throughout, diminished to her bilateral bases. Respirations are symmetrical and nonlabored. Currently on room air with oxygen saturations 93%. Able to achieve 1250 mL on her incentive spirometry. Strong cough. CARDIOVASCULAR: Regular rhythm and rate. S1 and S2 present, negative for S3, gallop or murmur. Sternum is stable. Palpable peripheral pulses bilaterally. No calf pain or tenderness noted. Heart hugger in place with patient demonstrating appropriate use. Knee-high RENZO hose and sequential compression devices in place bilateral lower extremities. Bedside telemetry showing normal sinus rhythm heart rate 70 BPM. GASTROINTESTINAL: Abdomen soft, nontender, nondistended. Active bowel sounds present 4 quadrants. Tolerating diet. Passing flatus. No guarding or rigidity. GENITOURINARY: Continues to void. Output 350 mL in the last 8 hours INTEGUMENTARY: Skin is warm and dry with no evidence of clubbing or cyanosis. Midline sternal incision clean dry and well approximated, covered with dry intact dressing. NEUROLOGIC: Cranial nerves II through XII intact. No focal deficits. MUSKULOSKELETAL: Able to move all extremities, strength equal bilaterally. PSYCHIATRIC: Alert and oriented to person place and time, appropriate affect, intact judgment and insight. INVASIVE LINES AND TUBES: Left pleural chest tubes present and connected to low continuous wall suction, no air leaks present. Left pleural chest tube with 90 mL of thin serosanguineous drainage overnight, 200 mL output in the last 24 hours. Atrial and ventricular epicardial pacemaker wires present, and are g rounded. - Allied health notes Allied health notes reviewed: nursing - Labs CBC & Chem 7: 12/07/21 05:36 12/07/21 05:36 Labs: Abnormal Lab Results - Last 24 Hours (Table) 12/06/21 12/06/21 12/06/21 Range/Units 11:35 16:38 20:04 RBC (3.80-5.40) m/uL Hgb (11.4-16.0) gm/dL Hct (34.0-46.0) % Plt Count (150-450) k/uL BUN (7-17) mg/dL Glucose (74-99) mg/dL POC Glucose (mg/dL) 120 H 119 H 115 H (70-110) mg/dL Calcium (8.4-10.2) mg/dL Total Protein (6.3-8.2) g/dL 12/07/21 12/07/21 Range/Units 05:36 05:36 RBC 2.66 L (3.80-5.40) m/uL Hgb 8.8 L (11.4-16.0) gm/dL Hct 26.0 L (34.0-46.0) % Plt Count 131 L (150-450) k/uL BUN 21 H (7-17) mg/dL Glucose 102 H (74-99) mg/dL POC Glucose (mg/dL) (70-110) mg/dL Calcium 8.3 L (8.4-10.2) mg/dL Total Protein 5.5 L (6.3-8.2) g/dL - Imaging and Cardiology Chest x-ray: report reviewed, image reviewed Assessment and Plan Assessment: 1. Severe aortic valve stenosis, status post aortic valve replacement using a 21 mm Whitney Inspiris prosthetic valve 2. Persistent paroxysmal atrial fibrillation, status post ligation of the left atrial appendage and bilateral pulmonary vein isolation 3. Hypertension 4. Hyperlipidemia 5. History of TIA with most recent TIA in September 2021 6. Osteoarthritis 7. Psoriasis 8. Gastroesophageal reflux disease 9. Remote history of smoking 10. Postoperative acute blood loss anemia, expected given hemodilution and cardiopulmonary bypass Plan: 1. Continue aspirin, statin, Plavix, and beta chika. Will increase metoprolol tartrate as tolerated. 2. Continue lisinopril to 5 mg by mouth daily. 3. Encourage incentive spirometry 10 times every hour while awake. Bronchodilators per pulmonology/critical care medicine. 4. Increase activity as tolerated. PT/OT/cardiac rehab following. 5. Will monitor daily labs and chest x-rays. Electrolyte replacement per protocol. 6. GI/DVT prophylaxis. 7. Pain control with current medication regimen. No Toradol was ordered as the patient has a history of an ALLERGIC reaction to meloxicam. Patient was res tarted on her home dose of [place]. 8. Insulin management per primary care service. Patient is not diabetic, preoperative hemoglobin A1c 5.6% of predicted. 9. Lasix 40 mg IV 1 now, potassium chloride 20 mEq by mouth 1 now. 10. Remove left pleural chest tube. 11. Continue to record strict accurate intake and output. Daily weights. 12. Atrial and ventricular epicardial pacemaker wires are grounded, anticipate removal of atrial and ventricular epicardial pacemaker wires tomorrow morning 12/08/2021. 13. Transfer orders were placed to the third floor cardiac stepdown unit. Anticipate discharge home with home health care in the next 24 hours. 14. More recommendations to follow based on patient's clinical course. Time with Patient: Greater than 30
--- NOTE | 2021-12-07 10:35 | P.PN ---
Subjective Progress Note Date: 12/07/21 Principal diagnosis: Severe aortic stenosis, status post aortic valve replacement postoperative day #3 This is a 71-year-old female whom I saw yesterday on consultation, patient had history of severe aortic stenosis, paroxysmal atrial fibrillation, hypertension dyslipidemia degenerative joint disease, patient underwent uneventful aortic valve replacement using a 21 mm Whitney prosthetic valve, she had ligation of the left atrial appendage, bilateral pulmonary vein isolation, and intraoperative epi-aortic ultrasound and transesophageal echocardiogram. This is postoperative day #1, patient was extubated last night shortly after she arrived to the ICU. Remains in the ICU today, she is on 2 L nasal cannula. Patient is on clevidipine acceptable milligrams per hour. IV fluid at 50 mL per hour in the form of vital are. Continues to have chest tubes in place and right IJ [place]-Opal catheter. Patient is in no distress, seems to be doing well, chest x-ray is unremarkable, minimal bibasilar atelectasis is noted/expected. WBC count is 7.2 hemoglobin is 9.5. Basic metabolic profile is normal renal profile is normal Reevaluated today on 12/06/21, patient is now postoperative #2, aortic valve replacement, patient remains in the ICU, sitting at a bedside chair, patient is on room air, does not seem to be in any distress. Pulling about 1200 mL on her incentive spirometer. Patient is in sinus rhythm, she is on clevidipine drip at 3 mg per hour for blood pressure control. Her right IJ Cordis has been removed. Patient is complaining of some vague chest pain at the surgical site. And she is to receive some pain medication shortly. She has been ambulating in the hallway, and does not seem to be in any form of pulmonary distress. She has good urine output over the last 8 hours. Continues to have a mediastinal left pleural tubes remain in place. No air leak is noted in either chest tube. Serosanguineous drainage is noted. Patient continues to have atrial and ventricular epicardial pacemaker wires. Labs today were unremarkable. Chest x- ray showing mild pulmonary vascular congestion, improved compared to the chest x-ray yesterday reevaluated today on 12/07/21, patient is now postoperative day #3. Patient is doing great, he is on room air, sitting in bed, in no distress. Patient is hemodynamically stable, not requiring any pressors or any inotropes. She is on room air, and O2 saturation is 93%, she is achieving around 1250 mL with incenti ve spirometry. Continues to have left pleural chest tube, it is on wall suction, no air leak noted, drained about 200 mL in the last 24 hours. Her labs showed relatively normal CBC, hemoglobin is 8.8, electrolytes are normal renal profile is normal blood sugar is normal. Chest x-ray is basically unremarkable. Improved vascular congestion compared to yesterday, and there is slight cardiomegaly Objective - Vital Signs Vital signs: Vital Signs Temp 98.3 F 12/07/21 08:00 Pulse 58 L 12/07/21 10:00 Resp 14 12/07/21 10:00 BP 126/59 12/07/21 10:00 Pulse Ox 94 L 12/07/21 10:00 FiO2 50 12/04/21 16:01 Intake & Output 12/06/21 12/07/21 12/07/21 18:59 06:59 18:59 Intake Total 535.2 120 120 Output Total 945 510 0 Balance -409.8 -390 120 Weight 88.3 kg Intake: IV 168 Lactated Ringers 1,000 ml 150 @ 20 mls/hr IV .Q24H [facility]LE[facility] Rx#:[id number] Pressure Bags 18 Intake, IV Titration 7.2 Amount Clevidipine Butyrate 25 7.2 mg In Empty Bag 1 bag @ 1 MG/HR 2 mls/hr IV .Q24H [facility]LEEN Rx#:[id number] Oral 360 120 120 Output: Chest Tube Drainage 40 160 Left Pleural 30 160 Mediastinal 10 Urine 905 350 0 Other: Voiding Method Bedside Commode Bedside Commode Bedside Commode # Voids 0 0 ABP, PAP, CO, CI - Last Documented Arterial Blood Pressure 150/47 Pulmonary Artery Pressure 26/8 Cardiac Output 3.8 Cardiac Index 2 - Exam Gen.: Revealed a 71-year-old female in no distress. On room air. HEENT: Atraumatic, normocephalic, no neck masses, no JVD, no stridor. RESPIRATORY: Symmetrical chest expansion, slightly diminished breath sounds at the bases no rhonchi no wheezes. Left-sided chest tube remains in place, draining 200 mL/serosanguineous drainage since yesterday CARDIOVASCULAR: Distant S1 and S2, no S3 gallop. GASTROINTESTINAL: Soft nontender no megaly no rebound no guarding. INTEGUMENTARY: No skin rashes, mid sternal incision is clean. NEUROLOGIC: Alert and oriented 3 focal deficits. MUSKULOSKELETAL: No deformities and no limitation in range of motion. PSYCHIATRIC: Alert and oriented 3 no gross focal deficits. - Labs CBC & Chem 7: 12/07/21 05:36 12/07/21 05:36 Labs: Abnormal Lab Results - Last 24 Hours (Table) 12/06/21 12/06/21 12/06/21 Range/Units 11:35 16:38 20:04 RBC (3.80-5.40) m/uL Hgb (11.4-16.0) gm/dL Hct (34.0-46.0) % Plt Count (150-450) k/uL BUN (7-17) mg/dL Glucose (74-99) mg/dL POC Glucose (mg/dL) 120 H 119 H 115 H (70-110) mg/dL Calcium (8.4-10.2) mg/dL Total Protein (6.3-8.2) g/dL 12/07/21 12/07/21 Range/Units 05:36 05:36 RBC 2.66 L (3.80-5.40) m/uL Hgb 8.8 L (11.4-16.0) gm/dL Hct 26.0 L (34.0-46.0) % Plt Count 131 L (150-450) k/uL BUN 21 H (7-17) mg/dL Glucose 102 H (74-99) mg/dL POC Glucose (mg/dL) (70-110) mg/dL Calcium 8.3 L (8.4-10.2) mg/dL Total Protein 5.5 L (6.3-8.2) g/dL Assessment and Plan Assessment: Impression: Severe aortic stenosis, status post AVR postoperative day #3 Paroxysmal atrial fibrillation. Anemia Benign essential hypertension Degenerative joint disease History of psoriasis GERD without esophagitis Postoperative atelectasis, improved based on chest x-ray today expected. Recommendation: Continue aspirin statins beta blockers and Plavix Continue to monitor hemodynamics and blood pressure and address accordingly. Continue ambulation. Continue incentive spirometry. Continue GI and DVT prophylaxis. We'll continue to follow. Time with Patient: Less than 30
--- NOTE | 2021-12-07 10:48 | P.PN ---
Subjective Patient was seen and examined intensive care unit. She denies any particular discomfort at this time. Chest tubes and cordis have been removed. Objective - Vital Signs Vital signs: Vital Signs Temp 98.3 F 12/07/21 08:00 Pulse 58 L 12/07/21 10:00 Resp 14 12/07/21 10:00 BP 126/59 12/07/21 10:00 Pulse Ox 94 L 12/07/21 10:00 FiO2 50 12/04/21 16:01 Intake & Output 12/06/21 12/07/21 12/07/21 18:59 06:59 18:59 Intake Total 535.2 120 120 Output Total 945 510 0 Balance -409.8 -390 120 Weight 88.3 kg Intake: IV 168 Lactated Ringers 1,000 ml 150 @ 20 mls/hr IV .Q24H [facility] Rx#:[id number] Pressure Bags 18 Intake, IV Titration 7.2 Amount Clevidipine Butyrate 25 7.2 mg In Empty Bag 1 bag @ 1 MG/HR 2 mls/hr IV .Q24H [facility] Rx#:[id number] Oral 360 120 120 Output: Chest Tube Drainage 40 160 Left Pleural 30 160 Mediastinal 10 Urine 905 350 0 Other: Voiding Method Bedside Commode Bedside Commode Bedside Commode # Voids 0 0 ABP, PAP, CO, CI - Last Documented Arterial Blood Pressure 150/47 Pulmonary Artery Pressure 26/8 Cardiac Output 3.8 Cardiac Index 2 - Exam Awake alert oriented 3, no acute distress Head and neck: Anicteric sclera, extraocular movements intact, no facial asymmetry, oropharyngeal mucosa is moist without any lesions, neck is supple without rigidity, no neck masses or neck vein distention Heart: Regular rhythm and rate, S1, S2; no murmurs rubs or gallops Lungs: Breath sounds present bilateral, no wheezing, rhonchi or crackles; Abdomen: Bowel sounds present throughout, abdomen is soft, nontender, nondisten ded, no involuntary guarding, no hernias or organomegaly, no flank tenderness Extremities: No peripheral edema, no cyanosis, warm well perfused with palpable dorsalis pedis pulses bilateral and good capillary refill, without joint swelling or deformities - Labs CBC & Chem 7: 12/07/21 05:36 12/07/21 05:36 Labs: Abnormal Lab Results - Last 24 Hours (Table) 12/06/21 12/06/21 12/06/21 Range/Units 11:35 16:38 20:04 RBC (3.80-5.40) m/uL Hgb (11.4-16.0) gm/dL Hct (34.0-46.0) % Plt Count (150-450) k/uL BUN (7-17) mg/dL Glucose (74-99) mg/dL POC Glucose (mg/dL) 120 H 119 H 115 H (70-110) mg/dL Calcium (8.4-10.2) mg/dL Total Protein (6.3-8.2) g/dL 12/07/21 12/07/21 Range/Units 05:36 05:36 RBC 2.66 L (3.80-5.40) m/uL Hgb 8.8 L (11.4-16.0) gm/dL Hct 26.0 L (34.0-46.0) % Plt Count 131 L (150-450) k/uL BUN 21 H (7-17) mg/dL Glucose 102 H (74-99) mg/dL POC Glucose (mg/dL) (70-110) mg/dL Calcium 8.3 L (8.4-10.2) mg/dL Total Protein 5.5 L (6.3-8.2) g/dL Assessment and Plan Assessment: #Severe aortic stenosis status post aortic wall replacement Continue per cardiothoracic surgery recommendations #Paroxysmal atrial fibrillation Status post left atrial appendage ligation and bilateral pulmonary vein isolation #Stress hyperglycemia A1c 5.6 Continue his blood glucose control with a goal of less than 180 Transition from insulin drip towards sliding scale insulin #History of TIA Continue antiplatelet statin #Postoperative anemia Hemoglobin, remain stable Platelets remain stable and improving Continue incentive spirometer, increase activity as tolerated Physical and occupational therapy Patient is full code DVT prophylaxis
[2021-12-07 11:48] LABS: Glucose,Whole Blood 100 mg/dL (70-110)
[2021-12-07] MEDS: lisinopriL 5 MG TAB PO SCH (12:47)
--- NOTE | 2021-12-07 14:46 | PN ---
PROGRESS NOTE FOLLOW-UP NOTE: Dara is a 71-year-old lady with aortic stenosis who underwent aortic valve replacement. Today is postoperative day number 3. She is doing well and is free of significant symptoms, remains in sinus rhythm, stable hemodynamically. She is currently on aspirin, Lipitor, Plavix, Zestril 5 mg daily and Lopressor 25 b.i.d. On exam, comfortable at rest. Vital signs are stable. Chest exam reveals diminished air entry at the bases. Heart exam reveals first and second heart sounds. No gallop. No murmur. Abdomen is soft. Examination of extremities reveals mild edema. Peripheral pulses are felt. Labs show a hemoglobin of 8.8, potassium is 4, creatinine is 0.7. ASSESSMENT: Severe aortic stenosis, status post aortic valve replacement. PLAN: Patient is doing well. She will continue current medications and can be moved to [facility]. MMODL / IJN: [id number] /
[2021-12-07 16:01] LABS: Glucose,Whole Blood 76 mg/dL (70-110)
[2021-12-07] MEDS: SENNOSIDES-DOCUSATE SODIUM 1 EACH TAB PO SCH (20:15)
[2021-12-07] MEDS: FAMOTIDINE 20 MG TAB PO SCH (20:15)
[2021-12-07 20:17] LABS: Glucose,Whole Blood 93 mg/dL (70-110)
[2021-12-08] MEDS: HYDROcodone/APAP 5-325MG 1 EACH TAB PO PRN (03:42)
[2021-12-08 06:02] LABS: Glucose,Whole Blood 93 mg/dL (70-110)
[2021-12-08] MEDS: INSULIN ASPART (NovoLOG) 100 UNIT/ML VIAL SQ SCH ×2 (06:26→15:00)
--- NOTE | 2021-12-08 07:38 | XR ---
EXAMINATION TYPE: XR chest 2V DATE OF EXAM: 12/08/2021 COMPARISON: Chest x-ray 12/07/2021 HISTORY: Status post chest tube removal TECHNIQUE: Frontal and lateral views of the chest are obtained. FINDINGS: There is been interval removal of the left chest tube. Patient is post median sternotomy a nd left atrial appendage clip placement. No evident pneumothorax. Cardiac mediastinal silhouette is s table post cardiac valve replacement, there is minimal blunting the costophrenic angles. Interstitium is improved. IMPRESSION: Improvement in volume status, aeration, some residual effusion suspected with associated atelectasis
[2021-12-08] MEDS: IPRATROPIUM-ALBUTEROL 3 ML NEB INHALATION SCH ×3 (08:09→14:59)
[2021-12-08] MEDS: METOPROLOL TARTRATE 25 MG TAB PO SCH (08:34)
[2021-12-08] MEDS: CLOPIDOGREL 75 MG TAB PO SCH (08:34)
[2021-12-08] MEDS: ASPIRIN 325 MG TAB PO SCH (08:34)
[2021-12-08] MEDS: ATORVASTATIN 40 MG TAB PO SCH (08:34)
[2021-12-08] MEDS: HEPARIN SODIUM,PORCINE/PF 5,000 UNIT/0.5 ML SYRINGE SQ SCH (08:34)
[2021-12-08] MEDS ORDERED: ERGOCALCIFEROL 1,250 MCG (50,000 IU) CAPSULE PO SCH (09:00)
[2021-12-08 10:00] LABS: African American GFR (CKD) >90 (>60 ml/min/1.73 sqM); Anion Gap 6 mmol/L; Blood Urea Nitrogen 18 mg/dL (7-17); Calcium 8.2 mg/dL (8.4-10.2); Carbon Dioxide 30 mmol/L (22-30); Chloride 101 mmol/L (98-107); Glucose 109 mg/dL (74-99); Non-African American GFR(CKD) >90 (>60 ml/min/1.73 sqM); Potassium 3.4 mmol/L (3.5-5.1); Sodium 137 mmol/L (137-145)
[2021-12-08 10:25] LABS: HCT 24.1 % (34.0-46.0); HGB 7.9 gm/dL (11.4-16.0); MCHC 32.9 g/dL (31.0-37.0); MCV 97.3 fL (80.0-100.0); Mean Platelet Volume 8.2; Platelet Count 168 k/uL (150-450); RBC 2.48 m/uL (3.80-5.40); RDW 13.4 % (11.5-15.5); WBC 5.4 k/uL (3.8-10.6)
--- NOTE | 2021-12-08 10:33 | P.PN ---
Subjective Progress Note Date: 12/08/21 This is a 71-year-old female whom I saw yesterday on consultation, patient had history of severe aortic stenosis, paroxysmal atrial fibrillation, hypertension dyslipidemia degenerative joint disease, patient underwent uneventful aortic valve replacement using a 21 mm Whitney prosthetic valve, she had ligation of the left atrial appendage, bilateral pulmonary vein isolation, and intraoperative epi-aortic ultrasound and transesophageal echocardiogram. This is postoperative day #1, patient was extubated last night shortly after she arrived to the ICU. Remains in the ICU today, she is on 2 L nasal cannula. Patient is on clevidipine acceptable milligrams per hour. IV fluid at 50 mL per hour in the form of vital are. Continues to have chest tubes in place and right IJ [place]-Opal catheter. Patient is in no distress, seems to be doing well, chest x-ray is unremarkable, minimal bibasilar atelectasis is noted/expected. WBC count is 7.2 hemoglobin is 9.5. Basic metabolic profile is normal renal profile is normal Reevaluated today on 12/06/21, patient is now postoperative #2, aortic valve replacement, patient remains in the ICU, sitting at a bedside chair, patient is on room air, does not seem to be in any distress. Pulling about 1200 mL on her incentive spirometer. Patient is in sinus rhythm, she is on clevidipine drip at 3 mg per hour for blood pressure control. Her right IJ Cordis has been removed. Patient is complaining of some vague chest pain at the surgical site. And she is to receive some pain medication shortly. She has been ambulating in the hallway, and does not seem to be in any form of pulmonary distress. She has good urine output over the last 8 hours. Continues to have a mediastinal left pleural tubes remain in place. No air leak is noted in either chest tube. Serosanguineous drainage is noted. Patient continues to have atrial and ventricular epicardial pacemaker wires. Labs today were unremarkable. Chest x- ray showing mild pulmonary vascular congestion, improved compared to the chest x-ray yesterday reevaluated today on 12/07/21, patient is now postoperative day #3. Patient is doing great, he is on room air, sitting in bed, in no distress. Patient is hemodynamically stable, not requiring any pressors or any inotropes. She is on room air, and O2 saturation is 93%, she is achieving around 1250 mL with incentive spirometry. Continues to have left pleural chest tube, it is on wall suction, no air leak noted, drained about 200 mL in the last 24 hours. Her labs showed relatively normal CBC, hemoglobin is 8.8, electrolytes are normal renal profile is normal blood sugar is normal. Chest x-ray is basically unremarkable. Improved vascular congestion compared to yesterday, and there is slight cardiomegaly The patient is seen today 12/08/2021 in follow-up on the selective care unit. Postoperative day #4 of aortic valve replacement. She is currently sitting up in a chair at the bedside. Awake and alert in no acute distress. She is maintaining good O2 saturations in the 90s on room air. Afebrile. Hemodynamically stable. Chest x-ray showed improvement in volume status, aeration, some residual effusion with associated atelectasis. WBCs 5.4. Hemoglobin 7.9. Platelets 168. Sodium 137. Potassium 3.4. BUN 18. Creatinine 0.64. Glucose 109. Continues to work well with the incentive spirometer. Continues on bronchodilators. Objective - Vital Signs Vital signs: Vital Signs Temp 98.4 F 12/08/21 08:30 Pulse 79 12/08/21 08:30 Resp 16 12/08/21 08:30 BP 122/72 12/08/21 08:30 Pulse Ox 97 12/08/21 08:30 FiO2 50 12/04/21 16:01 Intake & Output 12/07/21 12/08/21 12/08/21 18:59 06:59 18:59 Intake Total 360 120 Output Total 850 550 Balance -490 -550 120 Weight 86.5 kg Intake: Oral 360 120 Output: Urine 850 550 Other: Voiding Method Toilet Toilet # Voids 0 1 # Bowel Movements 1 ABP, PAP, CO, CI - Last Documented Arterial Blood Pressure 150/47 Pulmonary Artery Pressure 26/8 Cardiac Output 3.8 Cardiac Index 2 - Exam GENERAL EXAM: Alert, active, pleasant 71-year-old female, on room air, comfortable in no apparent distress. HEAD: Normocephalic. EYES: Normal reaction of pupils, equal size. NOSE: Clear with pink turbinates. THROAT: No erythema or exudates. NECK: No masses, no JVD. CHEST: No chest wall deformity. Heart however in place. Pacer wires in place LUNGS: Equal air entry with faint crackles in the posterior bases. CVS: S1 and S2 normal with no audible murmur, regular rhythm. ABDOMEN: No hepatosplenomegaly, normal bowel sounds, no guarding or rigidity. SPINE: No scoliosis or deformity SKIN: No rashes CENTRAL NERVOUS SYSTEM: No focal deficits, tone is normal in all 4 extremities. EXTREMITIES: There is no peripheral edema. No clubbing, no cyanosis. Peripheral pulses are intact. - Labs CBC & Chem 7: 12/07/21 05:36 12/08/21 09:13 Labs: Abnormal Lab Results - Last 24 Hours (Table) 12/08/21 Range/Units 09:13 Potassium 3.4 L (3.5-5.1) mmol/L BUN 18 H (7-17) mg/dL Glucose 109 H (74-99) mg/dL Calcium 8.2 L (8.4-10.2) mg/dL Assessment and Plan Assessment: 1 Severe aortic stenosis, status post AVR postoperative day #4 2 Paroxysmal atrial fibrillation 3 Anemia, as an expected postoperative finding, current hemoglobin 7.9 4 Benign essential hypertension 5 Degenerative joint disease 6 History of psoriasis 7 GERD without esophagitis 8 Postoperative atelectasis, improved based on chest x-ray today, expected Plan: The patient was seen and evaluated Chest x-ray, labs and medications reviewed Currently stable and on room air Continue to work with the incentive spirometer Increase her activity as tolerated Home once cleared by CT services I have personally seen and examined the patient, performed the documentation and the assessment and plan as written. Number of minutes spent on the visit: 10.
[2021-12-08 11:25] LABS: Glucose,Whole Blood 92 mg/dL (70-110)
[2021-12-08] MEDS ORDERED: POTASSIUM CHLORIDE ER 20 MEQ TAB.ER PO STA (11:39)
[2021-12-08] MEDS ORDERED: FUROSEMIDE 10 MG/ML 4 ML VIAL IV STA (11:39)
--- NOTE | 2021-12-08 11:47 | P.PN ---
Subjective Progress Note Date: 12/08/21 Principal diagnosis: Severe aortic valve stenosis. Previous medical history of paroxysmal atrial fibrillation, hypertension, hyperlipidemia, osteoarthritis, psoriasis, gastroesophageal reflux disease, degenerative joint disease, previous tobacco dependence, history of TIAs with most recent being in September 2021 POD #4 aortic valve replacement using a 21 mm Whitney Inspiris prosthetic valve, ligation of the left atrial appendage using a 35 mm Atriclip, bilateral pulmonary vein isolation, intraoperative epi-aortic ultrasound and transesophageal echocardiogram. Postoperative acute blood loss anemia, expected given hemodilution and cardiopulmonary bypass. The patient was seen and examined this morning sitting up in a recliner on the cardiac stepdown unit in no acute distress. Remains in sinus rhythm and hemodynamically stable. Denies any pain or shortness of breath. She has been ambulatory without difficulty. Epicardial pacemaker wires were discontinued this morning without incident. Patient still needs first postoperative shower, otherwise she feels prepared to be discharged to home this afternoon. Objective - Vital Signs Vital signs: Vital Signs Temp 98.4 F 12/08/21 08:30 Pulse 70 12/08/21 11:24 Resp 16 12/08/21 08:30 BP 122/72 12/08/21 08:30 Pulse Ox 97 12/08/21 08:30 FiO2 50 12/04/21 16:01 Intake & Output 12/07/21 12/08/21 12/08/21 18:59 06:59 18:59 Intake Total 360 120 Output Total 850 550 Balance -490 -550 120 Weight 86.5 kg Intake: Oral 360 120 Output: Urine 850 550 Other: Voiding Method Toilet Toilet Toilet # Voids 0 1 # Bowel Movements 1 ABP, PAP, CO, CI - Last Documented Arterial Blood Pressure 150/47 Pulmonary Artery Pressure 26/8 Cardiac Output 3.8 Cardiac Index 2 - Exam CONSTITUTIONAL: Appears comfortable, cooperative, no acute distress RESPIRATORY: Lungs sounds diminished bilaterally. Respirations even, nonlabored. Currently on room air with oxygen saturation 97%. Able to achieve 1000 mL on incentive spirometry. Strong cough. CARDIOVASCULAR: S1, S2 present. Regular rate and rhythm, sinus rhythm on telemetry. Sternum stable. Palpable peripheral pulses bilaterally. No edema present. No calf pain or tenderness noted. Heart hugger in place with patient demonstrating appropriate use. Antiembolism stockings, SCDs present. GASTROINTESTINAL: Abdomen soft, nontender, nondistended. Active bowel sounds present 4 quadrants. Tolerating diet. Positive bowel movement 12/07 GENITOURINARY: Continues to void INTEGUMENTARY: Skin is warm and dry with evidence of good perfusion. Anterior chest incision well approximated and covered with dry intact dressing. NEUROLOGIC: Cranial nerves II through XII intact MUSKULOSKELETAL: Able to move all extremities, strength equal bilaterally, gait normal PSYCHIATRIC: Alert and oriented to person place and time, appropriate affect, intact judgment and insight - Allied health notes Allied health notes reviewed: nursing - Labs CBC & Chem 7: 12/08/21 09:13 12/08/21 09:13 Labs: Abnormal Lab Results - Last 24 Hours (Table) 12/08/21 12/08/21 Range/Units 09:13 09:13 RBC 2.48 L (3.80-5.40) m/uL Hgb 7.9 L (11.4-16.0) gm/dL Hct 24.1 L (34.0-46.0) % Potassium 3.4 L (3.5-5.1) mmol/L BUN 18 H (7-17) mg/dL Glucose 109 H (74-99) mg/dL Calcium 8.2 L (8.4-10.2) mg/dL - Imaging and Cardiology Chest x-ray: report reviewed, image reviewed Assessment and Plan Assessment: 1. Severe aortic valve stenosis, status post aortic valve replacement 2. History of paroxysmal atrial fibrillation, status post bilateral pulmonary vein isolation, ligation of the left atrial appendage 3. Hypertension 4. Hyperlipidemia 5. Osteoarthritis 6. Psoriasis 7. Gastroesophageal reflux disease 8. Degenerative joint disease 9. Previous tobacco dependence 10. History of TIAs with most recent being in September 2021 11. Postoperative acute blood loss anemia Plan: 1. Continue aspirin, statin, Plavix, lisinopril, and beta chika. Will increase metoprolol tartrate as tolerated. 2. Encourage incentive spirometry 10 times every hour while awake. Bronchodilators per pulmonology 3. Increase activity as tolerated. PT/OT/cardiac rehab following. 4. Will monitor daily labs and chest x-rays. Electrolyte replacement per protocol. Will give 40 mg IV push Lasix today 5. GI/DVT prophylaxis. 6. Pain control with current medication regimen 7. Insulin management per primary care service. Patient is not diabetic, preoperative hemoglobin A1c 5.6% of predicted. 8. Strict accurate intake and output. Daily weights. 9. Atrial and ventricular epicardial pacemaker discontinued without incident. Patient to remain on bedrest for 1 hour post-wire removal 10. Discharge planning in progress. Anticipate discharge to home with home care this afternoon
[2021-12-08] MEDS: lisinopriL 5 MG TAB PO SCH (12:54)
[2021-12-08 13:11] VITALS: BP 114/69; PULSE 73; RESP 18; TEMP 99
--- NOTE | 2021-12-08 14:05 | P.PN ---
Subjective Progress Note Date: 12/08/21 HISTORY OF PRESENT ILLNESS: Patient is POD #4 aortic valve replacement. Patient examined this morning She is sitting up in the chair. Patient denies chest pain or pressure. She denies shortness of breath. Telemetry reveals sinus mechanism. Vital signs are stable. PHYSICAL EXAM: VITAL SIGNS: Reviewed. GENERAL: Well-developed in no acute distress. NECK: Supple. No JVD or thyromegaly LUNGS: Respirations even and unlabored. Lungs essentially clear to auscultation bilaterally. HEART: Regular rate and rhythm. S1 and S2 heard. EXTREMITIES: Normal range of motion. No clubbing or cyanosis. Peripheral pulses intact. No lower extremity edema ASSESSMENT: Severe aortic stenosis, status post aortic valve replacement History of paroxysmal atrial fibrillation Hypertension Hyperlipidemia History of TIA PLAN: Continue postoperative management per cardiothoracic surgery Continue current cardiac medications Increase activity as tolerated Encourage use of incentive spirometer Patient is stable to be discharged home today from a cardiac standpoint with close outpatient follow-up Nurse practitioner note has been reviewed by physician. Signing provider agrees with the documented findings, assessment, and plan of care. Objective - Vital Signs Vital signs: Vital Signs Temp 99 F 12/08/21 12:50 Pulse 73 12/08/21 12:50 Resp 18 12/08/21 12:50 BP 114/69 12/08/21 12:50 Pulse Ox 97 12/08/21 12:50 FiO2 50 12/04/21 16:01 Intake & Output 12/07/21 12/08/21 12/08/21 18:59 06:59 18:59 Intake Total 360 120 Output Total 850 550 Balance -490 -550 120 Weight 86.5 kg Intake: Oral 360 120 Output: Urine 850 550 Other: Voiding Method Toilet Toilet Toilet # Voids 0 1 # Bowel Movements 1 ABP, PAP, CO, CI - Last Documented Arterial Blood Pressure 150/47 Pulmonary Artery Pressure 26/8 Cardiac Output 3.8 Cardiac Index 2 - Labs CBC & Chem 7: 12/08/21 09:13 12/08/21 09:13 Labs: Abnormal Lab Results - Last 24 Hours (Table) 12/08/21 12/08/21 Range/Units 09:13 09:13 RBC 2.48 L (3.80-5.40) m/uL Hgb 7.9 L (11.4-16.0) gm/dL Hct 24.1 L (34.0-46.0) % Potassium 3.4 L (3.5-5.1) mmol/L BUN 18 H (7-17) mg/dL Glucose 109 H (74-99) mg/dL Calcium 8.2 L (8.4-10.2) mg/dL
--- NOTE | 2021-12-08 15:50 | P.DS ---
Providers Date of admission: 12/04/21 05:49 Expected date of discharge: 12/08/21 Attending physician: David Sabillon Consults: 12/04/21 13:16 Consult Physician Routine Consulting Provider: Danitza Tellez Consult Reason/Comments: Group Counselor Consult: post cardiac surgery Do you want consulting provider notified?: Yes Placement Type Exists?: Yes Consult Physician Routine Consulting Provider: Kiki Brody Consult Reason/Comments: medical management Do you want consulting provider notified?: Yes Placement Type Exists?: Yes Consult Physician Routine Consulting Provider: Sabra Raya Consult Reason/Comments: 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 Severe aortic valve stenosis, status post aortic valve replacement 2. History of paroxysmal atrial fibrillation, status post bilateral pulmonary vein isolation, ligation of the left atrial appendage 3. Hypertension 4. Hyperlipidemia 5. Osteoarthritis 6. Psoriasis 7. Gastroesophageal reflux disease 8. Degenerative joint disease 9. Previous tobacco dependence 10. History of TIAs with most recent being in September 2021 11. Postoperative acute blood loss anemia PRINCIPAL PROCEDURE: 1. Aortic valve replacement using a 21 mm Whitney Inspiris prosthetic valve 2. Ligation of the left atrial appendage using a 35 mm Atriclip 3. Bilateral pulmonary vein isolation 4. Intraoperative epi-aortic ultrasound 5. Intraoperative transesophageal echocardiogram HISTORY OF PRESENT ILLNESS: This is a 71-year-old female patient who follows on an outpatient basis with Celia Bueno nurse practitioner for her primary care service. She also follows with Dr. Raya for her cardiology care. Recently, the patient has had plates of progressive shortness of breath with minimal activity over the past several months. She also reported some occasional chest pain, fatigue and one month ago had a syncopal episode. Her [place] Heart Association class is II-III symptomatology. In September 2021 she underwent a transthoracic 2-D echocardiogram which showed a normal left ventricular size and systolic function with an ejection fraction of 55-60%, moderate to severe aortic valve stenosis with a peak gradient of 74 mmHg and a mean gradient of 42 mmHg, mild aortic valve regurgitation, mild tricuspid valve regurgitation, and mild subvalvular mitral valve calcification. The patient also had a transesophageal echocardiogram completed in June 2021 which demonstrated a normal left ventricular size and systolic function, left ventricular hypertrophy, severe aortic valve stenosis with a mean gradient of 45 mmHg and an aortic valve by planimetry of 0.9 cm, mild mitral valve, tricuspid valve and aortic valve regurgitation. In August 2021 she underwent a cardiac catheterization performed by Dr. Raya which showed mild obstructive disease to her right coronary artery and left circumflex coronary artery and severe aortic valve stenosis. Due to the patient's symptoms and findings of aortic valve stenosis the patient was referred to the structural heart clinic for evaluation for TAVR. On 09/22/2021 the patient was seen in the structural heart clinic by Dr. Sabillon from cardiothoracic surgery and Dr. Santillan from cardiology, the above-mentioned studies were reviewed with the patient, treatment options were discussed including surgical aortic valve replacement. Risks and benefits of TAVR and surgical aortic valve replacement including the STS risk score and incremental risks were discussed with the patient. With shared decision making she was felt to be a low risk for surgical aortic valve replacement. Knowing and understanding the risks the patient wished to proceed with a surgical aortic valve replacement. HOSPITAL COURSE: The patient was admitted to the hospital on 12/04/2021, after obtaining consent, the patient was taken to the preoperative area, prepared in the usual fashion and subsequently taken to the operating room where Dr. David Sabillon performed an elective aortic valve replacement using a 21 mm Whitney Inspiris prosthetic valve, ligation of the left atrial appendage using a 35 mm Atriclip and bilateral pulmonary vein isolation. Upon completion of the surgery the patient was transferred to the cardiovascular intensive care unit where she was recovered and further monitored hemodynamically. She was extubated, all lines, tubes and supportive drips were discontinued when appropriate and she was transferred to the third floor cardiac stepdown unit for further monitoring and rehabilitation. Her oximetry was titrated down, she continued to work with physical and occupational therapy, was tolerating a normal diet, her pain was well-controlled and he she was ready to be discharged home on postoperative day #4 with [facility]. The patient has received written and verbal instructions regarding her medications, activity restrictions, signs and symptoms requiring physician on medication and her follow-up appointments. Patient Condition at Discharge: Stable Plan - Discharge Summary Discharge Rx Participant: No New Discharge Prescriptions: New Metoprolol Tartrate [Lopressor] 25 mg PO BID #60 tab Sennosides-Docusate Sodium [Senokot-S] 2 each PO HS PRN tab PRN Reason: Constipation Furosemide [Lasix] 20 mg PO DAILY #5 tab Potassium Chloride [Potassium Chloride ER] 20 meq PO DAILY #5 cap Continue Famotidine 40 mg PO HS HYDROcodone/APAP 5-325MG [[place] 5-325] 1 tab PO TID PRN PRN Reason: Pain Clopidogrel [Plavix] 75 mg PO DAILY #21 tab Ergocalciferol [Vitamin D2 (1250 Mcg = 98690 Iu)] 1,250 mcg PO MO Psoriasis Cream 1 dose TOPICAL DIRECTED Aspirin EC [Ecotrin Low Dose] 325 mg PO HS Atorvastatin [Lipitor] 40 mg PO HS #60 tab Changed lisinopriL [Prinivil] 5 mg PO DAILY@1200 #0 Discontinued Mupirocin 2% Oint [Bactroban 2% Oint] 1 applic NASAL BID #22 gm Discharge Medication List Famotidine 40 mg PO HS 06/20/21 [History] Aspirin EC [Ecotrin Low Dose] 325 mg PO HS 10/12/21 [History] HYDROcodone/APAP 5-325MG [[place] 5-325] 1 tab PO TID PRN 10/12/21 [History] Atorvastatin [Lipitor] 40 mg PO HS #60 tab 10/15/21 [Rx] Clopidogrel [Plavix] 75 mg PO DAILY #21 tab 10/15/21 [Rx] Ergocalciferol [Vitamin D2 (1250 Mcg = 65375 Iu)] 1,250 mcg PO MO 11/26/21 [History] Psoriasis Cream 1 dose TOPICAL DIRECTED 11/26/21 [History] Furosemide [Lasix] 20 mg PO DAILY #5 tab 12/08/21 [Rx] Metoprolol Tartrate [Lopressor] 25 mg PO BID #60 tab 12/08/21 [Rx] Potassium Chloride [Potassium Chloride ER] 20 meq PO DAILY #5 cap 12/08/21 [Rx] Sennosides-Docusate Sodium [Senokot-S] 2 each PO HS PRN tab 12/08/21 [Rx] lisinopriL [Prinivil] 5 mg PO DAILY@1200 #0 12/08/21 [Rx] Follow up Appointment(s)/Referral(s): Danitza Tellez MD [STAFF PHYSICIAN] - 12/17/21 1:00 pm Dagmar Prince NPC [Nurse Practitioner] - 12/12/21 10:30 am Sabra Raya MD [STAFF PHYSICIAN] - 12/19/21 3:30 pm (The follow-up visit is with Violetta Raya's nurse practitioner) Shiva Tyler NPC [Nurse Practitioner] - 1 Week Celia Bueno NPC [STAFF PHYSICIAN] - 12/23/21 12:00 pm David Sabillon MD [STAFF PHYSICIAN] - 12/23/21 10:00 am [facility], [NON-STAFF] - 1 Week Ambulatory/Diagnostic Orders: Complete Blood Count w/diff [LAB.AMB] Time Frame: 3 Days, Location: None Selected Comprehensive Metabolic Panel [LAB.AMB] Time Frame: 3 Days, Location: None Selected Patient Instructions/Handouts: Aortic Valve Replacement (DC) Activity/Diet/Wound Care/Special Instructions: DISCHARGE INSTRUCTIONS: 1. No driving for 4 weeks, or until physician gives their ok. 2. The patient should sleep in their own bed, no medical bed needed. 3. Stairs are not an issue. If the bedroom is upstairs, it is advised that the patient go up at night and down in the morning for the first week. Go slowly, using handrail and take 1 step at a time. 4. RENZO hose are to be worn for 30 days or until physician discontinues. 5. Heart hugger is to be worn 100% of the time until physician discontinues.(except when showering) 6. No lifting, pushing, or pulling more than 10 pounds for 12 weeks. The physician will advise of any restriction changes. 7. The patient is expected to continue the prescribed walking program. 8. Continue pain control per as needed orders. 9. Continue with incentive spirometry and splinting/heart hugger until otherwise directed by the physician. 10. Must shower daily using liquid antibacterial soap and a separate white washcloth for each individual incision. 11. Routine sternal incision care. No powders, lotions, ointments on incisions. No dressings are necessary on incisions unless they are draining. Dermabond tape is to remain on sternal incision until surgeon follow-up. 12. Please call surgeon/MARKETING PRODUCTION SPECIALIST for temp greater than 101 F or purulent drainage from incisions. 13. You should weigh yourself daily, record and bring log with you to follow up appointments. 14. All prescriptions given by surgeon for 30 days. Refills need to be filled through account manager relief/primary care physician. 15. A Red armband has been placed on the patient. It should be worn for 30 days post surgery and will be removed by the cardiac surgeons. If an ER visit is necessary, please make sure the number on the Red armband is called. 16. You have been referred to and are expected to begin Cardiac Rehab in approximately 4-6 weeks. HOME HEALTH SERVICES TO PROVIDE: RN SKILLED HOME CARE SERVICES FOR POST-OP SURGICAL PATIENTS WITH THE FOLLOWING: Coronary Artery Bypass Surgery (CABG), Mitral Valve Replacement/Repair ( MVR), Aortic Valve Replacement/Repair (AVR) RN TO CONTINUE EDUCATION FROM ``ROAD TO A HEALTH HEART PATIENT EDUCATION MANUAL (GIVEN TO PATIENT IN THE HOSPITAL) MEDICATION RECONCILIATION WITH EDUCATION NEEDED ON FIRST HOME VISIT EMPHASIZE IMPORTANCE OF WEARING BREAST SUPPORT/HEART HUGGER ENCOURAGE USE OF INCENTIVE SPIROMETER 10 X EVERY HOUR WHILE AWAKE ENCOURAGE UTILIZATION OF LOWER EXTREMITY COMPRESSION STOCKINGS/RENZO HOSE and ELEVATE LEGS ABOVE LEVEL OF HEART WHILE AT REST. ENCOURAGE AMBULATION 3-5x/day INCREASING TOLERATES, WHILE AVOIDING EXTREMES IN TEMPERATURE FREQUENCY: RN TO OPEN THE PATIENT WITHIN 24 HOURS OF DISCHARGE FROM THE HOSPITAL WITH TELEHEALTH INSTALLED AT [facility], RN TO VISIT 2-3 X A WEEK FOR 4 WEEKS ESTABLISHED BY PATIENT NEEDS. LABORATORY: CBC, CMP TO BE DRAWN ON THE THIRD DAY HOME, (RAN STAT) FAX RESULTS TO [phone]. TELEHEALTH PARAMETERS: WEIGHT: NOTIFY MD OF WEIGHT GAIN OF 2 LBS IN 24 HOURS OR 5 LBS IN ONE WEEK HR: NOTIFY MD OF HR <55 BPM OR HR>100 BPM BP: NOTIFY MD IF BP <90/55 OR BP>140/100 O2 SAT: NOTIFY MD IF PO2<93% ON ROOM AIR SEND TELEHEALTH REPORT TO HR RECRUITER AND CARDIOVASCULAR SURGEON THE FIRST WEEK OF CARE AND THEN BI-WEEKLY. PLEASE ADDITIONALLY COMMUNICATE ANY ABNORMALS AND NEW FINDINGS TO THE SURGEONS OFFICE. Discharge Disposition: HOME WITH HOME HEALTH SERVICES
== END 2021-12-08 16:43 | disposition home health service (06) | DRG 220 ==
LOC: 2ORMAIN 05:49 → 2SICU 12:28 → 3SCARD 12-07 18:30
PROVIDERS: ADMIT Surgery; ATTEND Surgery
PROC: 5A1221Z Performance of Cardiac Output, Continuous (ICD-10-PCS; 2021-12-04)
PROC: 02HP32Z Insertion of Monitoring Device into Pulmonary Trunk, Percutaneous Approach (ICD-10-PCS; 2021-12-04)
PROC: 02RF08Z Replacement of Aortic Valve with Zooplastic Tissue, Open Approach (ICD-10-PCS; principal; 2021-12-04 08:00)
PROC: 02L70CK Occlusion of Left Atrial Appendage with Extraluminal Device, Open Approach (ICD-10-PCS; 2021-12-04 08:00)
DX: I35.0 Nonrheumatic aortic (valve) stenosis (principal); D62 Acute posthemorrhagic anemia; I10 Essential (primary) hypertension; I48.0 Paroxysmal atrial fibrillation; E78.5 Hyperlipidemia, unspecified; M19.90 Unspecified osteoarthritis, unspecified site; K21.9 Gastro-esophageal reflux disease without esophagitis; L40.9 Psoriasis, unspecified; E87.8 Other disorders of electrolyte and fluid balance, not elsewhere classified; Z79.02 Long term (current) use of antithrombotics/antiplatelets; Z79.82 Long term (current) use of aspirin; Z79.899 Other long term (current) drug therapy; Z95.1 Presence of aortocoronary bypass graft; Z90.711 Acquired absence of uterus with remaining cervical stump; Z87.891 Personal history of nicotine dependence; Z86.73 Personal history of transient ischemic attack (TIA), and cerebral infarction without residual deficits; Z80.8 Family history of malignant neoplasm of other organs or systems; Z88.1 Allergy status to other antibiotic agents; Z88.8 Allergy status to other drugs, medicaments and biological substances
CPT/HCPCS: 71045; 71046; 80048; 80053; 82330; 82805; 83735; 85025; 85027; 85520; 85610; 85730; 86850; 86891; 86900; 86901; 86920; 88305; 88311; 94002; 94640

== ENCOUNTER → 2023-08-30 | Outpatient (CLI) | payer MEDICARE ==
[2023-08-30 19:03] LABS: ALT 13 U/L (8-44); AST 14 U/L (13-35); Chol/HDL Ratio 4.78 Ratio; LDL Cholesterol,Calculated 157.3 mg/dL (0.0-131.0)
== END | disposition home or self-care (01) ==
LOC: LABWHC1 11:25
PROVIDERS: ATTEND Internal Medicine Interventional Cardiology
DX: E78.2 Mixed hyperlipidemia (principal)
CPT/HCPCS: 36415; 80061; 84450; 84460

== ENCOUNTER → 2024-08-29 | Outpatient (CLI) | payer MEDICARE ==
[2024-08-29 15:17] LABS: ALT 15 U/L (8-44); AST 20 U/L (13-35); Albumin 3.9 g/dL (3.8-4.9); Albumin/Globulin Ratio 2.17 Ratio (1.60-3.17); Alkaline Phosphatase 98 U/L (41-126); Blood Urea Nitrogen 11.2 mg/dL (9.0-27.0); Calcium 9.2 mg/dL (8.7-10.3); Chloride 108 mmol/L (96-109); Chol/HDL Ratio 2.46 Ratio; Globulin 1.8 g/dL (1.6-3.3); Glucose 108 mg/dL (70-110); LDL Cholesterol,Calculated 63.1 mg/dL (0.0-131.0); Potassium 4.3 mmol/L (3.5-5.5); Sodium 145 mmol/L (135-145); Total Bilirubin 0.5 mg/dL (0.3-1.2); Total Protein 5.7 g/dL (6.2-8.2)
== END | disposition home or self-care (01) ==
LOC: LABWHC1 09:13
PROVIDERS: ATTEND Internal Medicine Interventional Cardiology
DX: E78.2 Mixed hyperlipidemia (principal)
CPT/HCPCS: 36415; 80053; 80061